=== PATIENT | female | born 1940 | race Caucasian/White ===

== ENCOUNTER 2021-07-23 13:07 | Observation (INO) ==
[2021-07-23 14:05] LABS: Basophils # (auto) 0.02 K/uL (0-0.2); Basophils % (auto) 0.3 %; Eosinophils # (auto) 0.04 K/uL (0-0.5); Eosinophils % (auto) 0.6 %; Hematocrit (blood only) 40.1 % (37-47); Hemoglobin 13.3 g/dL (12.0-16.0); Immature Granulocytes # (auto) 0.05 K/uL (0.00-0.02); Immature Granulocytes % (auto) 0.8 %; Lymphocytes # (auto) 0.87 K/uL (1.2-3.4); Lymphocytes % (auto) 13.1 %; Mean Corpuscular Hemoglobin 30.6 pg (25-34); Mean Corpuscular Hgb Conc 33.2 g/dL (32-36); Mean Corpuscular Volume 92.2 fL (80-100); Mean Platelet Volume 10.9 fL (7.4-10.4); Monocytes # (auto) 0.62 K/uL (0.11-0.59); Monocytes % (auto) 9.3 %; Neutrophils # (auto) 5.04 K/uL (1.4-6.5); Neutrophils % (auto) 75.9 %; Platelet Count 197 K/uL (130-400); RDW Coefficient of Variation 14.1 % (11.5-14.5); RDW Standard Deviation 48.5 fL (36.4-46.3); Red Blood Count 4.35 M/uL (4.2-5.4); White Blood Count 6.64 K/uL (4.8-10.8)
[2021-07-23 14:24] LABS: BUN Creatinine Ratio 25.9 (10-20); Calcium 9.1 mg/dl (8.5-10.1); Creatinine Clr Calc Pharmacy 41.6 ml/min; Est GFR (African American) 61.1 ml/min; Est GFR (Non-African American) 52.7 ml/min; Potassium 3.7 mmol/L (3.5-5.1)
--- NOTE | 2021-07-23 14:31 | XRay Report ---
XR chest 1V portable HISTORY: 81 years-old Female weakness acute weakness COMPARISON: Chest radiographs 09/22/2012 TECHNIQUE: Portable upright AP view the chest FINDINGS: There is a fractured 3.4 cm needle of the lateral aspect of the lower right upper arm. Degenerative c hanges of the shoulders and spine include severe left glenohumeral osteoarthritis. The heart is upper limits of normal in size. Calcified plaque the thoracic aorta. No pneumothorax, pl eural effusion, airspace consolidation or overt pulmonary edema. IMPRESSION: 1. No acute cardiopulmonary abnormality. 2. 3.4 cm fractured needle foreign body of the right upper arm. ACT 112: Negative or not required by law. The above report was generated using voice recognition software. It may contain grammatical, syntax o r spelling errors. Electronically signed by: Ariel Real M.D. 07/23/2021 2:30 PM
[2021-07-23 14:35] LABS: Albumin Globulin Ratio 0.9 (0.9-2); Bilirubin,Total 0.6 mg/dl (0.2-1); Globulin 3.4 gm/dl (2.5-4.0); Thyroid Stimulating Hormone 0.862 uIu/ml (0.300-4.500); Total Protein 6.4 gm/dl (6.4-8.2)
[2021-07-23 14:53] LABS: Appearance Urine Cloudy (Clear); Bacteria Urine Automated Negative (Negative); Bilirubin Urine Negative (Negative); Blood Urine Negative (Negative); Color Urine Dark Yellow; Epithelial Cell Urine Auto >30 /lpf (0-5); Glucose Urine UA Negative (Negative); Ketones Urine 1+ (Negative); Leukocyte Esterase Urine 1+ (Negative); Nitrite Urine Negative (Negative); Protein Urine Negative (Negative); Urobilinogen Urine Negative (Negative); pH Urine 5.5 (4.5-7.5)
[2021-07-23 15:41] LABS: Calcium Oxalate Crystals Urine Present (None Prsent); RBC Urine Automated 0-4 /hpf (0-4)
--- NOTE | 2021-07-23 16:19 | XRay Report ---
XR ankle LT min 3V routine CLINICAL HISTORY: non-traumatic pain COMPARISON: Left foot radiographs November 02, 2019. MRI of the left foot November 11, 2019. FINDINGS: Pes planus deformity is noted on lateral projection. This is unchanged since prior radiogr aphs. Lateral ankle soft tissue swelling is noted. There is no acute fracture within the left ankle. There is suspected osteopenia. IMPRESSION: 1. No acute fracture or dislocation within the left ankle. 2. Lateral ankle soft tissue swelling. 3. Pes planus deformity. ACT 112: Negative or not required by law. Electronically signed by: Dmitriy Bills M.D. 07/23/2021 4:17 PM
--- NOTE | 2021-07-23 16:20 | XRay Report ---
XR hip LT min 2V HISTORY: 81 years-old Female pain, no trauma acute left hip pain status post fall COMPARISON: KUB 09/27/2012 TECHNIQUE: 2 views of the left hip FINDINGS: Demineralized appearance of the bones. Mild to moderate left hip osteoarthritis. No acute fracture, d islocation or avascular necrosis. IMPRESSION: No acute fracture or dislocation. ACT 112: Negative or not required by law. The above report was generated using voice recognition software. It may contain grammatical, syntax o r spelling errors. Electronically signed by: Ariel Real M.D. 07/23/2021 4:19 PM
--- NOTE | 2021-07-23 16:20 | XRay Report ---
XR ankle RT min 3V routine CLINICAL HISTORY: non-traumatic pain COMPARISON: None FINDINGS: Alignment of the right ankle is anatomic. There is no acute fracture. Mild plantar calcane al spurring is noted. There is mild osteophytosis is present. There is probable osteopenia. IMPRESSION: No acute fracture or dislocation within the left ankle. ACT 112: Negative or not required by law. Electronically signed by: Dmitriy Bills M.D. 07/23/2021 4:18 PM
--- NOTE | 2021-07-23 17:30 | Emergency Department Note ---
Impression & Plan Generalized weakness, Bilateral edema of lower extremity, DVT (deep venous thrombosis) ED Provider Note INFORMANT: Patient ED PROVIDER(S): Abdulaziz Kumar MD CHIEF COMPLAINT: Weakness PLAN: Disposition: Admitted Condition: Good Outpatient prescription management: none Referral: None MEDICAL DECISION MAKING: Patient presented due to weakness. She also noted lower extremity edema. She was complaining of pain in the ankles as well. Chest x-ray was performed and was negative. Her x-rays of her left hip on the left as well as both ankles did not reveal acute pathology. Had unremarkable blood work. The patient's ECG did not reveal any acute findings. Ultrasound imaging was performed of the lower extremities and was positive for left sided. There was question about it to the artery aneurysm as well. Bowers's cyst noted. I discussed the case with the patient's daughter at her request. The daughter noted patient has had a significant decline recently. She has not been doing well and seems to be having issues with depression. I discussed admission to the hospital for further management and the patient and daughter were very much in agreement. Consultation was made with the [facility] service. Patient evaluated in the ER and admitted for further management. Triage Nursing notes reviewed and agree them. Vital Signs: reviewed and remarkable for no significant abnormalities Differential diagnosis: Infection, dehydration, metabolic abnormality, hypo/hyperglycemia, electrolyte disturbance, anemia, hypoxia, cardiac sources, intracerebral event, toxicologic, neurologic, DVT, infection, as well as other pathologies. Diagnostics interpreted by me: EC Lead ECG performed and revealed Normal sinus rhythym at 80 bpm, normal [place], QRS normal. No elevation or depression. No PACs or PVCs Cardiac Monitoring: Cardiac monitoring ordered by me: The patient was placed on continuous cardiac monitoring and observed. It revealed a normal sinus rhythm at 87 beats per minute without ectopy or evidence of dysrhythmia. Imaging studies: X-ray imaging of the hip, ankle left, ankle right and chest did not reveal any acute pathology. I refer you to the EMR for further details. Of note there was a fractured needle noted in the right arm on chest x-ray. There was no findings that correlated on physical examination. 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 HPI: The patient is a 81 year old female who presents to the Emergency Room with complaints of a fall. This started over the last week and is progressing. The patient also notes the following associated symptoms, bilateral lower extremity leg swelling and scattered bruising. Patient has some chronic pain in her right shoulder and arm that is been going on for many months and is scheduled to see orthopedics. She does not feel that she injured her arm in fall. She denies any significant injury from the fall. The patient has taken no medication for relieving factors. Current pain is rated as 4/10. Pt denies LOC, headache, fevers, chills, diaphoresis, visual changes, neck pain, chest pain, breathing difficulties, nausea, vomiting, abdominal pain, back pain, melena, hematochezia, urinary symptoms, numbness, lymphadenopathy, rash, or other complaints. ROS: See above HPI for pertinent positives & negatives. A total of 10 systems reviewed and were otherwise negative. PAST MEDICAL HISTORY:See Below , degenerative joint disease, osteoarthritis, hypertension 1+ PAST SURGICAL HISTORY:See Below, FAMILY HISTORY:Lives with daughter SOCIAL HISTORY:See Below, HOME MEDICATIONS:See Below ALLERGIES:See Below VITALS:See Below PHYSICAL EXAMINATION: GENERAL: Awake, alert, well-appearing, in no distress HENT: Normocephalic, atraumatic. Oropharynx unremarkable. EYES: Normal conjunctiva. Sclera non-icteric. NECK: Inspection normal. Non-tender. Supple. No nuchal rigidity. FROM. No masses. RESPIRATORY: Clear to auscultation. No wheezes. No rales. Normal respiratory effort. CARDIAC: Normal rate. Normal rhythm. No murmurs. No rubs. Extremities warm and well perfused. Pulses equal. No JVD. GI: Soft, non-distended. No tenderness to palpation. No rebound or guarding. No masses. RECTAL: Deferred. MUSCULOSKELETAL: Atraumatic. Chest examination reveals no tenderness. The back is symmetrical on inspection without obvious abnormality. There is no CVA tenderness to palpation. No joint edema. LOWER EXTREMITIES: Calves are equal size bilaterally and non-tender. 1+ edema. Scattered posterior bruises and ecchymotic. NEURO: Normal sensorium. No sensory or motor deficits noted. SKIN: No rash or jaundice noted. Abdulaziz Kumar MD Past Med/Surg History Medical History (Updated 07/23/21 @ 20:40 by Michael Montano MD) Arthritis Heart enlargement PT REPORTS FOUND HEART ENLARGEMENT AND LIVER ENLARGEMENT FOUND ON MRI IN 2012 WHEN HAD KIDNEY STONES ...TREATED AT [facility] FOR KIDNEY STONES History of anesthesia reaction "BRAIN FOG" AFTER SURGERIES - CAN'T REMEMBER WHAT DAY IT IS FOR AWHILE History of asthma History of falling HX MULTIPLE FALLS, NONE FOR OVER 1 YR History of kidney stones Hypertension Thumb problem Surgical History History of bilateral breast reduction surgery History of cataract surgery RT History of colonoscopy History of dental surgery History of surgery SKIN BOIL LANCED AND REMOVED History of surgery BONE TUMOR REMOVED - LEFT LEG TEENAGER History of surgery CYST ON BACK REMOVED Family History Other Cancer Family history of diabetes mellitus Heart disease Social History Smoking Status: Never smoker Hx Alcohol Use: Yes Hx Substance Use: No Preferred Language: Irish Communication Ability: Effective Callisthenics Instructor Required: No Beliefs That Will Affect Care: None marital status: Single Current Living Situation: Alone Current Living Situation Comment: DAUGHTER LIVES NEAR BY [facility] VISITS HOME HEALTH VISITS ON REQUEST current occupational status: retired Feels Safe at Home: Yes Assistive Devices: Walker and Wheelchair Allergies Allergies Allergy/AdvReac Type Severity Reaction Status Date / Time cefaclor AdvReac Mild NAUSEA Verified 04/09/21 08:54 Home Meds Home Medications Medication Instructions Recorded Confirmed amlodipine 10 mg tablet 10 mg PO HS 08/18/19 07/23/21 cholecalciferol (vitamin D3) 25 1,000 unit PO HS 08/18/19 07/23/21 mcg (1,000 unit) capsule (Vitamin D3) losartan 100 mg tablet 100 mg PO HS 08/18/19 07/23/21 vitamins A,C,U-orqa-fclsrr 7,160 1 tab PO HS 08/18/19 07/23/21 unit-113 mg-100 unit tablet (PreserVision AREDS) lidocaine 5 % topical ointment 1 applic TOPICAL UD PRN 07/23/21 07/23/21 Previous Rx's Medication Instructions Recorded Bedside Commode #1 ea 08/19/19 Lift Chair #1 ea 08/19/19 Shower Chair #1 ea 08/19/19 diclofenac sodium 1 % topical gel 4 g TOPICAL TID PRN #100 g 06/25/21 (Voltaren Arthritis Pain) apixaban 5 mg (74 tabs) tablets in See Rx Instructions .ROUTE 07/24/21 a dose pack .COMPLEX #74 ea Results & Data (ED) Vital Signs Vital Signs - 24 hr 07/23/21 18:42 07/23/21 19:00 07/23/21 19:30 Pulse Rate [Left] 87 Pulse Rate from SpO2 Sensor 83 74 71 Pulse Rhythm [Left] Regular Pulse Strength [Left] Normal Respiratory Rate 19 Respiratory Effort / Characteristics Non-Labored Respiratory Depth Normal Respiratory Pattern Regular Blood Pressure Blood Pressure [Left Arm] 141/89 H Blood Pressure Mean Blood Pressure Mean [Left Arm] 106 Blood Pressure Position [Left Arm] Sitting Pulse Oximetry 98 95 97 Oxygen Delivery Method Room Air 07/23/21 20:00 Pulse Rate [Left] Pulse Rate from SpO2 Sensor 69 Pulse Rhythm [Left] Pulse Strength [Left] Respiratory Rate Respiratory Effort / Characteristics Respiratory Depth Respiratory Pattern Blood Pressure 137/91 Blood Pressure [Left Arm] Blood Pressure Mean 106 Blood Pressure Mean [Left Arm] Blood Pressure Position [Left Arm] Pulse Oximetry 98 Oxygen Delivery Method Laboratory Data Result diagrams: 07/24/21 07:52 07/24/21 07:52 Lab Results 07/23/21 07/23/21 07/23/21 Range/Units 13:51 13:51 13:51 WBC 6.64 (4.8-10.8) K/uL RBC 4.35 (4.2-5.4) M/uL Hgb 13.3 (12.0-16.0) g/dL Hct 40.1 (37-47) % MCV 92.2 (80-100) fL MCH 30.6 (25-34) pg MCHC 33.2 (32-36) g/dL RDW Std Deviation 48.5 H (36.4-46.3) fL RDW Coeff of Adam 14.1 (11.5-14.5) % Plt Count 197 (130-400) K/uL MPV 10.9 H (7.4-10.4) fL Immature Gran % (Auto) 0.8 % Neut % (Auto) 75.9 % Lymph % (Auto) 13.1 % [place] % (Auto) 9.3 % Eos % (Auto) 0.6 % Baso % (Auto) 0.3 % Neut # (Auto) 5.04 (1.4-6.5) K/uL Lymph # (Auto) 0.87 L (1.2-3.4) K/uL [place] # (Auto) 0.62 H (0.11-0.59) K/uL Eos # (Auto) 0.04 (0-0.5) K/uL Baso # (Auto) 0.02 (0-0.2) K/uL Immature Gran # (Auto) 0.05 H (0.00-0.02) K/uL Sodium 142 (136-145) mmol/L Potassium 3.7 (3.5-5.1) mmol/L Chloride 111 H (98-107) mmol/L Carbon Dioxide 23 (21-32) mmol/L Anion Gap 8.0 (3-11) BUN 26 H (7-18) mg/dl Creatinine 0.99 (0.6-1.2) mg/dl Est Cr Clr Drug Dosing 41.6 ml/min Est GFR ( Amer) 61.1 ml/min Est GFR (Non-Af Amer) 52.7 ml/min BUN/Creatinine Ratio 25.9 H (10-20) Glucose 110 H (70-99) mg/dl Calcium 9.1 (8.5-10.1) mg/dl Total Bilirubin 0.6 (0.2-1) mg/dl AST 16 (15-37) U/L ALT 19 (12-78) U/L Alkaline Phosphatase 136 H (45-117) U/L Total Protein 6.4 (6.4-8.2) gm/dl Albumin 3.0 L (3.4-5.0) gm/dl Globulin 3.4 (2.5-4.0) gm/dl Albumin/Globulin Ratio 0.9 (0.9-2) TSH 0.862 (0.300-4.500) uIu/ml Urine Color Urine Appearance (Clear) Urine pH (4.5-7.5) Ur Specific [place] (1.000-1.030) Urine Protein (Negative) Urine Glucose (UA) (Negative) Urine Ketones (Negative) Urine Blood (Negative) Urine Nitrite (Negative) Urine Bilirubin (Negative) Urine Urobilinogen (Negative) Ur Leukocyte Esterase (Negative) Urine WBC (Auto) (0-5) /hpf Urine RBC (Auto) (0-4) /hpf U Hyaline Cast (Auto) (0-5) /lpf U Epithel Cells (Auto) (0-5) /lpf Urine Bacteria (Auto) (Negative) Urine Crystals (None Prsent) Calcium Oxalate Crystal (None Prsent) Lyme Disease IgG Ab Negative (Negative) Lyme Disease IgM Ab Negative (Negative) COVID-19 Eval Order SARS-CoV-2 (PCR) (Negative) 07/23/21 07/23/21 07/23/21 Range/Units 14:05 18:05 18:05 WBC (4.8-10.8) K/uL RBC (4.2-5.4) M/uL Hgb (12.0-16.0) g/dL Hct (37-47) % MCV (80-100) fL MCH (25-34) pg MCHC (32-36) g/dL RDW Std Deviation (36.4-46.3) fL RDW Coeff of [place] (11.5-14.5) % Plt Count (130-400) K/uL MPV (7.4-10.4) fL Immature Gran % (Auto) % Neut % (Auto) % Lymph % (Auto) % [place] % (Auto) % Eos % (Auto) % Baso % (Auto) % Neut # (Auto) (1.4-6.5) K/uL Lymph # (Auto) (1.2-3.4) K/uL [place] # (Auto) (0.11-0.59) K/uL Eos # (Auto) (0-0.5) K/uL Baso # (Auto) (0-0.2) K/uL Immature Gran # (Auto) (0.00-0.02) K/uL Sodium (136-145) mmol/L Potassium (3.5-5.1) mmol/L Chloride (98-107) mmol/L Carbon Dioxide (21-32) mmol/L Anion Gap (3-11) BUN (7-18) mg/dl Creatinine (0.6-1.2) mg/dl Est Cr Clr Drug Dosing ml/min Est GFR ( Amer) ml/min Est GFR (Non-Af Amer) ml/min BUN/Creatinine Ratio (10-20) Glucose (70-99) mg/dl Calcium (8.5-10.1) mg/dl Total Bilirubin (0.2-1) mg/dl AST (15-37) U/L ALT (12-78) U/L Alkaline Phosphatase (45-117) U/L Total Protein (6.4-8.2) gm/dl Albumin (3.4-5.0) gm/dl Globulin (2.5-4.0) gm/dl Albumin/Globulin Ratio (0.9-2) TSH (0.300-4.500) uIu/ml Urine Color Dark Yellow Urine Appearance Cloudy A (Clear) Urine pH 5.5 (4.5-7.5) Ur Specific [place] 1.020 (1.000-1.030) Urine Protein Negative (Negative) Urine Glucose (UA) Negative (Negative) Urine Ketones 1+ H (Negative) Urine Blood Negative (Negative) Urine Nitrite Negative (Negative) Urine Bilirubin Negative (Negative) Urine Urobilinogen Negative (Negative) Ur Leukocyte Esterase 1+ H (Negative) Urine WBC (Auto) 5-10 H (0-5) /hpf Urine RBC (Auto) 0-4 (0-4) /hpf U Hyaline Cast (Auto) 1-5 (0-5) /lpf U Epithel Cells (Auto) >30 H (0-5) /lpf Urine Bacteria (Auto) Negative (Negative) Urine Crystals Calcium Oxalate A (None Prsent) Calcium Oxalate Crystal Present A (None Prsent) Lyme Disease IgG Ab (Negative) Lyme Disease IgM Ab (Negative) COVID-19 Eval Order Covid19 at [facility] SARS-CoV-2 (PCR) NEGATIVE (Negative) Administered Medications Discontinued Medications Apixaban (Apixaban 5 Mg Tablet) 5 mg PO NOW STA Stop: 07/23/21 20:59 Last Admin: 07/23/21 22:10 Dose: 5 mg Documented by: [id number] Apixaban (Apixaban 5 Mg Tablet) 5 mg PO BID YAEL Stop: 08/23/21 08:59 Last Admin: 07/24/21 10:05 Dose: 5 mg Documented by: [id number] Ceftriaxone Sodium (Rocephin) 1,000 mg in 50 mls @ 100 mls/hr IV NOW STA Stop: 07/23/21 21:26 Last Infusion: 07/23/21 22:58 Dose: 0 mls/hr Documented by: [id number] Admin: 07/23/21 22:05 Dose: 100 mls/hr Documented by: [id number] Ceftriaxone Sodium 1,000 mg/ (Dextrose) 60 mls @ 100 mls/hr IV NOW STA; Protocol Stop: 07/24/21 12:17 Last Infusion: 07/24/21 13:36 Dose: 0 mls/hr Documented by: [id number] Admin: 07/24/21 12:40 Dose: 100 mls/hr Documented by: [id number] Ioversol (Optiray 320 125ml) 120 ml IV ONCE ONE Stop: 07/24/21 13:56 Last Admin: 07/24/21 13:56 Dose: 120 ml Documented by: [id number] Losartan Potassium (Losartan Potassium 50 Mg Tab) 100 mg PO HS YAEL Stop: 08/22/21 22:31 Last Admin: 07/23/21 23:24 Dose: 100 mg Documented by: [id number] Imaging Data Radiologist's Impression: Chest X-Ray 07/23/21 13:52 XR chest 1V portable HISTORY: 81 years-old Female weakness acute weakness COMPARISON: Chest radiographs 09/22/2012 TECHNIQUE: Portable upright AP view the chest FINDINGS: There is a fractured 3.4 cm needle of the lateral aspect of the lower right upper arm. Degenerative changes of the shoulders and spine include severe left glenohumeral osteoarthritis. The heart is upper limits of normal in size. Calcified plaque the thoracic aorta. No pneumothorax, pleural effusion, airspace consolidation or overt pulmonary edema. IMPRESSION: 1. No acute cardiopulmonary abnormality. 2. 3.4 cm fractured needle foreign body of the right upper arm. ACT 112: Negative or not required by law. The above report was generated using voice recognition software. It may contain grammatical, syntax or spelling errors. Electronically signed by: Ariel Real M.D. 07/23/2021 2:30 PM Venous Doppler Study 07/23/21 15:53 BILATERAL LOWER EXTREMITY VENOUS DOPPLER HISTORY: Acute pain and swelling of the bilateral lower legs eval for dvt COMPARISON STUDY: Doppler study 10/28/2019 FINDINGS: There is normal compressibility, flow, and augmentation within the right lower extremity deep venous structures. There is a 2.3 x 5.3 x 1.0 cm complex right-sided popliteal cyst. There is an additional multilocular cystic structure within the popliteal fossa with probable color flow. Hypoechoic 2.6 x 2.8 x 2.1 cm structure within the popliteal fossa without color flow is indeterminate. Nonocclusive thrombus involves one of the duplicated left peroneal veins. Complex left popliteal cyst measures 2.1 x 4.9 x 2.1 cm. 1.0 x 1.2 x 0.8 cm hypoechoic structure of the popliteal fossa. IMPRESSION: 1. Left lower extremity deep venous thrombus. 2. No right lower extremity deep venous thrombi. 3. Bilateral complex Bowers's cyst. 4. Indeterminate complex cystic structure of the right popliteal fossa measuring up to 2.8 cm with probable color flow. This could be correlated with a nonemergent CT to exclude a popliteal arterial aneurysm. ACT 112: Negative or not required by law. Electronically signed by: Ariel Real M.D. 07/23/2021 5:45 PM Ankle X-Ray 07/23/21 15:54 XR ankle LT min 3V routine CLINICAL HISTORY: non-traumatic pain COMPARISON: Left foot radiographs November 02, 2019. MRI of the left foot November 11, 2019. FINDINGS: Pes planus deformity is noted on lateral projection. This is unchanged since prior radiographs. Lateral ankle soft tissue swelling is noted. There is no acute fracture within the left ankle. There is suspected osteopenia. IMPRESSION: 1. No acute fracture or dislocation within the left ankle. 2. Lateral ankle soft tissue swelling. 3. Pes planus deformity. ACT 112: Negative or not required by law. Electronically signed by: Dmitriy Bills M.D. 07/23/2021 4:17 PM Ankle X-Ray 07/23/21 15:54 XR ankle RT min 3V routine CLINICAL HISTORY: non-traumatic pain COMPARISON: None FINDINGS: Alignment of the right ankle is anatomic. There is no acute fracture. Mild plantar calcaneal spurring is noted. There is mild osteophytosis is present. There is probable osteopenia. IMPRESSION: No acute fracture or dislocation within the left ankle. ACT 112: Negative or not required by law. Electronically signed by: Dmitriy Bills M.D. 07/23/2021 4:18 PM Hip X-Ray 07/23/21 15:54 XR hip LT min 2V HISTORY: 81 years-old Female pain, no trauma acute left hip pain status post fall COMPARISON: KUB 09/27/2012 TECHNIQUE: 2 views of the left hip FINDINGS: Demineralized appearance of the bones. Mild to moderate left hip osteoarthritis. No acute fracture, dislocation or avascular necrosis. IMPRESSION: No acute fracture or dislocation. ACT 112: Negative or not required by law. The above report was generated using voice recognition software. It may contain grammatical, syntax or spelling errors. Electronically signed by: Ariel Real M.D. 07/23/2021 4:19 PM Discharge Plan Visit Data Chief Complaint: Fall Stated Complaint: FELL, REFERRED BY DOCTOR, LEFT LEG PAIN ED Provider: Abdulaziz Kumar Discharge Problem: Generalized weakness, Bilateral edema of lower extremity, DVT (deep venous thrombosis) Patient Disposition: Admitted As Inpatient Discharge Instructions Interventions: ED Discharge Assessment Last Done: 07/23/21 22:00
--- NOTE | 2021-07-23 17:46 | Ultrasound Report ---
BILATERAL LOWER EXTREMITY VENOUS DOPPLER HISTORY: Acute pain and swelling of the bilateral lower legs eval for dvt COMPARISON STUDY: Doppler study 10/28/2019 FINDINGS: There is normal compressibility, flow, and augmentation within the right lower extremity de ep venous structures. There is a 2.3 x 5.3 x 1.0 cm complex right-sided popliteal cyst. There is an a dditional multilocular cystic structure within the popliteal fossa with probable color flow. Hypoecho ic 2.6 x 2.8 x 2.1 cm structure within the popliteal fossa without color flow is indeterminate. Nonocclusive thrombus involves one of the duplicated left peroneal veins. Complex left popliteal cyst measures 2.1 x 4.9 x 2.1 cm. 1.0 x 1.2 x 0.8 cm hypoechoic structure of the popliteal fossa. IMPRESSION: 1. Left lower extremity deep venous thrombus. 2. No right lower extremity deep venous thrombi. 3. Bilateral complex Bowers's cyst. 4. Indeterminate complex cystic structure of the right popliteal fossa measuring up to 2.8 cm with pr obable color flow. This could be correlated with a nonemergent CT to exclude a popliteal arterial ane urysm. ACT 112: Negative or not required by law. Electronically signed by: Ariel Real M.D. 07/23/2021 5:45 PM
[2021-07-23 19:05] LABS: Lyme Ab IgG w/WB Rflx Negative (Negative); Lyme Ab IgM w/WB Rflx Negative (Negative)
--- NOTE | 2021-07-23 19:14 | History & Physical Report ---
Date of Service July 23, 2021 Assessment & Plan (1) Fall: Plan: 81 y/o F w/ PMHx of arthritis, osteopenia, and falls who presents s/p mechanical fall at home today, most likely secondary to physical deconditioning. - PT/OT evals - consult business performance analyst for likely malnutrition - treat UTI - check tick borne studies - xr ankle neg for fx. not suspecting fx of other location given e.g. lack of hip pain. (2) DVT (deep venous thrombosis): Plan: - new, acute, unprovoked. no obvious risk factor. - the DVT is nonocclusive and is at one of the duplicated left peroneal veins. - treat w/ apixaban 5mg BID (avoid 1st of 10mg dose given age and weight) (3) Generalized weakness: Plan: - mostly muscle weakness, symmetric, all 4 extremities - lower suspicion for myopathy as her arthralgia are described as unrelated and she denies myalgia - lyme Ab neg. given slight elevation in alk phos (most likely from osteopenia / bone turnover), will check anaplasma and babesia smear. - lower suspicion for UTI as contributor, though w/ worsening of generalized wkness and ambulatory dysfunction in past 2 wks in context of some urinary symptoms, will consider treating - check b12, folate, CK (4) Bilateral edema of lower extremity: Plan: - chronic and bilateral. patient has had worse in past - Other than LE edema, no other clinical signs of hypervolemia - check echo in AM (5) UTI (urinary tract infection): Plan: - will treat w/ Rocephin 1g IV daily given the UA findings and urinary symptoms. Ceclor allergy mild and many years ago. Culture pending. Calcium oxalate crystals may be dietary related vs dehydration. BUN/Cr ratio 25.9 also supports dehydration. Encourage PO intake. Defer IV fluids at this time awaiting echo. (6) Popliteal cyst: Plan: Per venous duplex US: Indeterminate complex cystic structure of the right popliteal fossa measuring up to 2.8 cm with probable color flow. This could be correlated with a nonemergent CT to exclude a popliteal arterial aneurysm. - nonemergent indication, but consider inpatient vs outpatient CT imaging of R knee (7) Hypertension: Plan: - hold home amlodipine and losartan given current bp of 137/91 Plan: FEN/GI: regular diet. No IV fluids. ppx: apixaban 5 mg PO BID (therapeutic) code: full dispo: med/surg PT/OT evals History of Present Illness Chief Complaint: falls Primary Care Provider: NO PCP Gauri Grijalva is an 81 y/o female w/ PMHx of osteoarthritis, osteopenia and recurrent falls (multiple over the years, 3 times this year) who presents for mechanical fall and found to have bilat lower extremity edema and acute LLE DVT. Earlier today at home, she was moving from wheelchair to eleazar lift. She fell on her buttocks and lay there because she did not have the strength to get back up. Did not hit head. No LOC. Patient lives alone, daughter lives nearby and visits often. Patient attributes her falls to physical deconditioning; her last few falls were d/t her trying to do more activities than she is able. Severity of weakness unchanged during the day. Her arthritic pains vary by joint. Denies hypotensive symptoms, headaches, dizziness. She has some difficulty w/ balance, but no dizziness or room spinning. Describes her pains as arthralgia, not myalgia. Daughter's concern: acute worsening of patient's speed of walking and ability to pick things up in past 2 wks. Past 2 months has had urinary nocturia (5x at night). Some urinary incontinence and urgency, but no dysuria. No recent urinary infections. No hx cancers. Already has 1x/wk home PT and OT through visiting nurses. S/p Pfizer x2. ED course: Bilat ankle and hip xr w/o fracture/dislocation. cxr w/o acute findings. Allergies Allergy/AdvReac Type Severity Reaction Status Date / Time cefaclor AdvReac Mild NAUSEA Verified 04/09/21 08:54 Home Medications Medication Instructions Recorded Confirmed Type amlodipine 10 mg tablet 10 mg PO HS 08/18/19 07/23/21 History cholecalciferol (vitamin D3) 25 1,000 unit PO HS 08/18/19 07/23/21 History mcg (1,000 unit) capsule (Vitamin D3) losartan 100 mg tablet 100 mg PO HS 08/18/19 07/23/21 History meloxicam 15 mg tablet 15 mg PO HS 08/18/19 07/23/21 History vitamins A,C,M-cchn-inrnxb 7,160 1 tab PO HS 08/18/19 07/23/21 History unit-113 mg-100 unit tablet (PreserVision AREDS) Bedside Commode #1 ea 08/19/19 04/09/21 Rx Lift Chair #1 ea 08/19/19 04/09/21 Rx Shower Chair #1 ea 08/19/19 04/09/21 Rx diclofenac sodium 1 % topical gel 4 g TOPICAL TID PRN #100 g 06/25/21 07/23/21 Rx (Voltaren Arthritis Pain) lidocaine 5 % topical ointment 1 applic TOPICAL UD PRN 07/23/21 07/23/21 History Past Med/Surg History Medical History (Updated 07/23/21 @ 20:40 by Michael Montano MD) Arthritis Heart enlargement PT REPORTS FOUND HEART ENLARGEMENT AND LIVER ENLARGEMENT FOUND ON MRI IN 2011 WHEN HAD KIDNEY STONES ...TREATED AT [facility] FOR KIDNEY STONES History of anesthesia reaction "BRAIN FOG" AFTER SURGERIES - CAN'T REMEMBER WHAT DAY IT IS FOR AWHILE History of asthma History of falling HX MULTIPLE FALLS, NONE FOR OVER 1 YR History of kidney stones Hypertension Thumb problem Surgical History History of bilateral breast reduction surgery History of cataract surgery RT History of colonoscopy History of dental surgery History of surgery SKIN BOIL LANCED AND REMOVED History of surgery BONE TUMOR REMOVED - LEFT LEG TEENAGER History of surgery CYST ON BACK REMOVED Family History Other Cancer Family history of diabetes mellitus Heart disease Social History Smoking Status: Never smoker Hx Alcohol Use: Yes Hx Substance Use: No Preferred Language: Uzbek Communication Ability: Effective 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 Occasional chills x several months, mild. Eyes: Denies blurry vision, vision changes ENT: Denies sore throat, sinus pain Cardiovascular: Denies chest pain, palpitations Respiratory: Denies shortness of breath Gastrointestinal: Denies abdominal pain, nausea, vomiting, constipation, diarrhea Genitourinary: See HPI Musculoskeletal: See HPI Endocrine: Hair loss x 1 year Neurological: Denies regular headache, numbness, tingling, focal weakness Physical Exam Physical Exam: General: Grossly A&O. NAD. Cooperative. Conversational. No confusion. HEENT: Atraumatic, normocephalic. EOMI Pulm: CTAB. -wheezes, -rales, -rhonchi. No respiratory distress. Cardiac: RRR, -mrg. Radial pulses intact and symmetrical. 2-3+ ble, worse on left. Very slightly increased warmth at L [place]. Abdominal: Nontender, nondistended, soft. Neuro: Normal strength and sensation of extremities. Msk: No pain on palpation of knees/skins/calves Results & Data Results & Data ([facility]) Vital Signs (Past 12 Hours) Vital Signs vitals reviewed. BPs 140s systolic w/ peak of 166 systolic Temp Pulse Pulse Resp BP BP Pulse Ox 07/23/21 18:42 87 19 141/89 H 97 07/23/21 16:30 73 15 147/79 H 94 07/23/21 16:00 77 16 166/76 H 99 07/23/21 15:30 79 17 155/70 H 97 07/23/21 15:00 80 21 97 07/23/21 14:30 73 16 148/72 H 98 07/23/21 14:05 80 13 98 07/23/21 13:52 83 19 96 07/23/21 13:21 36.7 C 20 148/68 H 96 Laboratory Results cbc wnl. electrolytes wnl. Cr 0.99 (baseline 0.77 10/29/19). egfr 52.7. alk phos 1 36H. TSH 0.862. covid cloudy, 1+ ketones, 1+ leuks, 5-10 wbc. + calcium oxalate crystals. Lyme Ab neg. covid neg. ecg nsr 07/23/21 13:51 07/23/21 13:51 Cardiac Enzymes 07/23/21 Range/Units 13:51 AST 16 (15-37) U/L CBC 07/23/21 Range/Units 13:51 WBC 6.64 (4.8-10.8) K/uL RBC 4.35 (4.2-5.4) M/uL Hgb 13.3 (12.0-16.0) g/dL Hct 40.1 (37-47) % Plt Count 197 (130-400) K/uL Neut # (Auto) 5.04 (1.4-6.5) K/uL Lymph # (Auto) 0.87 L (1.2-3.4) K/uL [place] # (Auto) 0.62 H (0.11-0.59) K/uL Eos # (Auto) 0.04 (0-0.5) K/uL Baso # (Auto) 0.02 (0-0.2) K/uL Comprehensive Metabolic Panel 07/23/21 Range/Units 13:51 Sodium 142 (136-145) mmol/L Potassium 3.7 (3.5-5.1) mmol/L Chloride 111 H (98-107) mmol/L Carbon Dioxide 23 (21-32) mmol/L BUN 26 H (7-18) mg/dl Creatinine 0.99 (0.6-1.2) mg/dl Glucose 110 H (70-99) mg/dl Calcium 9.1 (8.5-10.1) mg/dl AST 16 (15-37) U/L ALT 19 (12-78) U/L Alkaline Phosphatase 136 H (45-117) U/L Total Protein 6.4 (6.4-8.2) gm/dl Albumin 3.0 L (3.4-5.0) gm/dl Intake and Output 07/23/21 07/23/21 07/23/21 06:59 14:59 22:59 Other: Weight 74.3 kg Weight Measurement Method Built in [facility] Patient Weight 07/24/21 06:59 Weight 74.3 kg Diagnostic Findings Chest X-Ray 07/23/21 13:52 XR chest 1V portable HISTORY: 81 years-old Female weakness acute weakness COMPARISON: Chest radiographs 09/22/2012 TECHNIQUE: Portable upright AP view the chest FINDINGS: There is a fractured 3.4 cm needle of the lateral aspect of the lower right upper arm. Degenerative changes of the shoulders and spine include severe left glenohumeral osteoarthritis. The heart is upper limits of normal in size. Calcified plaque the thoracic aorta. No pneumothorax, pleural effusion, airspace consolidation or overt pulmonary edema. IMPRESSION: 1. No acute cardiopulmonary abnormality. 2. 3.4 cm fractured needle foreign body of the right upper arm. ACT 112: Negative or not required by law. The above report was generated using voice recognition software. It may contain grammatical, syntax or spelling errors. Electronically signed by: Ariel Real M.D. 07/23/2021 2:30 PM Venous Doppler Study 07/23/21 15:53 BILATERAL LOWER EXTREMITY VENOUS DOPPLER HISTORY: Acute pain and swelling of the bilateral lower legs eval for dvt COMPARISON STUDY: Doppler study 10/28/2019 FINDINGS: There is normal compressibility, flow, and augmentation within the right lower extremity deep venous structures. There is a 2.3 x 5.3 x 1.0 cm complex right-sided popliteal cyst. There is an additional multilocular cystic structure within the popliteal fossa with probable color flow. Hypoechoic 2.6 x 2.8 x 2.1 cm structure within the popliteal fossa without color flow is indeterminate. Nonocclusive thrombus involves one of the duplicated left peroneal veins. Complex left popliteal cyst measures 2.1 x 4.9 x 2.1 cm. 1.0 x 1.2 x 0.8 cm hypoechoic structure of the popliteal fossa. IMPRESSION: 1. Left lower extremity deep venous thrombus. 2. No right lower extremity deep venous thrombi. 3. Bilateral complex Bowers's cyst. 4. Indeterminate complex cystic structure of the right popliteal fossa measuring up to 2.8 cm with probable color flow. This could be correlated with a nonemergent CT to exclude a popliteal arterial aneurysm. ACT 112: Negative or not required by law. Electronically signed by: Ariel Real M.D. 07/23/2021 5:45 PM Ankle X-Ray 07/23/21 15:54 XR ankle LT min 3V routine CLINICAL HISTORY: non-traumatic pain COMPARISON: Left foot radiographs November 02, 2019. MRI of the left foot November 11, 2019. FINDINGS: Pes planus deformity is noted on lateral projection. This is unchanged since prior radiographs. Lateral ankle soft tissue swelling is noted. There is no acute fracture within the left ankle. There is suspected osteopenia. IMPRESSION: 1. No acute fracture or dislocation within the left ankle. 2. Lateral ankle soft tissue swelling. 3. Pes planus deformity. ACT 112: Negative or not required by law. Electronically signed by: Dmitriy Bills M.D. 07/23/2021 4:17 PM Ankle X-Ray 07/23/21 15:54 XR ankle RT min 3V routine CLINICAL HISTORY: non-traumatic pain COMPARISON: None FINDINGS: Alignment of the right ankle is anatomic. There is no acute fracture. Mild plantar calcaneal spurring is noted. There is mild osteophytosis is present. There is probable osteopenia. IMPRESSION: No acute fracture or dislocation within the left ankle. ACT 112: Negative or not required by law. Electronically signed by: Dmitriy Bills M.D. 07/23/2021 4:18 PM Hip X-Ray 07/23/21 15:54 XR hip LT min 2V HISTORY: 81 years-old Female pain, no trauma acute left hip pain status post fall COMPARISON: KUB 09/27/2012 TECHNIQUE: 2 views of the left hip FINDINGS: Demineralized appearance of the bones. Mild to moderate left hip osteoarthritis. No acute fracture, dislocation or avascular necrosis. IMPRESSION: No acute fracture or dislocation. ACT 112: Negative or not required by law. The above report was generated using voice recognition software. It may contain grammatical, syntax or spelling errors. Electronically signed by: Ariel Real M.D. 07/23/2021 4:19 PM Code Status & VTE Plan Code Status full VTE Prophylaxis Plan VTE Prophylaxis will be ordered: Yes Supervising Physician Co-Signing Physician Notes Patient seen and examined, chart reviewed, case discussed with Dr. Montano and I agree with the assessment and plan as above except as otherwise noted above. 81yo with progressive weakness/deconditioning with recent urinary symptoms and UA +LE, and who is found to have a unprovoked DVT in the setting of increased stasis. General: A&Ox3. NAD. Cooperative. HEENT: Atraumatic, normocephalic. Visual acuity/hearing grossly intact. Pulm: CTAB A&P. -wheezes, -rales, -rhonchi. Symmetrical chest rise. No increase work of breathing. No respiratory distress. Cardiac: RRR, -mrg. Radial pulses intact and symmetrical. Abdominal: Nontender, nondistended, soft. BS present. Ext: Cap refill <2 sec. Warm, dry. Pitting edema bilaterally, L slightly greater than R. Ankle dosriflexion/plantarflexion 5/5 bilat, hip flexion 4-/5 bilat. Sensation to soft touch intact in hands and feet bilat, sensation to temperature intact in feet bilat. All labs and images reviewed Unproked DVT in setting of stasis, recent fall - Nonocclusive - DOAC tx x3mo with Apixaban. 5mg BID, deferred 10mg as nonocclusive and pt at risk of bleeding with older age and numerous falls - No signs of PE UTI - +urinary symptoms onset with pts weakness, UA + for LE. UC pending - Empiric rocephin Weakness, w/ chronic Deconditioning - PT/OT. Discussed w/ pt, higher bar for safety given DOAC tx and multiple recent falls. - Acute on chronic weakness 2/2 UTI R complex cystic structure of the right popliteal fossa measuring up to 2.8 cm with probable color flow. - Nonemergent CT w/ contrast followup for characterization - Opposite leg as DVT - Pt with known bowers cyst and knee injections at the area in the past Resident Activity Tracking Resident Involvement: Resident Care Provided Care Provided: Adult [facility]
[2021-07-23] MEDS ORDERED: cefTRIAXone SODIUM 1,000 MG/50 ML BAG IV STA (20:57)
[2021-07-23] MEDS ORDERED: APIXABAN 5 MG TABLET PO STA (20:58)
[2021-07-23] MEDS ORDERED: ONDANSETRON INJ 2 MG/ML 2 ML VIAL IV PRN (22:32)
[2021-07-23] MEDS ORDERED: POLYETHYLENE (MIRALAX) 17 GM PACK PO PRN (22:32)
[2021-07-23] MEDS ORDERED: ALUMINUM/MAGNESIUM SUSP 30 ML UDC PO PRN (22:32)
[2021-07-23] MEDS ORDERED: ACETAMINOPHEN 325 MG TAB PO PRN (22:32)
[2021-07-23] MEDS ORDERED: DICLOFENAC SOD 1% GEL 100 GM TUBE EXT PRN (22:32)
[2021-07-23] MEDS ORDERED: LOSARTAN POTASSIUM 50 MG TAB PO SCH (22:32)
--- NOTE | 2021-07-24 05:27 | Electrocardiogram Report ---
Test Reason : Blood Pressure : / mmHG Vent. Rate : 080 BPM Atrial Rate : 080 BPM P-R Int : 134 ms QRS Dur : 086 ms QT Int : 378 ms P-R-T Axes : 071 003 065 degrees QTc Int : 435 ms Normal sinus rhythm Normal ECG When compared with ECG of 22-SEP-2012 12:44, Premature ventricular complexes are no longer Present Nonspecific T wave abnormality, improved in Lateral leads Confirmed by Sanju Carson ([id number]) on 07/24/2021 5:26:48 AM Referred By: ED Confirmed By:Sanju Carson
[2021-07-24 08:13] LABS: Basophils # (auto) 0.01 K/uL (0-0.2); Basophils % (auto) 0.2 %; Eosinophils % (auto) 2.1 %; Hematocrit (blood only) 38.6 % (37-47); Hemoglobin 13.1 g/dL (12.0-16.0); Immature Granulocytes # (auto) 0.05 K/uL (0.00-0.02); Lymphocytes # (auto) 1.03 K/uL (1.2-3.4); Lymphocytes % (auto) 21.5 %; Mean Corpuscular Hemoglobin 31.1 pg (25-34); Mean Corpuscular Hgb Conc 33.9 g/dL (32-36); Mean Corpuscular Volume 91.7 fL (80-100); Mean Platelet Volume 10.7 fL (7.4-10.4); Monocytes # (auto) 0.48 K/uL (0.11-0.59); Neutrophils # (auto) 3.11 K/uL (1.4-6.5); Neutrophils % (auto) 65.2 %; Platelet Count 204 K/uL (130-400); RDW Coefficient of Variation 14.1 % (11.5-14.5); RDW Standard Deviation 47.5 fL (36.4-46.3); Red Blood Count 4.21 M/uL (4.2-5.4); White Blood Count 4.78 K/uL (4.8-10.8)
[2021-07-24 08:46] LABS: RBC Morphology Unremarkable
[2021-07-24] MEDS ORDERED: APIXABAN 5 MG TABLET PO SCH (09:00)
[2021-07-24 09:02] LABS: Albumin Globulin Ratio 0.8 (0.9-2); Albumin Level 2.7 gm/dl (3.4-5.0); Bilirubin,Total 0.4 mg/dl (0.2-1); Calcium 8.8 mg/dl (8.5-10.1); Creatinine Clr Calc Pharmacy 76.2 ml/min; Est GFR (African American) 101.1 ml/min; Est GFR (Non-African American) 87.3 ml/min; Globulin 3.3 gm/dl (2.5-4.0); Potassium 3.4 mmol/L (3.5-5.1)
[2021-07-24 09:18] LABS: Folate (Folic Acid) 9.7 ng/ml (>5.38)
[2021-07-24] MEDS ORDERED: cefTRIAXone SODIUM 1,000 MG in DEXTROSE 5% 50 ML IV STA (11:42)
--- NOTE | 2021-07-24 12:46 | Discharge Summary ---
Date of Service July 24, 2021 Admission HPI Per Admitting Provider Gauri Grijalva is an 81 y/o female w/ PMHx of osteoarthritis, osteopenia and recurrent falls (multiple over the years, 3 times this year) who presents for mechanical fall and found to have bilat lower extremity edema and acute LLE DVT. Earlier today at home, she was moving from wheelchair to eleazar lift. She fell on her buttocks and lay there because she did not have the strength to get back up. Did not hit head. No LOC. Patient lives alone, daughter lives nearby and visits often. Patient attributes her falls to physical deconditioning; her last few falls were d/t her trying to do more activities than she is able. Severity of weakness unchanged during the day. Her arthritic pains vary by joint. Denies hypotensive symptoms, headaches, dizziness. She has some difficulty w/ balance, but no dizziness or room spinning. Describes her pains as arthralgia, not myalgia. Daughter's concern: acute worsening of patient's speed of walking and ability to pick things up in past 2 wks. Past 2 months has had urinary nocturia (5x at night). Some urinary incontinence and urgency, but no dysuria. No recent urinary infections. No hx cancers. Already has 1x/wk home PT and OT through visiting nurses. S/p Pfizer x2. ED course: Bilat ankle and hip xr w/o fracture/dislocation. cxr w/o acute findings. Principal Diagnosis Falls at home Left leg DVT Discharge Exam Constitutional WD/WN, vitals as above Eyes EOM intact bilaterally; no conjunctival abnormality ENMT external ear and nose normal, oropharynx normal Neck trachea midline, no thyromegaly normal visual inspection Respiratory normal respiratory effort, lungs clear to auscultation no respiratory distress Cardiovascular RRR, no murmur, no edema Gastrointestinal (Abdomen) Inspection/Auscultation: abdomen normal to inspection; abdomen not distended Musculoskeletal no cyanosis or clubbing, extremities motor strength 5/5 Skin no rashes, warm and dry Neurologic moves all extremities and awake Psychiatric Orientation: alert, oriented to person and cooperative Discharge Data Allergies Allergy/AdvReac Type Severity Reaction Status Date / Time cefaclor AdvReac Mild NAUSEA Verified 04/09/21 08:54 Consultations 07/23/21 17:57 ED Decision to Admit Stat 07/23/21 18:02 ED Decision to Admit Stat Ordered Studies 07/23/21 15:53 US venous doppler LE BI Stat 07/24/21 11:04 CT angio LE RT w inc wo if don Routine Hospital Course (1) Fall: 81 y/o F w/ PMHx of arthritis, osteopenia, and falls who presents s/p mechanical fall at home today, most likely secondary to physical deconditioning. - PT/OT evals indicated she did well enough to return home with health services. Patient felt well enough that she also requested discharge home. (2) DVT (deep venous thrombosis): - new, acute, unprovoked. no obvious risk factor. - the DVT is nonocclusive and is at one of the duplicated left peroneal veins. - Discharged on apixaban with coupon given to patient for first month. There are no dose adjustments for VTE, so 10 mg PO BID x 1 week, then switch to 5 mg BID after that. (3) Generalized weakness: Mostly muscle weakness, symmetric, all 4 extremities. - low suspicion for myopathy as her arthralgia are described as unrelated and she denies myalgia - lyme Ab neg. Anaplasma and babesia smear both negative as well. - B12, folate, CK all normal (4) Bilateral edema of lower extremity: - chronic and bilateral. patient has had worse in past - Other than LE edema, no other clinical signs of hypervolemia - Echo pending, but low concern. O/p f/u with results. (5) UTI (urinary tract infection): - Treated w/ Rocephin 1g IV daily while in the hospital. (6) Popliteal cyst: Per venous duplex US: Indeterminate complex cystic structure of the right popliteal fossa measuring up to 2.8 cm with probable color flow. This could be correlated with a nonemergent CT to exclude a popliteal arterial aneurysm. - Non-emergent indication, but ordered while inpatient. No right popliteal artery aneurysm. Degenerative changes/ganglion cyst. No further follow-up needed. (7) Hypertension: Continue home meds. I certify that this patient is under my care and that I, or a physicians photography assistant working with me, had a face to-face encounter that meets the home health [id number] encounter requirements with this patient. The encounter with the patient was in whole, or in part, for the following medical condition, which is the primary reason for home health care (list medical condition): Poor mobility, Left leg DVT I certify that, based on my findings, the following services are medically necessary home health services: My clinical findings support the need for the above services because: OT Assess ADL Status and Restore Function w ADLs PT Gait and Balance Training, Strengthening and Safety Skilled Nsg Assessment Further, I certify that my clinical findings support that this patient is homebound (i.e. absences from home require considerable and taxing effort and are for medical reasons or roman catholic services or infrequently or of short duration when for other reasons) because: Supportive Aid - Walker Supportive Aid - Wheelchair Transportation Assistance/Unable to Leave Home Unassisted Certification for Home Health Services: Based on the above findings, I certify that this patient is confined to the home and needs intermittent retirement care, physical therapy and/or speech therapy or continues to need occupational therapy. The patient is under my care, and I have initiated the establishment of the plan of care. This patient will be followed by a physician who will periodically review the plan of care. Total Time Total Time Spent Total Time Spent (In Minutes): 35 Discharge Plan Discharge Items Patient Disposition: Home - Home Health Services Reason For Visit: FALL Discharge Diagnosis: Weakness, falls Activity: Resume your previous activity Non-emergency contact: Primary Care Provider Call non-emergency contact if: your symptoms worsen Follow-up/Referrals: Fausto Dahl MD [Primary Care Provider] - 07/30/21 10:30 am (APPT AT [facility] IN [place], [place] [facility]KKI ACOSTA ) Diet: Regular Addtl Attending Provider Instructions: Ms. Grijalva, Kadeem were admitted for a few falls at home. We had you work with PT and OT, and they feel that you are doing well enough to go home with continued health services. We did find a blood clot in your left leg, but it was fairly distal, and we don't think it was contributing significantly to your weakness. We are sending you out on a medication called Eliquis which is a blood thinner that will help dissolve the clot. Unfortunately, you cannot take your Mobic (meloxicam) while on the blood thinner as it can increase your chance of bleeding. We also saw a cyst in your right leg which we did a CT scan of. The results are pending, and we will have you see your PCP in a week to discuss results. You may need to follow up with a vascular surgeon for this at some point. Pending Studies at Discharge: Yes Studies:: CT scan of right knee cyst Stand-Alone Forms: [facility] Verified Identity Pass, Smoking Cessation Medications and DC Order Prescriptions: New apixaban 5 mg (74 tabs) tablets,dose pack See Rx Instructions .ROUTE .COMPLEX Qty: 74 RF: 0 Continued diclofenac sodium [Voltaren Arthritis Pain] 1 % gel 4 g topical TID PRN (Reason: arthritis pain) Qty: 100 RF: 3 (DME) Bedside Commode Misc See Rx Instructions .ROUTE .MEDSUPPLY Qty: 1 RF: 0 (DME) Lift Chair Misc See Rx Instructions .ROUTE .MEDSUPPLY Qty: 1 RF: 0 (DME) Shower Chair Misc See Rx Instructions .ROUTE .MEDSUPPLY Qty: 1 RF: 0 amlodipine 10 mg tablet 10 mg PO HS RF: 0 losartan 100 mg tablet 100 mg PO HS RF: 0 cholecalciferol (vitamin D3) [Vitamin D3] 1,000 unit Capsule 1,000 unit PO HS RF: 0 PreserVision AREDS [id number] Tablet 1 tab PO HS RF: 0 lidocaine 5 % ointment 1 applic topical UD PRN (Reason: Pain) RF: 0 Discontinued meloxicam 15 mg tablet 15 mg PO HS RF: 0 Discharge Orders: Discharge Order (Routine); Ordered 07/24/21 Ordered By: Hammad Kelley Admission Data Admit Date/Time: 07/23/21 20:47 Attending Provider: Hammad Kelley Admit Provider: Michael Montano Primary Care Provider: Fausto Dahl Other Providers: Hammad Kelley ; [place] Other Interventions: Discharge Summary Assessment (RN) Last Done: 07/24/21 14:13 Coding Level of Care Code 69720 OBS Care - Discharge Diagnoses Fall W19.XXXA DVT (deep venous thrombosis) I82.409 Generalized weakness R53.1 Bilateral edema of lower extremity R60.0 UTI (urinary tract infection) N39.0 Popliteal cyst M71.20 Hypertension I10
[2021-07-24] MEDS ORDERED: OPTIRAY 320 125ml IV ONE (13:55)
--- NOTE | 2021-07-24 15:09 | CT Scan Report ---
CT ANGIOGRAPHY OF THE RIGHT LOWER EXTREMITY CLINICAL HISTORY: Abnormal ultrasound. 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 TECHNIQUE: Arterial phase images of the right lower extremity were obtained to the level of the ankle following intravenous injection 120 cc Optiray 320 IV. Sagittal and coronal reconstructions were vie wed as well as maximal intensity projections on an independent 3-D workstation. Automated exposure co ntrol was utilized for the study. A dose lowering technique was utilized adhering to the principles of ALARA. COMPARISON STUDY: Bilateral lower extremity venous Doppler ultrasound July 23, 2021. FINDINGS: No acute fracture or suspicious lesion is identified within the right femur, tibia or fibul a. There is severe tricompartmental joint space narrowing of the right knee with osteophytosis. This represents severe osteoarthritis. A right popliteal cyst is noted. There is a more complex appearing 2.2 x 2.1 cm focus along the posterior aspect of the lateral femoral condyle. This is likely degenera tive. This likely communicates with a tubular multiloculated hypodense focus posterior to the distal lateral right femur. This corresponds to the finding on ultrasound of July 23, 2021. This measures near water attenuation. This may reflect a ganglion cyst. This does not contain contrast. There is n o popliteal artery aneurysm. There is mild atherosclerotic plaque within the right lower extremity. T he right common femoral and superficial femoral arteries are patent without stenosis. There is no layne nosis within the right popliteal artery. There are mild stenoses within the right peroneal and locker room clerk ior tibial arteries which are incompletely imaged on this exam. No severe stenosis is identified with in visualized portions of the right lower extremity. Please note that the foot was not imaged on this exam. IMPRESSION: 1. No right popliteal artery aneurysm. The cystic multiloculated focus posterior to the distal right femur on prior ultrasound is likely degenerative and may reflect a ganglion cyst. 2. Mild atherosclerotic plaque within the right lower extremity. No severe stenosis identified. Mild stenoses within the right posterior tibial and peroneal arteries. 3. Severe right knee osteoarthritis. Trace joint effusion and small popliteal cyst. ACT 112: Negative or not required by law. Electronically signed by: Dmitriy Bills M.D. 07/24/2021 3:07 PM
--- NOTE | 2021-07-24 15:28 | XCELERA ---
[id number]
[2021-07-24] MEDS ORDERED: cefTRIAXone SODIUM 1,000 MG in DEXTROSE 5% 50 ML IV SCH (18:00)
[2021-07-27 14:10] LABS: Babesia microti DNA Not Detected (Not Detected)
== END 2021-07-24 15:15 | disposition home health service (06) ==
LOC: ED 13:07 → 2N 13:07 → SUATTDRO 20:47 → 2N 22:00 → 3N 07-24 09:28

== ENCOUNTER 2022-02-16 14:28 | Observation (INO) ==
--- NOTE | 2022-02-16 14:35 | Emergency Department Note ---
Impression & Plan Brain TIA, Aphasia ED Provider Note NAME: HEATHER CASON AGE: 81 SEX: F : 1940 ARRIVES VIA: Ambulance INFORMANT: Patient, ED PROVIDER(S): Gonzalo Lafleur MD Chief Complaint: Difficulty with speaking HPI: Patient presents with above complaint which occurred around 07 27-11 for approximately greater than 2 hours where she was having difficulty finding her words as well as expressing them. The patient denies any headache chest pain shortness of breath nausea or vomiting. The patient states that she feels as though this is somewhat resolved. The patient has been more focused when speaking currently. The patient denies any diarrhea or infectious symptoms. The patient has any falls trauma headache or neck pain. The patient does have some generalized weakness and does live at home by herself but her daughter does check in on her frequently. 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 The patient also takes metoprolol but no other medications on a regular basis. Patient states that she currently uses a wheelchair to get about. Patient denies any other issues at this time. The patient thinks that maybe she had a similar episode back in 2001. No known history of seizure. ROS: See HPI for pertinent positives and negatives. A total of 10 systems were reviewed and otherwise negative. Past medical history: See below Surgical history: See below Social history: See below Physical Exam: GENERAL: NAD, wearing glasses, wearing a mask, non-toxic. EYE EXAM: Normal conjunctiva. PERRL, no anisocoria and EOM's grossly intact w/o pain. NECK: Supple, no nuchal rigidity, no adenopathy, non-tender. No signs of meningismus. LUNGS: Clear to auscultation. Normal chest wall mechanics. HEART: NSR, no MRG. ABDOMEN: Abdomen soft, non-tender, normo-active bowel sounds, no masses, no rebound or guarding. BACK: No CVA TTP. SKIN: No rashes and no bruising. UPPER EXTREMITIES: Upper extremities are grossly normal. LOWER EXTREMITIES: Grossly normal, no edema. NEURO EXAM: A&O x3, cranial nerves II-XII grossly intact, normal speech, moves all 4 extremities on command w/o issue but generalized weakness throughout. Differential diagnoses: Infection, dehydration, metabolic abnormality, hypo/hyperglycemia, electrolyte disturbance, anemia, hypoxia, cardiac sources, intracerebral event, toxicologic, neurologic, as well as other pathologies. Course: Patient was seen and evaluated the bedside. Full history physical exam was performed. EKG interpreted by me Normal sinus rhythm, rate of 67, normal intervals, normal axis, no ST changes or T WI. Imaging Studies: See Below Cardiac monitoring: An order was placed for continuous cardiac monitoring. The monitor shows a rate of 72 with sinus rhythm. MDM: Patient was seen due to concern for aphasia. Blood work is obtained along with CT head and CT angiography of the head and neck. Patient was noted a TNKase candidate as the patient is already on blood thinning medication and symptoms have resolved. Blood work shows a normal white count H&H and platelet count. The patient's kidney function was unremarkable. COVID- negative. CT head and CT angiography of head and neck are negative. Given the patient's TIA believe the patient would benefit from inpatient treatment observation MRI of the brain and neurology consultation. I did convey these recommendations as well as the findings to the patient patient's family and her bedside. They are in agreement with plan of care. I did speak w/ the on-call hospitalist and the patient was admitted by Dr. Sierra Past Med/Surg History Medical History Arthritis Heart enlargement PT REPORTS FOUND HEART ENLARGEMENT AND LIVER ENLARGEMENT FOUND ON MRI IN 2011 WHEN HAD KIDNEY STONES ...TREATED AT [facility] FOR KIDNEY STONES History of anesthesia reaction "BRAIN FOG" AFTER SURGERIES - CAN'T REMEMBER WHAT DAY IT IS FOR AWHILE History of asthma History of falling HX MULTIPLE FALLS, NONE FOR OVER 1 YR History of kidney stones Hypertension Thumb problem Surgical History History of bilateral breast reduction surgery History of cataract surgery RT History of colonoscopy History of dental surgery History of surgery SKIN BOIL LANCED AND REMOVED History of surgery BONE TUMOR REMOVED - LEFT LEG TEENAGER History of surgery CYST ON BACK REMOVED Family History Other Cancer Family history of diabetes mellitus Heart disease Social History Smoking Status: Never smoker Hx Alcohol Use: Yes Hx Substance Use: No Preferred Language: Sudanese Communication Ability: Effective 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 Beliefs That Will Affect Care: None marital status: Single Current Living Situation: Alone Current Living Situation Comment: DAUGHTER LIVES NEAR BY FREQUENT VISITS HOME HEALTH VISITS ON REQUEST current occupational status: retired Feels Safe at Home: Yes Assistive Devices: Walker and Wheelchair Allergies Allergies Allergy/AdvReac Type Severity Reaction Status Date / Time cefaclor AdvReac Mild NAUSEA Verified 02/16/22 15:42 Home Meds Home Medications Medication Instructions Recorded Confirmed vitamins A,C,G-mwfn-pbihyl 7,160 1 tab PO HS 08/18/19 02/16/22 unit-113 mg-100 unit tablet (PreserVision AREDS) apixaban 5 mg (74 tabs) tablets in 5 mg PO BID 02/16/22 02/16/22 a dose pack metoprolol tartrate 50 mg tablet 50 mg PO BID 02/16/22 02/16/22 Previous Rx's Medication Instructions Recorded Bedside Commode #1 ea 08/19/19 Lift Chair #1 ea 08/19/19 Shower Chair #1 ea 08/19/19 diclofenac sodium 1 % topical gel 4 g TOPICAL QID #300 g 08/13/21 (Voltaren Arthritis Pain) Hospital Bed Homecare #1 ea 11/20/21 Results & Data (ED) Vital Signs Vital Signs - 24 hr 02/16/22 14:43 02/16/22 14:44 02/16/22 14:51 Temperature 37.0 C Temperature Source Oral Pulse Rate 74 69 Pulse Rate from SpO2 Sensor Pulse Rhythm Regular Pulse Strength Normal Respiratory Rate 20 20 18 Respiratory Effort / Characteristics Non-Labored Non-Labored Respiratory Depth Normal Normal Blood Pressure 180/88 H Blood Pressure Mean 118 Blood Pressure Position Lying Pulse Oximetry 93 Oxygen Delivery Method Room Air Sepsis Recent Fever Within 48 Hours No Sepsis New/Unexplained Change in Mental Status No Sepsis Action Taken by Nursing No Action Required 02/16/22 15:00 02/16/22 15:10 02/16/22 15:20 Temperature Temperature Source Pulse Rate 66 59 L 59 L Pulse Rate from SpO2 Sensor Pulse Rhythm Pulse Strength Respiratory Rate 21 18 19 Respiratory Effort / Characteristics Respiratory Depth Blood Pressure Blood Pressure Mean Blood Pressure Position Pulse Oximetry Oxygen Delivery Method Sepsis Recent Fever Within 48 Hours Sepsis New/Unexplained Change in Mental Status Sepsis Action Taken by Nursing 02/16/22 15:30 02/16/22 15:40 02/16/22 15:50 Temperature Temperature Source Pulse Rate 58 L 66 64 Pulse Rate from SpO2 Sensor Pulse Rhythm Pulse Strength Respiratory Rate 21 22 17 Respiratory Effort / Characteristics Respiratory Depth Blood Pressure Blood Pressure Mean Blood Pressure Position Pulse Oximetry Oxygen Delivery Method Sepsis Recent Fever Within 48 Hours Sepsis New/Unexplained Change in Mental Status Sepsis Action Taken by Nursing 02/16/22 16:15 02/16/22 16:20 02/16/22 16:30 Temperature Temperature Source Pulse Rate 84 79 72 Pulse Rate from SpO2 Sensor 85 79 72 Pulse Rhythm Pulse Strength Respiratory Rate 24 18 19 Respiratory Effort / Characteristics Respiratory Depth Blood Pressure Blood Pressure Mean Blood Pressure Position Pulse Oximetry 96 96 96 Oxygen Delivery Method Sepsis Recent Fever Within 48 Hours Sepsis New/Unexplained Change in Mental Status Sepsis Action Taken by Nursing 02/16/22 16:40 02/16/22 16:50 02/16/22 17:00 Temperature Temperature Source Pulse Rate 74 74 73 Pulse Rate from SpO2 Sensor 75 75 74 Pulse Rhythm Pulse Strength Respiratory Rate 18 17 20 Respiratory Effort / Characteristics Respiratory Depth Blood Pressure Blood Pressure Mean Blood Pressure Position Pulse Oximetry 95 97 97 Oxygen Delivery Method Sepsis Recent Fever Within 48 Hours Sepsis New/Unexplained Change in Mental Status Sepsis Action Taken by Nursing 02/16/22 17:08 02/16/22 17:10 02/16/22 17:30 Temperature Temperature Source Pulse Rate 82 Pulse Rate from SpO2 Sensor Pulse Rhythm Pulse Strength Respiratory Rate 20 Respiratory Effort / Characteristics Respiratory Depth Blood Pressure 183/112 H 181/102 H Blood Pressure Mean 135 128 Blood Pressure Position Pulse Oximetry Oxygen Delivery Method Sepsis Recent Fever Within 48 Hours Sepsis New/Unexplained Change in Mental Status Sepsis Action Taken by Nursing 02/16/22 17:40 02/16/22 18:43 Temperature Temperature Source Pulse Rate 84 Pulse Rate from SpO2 Sensor Pulse Rhythm Pulse Strength Respiratory Rate 19 20 Respiratory Effort / Characteristics Non-Labored Respiratory Depth Normal Blood Pressure Blood Pressure Mean Blood Pressure Position Pulse Oximetry Oxygen Delivery Method Sepsis Recent Fever Within 48 Hours Sepsis New/Unexplained Change in Mental Status Sepsis Action Taken by Long Term Medications Current Medication List: was personally reviewed by me Laboratory Data Attestation: I reviewed the patient's lab results. Result diagrams: 02/16/22 14:47 02/16/22 14:47 Lab Results 02/16/22 02/16/22 02/16/22 Range/Units 14:47 14:47 14:47 WBC 7.17 (4.8-10.8) K/uL RBC 5.00 (4.2-5.4) M/uL Hgb 14.2 (12.0-16.0) g/dL Hct 44.1 (37-47) % MCV 88.2 (80-100) fL MCH 28.4 (25-34) pg MCHC 32.2 (32-36) g/dL RDW Std Deviation 55.4 H (36.4-46.3) fL RDW Coeff of Adam 17.0 H (11.5-14.5) % Plt Count 163 (130-400) K/uL MPV 11.7 H (7.4-10.4) fL Immature Gran % (Auto) 0.4 % Neut % (Auto) 67.8 % Lymph % (Auto) 19.9 % Blackford % (Auto) 10.3 % Eos % (Auto) 1.5 % Baso % (Auto) 0.1 % Neut # (Auto) 4.85 (1.4-6.5) K/uL Lymph # (Auto) 1.43 (1.2-3.4) K/uL Blackford # (Auto) 0.74 H (0.11-0.59) K/uL Eos # (Auto) 0.11 (0-0.5) K/uL Baso # (Auto) 0.01 (0-0.2) K/uL Immature Gran # (Auto) 0.03 H (0.00-0.02) K/uL PT 10.9 (9.0-12.0) Seconds INR 1.0 (0.9-1.1) APTT 26.4 (21.0-31.0) Seconds PTT Ratio 1.0 Sodium 141 (136-145) mmol/L Potassium 3.9 (3.5-5.1) mmol/L Chloride 109 H (98-107) mmol/L Carbon Dioxide 25 (21-32) mmol/L Anion Gap 7 (3-11) BUN 24 H (6-23) mg/dl Creatinine 1.15 (0.6-1.2) mg/dl Est Cr Clr Drug Dosing 36.8 ml/min Est GFR ( Amer) 51.0 ml/min Est GFR (Non-Af Amer) 44.0 ml/min BUN/Creatinine Ratio 20.9 H (10-20) Glucose 91 (70-99(Fasting)) mg/dl Calcium 9.0 (8.5-10.1) mg/dl Magnesium 1.9 (1.7-2.4) mg/dl Total Bilirubin 0.7 (0.2-1.0) mg/dl AST 14 (13-39) U/L ALT 12 (7-52) U/L Alkaline Phosphatase 79 (34-104) U/L Troponin I High Sens 10.3 (0-14) pg/ml Total Protein 6.1 (6.0-8.3) gm/dl Albumin 3.8 (3.4-5.0) gm/dl Globulin 2.3 L (2.5-4.0) gm/dl Albumin/Globulin Ratio 1.7 (0.9-2) SARS-CoV-2, RNA, NAAT (NEGATIVE) 02/16/22 Range/Units 16:32 WBC (4.8-10.8) K/uL RBC (4.2-5.4) M/uL Hgb (12.0-16.0) g/dL Hct (37-47) % MCV (80-100) fL MCH (25-34) pg MCHC (32-36) g/dL RDW Std Deviation (36.4-46.3) fL RDW Coeff of Adam (11.5-14.5) % Plt Count (130-400) K/uL MPV (7.4-10.4) fL Immature Gran % (Auto) % Neut % (Auto) % Lymph % (Auto) % Blackford % (Auto) % Eos % (Auto) % Baso % (Auto) % Neut # (Auto) (1.4-6.5) K/uL Lymph # (Auto) (1.2-3.4) K/uL Blackford # (Auto) (0.11-0.59) K/uL Eos # (Auto) (0-0.5) K/uL Baso # (Auto) (0-0.2) K/uL Immature Gran # (Auto) (0.00-0.02) K/uL PT (9.0-12.0) Seconds INR (0.9-1.1) APTT (21.0-31.0) Seconds PTT Ratio Sodium (136-145) mmol/L Potassium (3.5-5.1) mmol/L Chloride (98-107) mmol/L Carbon Dioxide (21-32) mmol/L Anion Gap (3-11) BUN (6-23) mg/dl Creatinine (0.6-1.2) mg/dl Est Cr Clr Drug Dosing ml/min Est GFR ( Amer) ml/min Est GFR (Non-Af Amer) ml/min BUN/Creatinine Ratio (10-20) Glucose (70-99(Fasting)) mg/dl Calcium (8.5-10.1) mg/dl Magnesium (1.7-2.4) mg/dl Total Bilirubin (0.2-1.0) mg/dl AST (13-39) U/L ALT (7-52) U/L Alkaline Phosphatase (34-104) U/L Troponin I High Sens (0-14) pg/ml Total Protein (6.0-8.3) gm/dl Albumin (3.4-5.0) gm/dl Globulin (2.5-4.0) gm/dl Albumin/Globulin Ratio (0.9-2) SARS-CoV-2, RNA, NAAT NEGATIVE (NEGATIVE) Administered Medications Discontinued Medications Ioversol (Optiray 320 125ml) 119 ml IV ONCE ONE Stop: 02/16/22 16:07 Last Admin: 02/16/22 16:09 Dose: 119 ml Documented by: [id number] Imaging Data Radiologist's Impression: Head CT 02/16/22 14:57 CT head/brain wo con CLINICAL HISTORY: Stroke Like Symptoms . Difficulty speech. Altered mental status and confusion COMPARISON STUDY: No previous studies for comparison. CT DOSE: TECHNIQUE: Standard CT of the Brain was performed without IV contrast. A dose lowering technique was utilized adhering to the principles of ALARA. FINDINGS: Extraaxial space: There is no evidence for subdural hematoma. There are no extra-axial fluid collections. Ventricles and cisterns: The ventricles are mildly dilated bilaterally. There is no evidence for midline shift or mass effect. Parenchyma: There is no subarachnoid or intraparenchymal hemorrhage. There is no evidence for an acute infarct or cerebral edema. There is mild cerebral cortical atrophy and decreased attenuation in the periventricular white matter representing remote small vessel disease. There are no gross mass lesions. Osseous structures: There is no evidence for an acute fracture. The visualized paranasal sinuses are clear. The mastoid air cells are clear bilaterally. Soft tissues: There is no evidence for focal soft tissue swelling. IMPRESSION: 1. No acute intracerebral pathology. 2. Mild cerebral cortical atrophy and remote small vessel disease. ACT 112: Negative or not required by law. Electronically signed by: Florencio Graves M.D. 02/16/2022 4:36 PM Head CTA 02/16/22 14:57 CT angio head w con CLINICAL HISTORY: Stroke Like Symptoms . Difficulty with speech. Altered mental status and confusion COMPARISON STUDY: Noncontrast CT from 02/16/2022 CT DOSE: 1276.63 mGy.cm TECHNIQUE: CT Angio of the brain was performed.followed by image post processing with coronal, and sagittal MIP reformats. Contrast Volume: Optiray 320, 119 ml FINDINGS: Vascular findings: There is normal enhancement within the internal carotid arteries bilaterally. There is normal enhancement noted within the anterior, middle and posterior cerebral arteries. Nonvascular findings: There is homogeneous attenuation of the brain parenchyma bilaterally. There is no evidence for an acute infarct or cerebral edema. IMPRESSION: Negative CT angiogram of the brain with contrast. ACT 112: Negative or not required by law. Electronically signed by: Florencio Graves M.D. 02/16/2022 4:50 PM Neck CTA 02/16/22 14:57 CT angio neck with con CLINICAL HISTORY: Stroke Like Symptoms . Difficulty speaking. Confusion and altered mental status. COMPARISON STUDY: No previous studies for comparison. CT DOSE: TECHNIQUE: CT Angio of the neck was performed.followed by image post processing with coronal, and sagittal MIP reformats.. Stenosis assessment by NASCET criteria. Contrast Volume: Optiray 320, 119 ml FINDINGS: Vascular findings: Right common carotid artery: Patent without significant stenosis. Right internal carotid artery: Patent without significant stenosis. Right vertebral artery: Patent without significant stenosis. There is a dominant right vertebral artery. Left common carotid artery: Patent without significant stenosis. Left internal carotid artery: Patent without significant stenosis. Left vertebral artery: Patent without significant stenosis. Nonvascular findings: The parotid and submandibular salivary glands appear normal. There is no enlarged cervical adenopathy noted. The airway appears patent. The thyroid gland appears within normal limits. The lung apices appear within normal limits. Impression: Essentially negative CT angiogram of the neck with contrast. ACT 112: Negative or not required by law. Electronically signed by: Florencio Graves M.D. 02/16/2022 4:53 PM Brain MRI 02/16/22 17:30 MR brain wo con CLINICAL HISTORY: Headache. Episode of aphasia.. COMPARISON STUDY: No previous studies for comparison. TECHNIQUE: Multiplanar multisequence images of the Brain were performed without IV contrast. FINDINGS: Extra-axial space: There is no evidence for a subdural hematoma, There are no extra-axial fluid collections. Ventricles and cisterns: The ventricles are mildly dilated bilaterally. There is no evidence for midline shift or mass effect. Parenchyma: There is no evidence for an acute hemorrhage or infarct. No acute diffusion abnormalities are noted on diffusion weighted imaging or ADC mapping. There is normal yap-white differentiation. There is mild cerebral cortical atrophy present. The sulci and gyri appear normal without effacement. The midline structures are unremarkable. The posterior fossa structures appear normal. There is no evidence for mass lesion. Osseous structures: The paranasal sinuses are well aerated. There is mild mucosal thickening of the ethmoid air cells. The mastoid air cells are well aerated. Soft tissues: No focal soft tissue abnormalities are identified. IMPRESSION: 1. No acute intracranial abnormalities. 2. Mild cerebral cortical atrophy. 3. Mild mucosal thickening of the ethmoid air cells on the left. ACT 112: Negative or not required by law. Electronically signed by: Florencio Graves M.D. 02/16/2022 7:48 PM Discharge Plan Visit Data Chief Complaint: TIA Symptoms Stated Complaint: aphasia ED Provider: Gonzalo Lafleur Discharge Problem: Brain TIA, Aphasia Patient Disposition: Admitted As Inpatient Forms Stand Alone Forms: [facility] Prescriptions Prescriptions: No Action diclofenac sodium [Voltaren Arthritis Pain] 1 % gel 4 g topical QID Qty: 300 RF: 3 (DME) Hospital Bed Homecare Misc See Rx Instructions .Route Qty: 1 RF: 0 (DME) Bedside Commode Misc See Rx Instructions .ROUTE .MEDSUPPLY Qty: 1 RF: 0 (DME) Lift Chair Misc See Rx Instructions .ROUTE .MEDSUPPLY Qty: 1 RF: 0 (DME) Shower Chair Misc See Rx Instructions .ROUTE .MEDSUPPLY Qty: 1 RF: 0 PreserVision AREDS 7,160-113-100 toad-bo-qquv Tablet 1 tab PO HS RF: 0 metoprolol tartrate 50 mg tablet 50 mg PO BID RF: 0 apixaban 5 mg (74 tabs) tablets,dose pack 5 mg PO BID RF: 0 Referrals Referrals: Fausto Dahl MD [Primary Care Provider] -
--- NOTE | 2022-02-16 15:15 | Electrocardiogram Report ---
Test Reason : Blood Pressure : / mmHG Vent. Rate : 067 BPM Atrial Rate : 067 BPM P-R Int : 156 ms QRS Dur : 088 ms QT Int : 414 ms P-R-T Axes : 052 009 043 degrees QTc Int : 437 ms Normal sinus rhythm with sinus arrhythmia Normal ECG When compared with ECG of 23-JUL-2021 13:58, No significant change was found Confirmed by Sanchez Jaime ([id number]) on 02/16/2022 3:15:43 PM Referred By: Confirmed By:Sanchez Jaime
[2022-02-16 15:27] LABS: Basophils # (auto) 0.01 K/uL (0-0.2); Basophils % (auto) 0.1 %; Eosinophils # (auto) 0.11 K/uL (0-0.5); Eosinophils % (auto) 1.5 %; Hematocrit (blood only) 44.1 % (37-47); Hemoglobin 14.2 g/dL (12.0-16.0); Immature Granulocytes # (auto) 0.03 K/uL (0.00-0.02); Immature Granulocytes % (auto) 0.4 %; Lymphocytes # (auto) 1.43 K/uL (1.2-3.4); Lymphocytes % (auto) 19.9 %; Mean Corpuscular Hemoglobin 28.4 pg (25-34); Mean Corpuscular Hgb Conc 32.2 g/dL (32-36); Mean Corpuscular Volume 88.2 fL (80-100); Mean Platelet Volume 11.7 fL (7.4-10.4); Monocytes # (auto) 0.74 K/uL (0.11-0.59); Monocytes % (auto) 10.3 %; Neutrophils # (auto) 4.85 K/uL (1.4-6.5); Neutrophils % (auto) 67.8 %; Platelet Count 163 K/uL (130-400); RDW Standard Deviation 55.4 fL (36.4-46.3); White Blood Count 7.17 K/uL (4.8-10.8)
[2022-02-16 15:44] LABS: Partial Thromboplastin Time 26.4 Seconds (21.0-31.0); Prothrombin Time 10.9 Seconds (9.0-12.0)
[2022-02-16 15:48] LABS: Albumin Globulin Ratio 1.7 (0.9-2); Albumin Level 3.8 gm/dl (3.4-5.0); BUN Creatinine Ratio 20.9 (10-20); Bilirubin,Total 0.7 mg/dl (0.2-1.0); Creatinine Clr Calc Pharmacy 36.8 ml/min; Globulin 2.3 gm/dl (2.5-4.0); Magnesium 1.9 mg/dl (1.7-2.4); Potassium 3.9 mmol/L (3.5-5.1); Total Protein 6.1 gm/dl (6.0-8.3)
[2022-02-16 15:51] LABS: Troponin I High Sensitivity 10.3 pg/ml (0-14)
[2022-02-16] MEDS ORDERED: OPTIRAY 320 125ml IV ONE (16:06)
--- NOTE | 2022-02-16 16:37 | CT Scan Report ---
CT head/brain wo con CLINICAL HISTORY: Stroke Like Symptoms . Difficulty speech. Altered mental status and confusion COMPARISON STUDY: No previous studies for comparison. CT DOSE: TECHNIQUE: Standard CT of the Brain was performed without IV contrast. A dose lowering technique was utilized adhering to the principles of ALARA. FINDINGS: Extraaxial space: There is no evidence for subdural hematoma. There are no extra-axial fluid collecti ons. Ventricles and cisterns: The ventricles are mildly dilated bilaterally. There is no evidence for midl ine shift or mass effect. Parenchyma: There is no subarachnoid or intraparenchymal hemorrhage. There is no evidence for an acut e infarct or cerebral edema. There is mild cerebral cortical atrophy and decreased attenuation in the periventricular white matter representing remote small vessel disease. There are no gross mass lesio ns. Osseous structures: There is no evidence for an acute fracture. The visualized paranasal sinuses are clear. The mastoid air cells are clear bilaterally. Soft tissues: There is no evidence for focal soft tissue swelling. IMPRESSION: 1. No acute intracerebral pathology. 2. Mild cerebral cortical atrophy and remote small vessel disease. ACT 112: Negative or not required by law. Electronically signed by: Florencio Graves M.D. 02/16/2022 4:36 PM
--- NOTE | 2022-02-16 16:52 | CT Scan Report ---
CT angio head w con CLINICAL HISTORY: Stroke Like Symptoms . Difficulty with speech. Altered mental status and confusion COMPARISON STUDY: Noncontrast CT from 02/16/2022 CT DOSE: 1276.63 mGy.cm TECHNIQUE: CT Angio of the brain was performed.followed by image post processing with coronal, and s agittal MIP reformats. Contrast Volume: Optiray 320, 119 ml FINDINGS: Vascular findings: There is normal enhancement within the internal carotid arteries bilaterally. The re is normal enhancement noted within the anterior, middle and posterior cerebral arteries. Nonvascular findings: There is homogeneous attenuation of the brain parenchyma bilaterally. There is no evidence for an acute infarct or cerebral edema. IMPRESSION: Negative CT angiogram of the brain with contrast. ACT 112: Negative or not required by law. Electronically signed by: Florencio Graves M.D. 02/16/2022 4:50 PM
--- NOTE | 2022-02-16 16:55 | CT Scan Report ---
CT angio neck with con CLINICAL HISTORY: Stroke Like Symptoms . Difficulty speaking. Confusion and altered mental status. COMPARISON STUDY: No previous studies for comparison. CT DOSE: TECHNIQUE: CT Angio of the neck was performed.followed by image post processing with coronal, and sa gittal MIP reformats.. Stenosis assessment by NASCET criteria. Contrast Volume: Optiray 320, 119 ml FINDINGS: Vascular findings: Right common carotid artery: Patent without significant stenosis. Right internal carotid artery: Patent without significant stenosis. Right vertebral artery: Patent without significant stenosis. There is a dominant right vertebral alla ry. Left common carotid artery: Patent without significant stenosis. Left internal carotid artery: Patent without significant stenosis. Left vertebral artery: Patent without significant stenosis. Nonvascular findings: The parotid and submandibular salivary glands appear normal. There is no enlarged cervical adenopathy noted. The airway appears patent. The thyroid gland appears within normal limits. The lung apices ap pear within normal limits. Impression: Essentially negative CT angiogram of the neck with contrast. ACT 112: Negative or not required by law. Electronically signed by: Florencio Graves M.D. 02/16/2022 4:53 PM
--- NOTE | 2022-02-16 18:05 | History & Physical Report ---
Date of Service February 16, 2022 Assessment & Plan (1) TIA (transient ischemic attack): Plan: Patient presents to the hospital on account of word finding difficulty. This completely resolved by the time she came to the emergency department. Patient already on Eliquis for DVT at home. CT angio head and neck and CT head were essentially within normal limits. Will obtain MRI brain Aspirin 81 mg daily Consult neurology (2) DVT (deep venous thrombosis): Plan: Remote history of DVT Patient on Eliquis at home, will continue (3) Generalized weakness: Plan: Patient said that she fell several months ago. Since then she has been having generalized weakness and has been working with physical therapy Continue physical therapy (4) Hypertension: Plan: We will maintain permissive hypertension Will not treat for blood pressures between 160-180 systolic (5) Osteoarthritis of knees, bilateral: Plan: Bilateral osteoarthritis of the knee Continue to work with physical therapy Plan: Continue hospitalization until investigations are completed Anticipated discharge soon if everything is okay Full code Eliquis for DVT History of Present Illness Chief Complaint: Word finding difficulty Primary Care Provider: Fausto Dahl MD This is an 81-year-old female with a history of hypertension, remote DVT on Eliquis who presents to the hospital today on account of word finding difficu lty. Most of the history was obtained from the patient, ED physician and also the daughter who was at the bedside. According to the daughter, around 10:30 AM today the patient's son spoke to her and she was okay however when she spoke to her mother around 12 noon, she noticed that she was having some word finding difficulties. She got consent and then brought her to the hospital. According to the patient, she has had a similar episode about 10 to 15 years ago. This resolved after a few seconds. Today in emergency department, by the time patient presented, all her symptoms had resolved, however when I saw her she said that she thinks she has a slight weakness in her left lower extremity and also her left upper extremity. Although she admits to having some gait issues for which she has been working with physical therapy. CT head and CT angio head and neck were essentially normal, patient will be admitted to the hospital for further investigation for the management. Allergies Allergy/AdvReac Type Severity Reaction Status Date / Time cefaclor AdvReac Mild NAUSEA Verified 02/16/22 15:42 Home Medications Medication Instructions Recorded Confirmed Type vitamins A,C,D-mrgh-amdfcd 7,160 1 tab PO HS 08/18/19 02/16/22 History unit-113 mg-100 unit tablet (PreserVision AREDS) Bedside Commode #1 ea 08/19/19 04/09/21 Rx Lift Chair #1 ea 08/19/19 04/09/21 Rx Shower Chair #1 ea 08/19/19 04/09/21 Rx diclofenac sodium 1 % topical gel 4 g TOPICAL QID #300 g 08/13/21 02/16/22 Rx (Voltaren Arthritis Pain) Hospital Bed Homecare #1 ea 11/20/21 11/20/21 Rx apixaban 5 mg (74 tabs) tablets in 5 mg PO BID 02/16/22 02/16/22 History a dose pack metoprolol tartrate 50 mg tablet 50 mg PO BID 02/16/22 02/16/22 History Past Med/Surg History Medical History Arthritis Heart enlargement PT REPORTS FOUND HEART ENLARGEMENT AND LIVER ENLARGEMENT FOUND ON MRI IN 2011 WHEN HAD KIDNEY STONES ...TREATED AT [facility] FOR KIDNEY STONES History of anesthesia reaction "BRAIN FOG" AFTER SURGERIES - CAN'T REMEMBER WHAT DAY IT IS FOR AWHILE History of asthma History of falling HX MULTIPLE FALLS, NONE FOR OVER 1 YR History of kidney stones Hypertension Thumb problem Surgical History History of bilateral breast reduction surgery History of cataract surgery RT History of colonoscopy History of dental surgery History of surgery SKIN BOIL LANCED AND REMOVED History of surgery BONE TUMOR REMOVED - LEFT LEG TEENAGER History of surgery CYST ON BACK REMOVED Family History Other Cancer Family history of diabetes mellitus Heart disease Social History Smoking Status: Never smoker Hx Alcohol Use: Yes Hx Substance Use: No Preferred Language: Bruneian Communication Ability: Effective 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 Physical Exam Physical Exam: The patient is awake, alert and oriented 3, well developed and well nourished, normocephalic and atraumatic, lying in bed and in no acute distress. HEENT--PERRL, EOMI, mucous membranes and oropharynx mildly dry Neck--supple. No JVD. No bruits. Thyroid normal, trachea midline, no adenopathy. Heart--normal S1 and S2. No murmurs, rubs or gallops. Lungs--clear bilaterally, no respiratory distress, no accessory muscle use. Abdomen--normal bowel sounds and soft. Mild epigastric and left sided abdominal pain Extremities--no cyanosis or clubbing. No edema. Dermatologic--normal skin turgor, normal color, no abnormal lymph nodes, no rash. Neurologic--cranial nerves II through XII grossly intact. Rheumatologic--normal range of motion. Psychiatric--normal affect. Results & Data Results & Data ([facility]) Vital Signs (Past 12 Hours) Vital Signs Temp Pulse Resp BP Pulse Ox 02/16/22 15:50 64 17 02/16/22 15:40 66 22 02/16/22 15:30 58 L 21 02/16/22 15:20 59 L 19 02/16/22 15:10 59 L 18 02/16/22 15:00 66 21 02/16/22 14:51 69 18 02/16/22 14:44 98.6 F 74 20 180/88 H 93 02/16/22 14:43 20 Code Status & VTE Plan VTE Prophylaxis Plan VTE Prophylaxis will be ordered: Yes PG Care Time/CCT Total # of Minutes Spent Total Time Spent with Patient: Total time spent is greater than 50% in coordination of care (as documented) at patient's floor/unit and/or counseling patient: Coding Level of Care Code 76808 Initial Inpt Care Lvl 3 Diagnoses TIA (transient ischemic attack) G45.9 DVT (deep venous thrombosis) I82.409 Generalized weakness R53.1 Hypertension I10 Osteoarthritis of knees, bilateral M17.0 Time Spent (min) 35
--- NOTE | 2022-02-16 19:50 | Magnetic Resonance Report ---
MR brain wo con CLINICAL HISTORY: Headache. Episode of aphasia.. COMPARISON STUDY: No previous studies for comparison. TECHNIQUE: Multiplanar multisequence images of the Brain were performed without IV contrast. FINDINGS: Extra-axial space: There is no evidence for a subdural hematoma, There are no extra-axial fluid yobani ections. Ventricles and cisterns: The ventricles are mildly dilated bilaterally. There is no evidence for mid line shift or mass effect. Parenchyma: There is no evidence for an acute hemorrhage or infarct. No acute diffusion abnormalities are noted on diffusion weighted imaging or ADC mapping. There is normal yap-white differentiation. There is mild cerebral cortical atrophy present. The sulci and gyri appear normal without effacement . The midline structures are unremarkable. The posterior fossa structures appear normal. There is no evidence for mass lesion. Osseous structures: The paranasal sinuses are well aerated. There is mild mucosal thickening of the e thmoid air cells. The mastoid air cells are well aerated. Soft tissues: No focal soft tissue abnormalities are identified. IMPRESSION: 1. No acute intracranial abnormalities. 2. Mild cerebral cortical atrophy. 3. Mild mucosal thickening of the ethmoid air cells on the left. ACT 112: Negative or not required by law. Electronically signed by: Florencio Graves M.D. 02/16/2022 7:48 PM
[2022-02-16] MEDS ORDERED: ONDANSETRON INJ 2 MG/ML 2 ML VIAL IV PRN (21:11)
[2022-02-16] MEDS ORDERED: ACETAMINOPHEN 325 MG TAB PO PRN (21:11)
[2022-02-16] MEDS: APIXABAN 5 MG TABLET PO SCH (21:48)
[2022-02-16] MEDS: CEROVITE ADV FORMULA TAB PO SCH (21:48)
[2022-02-16] MEDS: METOPROLOL TARTRATE 50 MG TAB PO SCH (21:48)
--- NOTE | 2022-02-17 08:22 | Neurology Consultation ---
Date of Consultation February 17, 2022 Assessment & Plan (1) TIA (transient ischemic attack): (2) Aphasia: (3) Hypertension: This patient suffered a 1 to 2 hour episode of expressive aphasia February 16 which has resolved. On examination, the patient has no focal neurologic findings or deficits, meningeal signs, or encephalopathy. CT scan of the head, CT angiography of the head and neck, and MRI of the brain are all unremarkable for acute problems. This is consistent with a TIA, likely involving small vessel disease. Patient is already on Eliquis for DVT. anticoagulants typically do not help reduce the risk of small vessel ischemic disease. The patient has a history of hypertension which was elevated on admission. Blood pressure today is 149/70. Recommendations: 1. Agree with 81 milligram aspirin tablet daily. 2. Continue with Eliquis for now 3. Increase activity as able. 4. control blood pressure as you are doing, aiming for a mean arterial pressure of 100. 5. check fasting lipid profile. 6. Check hemoglobin A1c. 7. awaiting echocardiogram. Overall, I spent a total of 60 minutes with this case including review of records, review of MRI and CT films, direct evaluation of the patient at bedside, and discussion of the case with the patient and RN at bedside, and Dr. Sierra, including differential diagnosis and treatment options. History of Present Illness Reason for Consultation: Patient is an 81-year-old, who I was asked to see the request of Dr. Sierra, for neurologic consultation regarding abnormal speech Requesting Physician: Dr. Sierra Attending Physician: Gama Sierra MD History of Present Illness This patient has a history of moderate tricuspid regurgitation ( more pronounced in August of 2021, compared to June 2021), hypertension, and left lower extremity DVT discovered in June of 2021. She has been on Eliquis since. Patient also right rotator and shoulder osteoarthritic issues resulting in some right proximal upper extremity weakness and. She has osteoarthritis of the knees, and has trouble walking, using a wheelchair or walker since the fall. Patient was in her usual state of health and woke up February 16 at 07:00 feeling well. Around 1115, she wondered if she had some trouble finding words and speaking was going about kitchen preparing lunch. Around noon, she noted that she could get words out that she wanted to say could not think of words to say. This was noted by her family was taken to the emergency. The speech problems lasted approximately an hour or so and by the time she got to the emergency it had essentially resolved. She arrived to the emergency room February 16 at 14:44, with a temperature of 37.0, pulse 74, respiratory rate 20, blood pressure 180/88, and O2 saturation 93 percent. Neurologic examination was nonfocal and her speech was normal. CBC and Chem profile were unremarkable. CT scan of the head showed some mild atrophy but no acute changes. CT angiography of the head and neck were unremarkable, with no vascular anomalies or stenoses. MRI of the brain showed mild generalized atrophy and some mild nonspecific old ischemia in the white matter but no acute changes or stroke. I reviewed these films. Patient has had normal sinus rhythm overnight and no cardiac dysrhythmia noted. This morning she is at baseline with no headaches, vision problems, new weakness or numbness, or speech problems. She could walk to the bathroom with a walker today. Allergies Allergy/AdvReac Type Severity Reaction Status Date / Time cefaclor AdvReac Mild NAUSEA Verified 02/16/22 15:42 Home Medications Medication Instructions Recorded Confirmed Type vitamins A,C,L-ijay-vvebbi 7,160 1 tab PO HS 08/18/19 02/16/22 History unit-113 mg-100 unit tablet (PreserVision AREDS) Bedside Commode #1 ea 08/19/19 04/09/21 Rx Lift Chair #1 ea 08/19/19 04/09/21 Rx Shower Chair #1 ea 08/19/19 04/09/21 Rx diclofenac sodium 1 % topical gel 4 g TOPICAL QID #300 g 08/13/21 02/16/22 Rx (Voltaren Arthritis Pain) Hospital Bed Homecare #1 ea 11/20/21 11/20/21 Rx apixaban 5 mg (74 tabs) tablets in 5 mg PO BID 02/16/22 02/16/22 History a dose pack metoprolol tartrate 50 mg tablet 50 mg PO BID 02/16/22 02/16/22 History Patient History Medical History Arthritis Heart enlargement PT REPORTS FOUND HEART ENLARGEMENT AND LIVER ENLARGEMENT FOUND ON MRI IN 2011 WHEN HAD KIDNEY STONES ...TREATED AT [facility] FOR KIDNEY STONES History of anesthesia reaction "BRAIN FOG" AFTER SURGERIES - CAN'T REMEMBER WHAT DAY IT IS FOR AWHILE History of asthma History of falling HX MULTIPLE FALLS, NONE FOR OVER 1 YR History of kidney stones Hypertension Thumb problem Surgical History History of bilateral breast reduction surgery History of cataract surgery RT History of colonoscopy History of dental surgery History of surgery SKIN BOIL LANCED AND REMOVED History of surgery BONE TUMOR REMOVED - LEFT LEG TEENAGER History of surgery CYST ON BACK REMOVED Family History Mother , age 80 of brain cancer (uncertain type) Brain cancer Father , age 51 of an [place] Myocardial infarction Other Cancer Family history of diabetes mellitus Heart disease Social History (Updated 02/17/22 @ 08:13 by Ej Fernandez MD) Smoking Status: Never smoker Second Hand Exposure: No; Hx Alcohol Use: No Hx Substance Use: No Preferred Language: Cymro Communication Ability: Effective 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 Beliefs That Will Affect Care: None marital status: Single Current Living Situation: Alone Current Living Situation Comment: DAUGHTER LIVES NEAR BY FREQUENT VISITS HOME HEALTH VISITS ON REQUEST current occupational status: retired 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 Feels Safe at Home: Yes Assistive Devices: Denture - Upper, Denture - Lower, Glasses, Walker and Wheelchair Review of Systems Constitutional: no fever, no fatigue and no weakness Eyes: no diplopia, no eye pain and no worsening vision Ear, Nose, Mouth, Throat: no ear pain, no tinnitus, no hearing loss, no dizziness, no snoring, no hoarseness and no dysphagia Respiratory: no cough and no dyspnea Cardiovascular: no chest pain, no palpitations and no lightheadedness Gastrointestinal: no abdominal pain, no nausea and no vomiting Genitourinary: no dysuria, no urinary frequency and no urinary incontinence Musculoskeletal: + joint pain; no back pain, no neck pain, no radicular pain and no myalgia Integumentary: no rash and no lesions Neurologic: + gait abnormality and + localized weakness; no generalized weakness, no tingling, no numbness, no tremor(s), no abnormal movements, no headache(s), no abnormal speech, no confusion and no memory loss Psychiatric: no depression, no irritability, no anxiety, no difficulty concentrating, no confusion and no hallucinations Endocrine: no fatigue and no flushing Hematologic / Lymphatic: no easy bleeding and no easy bruising Allergy / Immunological: no urticaria and no problem reported Exam (Neuro) Physical Exam: The patient is right-handed. The patient is awake, alert, and attentive. Speech is normal without any aphasia or dysarthria. The patient can name objects, repeat phrases, and has normal spontaneous speech. Mentation and thought processes are intact, with orientation to person, place and time, and normal fund of knowledge. Attention and concentration are normal. Mood and affect are normal and appropriate. General appearance and grooming are normal. Short and long-term memory are intact. Pupils are 3 mm bilaterally and reactive to light. Extraocular eye muscles are intact without nystagmus. Visual acuity and visual goff seem normal grossly to confrontation. There are no deficits to sensation in the face in all 3 distributions of the fifth cranial nerve bilaterally. Corneal reflexes are positive bilaterally. Facial strength and symmetry was normal bilaterally. Hearing seems normal bilaterally. Palate moves well without asymmetry. There is normal sternocleidomastoid and trapezius (shoulder shrug) strength bilaterally. Tongue is midline with good strength bilaterally. Neck has a full range of motion without discomfort. There are no cervical bruits bilaterally. There are no cranial or ocular bruits. Heart is without murmur. There is a regular rhythm and rate. Cervical, thoracic, and lumbar spine are nontender to palpation. Gait was not tested, but stance sitting in the chair was quite normal. With outstretched arms there is no drift. There are no resting, postural, or action tremors. There is no ataxia with finger to nose testing. There is good facility in the hands. No other abnormal involuntary movements are noted. Motor strength is 5/5 diffusely in the arms bilaterally including biceps, brachioradialis, wrist flexors and extensors, travel registered nurse nicu, and intrinsic hand muscles. The right deltoid and triceps was 4/5 ( giveaway weakness secondary to pain ) while the left was 5/5. Motor strength is 5/5 diffusely in the legs bilaterally including hip flexors, quadriceps, hamstrings, gastrocnemius, tibialis anterior, tibialis posterior, and Peroneii muscles. Toe extensors are normal and there is good bulk in the extensor digitorum brevis muscles bilaterally. The limbs have good tone without rigidity or spasticity. There is no atrophy noted in the muscles. Muscle bulk is normal, there is no tenderness to palpation, no myotonia to percussion, and no fasciculations seen. Sensory examination is intact to touch and pin throughout all 4 limbs diffusely. Reflexes are 1/4 in the biceps, triceps, brachioradialis, quadriceps, and Achilles tendons bilaterally. There is no clonus bilaterally. Toes are downgoing with plantar stimulation bilaterally. Peripheral pulses are present and of normal quality distally in all 4 limbs. There is no peripheral edema noted in the limbs. Results & Data ([facility]) Vital Signs (Past 12 Hours) Vital Signs Temp Pulse Pulse Resp BP BP BP 02/17/22 07:58 36.5 C 76 16 149/79 H 02/17/22 02:49 36.8 C 72 20 158/90 H 02/16/22 23:06 36.4 C L 72 18 184/88 H 02/16/22 21:17 36.8 C 84 18 179/117 H 02/16/22 20:40 02/16/22 20:30 171/122 H 02/16/22 20:27 74 14 185/116 H Pulse Ox 02/17/22 07:58 96 02/17/22 02:49 95 02/16/22 23:06 97 02/16/22 21:17 96 02/16/22 20:40 95 02/16/22 20:30 95 02/16/22 20:27 96 PG Care Time/CCT Total # of Minutes Spent Total Time Spent with Patient: Total time spent is greater than 50% in coordination of care (as documented) at patient's floor/unit and/or counseling patient: Coding Level of Care Code 38064 Initial Inpt Care Lvl 3 Diagnoses Aphasia R47.01 TIA (transient ischemic attack) G45.9 Hypertension I10
[2022-02-17] MEDS: METOPROLOL TARTRATE 50 MG TAB PO SCH ×2 (09:05→21:17)
[2022-02-17] MEDS: APIXABAN 5 MG TABLET PO SCH ×2 (09:05→21:17)
[2022-02-17] MEDS: ASPIRIN 81 MG ECTAB PO SCH (10:01)
--- NOTE | 2022-02-17 14:25 | Ultrasound Report ---
US ankle/brachial index ltd CLINICAL HISTORY: claudication COMPARISON STUDY: None. FINDINGS: The right ankle-brachial index measured with the dorsalis pedis artery was 1.1 and the post erior tibial artery was 1.5. The left ankle-brachial index measured with the dorsalis pedis artery wa s 1.1 and the posterior tibial arteries 1.4. IMPRESSION: Normal bilateral ankle brachial indices. However, these could be falsely elevated due to calcified vessels. ACT 112: Negative or not required by law. Electronically signed by: Gagan Rubio M.D. 02/17/2022 2:24 PM
--- NOTE | 2022-02-17 14:50 | Hospitalist Progress Note ---
Date of Service February 17, 2022 Assessment & Plan (1) TIA (transient ischemic attack): Plan: Patient presents to the hospital on account of word finding difficulty. This completely resolved by the time she came to the emergency department. Patient already on Eliquis for DVT at home. CT angio head and neck and CT head were essentially within normal limits. MRI brain also wnl Aspirin 81 mg daily Neurology appreciated (2) DVT (deep venous thrombosis): Plan: Remote history of DVT Patient on Eliquis at home, will continue (3) Generalized weakness: Plan: Patient said that she fell several months ago. Since then she has been having generalized weakness and has been working with physical therapy Continue physical therapy (4) Hypertension: Plan: We will maintain permissive hypertension Will not treat for blood pressures between 160-180 systolic (5) Osteoarthritis of knees, bilateral: Plan: Bilateral osteoarthritis of the knee Continue to work with physical therapy Plan: was going to discharge her today, but she complained of another round of word finding difficulty Hopefully d/c tomorrow Full code Eliquis for DVT Admission and Anticipated Discharge Date Admission Date: February 16, 2022 Subjective patient seen and examined, was going to discharge her today, but she complained of another round of word finding difficulty Review of Systems Review of Systems: All systems reviewed are negative, apart from the ones contained in the history. Physical Exam Physical Exam: The patient is awake, alert and oriented 3, well developed and well nourished, normocephalic and atraumatic, lying in bed and in no acute distress. HEENT--PERRL, EOMI, mucous membranes and oropharynx mildly dry Neck--supple. No JVD. No bruits. Thyroid normal, trachea midline, no adenopathy. Heart--normal S1 and S2. No murmurs, rubs or gallops. Lungs--clear bilaterally, no respiratory distress, no accessory muscle use. Abdomen--normal bowel sounds and soft. Mild epigastric and left sided abdominal pain Extremities--no cyanosis or clubbing. No edema. Dermatologic--normal skin turgor, normal color, no abnormal lymph nodes, no rash. Neurologic--cranial nerves II through XII grossly intact. Rheumatologic--normal range of motion. Psychiatric--normal affect. Results & Data Results & Data ([facility]) Vital Signs (Past 12 Hours) Vital Signs Temp Pulse Pulse Resp BP BP Pulse Ox 02/17/22 12:18 98.1 F 87 18 151/73 H 93 02/17/22 07:58 97.7 F 76 16 149/79 H 96 02/17/22 06:15 54 L 02/17/22 02:49 98.2 F 72 20 158/90 H 95 PG Care Time/CCT Total # of Minutes Spent Total Time Spent with Patient: Total time spent is greater than 50% in coordination of care (as documented) at patient's floor/unit and/or counseling patient: Coding Level of Care Code 54981 Subseq Hosp Care Lvl 2 Diagnoses TIA (transient ischemic attack) G45.9 DVT (deep venous thrombosis) I82.409 Generalized weakness R53.1 Hypertension I10 Osteoarthritis of knees, bilateral M17.0 Time Spent (min) 35
[2022-02-17] MEDS: CEROVITE ADV FORMULA TAB PO SCH (21:18)
[2022-02-18] MEDS: METOPROLOL TARTRATE 50 MG TAB PO SCH (09:03)
[2022-02-18] MEDS: ASPIRIN 81 MG ECTAB PO SCH (09:04)
[2022-02-18] MEDS: APIXABAN 5 MG TABLET PO SCH (09:04)
--- NOTE | 2022-02-18 09:04 | Neurology Progress Note ---
Date of Service February 18, 2022 Assessment & Plan (1) TIA (transient ischemic attack): (2) Aphasia: (3) Hypertension: Plan: This patient suffered a 1 to 2 hour episode of expressive aphasia February 16 which has resolved. On examination, the patient has no focal neurologic findings or deficits, meningeal signs, or encephalopathy. CT scan of the head, CT angiography of the head and neck, and MRI of the brain are all unremarkable for acute problems. Interestingly, the patient had a 1 or 2 minutes episode yesterday if not finding the right words. I wonder if the patient has fluctuations in blood pressure/ blood flow which give her very temporary problems with word-finding ( as opposed to true TIAs). The event February 16 is consistent with a TIA, likely involving small vessel disease, but her clinical symptoms may simply be related to vasospasm/hypertension. Patient is already on Eliquis for DVT. anticoagulants typically do not help reduce the risk of small vessel ischemic disease. The patient has a history of hypertension which was elevated on admission. Blood pressure today is 159/76 Recommendations: 1. Continue 81 milligram aspirin tablet daily. 2. Continue with Eliquis 3. Increase activity as able. 4. Control blood pressure as you are doing, aiming for a mean arterial pressure of 100. 5. Check fasting lipid profile. Given her age, she would not be a high dose statin candidate. 6. Check hemoglobin A1c. Overall, I spent a total of 35 minutes with this case including review of records, direct evaluation of the patient at bedside, and discussion of the case with the patient and RN at bedside, and Dr. Sierra, including differential diagnosis and treatment options. Admission and Anticipated Discharge Date Admission Date: February 16, 2022 Subjective patient has had a 1-2 minute "episode" of not being able to find the right words yesterday. She is doing fine this morning. She has had no other issues including, no pain, weakness, numbness, headache, or vision issues. Blood pressure is 159/76 and she is afebrile. Results & Data ([facility]) Vital Signs (Past 12 Hours) Vital Signs Temp Pulse Pulse Resp BP Pulse Ox 02/18/22 08:13 36.9 C 57 L 19 159/76 H 93 02/18/22 04:29 36.6 C 58 L 18 167/90 H 96 02/18/22 00:00 60 02/17/22 21:15 36.6 C 76 20 176/84 H 97 Exam (Neuro) Physical Exam: The patient is awake, alert, and attentive, with normal speech and communication. Mood is normal and affect is appropriate. The patient is fully oriented and has intact long and short term memory. Extraocular eye muscles are intact without nystagmus. Facial strength and symmetry is normal bilaterally. Tongue is midline with normal strength bilaterally. Gait is not tested but stance sitting up in bed is normal. Coordination of the arms is normal, without tremor or ataxia bilaterally. Motor strength is 5/5 in all major muscle groups of the arms and legs bilaterally, both proximally and distally. PG Care Time/CCT Total # of Minutes Spent Total Time Spent with Patient: Total time spent is greater than 50% in coordination of care (as documented) at patient's floor/unit and/or counseling patient: Coding Level of Care Code 77799 Subseq Hosp Care Lvl 3 Diagnoses TIA (transient ischemic attack) G45.9 Aphasia R47.01 Hypertension I10
--- NOTE | 2022-02-18 10:50 | Discharge Summary ---
Date of Service February 18, 2022 Admission HPI Per Admitting Provider This is an 81-year-old female with a history of hypertension, remote DVT on Eliquis who presents to the hospital today on account of word finding difficulty. Most of the history was obtained from the patient, ED physician and also the daughter who was at the bedside. According to the daughter, around 10:30 AM today the patient's son spoke to her and she was okay however when she spoke to her mother around 12 noon, she noticed that she was having some word finding difficulties. She got consent and then brought her to the hospital. According to the patient, she has had a similar episode about 10 to 15 years ago. This resolved after a few seconds. Today in emergency department, by the time patient presented, all her symptoms had resolved, however when I saw her she said that she thinks she has a slight weakness in her left lower extremity and also her left upper extremity. Although she admits to having some gait issues for which she has been working with physical therapy. CT head and CT angio head and neck were essentially normal, patient will be admitted to the hospital for further investigation for the management. Principal Diagnosis TIA Discharge Exam The patient is awake, alert and oriented 3, well developed and well nourished, normocephalic and atraumatic, lying in bed and in no acute distress. HEENT--PERRL, EOMI, mucous membranes and oropharynx mildly dry Neck--supple. No JVD. No bruits. Thyroid normal, trachea midline, no adenopathy. Heart--normal S1 and S2. No murmurs, rubs or gallops. Lungs--clear bilaterally, no respiratory distress, no accessory muscle use. Abdomen--normal bowel sounds and soft. Mild epigastric and left sided abdominal pain Extremities--no cyanosis or clubbing. No edema. Dermatologic--normal skin turgor, normal color, no abnormal lymph nodes, no rash. Neurologic--cranial nerves II through XII grossly intact. Rheumatologic--normal range of motion. Psychiatric--normal affect. Discharge Data Allergies Allergy/AdvReac Type Severity Reaction Status Date / Time cefaclor AdvReac Mild NAUSEA Verified 02/16/22 15:42 Consultations 02/16/22 17:20 ED Decision to Admit Stat 02/16/22 21:11 Consult Neurology Routine Ordered Studies 02/16/22 14:57 CT angio head w con Stat CT angio neck with con Stat CT head/brain wo con Stat 02/16/22 17:30 MR brain wo con Stat 02/17/22 14:00 US ankle/brachial index ltd Routine Hospital Course (1) TIA (transient ischemic attack): Patient presents to the hospital on account of word finding difficulty. This completely resolved by the time she came to the emergency department. Patient already on Eliquis for DVT at home. CT angio head and neck and CT head were essentially within normal limits. MRI brain also wnl Aspirin 81 mg daily Neurology appreciated (2) DVT (deep venous thrombosis): Remote history of DVT Patient on Eliquis at home, will continue (3) Generalized weakness: Patient said that she fell several months ago. Since then she has been having generalized weakness and has been working with physical therapy Continue physical therapy (4) Hypertension: We will maintain permissive hypertension Will not treat for blood pressures between 160-180 systolic (5) Osteoarthritis of knees, bilateral: Bilateral osteoarthritis of the knee Continue to work with physical therapy D/C home Full code Eliquis for DVT Total Time Total Time Spent Total Time Spent (In Minutes): 35 Discharge Plan Discharge Items Patient Disposition: Home - Self-Care Reason For Visit: TIA Discharge Diagnosis: TIA Activity: Resume your previous activity Non-emergency contact: Primary Care Provider Call non-emergency contact if: you have any medication questions Follow-up/Referrals: Fausto Dahl MD [Primary Care Provider] - Diet: Regular Addtl Attending Provider Instructions: please make appointment to see your regular PCP Pending Studies at Discharge: No Stand-Alone Forms: My [employer], Smoking Cessation Medications and DC Order Prescriptions: New aspirin 81 mg Tablet,Delayed Release (Dr/Ec) 81 mg PO QAM 30 Days Qty: 30 RF: 0 Continued diclofenac sodium [Voltaren Arthritis Pain] 1 % gel 4 g topical QID Qty: 300 RF: 3 (DME) Hospital Bed Homecare Misc See Rx Instructions .Route Qty: 1 RF: 0 (DME) Bedside Commode Misc See Rx Instructions .ROUTE .MEDSUPPLY Qty: 1 RF: 0 (DME) Lift Chair Misc See Rx Instructions .ROUTE .MEDSUPPLY Qty: 1 RF: 0 (DME) Shower Chair Misc See Rx Instructions .ROUTE .MEDSUPPLY Qty: 1 RF: 0 PreserVision AREDS [id number] Tablet 1 tab PO HS RF: 0 metoprolol tartrate 50 mg tablet 50 mg PO BID RF: 0 apixaban 5 mg (74 tabs) tablets,dose pack 5 mg PO BID RF: 0 Discharge Orders: Discharge Order (Routine); Ordered 02/18/22 Ordered By: Gama Sierra Admission Data Admit Date/Time: 02/16/22 17:30 Attending Provider: Gama Sierra Admit Provider: Gama Sierra Primary Care Provider: Fausto Dahl Other Providers: Gama Sierra ; Sebastian Mak Coding Level of Care Code D/C DAY MANAGEMENT >30 MINS Diagnoses TIA (transient ischemic attack) G45.9 DVT (deep venous thrombosis) I82.409 Generalized weakness R53.1 Hypertension I10 Osteoarthritis of knees, bilateral M17.0 Time Spent (min) 35
== END 2022-02-18 13:26 | disposition home or self-care (01) | DRG 69 ==
LOC: ED 14:28 → INTOOBSV 17:30 → 2S 17:30

== ENCOUNTER 2022-06-11 21:18 | Inpatient (IN) ==
[2022-06-11] MEDS ORDERED: ALBUT/IPRATROP 3MG/0.5MG NEB 3 ML VIAL NEB STA (22:14)
[2022-06-12] MEDS ORDERED: ALBUT/IPRATROP 3MG/0.5MG NEB 3 ML VIAL ONE (00:20)
[2022-06-12 00:39] LABS: Basophils # (auto) 0.03 K/uL (0-0.2); Basophils % (auto) 0.3 %; Eosinophils # (auto) 0.01 K/uL (0-0.50); Eosinophils % (auto) 0.1 %; Hematocrit (blood only) 43.4 % (34.1-44.9); Hemoglobin 13.7 g/dl (12.0-16.0); Immature Granulocytes # (auto) 0.19 K/uL (0.00-0.02); Immature Granulocytes % (auto) 1.9 %; Lymphocytes # (auto) 0.53 K/uL (1.2-3.4); Lymphocytes % (auto) 5.3 %; Mean Corpuscular Hemoglobin 30.2 pg (25.0-34.0); Mean Corpuscular Hgb Conc 31.6 g/dL (32.0-36.0); Mean Corpuscular Volume 95.8 fL (80.0-100.0); Mean Platelet Volume 12.3 fL (9.4-12.3); Monocytes # (auto) 1.08 K/uL (0.24-0.82); Monocytes % (auto) 10.8 %; Neutrophils # (auto) 8.19 K/uL (1.4-6.5); Neutrophils % (auto) 81.6 %; Nucleated RBC # (auto) 0.02 K/uL (0-0); Nucleated RBC % (auto) 0.2 %; Platelet Count 176 K/uL (130-400); RDW Coefficient of Variation 16.4 % (11.5-14.5); RDW Standard Deviation 56.1 fL (36.4-46.3); Red Blood Count 4.53 M/uL (3.93-5.22); White Blood Count 10.03 K/ul (4.8-10.8)
[2022-06-12 01:05] LABS: Appearance Urine Clear (Clear); Bacteria Urine Automated Negative (Negative); Blood Urine 2+ (Negative); Color Urine Dark Yellow; Epithelial Cell Urine Auto >30 /lpf (0-5); Glucose Urine UA Negative (Negative); Ketones Urine Negative (Negative); Leukocyte Esterase Urine Trace (Negative); Nitrite Urine Negative (Negative); Protein Urine 3+ (Negative); Urobilinogen Urine Negative (Negative); pH Urine 5.5 (4.5-7.5)
[2022-06-12 01:06] LABS: Troponin I High Sensitivity 29.9 pg/ml (0-14)
[2022-06-12 01:08] LABS: Albumin Globulin Ratio 2.1 (0.9-2); Albumin Level 3.9 gm/dl (3.4-5.0); BUN Creatinine Ratio 37.7 (10-20); Bilirubin,Total 1.2 mg/dl (0.2-1.0); Calcium 9.1 mg/dl (8.5-10.1); Creatinine Clr Calc Pharmacy 28.7 ml/min; Est GFR (African American) 40.6 ml/min; Globulin 1.9 gm/dl (2.5-4.0); Magnesium 2.5 mg/dl (1.7-2.4); Phosphorus 5.4 mg/dl (2.5-4.9); Total Protein 5.8 gm/dl (6.0-8.3)
[2022-06-12 01:10] LABS: Bilirubin Urine 1+ (Negative)
[2022-06-12 01:15] LABS: Cast Urine Automated >30 /lpf (0-5)
--- NOTE | 2022-06-12 01:15 | Emergency Department Note ---
Impression & Plan Atrial fibrillation with rapid ventricular response, Elevated troponin, Elevated brain natriuretic peptide (BNP) level, Acute renal insufficiency ED Provider Note NAME: HEATHER CASON AGE: 82 SEX: F ARRIVES VIA: Ambulance INFORMANT: Patient ED PROVIDER(S): Mak Cortez MD CHIEF COMPLAINT: SOB PLAN: Disposition: Admit MEDICAL DECISION MAKING: The patient is a pleasant 82-year-old woman with a past medical history of DVT on Eliquis, chronic lower extremity edema, deconditioning with generalized muscle weakness since recurrent falls in the fall 2020 presents to the emergency department accompanied by her daughter for evaluation of shortness of breath, decreased appetite and increasing weakness over the past week. She denies chest pain, cough, congestion, vomiting or diarrhea, symptoms. Patient reports she has physical therapy at her home and her physical therapist noted that her shortness of breath has been progressively worsening. On arrival patient is fatigued appearing but no acute distress, afebrile with stable vital signs. She has dry mucous membranes. Lungs with scant wheeze and diminished at the bases. She has 2+ bilateral lower extremity pitting edema with resolving ecchymosis of pretibial region. EKG demonstrates atrial fibrillation with RVR in the 120s, no overt ST elevation or depression, no recent EKGs that show A. fib. Chest x-ray demonstrates cardiomegaly with suspected opacities of right perihilar mid/upper lung goff per my preliminary review. WBC, H/H and platelets within normal limits. Chemistry without metabolic acidosis. Creatinine 1.3, increased from prior with BUN/creatinine> consistent with prerenal etiology. LFTs are newly elevated with total bili 1.2, AST 234. 415 and alk phos 163. Troponin 29.9, nonspecific. BNP 900 without prior values for comparison. Lipase within normal limits. UA with WBCs albeit with epithelial cells present. Limited bedside cardiac ultrasound was performed and demonstrates plethoric IVC with minimal/no respiratory variation. There is question of mild-moderately reduced EF though in the setting of A. fib with RVR. Limited views of gallbladder did not demonstrate cholelithiasis. Negative sonographic Mitchell sign. The patient's atrial fibrillation with RVR with findings consistent with hypervolemia and possible new CHF patient agrees with plan for admission for further evaluation and management. Lasix and IV Lopressor ordered. Case was discussed with Dr. Salvador, [facility] hospitalist, who will evaluate the patient for admission. For further characterization of symptoms and finding CT of the chest and CT of the abdomen pelvis were ordered and are pending. Triage Nursing notes reviewed and agree them. Prior medical records reviewed Vital Signs: reviewed and remarkable for tachycardia. Differential diagnosis: Reactive airway disease, pneumonia, pneumothorax, COPD, CHF, infections, cardiac ischemia, pulmonary embolism, musculoskeletal, gastrointestinal, as well as other pathologies. ER treatment provided: See below. Diagnostics interpreted by me: ECG: Atrial fibrillation, RVR, 123 bpm, no ectopy, LVH, TWA, no overt ST elevation or depression. Cardiac Monitoring: An order for continuous cardiac monitoring was placed and demonstrated Atrial fibrillation, RVR, 123 bpm, no ectopy. Laboratory studies: See below Imaging studies: See below Consultation(s): Case was discussed with Dr. Salvador, [facility] hospitalist, who will evaluate the patient for admission. HPI: The patient is a pleasant 82-year-old woman with a past medical history of DVT on Eliquis, chronic lower extremity edema, deconditioning with generalized muscle weakness since recurrent falls in the fall 2020 presents to the emergency department accompanied by her daughter for evaluation of shortness of breath, decreased appetite and increasing weakness over the past week. She denies chest pain, cough, congestion, vomiting or diarrhea, symptoms. Patient reports she has physical therapy at her home and her physical therapist noted that her shortness of breath has been progressively worsening. ROS: See above HPI for pertinent positives & negatives. A total of 10 systems reviewed and were otherwise negative. VITALS:See Below PHYSICAL EXAMINATION: GENERAL: Awake, alert, fatigued-appearing, in no distress HENT: Normocephalic, atraumatic. Oropharynx with dry mucous membranes and otherwise unremarkable. EYES: Normal conjunctiva. Sclera non-icteric. NECK: Supple. No nuchal rigidity. FROM. No JVD. RESPIRATORY: Lungs with scant wheeze and diminished at the bases. CARDIAC: Tachycardic rate, irregular rhythm. Extremities warm and well perfused. Pulses equal. ABDOMEN: Soft, non-distended. No tenderness to palpation. No rebound or guarding. No masses. RECTAL: Deferred. MUSCULOSKELETAL: Chest examination reveals no tenderness. The back is symmetrical on inspection without obvious abnormality. There is no CVA tenderness to palpation. No joint edema. LOWER EXTREMITIES: Calves are equal size bilaterally and non-tender. 2+ BLE edema. Resolving ecchymosis. NEURO: Normal sensorium. No sensory or motor deficits noted. SKIN: No rash or jaundice noted. ED COURSE: Critical Care: I have personally spent greater than 35 minutes of critical care time in the direct management of this patient. This includes bedside care, interpretation of diagnostic studies, and testing, discussion with consultants, patient, and family members, and other required patient management activities. This 35 minutes is in excess of all separately billable procedures. Mak Cortez MD Past Med/Surg History Medical History Arthritis Heart enlargement PT REPORTS FOUND HEART ENLARGEMENT AND LIVER ENLARGEMENT FOUND ON MRI IN 2011 WHEN HAD KIDNEY STONES ...TREATED AT [facility] FOR KIDNEY STONES History of anesthesia reaction "BRAIN FOG" AFTER SURGERIES - CAN'T REMEMBER WHAT DAY IT IS FOR AWHILE History of asthma History of falling HX MULTIPLE FALLS, NONE FOR OVER 1 YR History of kidney stones Hypertension Thumb problem Surgical History History of bilateral breast reduction surgery History of cataract surgery RT History of colonoscopy History of dental surgery History of surgery SKIN BOIL LANCED AND REMOVED History of surgery BONE TUMOR REMOVED - LEFT LEG TEENAGER History of surgery CYST ON BACK REMOVED Family History Mother , age 80 of brain cancer (uncertain type) Brain cancer Father , age 51 of an [place] Myocardial infarction Other Cancer Family history of diabetes mellitus Heart disease Social History Smoking Status: Never smoker Second Hand Exposure: No; Hx Alcohol Use: Yes Hx Substance Use: No Preferred Language: Nigerien Communication Ability: Effective Interpreter Deaf Required: No Beliefs That Will Affect Care: None marital status: Single Current Living Situation: Alone Current Living Situation Comment: DAUGHTER LIVES NEAR BY FREQUENT VISITS HOME HEALTH VISITS ON REQUEST current occupational status: retired 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 Feels Safe at Home: Yes Safety Concerns: Feels Safe At This Time Assistive Devices: Bedside Commode, Wheelchair and Other Assistive Devices Comment: shower chair Allergies Allergies Allergy/AdvReac Type Severity Reaction Status Date / Time cefaclor AdvReac Mild NAUSEA Verified 06/11/22 23:10 Home Meds Home Medications Medication Instructions Recorded Confirmed vitamins A,C,[id number] 2,148 1 tab PO HS 08/18/19 06/11/22 mcg-113 mg-45 mg-17.4 mg tablet (PreserVision AREDS) apixaban 5 mg (74 tabs) tablets in 5 mg PO BID 02/16/22 06/11/22 a dose pack metoprolol tartrate 50 mg tablet 50 mg PO BID 02/16/22 06/11/22 Previous Rx's Medication Instructions Recorded Bedside Commode #1 ea 08/19/19 Lift Chair #1 ea 08/19/19 Shower Chair #1 ea 08/19/19 diclofenac sodium 1 % topical gel 4 g topical QID #300 grams 08/13/21 (Voltaren Arthritis Pain) Hospital Bed Homecare #1 ea 11/20/21 Results & Data (ED) Vital Signs Vital Signs - 24 hr 06/11/22 21:24 06/11/22 21:24 06/11/22 21:24 Temperature 36.6 C Temperature Source Oral Pulse Rate 112 H Pulse Rate from SpO2 Sensor Respiratory Rate 18 Respiratory Effort / Characteristics Non-Labored Spontaneous Non-Labored Respiratory Depth Normal Normal Respiratory Pattern Regular Blood Pressure 134/96 Blood Pressure Mean 108 Pulse Oximetry 96 96 Oxygen Delivery Method Room Air Room Air Room Air Sepsis Recent Fever Within 48 Hours No Sepsis New/Unexplained Change in Mental Status No Sepsis Action Taken by Nursing No Action Required 06/11/22 21:33 06/11/22 21:40 06/11/22 21:50 Temperature Temperature Source Pulse Rate 111 H 108 H 118 H Pulse Rate from SpO2 Sensor 119 H 122 H 123 H Respiratory Rate 14 20 20 Respiratory Effort / Characteristics Respiratory Depth Respiratory Pattern Blood Pressure Blood Pressure Mean Pulse Oximetry 98 95 Oxygen Delivery Method Sepsis Recent Fever Within 48 Hours Sepsis New/Unexplained Change in Mental Status Sepsis Action Taken by Nursing 06/11/22 22:00 06/11/22 22:30 06/11/22 23:00 Temperature Temperature Source Pulse Rate 111 H 118 H 120 H Pulse Rate from SpO2 Sensor 104 H 113 H 117 H Respiratory Rate 23 23 16 Respiratory Effort / Characteristics Respiratory Depth Respiratory Pattern Blood Pressure 127/98 121/95 Blood Pressure Mean 107 103 Pulse Oximetry 95 98 96 Oxygen Delivery Method Sepsis Recent Fever Within 48 Hours Sepsis New/Unexplained Change in Mental Status Sepsis Action Taken by Nursing 06/11/22 23:30 06/12/22 00:00 06/12/22 00:30 Temperature Temperature Source Pulse Rate 108 H 121 H 114 H Pulse Rate from SpO2 Sensor 99 H Respiratory Rate 26 H 23 22 Respiratory Effort / Characteristics Respiratory Depth Respiratory Pattern Blood Pressure 140/96 Blood Pressure Mean 110 Pulse Oximetry 99 Oxygen Delivery Method Sepsis Recent Fever Within 48 Hours Sepsis New/Unexplained Change in Mental Status Sepsis Action Taken by Nursing 06/12/22 02:23 06/12/22 01:00 06/12/22 01:30 Temperature Temperature Source Pulse Rate 127 H 123 H 125 H Pulse Rate from SpO2 Sensor 127 H 123 H Respiratory Rate 21 19 Respiratory Effort / Characteristics Respiratory Depth Respiratory Pattern Blood Pressure 118/95 Blood Pressure Mean Pulse Oximetry 97 96 Oxygen Delivery Method Sepsis Recent Fever Within 48 Hours Sepsis New/Unexplained Change in Mental Status Sepsis Action Taken by Nursing 06/12/22 02:00 06/12/22 02:30 06/12/22 02:32 Temperature Temperature Source Pulse Rate 109 H 123 H 123 H Pulse Rate from SpO2 Sensor 109 H 113 H 111 H Respiratory Rate 22 27 H 44 H Respiratory Effort / Characteristics Respiratory Depth Respiratory Pattern Blood Pressure 118/95 138/104 H Blood Pressure Mean 102 115 Pulse Oximetry 96 96 98 Oxygen Delivery Method Sepsis Recent Fever Within 48 Hours Sepsis New/Unexplained Change in Mental Status Sepsis Action Taken by Nursing 06/12/22 02:53 06/12/22 02:53 06/12/22 02:54 Temperature Temperature Source Pulse Rate 117 H 119 H Pulse Rate from SpO2 Sensor 115 H 111 H Respiratory Rate 20 24 Respiratory Effort / Characteristics Respiratory Depth Respiratory Pattern Blood Pressure 126/109 H Blood Pressure Mean 115 114 Pulse Oximetry 99 94 Oxygen Delivery Method Sepsis Recent Fever Within 48 Hours Sepsis New/Unexplained Change in Mental Status Sepsis Action Taken by Nursing 06/12/22 03:00 06/12/22 03:30 06/12/22 03:31 Temperature Temperature Source Pulse Rate 122 H 110 H 114 H Pulse Rate from SpO2 Sensor 111 H 100 H 112 H Respiratory Rate 22 16 14 Respiratory Effort / Characteristics Respiratory Depth Respiratory Pattern Blood Pressure 129/103 H 128/92 Blood Pressure Mean 111 104 Pulse Oximetry 99 96 92 Oxygen Delivery Method Sepsis Recent Fever Within 48 Hours Sepsis New/Unexplained Change in Mental Status Sepsis Action Taken by Nursing 06/12/22 04:00 06/12/22 04:30 06/12/22 05:01 Temperature Temperature Source Pulse Rate 123 H 124 H 124 H Pulse Rate from SpO2 Sensor 88 Respiratory Rate 26 H 18 18 Respiratory Effort / Characteristics Respiratory Depth Respiratory Pattern Blood Pressure 133/97 132/96 129/97 Blood Pressure Mean 109 108 107 Pulse Oximetry 98 Oxygen Delivery Method Sepsis Recent Fever Within 48 Hours Sepsis New/Unexplained Change in Mental Status Sepsis Action Taken by Nursing Laboratory Data Attestation: I reviewed the patient's lab results. Result diagrams: 06/12/22 00:28 06/12/22 00:27 Lab Results 06/11/22 06/12/22 06/12/22 Range/Units 22:45 00:27 00:27 WBC (4.8-10.8) K/ul RBC (3.93-5.22) M/uL Hgb (12.0-16.0) g/dl Hct (34.1-44.9) % MCV (80.0-100.0) fL MCH (25.0-34.0) pg MCHC (32.0-36.0) g/dL RDW Std Deviation (36.4-46.3) fL RDW Coeff of Adam (11.5-14.5) % Plt Count (130-400) K/uL MPV (9.4-12.3) fL Immature Gran % (Auto) % Neut % (Auto) % Lymph % (Auto) % [place] % (Auto) % Eos % (Auto) % Baso % (Auto) % Neut # (Auto) (1.4-6.5) K/uL Lymph # (Auto) (1.2-3.4) K/uL [place] # (Auto) (0.24-0.82) K/uL Eos # (Auto) (0-0.50) K/uL Baso # (Auto) (0-0.2) K/uL Immature Gran # (Auto) (0.00-0.02) K/uL Absolute Nucleated RBC (0-0) K/uL Nucleated RBC % (auto) % Sodium 136 (136-145) mmol/L Potassium 5.0 (3.5-5.1) mmol/L Chloride 105 (98-107) mmol/L Carbon Dioxide 20 L (21-32) mmol/L Anion Gap 11 (3-11) BUN 52 H (6-23) mg/dl Creatinine 1.38 H (0.6-1.2) mg/dl Est Cr Clr Drug Dosing 28.7 ml/min Est GFR ( Amer) 40.6 ml/min Est GFR (Non-Af Amer) 35.0 ml/min BUN/Creatinine Ratio 37.7 H (10-20) Glucose 101 H (70-99(Fasting)) mg/dl Calcium 9.1 (8.5-10.1) mg/dl Phosphorus 5.4 H (2.5-4.9) mg/dl Magnesium 2.5 H (1.7-2.4) mg/dl Total Bilirubin 1.2 H (0.2-1.0) mg/dl Direct Bilirubin (0-0.2) mg/dl AST 234 H (13-39) U/L ALT 415 H (7-52) U/L Alkaline Phosphatase 163 H (34-104) U/L Troponin I High Sens 29.9 H D (0-14) pg/ml B-Natriuretic Peptide 943 H (0-100) pg/ml Total Protein 5.8 L (6.0-8.3) gm/dl Albumin 3.9 (3.4-5.0) gm/dl Globulin 1.9 L (2.5-4.0) gm/dl Albumin/Globulin Ratio 2.1 H (0.9-2) Lipase 41 (11-82) U/L Urine Color Urine Appearance (Clear) Urine pH (4.5-7.5) Ur Specific [place] (1.000-1.030) Urine Protein (Negative) Urine Glucose (UA) (Negative) Urine Ketones (Negative) Urine Blood (Negative) Urine Nitrite (Negative) Urine Bilirubin (Negative) Urine Urobilinogen (Negative) Ur Leukocyte Esterase (Negative) Urine WBC (Auto) (0-5) /hpf Urine RBC (Auto) (0-4) /hpf U Hyaline Cast (Auto) (0-5) /lpf U Epithel Cells (Auto) (0-5) /lpf Urine Bacteria (Auto) (Negative) Ur Renal Epithelial Cell Calcium Oxalate Crystal (None Prsent) SARS-CoV-2, RNA, NAAT NEGATIVE (NEGATIVE) 06/12/22 06/12/2222 Range/Units 00:28 00:51 02:22 WBC 10.03 (4.8-10.8) K/ul RBC 4.53 (3.93-5.22) M/uL Hgb 13.7 (12.0-16.0) g/dl Hct 43.4 (34.1-44.9) % MCV 95.8 (80.0-100.0) fL MCH 30.2 (25.0-34.0) pg MCHC 31.6 L (32.0-36.0) g/dL RDW Std Deviation 56.1 H (36.4-46.3) fL RDW Coeff of Adam 16.4 H (11.5-14.5) % Plt Count 176 (130-400) K/uL MPV 12.3 (9.4-12.3) fL Immature Gran % (Auto) 1.9 % Neut % (Auto) 81.6 % Lymph % (Auto) 5.3 % [place] % (Auto) 10.8 % Eos % (Auto) 0.1 % Baso % (Auto) 0.3 % Neut # (Auto) 8.19 H (1.4-6.5) K/uL Lymph # (Auto) 0.53 L (1.2-3.4) K/uL [place] # (Auto) 1.08 H (0.24-0.82) K/uL Eos # (Auto) 0.01 (0-0.50) K/uL Baso # (Auto) 0.03 (0-0.2) K/uL Immature Gran # (Auto) 0.19 H (0.00-0.02) K/uL Absolute Nucleated RBC 0.02 H (0-0) K/uL Nucleated RBC % (auto) 0.2 % Sodium (136-145) mmol/L Potassium (3.5-5.1) mmol/L Chloride (98-107) mmol/L Carbon Dioxide (21-32) mmol/L Anion Gap (3-11) BUN (6-23) mg/dl Creatinine (0.6-1.2) mg/dl Est Cr Clr Drug Dosing ml/min Est GFR ( Amer) ml/min Est GFR (Non-Af Amer) ml/min BUN/Creatinine Ratio (10-20) Glucose (70-99(Fasting)) mg/dl Calcium (8.5-10.1) mg/dl Phosphorus (2.5-4.9) mg/dl Magnesium (1.7-2.4) mg/dl Total Bilirubin (0.2-1.0) mg/dl Direct Bilirubin 0.4 H (0-0.2) mg/dl AST (13-39) U/L ALT (7-52) U/L Alkaline Phosphatase (34-104) U/L Troponin I High Sens (0-14) pg/ml B-Natriuretic Peptide (0-100) pg/ml Total Protein (6.0-8.3) gm/dl Albumin (3.4-5.0) gm/dl Globulin (2.5-4.0) gm/dl Albumin/Globulin Ratio (0.9-2) Lipase (11-82) U/L Urine Color Dark Yellow Urine Appearance Clear (Clear) Urine pH 5.5 (4.5-7.5) Ur Specific [place] 1.020 (1.000-1.030) Urine Protein 3+ H (Negative) Urine Glucose (UA) Negative (Negative) Urine Ketones Negative (Negative) Urine Blood 2+ H (Negative) Urine Nitrite Negative (Negative) Urine Bilirubin 1+ H (Negative) Urine Urobilinogen Negative (Negative) Ur Leukocyte Esterase Trace H (Negative) Urine WBC (Auto) 10-30 H (0-5) /hpf Urine RBC (Auto) 10-30 H (0-4) /hpf U Hyaline Cast (Auto) >30 H (0-5) /lpf U Epithel Cells (Auto) >30 H (0-5) /lpf Urine Bacteria (Auto) Negative (Negative) Ur Renal Epithelial Cell Not Reportable Calcium Oxalate Crystal Present A (None Prsent) SARS-CoV-2, RNA, NAAT (NEGATIVE) Administered Medications Discontinued Medications Albuterol (Albut/Ipratrop 3mg/0.5mg Neb 3 Ml Vial) 3 ml NEB NOW STA; Protocol Stop: 06/11/22 22:15 Last Admin: 06/12/22 00:28 Dose: 3 ml Documented By: BS Albuterol (Albut/Ipratrop 3mg/0.5mg Neb 3 Ml Vial) Confirm Administered Dose 3 ml .ROUTE .STK-MED ONE Stop: 06/12/22 00:21 Last Admin: 06/12/22 00:43 Dose: Not Given Documented By: DOMINIQUE Furosemide (Furosemide Inj 20 Mg/2 Ml Vial) 20 mg IV NOW STA Stop: 06/12/22 02:01 Last Admin: 06/12/22 02:23 Dose: 20 mg Documented By: DOMINIQUE Furosemide (Furosemide 40 Mg/4 Ml Vial) 40 mg IV ONE ONE Stop: 06/12/22 08:47 Last Admin: 06/12/22 09:59 Dose: 40 mg Documented By: SERG Metoprolol Tartrate (Metoprolol Tartrate 1 Mg/Ml Vial) 2.5 mg IV NOW STA Stop: 06/12/22 02:01 Last Admin: 06/12/22 02:23 Dose: 2.5 mg Documented By: BS Metoprolol Tartrate (Metoprolol Tartrate 50 Mg Tab) 50 mg PO NOW STA Stop: 06/12/22 06:01 Last Admin: 06/12/22 06:22 Dose: 50 mg Documented By: DOMINIQUE Imaging Data Radiologist's Impression: Chest X-Ray 06/11/22 22:14 XR chest 1V portable CLINICAL HISTORY: Atypical chest pain. COMPARISON STUDY: Chest radiograph July 23, 2021. FINDINGS: There is no pneumothorax. Small right pleural effusion is noted. Linear right midlung opacity represents atelectasis. There is no evidence for pulmonary edema. Cardiomegaly is noted. Degenerative changes of both shoulders are incidentally noted. Old right third rib fracture is incidentally noted. IMPRESSION: 1. Cardiomegaly. No evidence for pulmonary edema. 2. Small right pleural effusion. ACT 112: Negative or not required by law. Electronically signed by: Dmitriy Bills M.D. 06/12/2022 10:17 AM Abdomen/Pelvis CT 06/12/22 01:[address] WITHOUT CONTRAST CT DOSE: 960.47 mGy.cm HISTORY: Acutely elevated LFTs transaminitis TECHNIQUE: Multiaxial CT images of the abdomen and pelvis were performed without contrast. A dose lowering technique was utilized adhering to the principles of ALARA. COMPARISON STUDY: Chest CT of same day FINDINGS: Cardiomegaly with coronary artery calcifications. Small right pleural effusion with mild right basilar atelectasis. No pneumatosis or pneumoperitoneum. Study is degraded by respiratory motion artifact. The unenhanced spleen is unremarkable. The visualized adrenal glands are within normal limits. The study is degraded by respiratory motion artifact. Mild pancreatic atrophy. Distended gallbladder with wall thickening and pe richolecystic fluid. Slightly hyperdense material within the gallbladder lumen. Small volume of abdominal pelvic ascites, centered within the right abdomen. 4 mm nonobstructing calculus of the inferior pole left kidney. Calculi of the right kidney measure up to 1.2 cm. No definite ureteral calculi or hydronephrosis. Partial distention of the urinary bladder with wall thickening. Unremarkable uterus. Atherosclerosis of the aorta without aneurysm. No lymphadenopathy identified. Mild wall thickening of the proximal duodenum with duodenal diverticulum. Colonic diverticulosis. Noninflamed appendix. Mild generalized body wall edema. Degenerative changes of the spine, pelvis and hips. IMPRESSION: 1. Distended gallbladder with wall thickening and pericholecystic fluid suspicious for acute cholecystitis. Mildly increased attenuation of the contents within the gallbladder lumen may represent sludge versus cholelithiasis. 2. Mild wall thickening of the duodenum is likely reactive . No bowel obstruction. 3. Small volume of abdominopelvic ascites. 4. Small right pleural effusion. 5. Nonobstructing bilateral renal calculi. 6. Colonic diverticulosis. ACT 112: Negative or not required by law. The above report was generated using voice recognition software. It may contain grammatical, syntax or spelling errors. Electronically signed by: Ariel Real M.D. 06/12/2022 9:[address] 06/12/22 01:56 CT OF THE CHEST WITHOUT IV CONTRAST CLINICAL HISTORY: Shortness of breath. Tachycardia. COMPARISON STUDY: Chest radiograph June 11, 2022. TECHNIQUE: Axial images of the chest were obtained without IV contrast. Images were reviewed in the axial, sagittal, and coronal planes. IV contrast was not administered for this examination. Automated exposure control was utilized for the study. A dose lowering technique was utilized adhering to the principles of ALARA. FINDINGS: No enlarged axillary, mediastinal or hilar lymph nodes are noted. Severe degenerative changes of both glenohumeral joints are noted. There is a left glenohumeral joint effusion likely due to osteoarthritis. Cardiomegaly is noted. There is no pericardial effusion. A small right pleural effusion is noted. There is no pneumothorax. No consolidation is identified to suggest pneumonia. Opacity along the minor fissure likely reflects atelectasis. Central airways are patent. No acute fracture within the visualized bony thorax. The abdomen and pelvis CT will be reported separately. IMPRESSION: 1. Cardiomegaly. Small right pleural effusion. 2. No consolidation to suggest pneumonia. 3. No CT evidence for pulmonary edema. ACT 112: Negative or not required by law. Electronically signed by: Dmitriy Bills M.D. 06/12/2022 7:44 AM Discharge Plan Visit Data Chief Complaint: Shortness of Breath/Dyspnea ED Provider: Mak Coretz Discharge Problem: Atrial fibrillation with rapid ventricular response, Elevated troponin, Elevated brain natriuretic peptide (BNP) level, Acute renal insufficiency Discharge Instructions Interventions: ED Discharge Assessment Last Done: 06/12/22 08:50
[2022-06-12 01:17] LABS: Calcium Oxalate Crystals Urine Present (None Prsent)
[2022-06-12] MEDS ORDERED: METOPROLOL TARTRATE 1 MG/ML VIAL IV STA (02:00)
[2022-06-12] MEDS ORDERED: FUROSEMIDE INJ 20 MG/2 ML VIAL IV STA (02:00)
--- NOTE | 2022-06-12 05:47 | History & Physical Report ---
Date of Service June 12, 2022 Assessment & Plan (1) Atrial fibrillation with rapid ventricular response: Plan: Gauri Grijalva is an 82yo F w/ PMH of DVT, TIA, HTN, B/L LE edema, chronic deconditioning with weakness and falls who presented due to SOB, weakness. Afib w/ RVR - Anticoagulated on Eliquis 5mg PO BID -- unclear whether this is due to DVT or afib but [facility] chart does list h/o afib - Had mild trop elevation to 29.9 -- likely demand ischemia - No EKG findings c/w ischemia - Lopressor 2.5mg IV x1 in ED - Will give Lopressor 50mg PO now -- continue on home 50mg BID - Lopressor 5mg IV prn for elevated HR - Trend troponin - Admit to telemetry New-onset HF - BNP elevated to over 900 - Chest imaging with pulmonary vascular congestion - Given Lasix 20mg IV x1 in ED -- aditional 40mg IV x1 on admission - Continue Lasix 40mg IV daily - ECHO ordered -- last in August with normal systolic function/EF - Monitor I&O's Elevated LFTs/prominent gallbladder - Labs with new LFT elevations, CT with mildly prominent gallbladder - Both likely due to fluid overload, back-pressure - Can consider RUQ US to further evaluate gallbladder - Trend LFTs as fluid overload continues to be managed YONI - Possibly could be from cardiorenal syndrome with elevated BUN/Cr ratio supporting prerenal azotemia - As above, continue to manage HF/fluid overload - Monitor creatinine - Avoid nephrotoxins Weakness/deconditioning - Consult PT/OT for home needs DVT ppx: anticoagulated on Eliquis Diet: HH, low sodium Dispo: Telemetry CODE STATUS: Full (2) Elevated troponin: (3) Elevated brain natriuretic peptide (BNP) level: (4) Acute renal insufficiency: (5) Hypertension: (6) Generalized weakness: History of Present Illness Primary Care Provider: Fausto Dahl MD Gauri Grijalva is an 82yo F w/ PMH of DVT, TIA, HTN, B/L LE edema, chronic deconditioning with weakness and falls who presented due to SOB. She states symptoms have been going on for about a week. Has had associated decreased appetite and increased weakness. She has not had any other symptoms including f/c, n/v, abd pain, CP, palp, dysuria, diarrhea, cough, congestion, ALMAGUER, dizziness, confusion, numbness, tingling, vision changes. In ED had EKG showing afib w/ RVR at rate of 123 -- no notable ST elevations. CXR with enlarged cardiac silhouette and some right perihilar opacities. CT A/P with trace fluid around the liver and mildly prominent gallbladder. CT chest with cardiomegaly & small right-sided pleural effusion. Lab work with normal white count, normal Hgb, normal Plt count. BUN 52 and Cr 1.38 (baseline is normal Cr). Phos 5.4, Mag 2.5. Elevated LFTs w/ T. bili 1.2, AST 234, ALT 415, alk phos 163. Mildly elevated trop of 29.9. BNP of 943. Received duonebs x1, La six 20mg IV x1, MTP tartrate 2.5mg IV x1. Allergies Allergy/AdvReac Type Severity Reaction Status Date / Time cefaclor AdvReac Mild NAUSEA Verified 06/11/22 23:10 Home Medications Medication Instructions Recorded Confirmed Type vitamins A,C,Y-flts-xkiblx 2,148 1 tab PO HS 08/18/19 06/11/22 History mcg-113 mg-45 mg-17.4 mg tablet (PreserVision AREDS) Bedside Commode #1 ea 08/19/19 04/09/21 Rx Lift Chair #1 ea 08/19/19 04/09/21 Rx Shower Chair #1 ea 08/19/19 04/09/21 Rx diclofenac sodium 1 % topical gel 4 g topical QID #300 grams 08/13/21 06/11/22 Rx (Voltaren Arthritis Pain) Hospital Bed Homecare #1 ea 11/20/21 11/20/21 Rx apixaban 5 mg (74 tabs) tablets in 5 mg PO BID 02/16/22 06/11/22 History a dose pack metoprolol tartrate 50 mg tablet 50 mg PO BID 02/16/22 06/11/22 History Past Med/Surg History Medical History Arthritis Heart enlargement PT REPORTS FOUND HEART ENLARGEMENT AND LIVER ENLARGEMENT FOUND ON MRI IN 2011 WHEN HAD KIDNEY STONES ...TREATED AT [facility] FOR KIDNEY STONES History of anesthesia reaction "BRAIN FOG" AFTER SURGERIES - CAN'T REMEMBER WHAT DAY IT IS FOR AWHILE History of asthma History of falling HX MULTIPLE FALLS, NONE FOR OVER 1 YR History of kidney stones Hypertension Thumb problem Surgical History History of bilateral breast reduction surgery History of cataract surgery RT History of colonoscopy History of dental surgery History of surgery SKIN BOIL LANCED AND REMOVED History of surgery BONE TUMOR REMOVED - LEFT LEG TEENAGER History of surgery CYST ON BACK REMOVED Family History Mother , age 80 of brain cancer (uncertain type) Brain cancer Father , age 51 of an CO Myocardial infarction Other Cancer Family history of diabetes mellitus Heart disease Social History Smoking Status: Never smoker Second Hand Exposure: No; Hx Alcohol Use: Yes Hx Substance Use: No Preferred Language: Kazakh Communication Ability: Effective Canvas Baster Jumpbasting Required: No Beliefs That Will Affect Care: None marital status: Single Current Living Situation: Alone Current Living Situation Comment: DAUGHTER LIVES NEAR BY FREQUENT VISITS HOME HEALTH VISITS ON REQUEST current occupational status: retired 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 NAD. HEENT: PERRL, EOMI. Moist mucous membranes. NECK: No JVD. No lymphadenopathy. CHEST/LUNGS: CTAB A/P. No crackles, wheezes, rales, ronchi. HEART: Irregularly irregular. No m/g/r. No carotid bruits. ABDOMEN: NT/ND, soft. BS+ x4 EXTREMITIES: 2+ pitting edema b/l. SKIN: Warm and dry. No rashes or lesions. PSYCHIATRIC: Euthymic affect, no SI, no pressured speech, no hallucinations NEUROLOGIC: Marked weakness of b/l LE. CNII-XII intact. Results & Data Results & Data ([facility]) Vital Signs (Past 12 Hours) Vital Signs Temp Pulse Resp BP Pulse Ox O2 Del Method 06/12/22 03:00 122 H 22 129/103 H 99 06/12/22 02:54 119 H 24 126/109 H 94 06/12/22 02:53 117 H 20 99 06/12/22 02:32 123 H 44 H 138/104 H 98 06/12/22 02:30 123 H 27 H 96 06/12/22 02:00 109 H 22 118/95 96 06/12/22 01:30 125 H 19 96 06/12/22 01:00 123 H 21 97 06/12/22 02:23 127 H 118/95 06/12/22 00:30 114 H 22 06/12/22 00:00 121 H 23 06/11/22 23:30 108 H 26 H 140/96 99 06/11/22 23:00 120 H 16 121/95 96 06/11/22 22:30 118 H 23 127/98 98 06/11/22 22:00 111 H 23 95 06/11/22 21:50 118 H 20 95 06/11/22 21:40 108 H 20 98 06/11/22 21:33 111 H 14 06/11/22 21:24 96 Room Air 06/11/22 21:24 36.6 C 112 H 18 134/96 96 Room Air 06/11/22 21:24 Room Air Supervising Physician Co-Signing Physician Notes Attending addendum: I have physically seen this patient, have supervised the medical residents activities, and agree with the H&P unless as otherwise noted. Assessment and Plan: Atrial fibrillation with RVR/new onset CHF The patient will be admitted to telemetry for serial cardiac enzymes, serial EKG's, cardiac rhythm monitoring and a 2-D echocardiogram with Dopplers. Continue Eliquis 5 mg p.o. twice daily Improved rate control with Lopressor 2.5 mg IV x1 in the ED, but will increase to 5 mg IV every 4 hours heart rate greater than 110 Give metoprolol tartrate 50 mg p.o. now then resume home 50 mg p.o. twice daily at 9 AM Give total of Lasix 60 mg IV in ED this evening, and then 40 mg IV every morning Consult cardiology Elevated LFTs/prominent gallbladder- Likely secondary to hepatic congestion Will consider ultrasound right upper quadrant/HIDA scan for further assessment Follow serial LFTs Remaining orders and notations as noted Resident Activity Tracking Resident Involvement: Resident Care Provided Care Provided: [facility] Medicine
[2022-06-12] MEDS ORDERED: METOPROLOL TARTRATE 1 MG/ML VIAL IV PRN (05:54)
[2022-06-12] MEDS ORDERED: METOPROLOL TARTRATE 50 MG TAB PO STA (06:00)
--- NOTE | 2022-06-12 07:46 | CT Scan Report ---
CT OF THE CHEST WITHOUT IV CONTRAST CLINICAL HISTORY: Shortness of breath. Tachycardia. COMPARISON STUDY: Chest radiograph June 11, 2022. TECHNIQUE: Axial images of the chest were obtained without IV contrast. Images were reviewed in the axial, sagittal, and coronal planes. IV contrast was not administered for this examination. Automat ed exposure control was utilized for the study. A dose lowering technique was utilized adhering to t he principles of ALARA. FINDINGS: No enlarged axillary, mediastinal or hilar lymph nodes are noted. Severe degenerative modi ges of both glenohumeral joints are noted. There is a left glenohumeral joint effusion likely due to osteoarthritis. Cardiomegaly is noted. There is no pericardial effusion. A small right pleural effusi on is noted. There is no pneumothorax. No consolidation is identified to suggest pneumonia. Opacity a long the minor fissure likely reflects atelectasis. Central airways are patent. No acute fracture wit hin the visualized bony thorax. The abdomen and pelvis CT will be reported separately. IMPRESSION: 1. Cardiomegaly. Small right pleural effusion. 2. No consolidation to suggest pneumonia. 3. No CT evidence for pulmonary edema. ACT 112: Negative or not required by law. Electronically signed by: Dmitriy Bills M.D. 06/12/2022 7:44 AM
[2022-06-12] MEDS ORDERED: ACETAMINOPHEN 325 MG TAB PO PRN (08:46)
[2022-06-12] MEDS ORDERED: FUROSEMIDE 40 MG/4 ML VIAL IV ONE (08:46)
[2022-06-12] MEDS ORDERED: ONDANSETRON INJ 2 MG/ML 2 ML VIAL IV PRN (08:46)
--- NOTE | 2022-06-12 09:40 | CT Scan Report ---
ABDOMEN AND PELVIS CT WITHOUT CONTRAST CT DOSE: 960.47 mGy.cm HISTORY: Acutely elevated LFTs transaminitis TECHNIQUE: Multiaxial CT images of the abdomen and pelvis were performed without contrast. A dose lo wering technique was utilized adhering to the principles of ALARA. COMPARISON STUDY: Chest CT of same day FINDINGS: Cardiomegaly with coronary artery calcifications. Small right pleural effusion with mild ri ght basilar atelectasis. No pneumatosis or pneumoperitoneum. Study is degraded by respiratory motion artifact. The unenhanced spleen is unremarkable. The visualized adrenal glands are within normal limits. The st udy is degraded by respiratory motion artifact. Mild pancreatic atrophy. Distended gallbladder with w all thickening and pericholecystic fluid. Slightly hyperdense material within the gallbladder lumen. Small volume of abdominal pelvic ascites, centered within the right abdomen. 4 mm nonobstructing calculus of the inferior pole left kidney. Calculi of the right kidney measure up to 1.2 cm. No definite ureteral calculi or hydronephrosis. Partial distention of the urinary bladder with wall thickening. Unremarkable uterus. Atherosclerosis of the aorta without aneurysm. No lymphad enopathy identified. Mild wall thickening of the proximal duodenum with duodenal diverticulum. Colonic diverticulosis. Non inflamed appendix. Mild generalized body wall edema. Degenerative changes of the spine, pelvis and hi ps. IMPRESSION: 1. Distended gallbladder with wall thickening and pericholecystic fluid suspicious for acute cholecys titis. Mildly increased attenuation of the contents within the gallbladder lumen may represent sludge versus cholelithiasis. 2. Mild wall thickening of the duodenum is likely reactive . No bowel obstruction. 3. Small volume of abdominopelvic ascites. 4. Small right pleural effusion. 5. Nonobstructing bilateral renal calculi. 6. Colonic diverticulosis. ACT 112: Negative or not required by law. The above report was generated using voice recognition software. It may contain grammatical, syntax o r spelling errors. Electronically signed by: Ariel Real M.D. 06/12/2022 9:38 AM
--- NOTE | 2022-06-12 09:45 | XCELERA ---
[id number]
--- NOTE | 2022-06-12 10:19 | XRay Report ---
XR chest 1V portable CLINICAL HISTORY: Atypical chest pain. COMPARISON STUDY: Chest radiograph July 23, 2021. FINDINGS: There is no pneumothorax. Small right pleural effusion is noted. Linear right midlung opaci ty represents atelectasis. There is no evidence for pulmonary edema. Cardiomegaly is noted. Degenerat anjali changes of both shoulders are incidentally noted. Old right third rib fracture is incidentally no jensen. IMPRESSION: 1. Cardiomegaly. No evidence for pulmonary edema. 2. Small right pleural effusion. ACT 112: Negative or not required by law. Electronically signed by: Dmitriy Bills M.D. 06/12/2022 10:17 AM
--- NOTE | 2022-06-12 10:34 | Hospitalist Progress Note ---
Date of Service June 12, 2022 Assessment & Plan Admission and Anticipated Discharge Date Admission Date: June 12, 2022 Results & Data Results & Data ([facility]) Vital Signs (Past 12 Hours) Vital Signs Pulse Pulse Resp BP BP Pulse Ox Pulse Ox 06/12/22 10:00 102 H 21 140/90 98 06/12/22 09:00 114 H 21 95 06/12/22 09:00 95 06/12/22 08:00 102 H 24 131/95 99 06/12/22 06:00 127 H 21 144/103 H 97 06/12/22 05:58 118 H 19 06/12/22 06:22 118 H 20 97 06/12/22 05:01 124 H 18 129/97 06/12/22 04:30 124 H 18 132/96 06/12/22 04:00 123 H 26 H 133/97 98 06/12/22 03:31 114 H 14 128/92 92 06/12/22 03:30 110 H 16 96 06/12/22 03:00 122 H 22 129/103 H 99 06/12/22 02:54 119 H 24 126/109 H 94 06/12/22 02:53 117 H 20 99 06/12/22 02:32 123 H 44 H 138/104 H 98 06/12/22 02:30 123 H 27 H 96 06/12/22 02:00 109 H 22 118/95 96 06/12/22 01:30 125 H 19 96 06/12/22 01:00 123 H 21 97 06/12/22 02:23 127 H 118/95 06/12/22 00:30 114 H 22 06/12/22 00:00 121 H 23 06/11/22 23:30 108 H 26 H 140/96 99 06/11/22 23:00 120 H 16 121/95 96 O2 Del Method O2 Del Method 06/12/22 10:00 Room Air 06/12/22 09:00 Room Air 06/12/22 09:00 Room Air 06/12/22 08:00 Room Air 06/12/22 06:00 06/12/22 05:58 06/12/22 06:22 Room Air 06/12/22 05:01 06/12/22 04:30 06/12/22 04:00 06/12/22 03:31 06/12/22 03:30 06/12/22 03:00 06/12/22 02:54 06/12/22 02:53 06/12/22 02:32 06/12/22 02:30 06/12/22 02:00 06/12/22 01:30 06/12/22 01:00 06/12/22 02:23 06/12/22 00:30 06/12/22 00:00 06/11/22 23:30 06/11/22 23:00 PG Care Time/CCT Total # of Minutes Spent Total Time Spent with Patient: Total time spent is greater than 50% in coordination of care (as documented) at patient's floor/unit and/or counseling patient: Coding Level of Care Code None
--- NOTE | 2022-06-12 19:14 | Communication Note ---
Date of Service: June 12, 2022 Patient admitted after midnight; this will serve as bridge note. 82 yo F Hx TIA, HTN, DVT presented with SOB and weakness and was found to have AFib with RVR, new systolic HF, and transaminitis. On exam patient is well developed, well nourished, in no acute distress. Heart irregularly irregular without murmurs, and with 1+ bilateral LE pitting edema. Lungs CTA bilaterally. Abdomen soft nontender nondistended. Patient is alert and oriented without focal neuro deficits. Plan: AFib RVR: Continue metoprolol tartrate 50mg BID with Lopressor 5mg IV q4h as needed for HR over 110 bpm. HFrEF: Echo with EF 25-30%, rather reduced from last Echo in 2020. Cardiology consulted and cardiac rehab referral placed. Lasix 40mg IV daily with monitoring of BMP. Hold NAHID until repeat BMP in AM. Transaminitis: Admission labs show AST 234, ALT 415, TBili 1.2, Alk Phos 163. CTAP shows gallbladder wall thickening and pericholecystic fluid suggestive of acute cholecystitis. Gen. Surgery consulted and Unasyn started. Could also be an element of congestive hepatopathy given acute CHF. Lasix as above. YONI: Creatinine 1.38; suspect cardiorenal syndrome. Daily BMP. Lasix as above.
[2022-06-12] MEDS: MULTIVITAMIN TAB PO SCH (20:31)
[2022-06-12] MEDS: APIXABAN 5 MG TABLET PO SCH (20:31)
[2022-06-12] MEDS: METOPROLOL TARTRATE 50 MG TAB PO SCH (20:31)
--- NOTE | 2022-06-12 21:28 | Electrocardiogram Report ---
Test Reason : Blood Pressure : / mmHG Vent. Rate : 123 BPM Atrial Rate : 129 BPM P-R Int : 000 ms QRS Dur : 084 ms QT Int : 328 ms P-R-T Axes : 000 003 198 degrees QTc Int : 469 ms Atrial fibrillation with rapid ventricular response Minimal voltage criteria for LVH, may be normal variant T wave abnormality, consider lateral ischemia Abnormal ECG When compared with ECG of 16-FEB-2022 14:56, Atrial fibrillation has replaced Sinus rhythm Vent. rate has increased BY 56 BPM Nonspecific T wave abnormality now evident in Inferior leads T wave inversion now evident in Lateral leads Confirmed by Sanju Carson ([id number]) on 06/12/2022 9:27:57 PM Referred By: REFERRED SELF Confirmed By:Sanju Carson
[2022-06-12] MEDS: AMPICILLIN/SULBACTAM SOD 3,000 MG in 0.9 % SODIUM CHLORIDE 100 ML IV SCH (21:54)
--- NOTE | 2022-06-12 21:58 | Surgery Consultation ---
Date of Consultation June 12, 2022 Assessment & Plan (1) Acute cholecystitis due to biliary calculus: pt is a 82 year-old female who was admitted to hospital for 1 week history weakness, CT scan finding- possible acute cholecystitis, IMP: acute cholecystitis? Plan, I recommend to do U/S study gallbladder and HIDA scan for further diagnosis, iv antibiotic, repeat labs in morning, will F/U, pt agrees with the plan, I answered all questions, History of Present Illness Reason for Consultation: acute cholecystitis Requesting Physician: Ami Gray DO Attending Physician: Ami Gray DO History of Present Illness History of Present Illness Primary Care Provider: Fausto Dahl MD CC: jose francisco Grijalva is an 82yo F w/ PMH of DVT, TIA, HTN, B/L LE edema, chronic deconditioning with weakness and falls who presented due to SOB. She states symptoms have been going on for about a week. Has had associated decreased appetite and increased weakness. She has not had any other symptoms including f/c, n/v, abd pain, CP, palp, dysuria, diarrhea, cough, congestion, ALMAGUER, dizziness, confusion, numbness, tingling, vision changes. In ED had EKG showing afib w/ RVR at rate of 123 -- no notable ST elevations. CXR with enlarged cardiac silhouette and some right perihilar opacities. CT A/P with trace fluid around the liver and mildly prominent gallbladder. CT chest with cardiomegaly & small right-sided pleural effusion. Lab work with normal white count, normal Hgb, normal Plt count. BUN 52 and Cr 1.38 (baseline is normal Cr). Phos 5.4, Mag 2.5. Elevated LFTs w/ T. bili 1.2, AST 234, ALT 415, alk phos 163. Mildly elevated trop of 29.9. BNP of 943. Received duonebs x1, Lasix 20mg IV x1, MTP tartrate 2.5mg IV x1. I ( Zara Cope MD ) got a call for consult acute cholecystitis, I reviewed pt's H/P, labs, CT scan with pt, pt denies abdominal pain, Allergies Allergy/AdvReac Type Severity Reaction Status Date / Time cefaclor AdvReac Mild NAUSEA Verified 06/11/22 23:10 Home Medications Medication Instructions Recorded Confirmed Type vitamins A,C,Y-shih-mjrlge 2,148 1 tab PO HS 08/18/19 2 History mcg-113 mg-45 mg-17.4 mg tablet (PreserVision AREDS) Bedside Commode #1 ea 08/19/19 04/09/21 Rx Lift Chair #1 ea 08/19/19 04/09/21 Rx Shower Chair #1 ea 08/19/19 04/09/21 Rx diclofenac sodium 1 % topical gel 4 g topical QID #300 grams 08/13/21 06/11/22 Rx (Voltaren Arthritis Pain) Hospital Bed Homecare #1 ea 11/20/21 11/20/21 Rx apixaban 5 mg (74 tabs) tablets in 5 mg PO BID 02/16/2206/11 History a dose pack metoprolol tartrate 50 mg tablet 50 mg PO BIDB 02/16/22 2 History Past Med/Surg History Medical History Arthritis Heart enlargement PT REPORTS FOUND HEART ENLARGEMENT AND LIVER ENLARGEMENT FOUND ON MRI IN 2011 WHEN HAD KIDNEY STONES ...TREATED AT [facility] FOR KIDNEY STONESHistory of anesthesia reaction "BRAIN FOG" AFTER SURGERIES - CAN'T REMEMBER WHAT DAY IT IS FOR AWHILEHistory of asthma History of falling HX MULTIPLE FALLS, NONE FOR OVER 1 YRHistory of kidney stones Hypertension Thumb problem Surgical History History of bilateral breast reduction surgery History of cataract surgery RTHistory of colonoscopy History of dental surgery History of surgery SKIN BOIL LANCED AND REMOVEDHistory of surgery BONE TUMOR REMOVED - LEFT LEG TEENAGERHistory of surgery CYST ON BACK REMOVED Family History Mother , age 80 of brain cancer (uncertain type) Brain cancerFather , age 51 of an [place] Myocardial infarctionOther Cancer Family history of diabetes mellitus Heart disease Social History Smoking Status: Never smoker Second Hand Exposure: No; Hx Alcohol Use: No Hx Substance Use: No Preferred Language: Tuvaluan Communication Ability: Effective Government Clerk Required: No Beliefs That Will Affect Care: None marital status: Single Current Living Situation: Alone Current Living Situation Comment: DAUGHTER LIVES NEAR BY FREQUENT VISITS HOME HEALTH VISITS ON REQUEST current occupational status: retired 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 Feels Safe at Home: Yes Assistive Devices: Wheelchair Review of Systems Review of Systems: per HPI Allergies Allergy/AdvReac Type Severity Reaction Status Date / Time cefaclor AdvReac Mild NAUSEA Verified 06/11/22 23:10 Home Medications Medication Instructions Recorded Confirmed Type vitamins A,C,X-dzzb-guqvup 2,148 1 tab PO HS 08/18/19 06/11/22 History mcg-113 mg-45 mg-17.4 mg tablet (PreserVision AREDS) Bedside Commode #1 ea 08/19/19 04/09/21 Rx Lift Chair #1 ea 08/19/19 04/09/21 Rx Shower Chair #1 ea 08/19/19 04/09/21 Rx diclofenac sodium 1 % topical gel 4 g topical QID #300 grams 08/13/21 06/11/22 Rx (Voltaren Arthritis Pain) Hospital Bed Homecare #1 ea 11/20/21 11/20/21 Rx apixaban 5 mg (74 tabs) tablets in 5 mg PO BID 02/16/22 06/11/22 History a dose pack metoprolol tartrate 50 mg tablet 50 mg PO BID 02/16/22 06/11/22 History Patient History Medical History Arthritis Heart enlargement PT REPORTS FOUND HEART ENLARGEMENT AND LIVER ENLARGEMENT FOUND ON MRI IN 2011 WHEN HAD KIDNEY STONES ...TREATED AT [facility] FOR KIDNEY STONES History of anesthesia reaction "BRAIN FOG" AFTER SURGERIES - CAN'T REMEMBER WHAT DAY IT IS FOR AWHILE History of asthma History of falling HX MULTIPLE FALLS, NONE FOR OVER 1 YR History of kidney stones Hypertension Thumb problem Surgical History History of bilateral breast reduction surgery History of cataract surgery RT History of colonoscopy History of dental surgery History of surgery SKIN BOIL LANCED AND REMOVED History of surgery BONE TUMOR REMOVED - LEFT LEG TEENAGER History of surgery CYST ON BACK REMOVED Family History Mother , age 80 of brain cancer (uncertain type) Brain cancer Father , age 51 of an [place] Myocardial infarction Other Cancer Family history of diabetes mellitus Heart disease Social History Smoking Status: Never smoker Second Hand Exposure: No; Hx Alcohol Use: Yes Hx Substance Use: No Preferred Language: Tuvaluan Communication Ability: Effective Government Clerk Required: No Beliefs That Will Affect Care: None marital status: Single Current Living Situation: Alone Current Living Situation Comment: DAUGHTER LIVES NEAR BY FREQUENT VISITS HOME HEALTH VISITS ON REQUEST current occupational status: retired 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 Feels Safe at Home: Yes Safety Concerns: Feels Safe At This Time Assistive Devices: Bedside Commode, Wheelchair and Other Assistive Devices Comment: shower chair Physical Exam Constitutional: WD/WN, vitals as above no distress Eyes: PERRL, conjunctivae normal, anicteric sclerae Neck: trachea midline, no thyromegaly Respiratory: normal respiratory effort, lungs clear to auscultation Cardiovascular: A-fib Gastrointestinal (Abdomen): soft, NT, Nd, BS + Neurologic: patellar DTR's 2+ bilat, sensation intact Psychiatric: A+Ox3, euthymic affect Results & Data ([facility]) Vital Signs (Past 12 Hours) Vital Signs Temp Pulse Pulse Resp BP BP Pulse Ox 06/12/22 19:37 112 H 130/83 06/12/22 18:00 06/12/22 19:07 36.5 C 111 H 18 130/83 96 06/12/22 17:50 36.4 C L 117 H 20 126/94 99 06/12/22 17:23 106 H 18 128/106 H 99 06/12/22 14:00 116 H 20 137/108 H 06/12/22 10:00 102 H 21 140/90 98 O2 Del Method 06/12/22 19:37 06/12/22 18:00 Room Air 06/12/22 19:07 06/12/22 17:50 Room Air 06/12/22 17:23 Room Air 06/12/22 14:00 06/12/22 10:00 Room Air Laboratory Results Abnormal lab results 06/12/22 06/12/22 06/12/22 Range/Units 00:27 00:27 00:28 MCHC 31.6 L (32.0-36.0) g/dL RDW Std Deviation 56.1 H (36.4-46.3) fL RDW Coeff of Adam 16.4 H (11.5-14.5) % Neut # (Auto) 8.19 H (1.4-6.5) K/uL Lymph # (Auto) 0.53 L (1.2-3.4) K/uL Jerome # (Auto) 1.08 H (0.24-0.82) K/uL Immature Gran # (Auto) 0.19 H (0.00-0.02) K/uL Absolute Nucleated RBC 0.02 H (0-0) K/uL Carbon Dioxide 20 L (21-32) mmol/L BUN 52 H (6-23) mg/dl Creatinine 1.38 H (0.6-1.2) mg/dl BUN/Creatinine Ratio 37.7 H (10-20) Glucose 101 H (70-99(Fasting)) mg/dl Phosphorus 5.4 H (2.5-4.9) mg/dl Magnesium 2.5 H (1.7-2.4) mg/dl Total Bilirubin 1.2 H (0.2-1.0) mg/dl Direct Bilirubin (0-0.2) mg/dl AST 234 H (13-39) U/L ALT 415 H (7-52) U/L Alkaline Phosphatase 163 H (34-104) U/L Troponin I High Sens 29.9 H D (0-14) pg/ml B-Natriuretic Peptide 943 H (0-100) pg/ml Total Protein 5.8 L (6.0-8.3) gm/dl Globulin 1.9 L (2.5-4.0) gm/dl Albumin/Globulin Ratio 2.1 H (0.9-2) Urine Protein (Negative) Urine Blood (Negative) Urine Bilirubin (Negative) Ur Leukocyte Esterase (Negative) Urine WBC (Auto) (0-5) /hpf Urine RBC (Auto) (0-4) /hpf U Hyaline Cast (Auto) (0-5) /lpf U Epithel Cells (Auto) (0-5) /lpf Calcium Oxalate Crystal (None Prsent) 06/12/22 06/12/2206/12/22 Range/Units 00:51 02:22 09:55 MCHC (32.0-36.0) g/dL RDW Std Deviation (36.4-46.3) fL RDW Coeff of Adam (11.5-14.5) % Neut # (Auto) (1.4-6.5) K/uL Lymph # (Auto) (1.2-3.4) K/uL Jerome # (Auto) (0.24-0.82) K/uL Immature Gran # (Auto) (0.00-0.02) K/uL Absolute Nucleated RBC (0-0) K/uL Carbon Dioxide (21-32) mmol/L BUN (6-23) mg/dl Creatinine (0.6-1.2) mg/dl BUN/Creatinine Ratio (10-20) Glucose (70-99(Fasting)) mg/dl Phosphorus (2.5-4.9) mg/dl Magnesium (1.7-2.4) mg/dl Total Bilirubin (0.2-1.0) mg/dl Direct Bilirubin 0.4 H (0-0.2) mg/dl AST (13-39) U/L ALT (7-52) U/L Alkaline Phosphatase (34-104) U/L Troponin I High Sens 28.3 H (0-14) pg/ml B-Natriuretic Peptide (0-100) pg/ml Total Protein (6.0-8.3) gm/dl Globulin (2.5-4.0) gm/dl Albumin/Globulin Ratio (0.9-2) Urine Protein 3+ H (Negative) Urine Blood 2+ H (Negative) Urine Bilirubin 1+ H (Negative) Ur Leukocyte Esterase Trace H (Negative) Urine WBC (Auto) 10-30 H (0-5) /hpf Urine RBC (Auto) 10-30 H (0-4) /hpf U Hyaline Cast (Auto) >30 H (0-5) /lpf U Epithel Cells (Auto) >30 H (0-5) /lpf Calcium Oxalate Crystal Present A (None Prsent) 06/12/22 06/12/22 Range/Units 14:37 20:24 MCHC (32.0-36.0) g/dL RDW Std Deviation (36.4-46.3) fL RDW Coeff of Adam (11.5-14.5) % Neut # (Auto) (1.4-6.5) K/uL Lymph # (Auto) (1.2-3.4) K/uL Jerome # (Auto) (0.24-0.82) K/uL Immature Gran # (Auto) (0.00-0.02) K/uL Absolute Nucleated RBC (0-0) K/uL Carbon Dioxide (21-32) mmol/L BUN (6-23) mg/dl Creatinine (0.6-1.2) mg/dl BUN/Creatinine Ratio (10-20) Glucose (70-99(Fasting)) mg/dl Phosphorus (2.5-4.9) mg/dl Magnesium (1.7-2.4) mg/dl Total Bilirubin (0.2-1.0) mg/dl Direct Bilirubin (0-0.2) mg/dl AST (13-39) U/L ALT (7-52) U/L Alkaline Phosphatase (34-104) U/L Troponin I High Sens 26.9 H 28.0 H (0-14) pg/ml B-Natriuretic Peptide (0-100) pg/ml Total Protein (6.0-8.3) gm/dl Globulin (2.5-4.0) gm/dl Albumin/Globulin Ratio (0.9-2) Urine Protein (Negative) Urine Blood (Negative) Urine Bilirubin (Negative) Ur Leukocyte Esterase (Negative) Urine WBC (Auto) (0-5) /hpf Urine RBC (Auto) (0-4) /hpf U Hyaline Cast (Auto) (0-5) /lpf U Epithel Cells (Auto) (0-5) /lpf Calcium Oxalate Crystal (None Prsent) Diagnostic Findings ABDOMEN AND PELVIS CT WITHOUT CONTRAST CT DOSE: 960.47 mGy.cm HISTORY: Acutely elevated LFTs transaminitis TECHNIQUE: Multiaxial CT images of the abdomen and pelvis were performed without contrast. A dose lowering technique was utilized adhering to the principles of ALARA. COMPARISON STUDY: Chest CT of same day FINDINGS: Cardiomegaly with coronary artery calcifications. Small right pleural effusion with mild right basilar atelectasis. No pneumatosis or pneu moperitoneum. Study is degraded by respiratory motion artifact. The unenhanced spleen is unremarkable. The visualized adrenal glands are within normal limits. The study is degraded by respiratory motion artifact. Mild pancreatic atrophy. Distended gallbladder with wall thickening and pericholecystic fluid. Slightly hyperdense material within the gallbladder lumen. Small volume of abdominal pelvic ascites, centered within the right abdomen. 4 mm nonobstructing calculus of the inferior pole left kidney. Calculi of the right kidney measure up to 1.2 cm. No definite ureteral calculi or hydroneph rosis. Partial distention of the urinary bladder with wall thickening. Unremarkable uterus. Atherosclerosis of the aorta without aneurysm. No lymphadenopathy identified. Mild wall thickening of the proximal duodenum with duodenal diverticulum. Colonic diverticulosis. Noninflamed appendix. Mild generalized body wall edema. Degenerative changes of the spine, pelvis and hips. IMPRESSION: 1. Distended gallbladder with wall thickening and pericholecystic fluid suspicious for acute cholecystitis. Mildly increased attenuation of the contents within the gallbladder lumen may represent sludge versus cholelithiasis. 2. Mild wall thickening of the duodenum is likely reactive . No bowel obstruction. 3. Small volume of abdominopelvic ascites. 4. Small right pleural effusion. 5. Nonobstructing bilateral renal calculi. 6. Colonic diverticulosis. ACT 112: Negative or not required by law.
[2022-06-13 02:20] LABS: Basophils # (auto) 0.02 K/uL (0-0.2); Basophils % (auto) 0.2 %; Eosinophils # (auto) 0.02 K/uL (0-0.50); Eosinophils % (auto) 0.2 %; Hematocrit (blood only) 43.7 % (34.1-44.9); Immature Granulocytes # (auto) 0.25 K/uL (0.00-0.02); Immature Granulocytes % (auto) 2.7 %; Lymphocytes # (auto) 0.54 K/uL (1.2-3.4); Lymphocytes % (auto) 5.8 %; Mean Corpuscular Hemoglobin 30.6 pg (25.0-34.0); Mean Corpuscular Volume 95.6 fL (80.0-100.0); Monocytes % (auto) 8.6 %; Neutrophils # (auto) 7.65 K/uL (1.4-6.5); Neutrophils % (auto) 82.5 %; Nucleated RBC # (auto) 0.03 K/uL (0-0); Nucleated RBC % (auto) 0.3 %; Platelet Count 172 K/uL (130-400); RDW Coefficient of Variation 16.5 % (11.5-14.5); RDW Standard Deviation 56.1 fL (36.4-46.3); Red Blood Count 4.57 M/uL (3.93-5.22); White Blood Count 9.28 K/ul (4.8-10.8)
[2022-06-13 02:36] LABS: INR 1.6 (0.9-1.1); Prothrombin Time 16.3 Seconds (9.0-12.0)
[2022-06-13 02:55] LABS: Est GFR (African American) 27.9 ml/min; Est GFR (Non-African American) 24.1 ml/min
[2022-06-13 03:36] LABS: Troponin I High Sensitivity 29.1 pg/ml (0-14)
[2022-06-13 04:02] LABS: Albumin Level 3.6 gm/dl (3.4-5.0); Bilirubin,Total 1.6 mg/dl (0.2-1.0); Globulin 1.8 gm/dl (2.5-4.0); Total Protein 5.4 gm/dl (6.0-8.3)
--- NOTE | 2022-06-13 04:08 | Billing Data ---
Date of Service June 13, 2022 Coding Level of Care Code 91635 Initial Inpt Care Lvl 3
--- NOTE | 2022-06-13 06:56 | Hospitalist Progress Note ---
Date of Service June 13, 2022 Assessment & Plan (1) Atrial fibrillation with rapid ventricular response: Plan: Gauri Grijalva is an 82yo F w/ PMH of DVT, TIA, HTN, B/L LE edema, chronic deconditioning with weakness and falls who presented due to SOB, weakness and was noted on admission testing to have new-onset HFrEF and AFib with RVR. Afib w/ RVR: - Anticoagulated on Eliquis 5mg PO BID for AFib noted previously as well as DVT. - No EKG findings consistent with ischemia. - Continue metoprolol tartrate 50mg TID. - Lopressor 5mg IV prn for elevated HR. - Cardiology consulted. (2) Acute systolic (congestive) heart failure: Plan: - BNP elevated to over 900. - Chest imaging with pulmonary vascular congestion. - Echo ordered; reveals EF 25-30%; compared to August 2021 Echo with normal systolic function/EF - Will hold diuresis this evening, with plan to resume based in I&Os. - Cardiology consulted as above. - Monitor I&O's. (3) Cholecystitis: Plan: - Labs with new LFT elevations, CT with mildly prominent gallbladder. - Initially thought to be due to fluid overload, back-pressure. However, levels did not improve with diuresis. - CTAP revealed findings suggesting acute cholecystitis. - Zosyn started. - General Surgery consulted; will follow up outpatient if GI workup reveals gallstones. - GI consulted; patient had EUS/ERCP this afternoon. - Daily CMP. (4) Acute renal insufficiency: Plan: - Possibly could be from cardiorenal syndrome with elevated BUN/Cr ratio supporting prerenal azotemia. - As above, continue to manage HF/fluid overload. - Monitor creatinine. - Avoid nephrotoxins. (5) Generalized weakness: Plan: - Consult PT/OT for home needs. (6) Cold feet: Plan: - Noted on exam today. - Pulses normal. SWAPNA normal. Plan DVT ppx: Eliquis Diet: heart healthy, low sodium Dispo: Telemetry CODE STATUS: Full Admission and Anticipated Discharge Date Admission Date: June 12, 2022 Subjective No events overnight. Today patient reports that her breathing is back to normal. She denies abdominal pain, nausea, vomiting. Review of Systems Constitutional: no fever and no chills Respiratory: no cough and no dyspnea Cardiovascular: no chest pain and no palpitations Gastrointestinal: no abdominal pain, no nausea and no vomiting Physical Exam Constitutional: WD/WN, vitals as above Respiratory: normal respiratory effort, lungs clear to auscultation Cardiovascular: Rate/Rhythm: + irregularly irregular; not tachycardic Heart Sounds: no murmur Extremities: no edema Gastrointestinal (Abdomen): normal bowel sounds, soft, nontender, no hepatosplenomegaly Skin: no rashes, warm and dry cold feet bilaterally with dusky-purple plantar aspect of each toe and bottom of bilateral feet Psychiatric: A+Ox3, euthymic affect Results & Data Results & Data ([facility]) Vital Signs (Past 12 Hours) Vital Signs Temp Pulse Pulse Resp BP BP Pulse Ox 06/13/22 03:09 36.6 C 102 H 18 108/76 94 06/12/22 19:55 06/12/22 23:12 104 H 06/12/22 22:40 36.6 C 109 H 18 111/81 95 06/12/22 19:37 112 H 130/83 06/12/22 19:07 36.5 C 111 H 18 130/83 96 O2 Del Method 06/13/22 03:09 Room Air 06/12/22 19:55 Room Air 06/12/22 23:12 06/12/22 22:40 Room Air 06/12/22 19:37 06/12/22 19:07 PG Care Time/CCT Total # of Minutes Spent Total Time Spent with Patient: Total time spent is greater than 50% in coordination of care (as documented) at patient's floor/unit and/or counseling patient: Coding Level of Care Code 13854 Subseq Hosp Care Lvl 3 Diagnoses Atrial fibrillation with rapid ventricular response I48.91 Acute systolic (congestive) heart failure I50.21 Cholecystitis K81.9 Acute renal insufficiency N28.9 Generalized weakness R53.1 Cold feet R20.9
[2022-06-13] MEDS ORDERED: SODIUM CHLORIDE 0.9% 1000ML 500 ML IV ONE (07:30)
[2022-06-13] MEDS ORDERED: PIPERACILLIN/TAZOBACTAM 4.5 GM in DEXTROSE 5% 100 ML IV SCH (07:45)
[2022-06-13] MEDS ORDERED: PIPERACILLIN/TAZOBACTAM 4.5 GM in DEXTROSE 5% 100 ML IV ONE (07:45)
[2022-06-13] MEDS: AMPICILLIN/SULBACTAM SOD 3,000 MG in 0.9 % SODIUM CHLORIDE 100 ML IV SCH (07:56)
[2022-06-13] MEDS: APIXABAN 5 MG TABLET PO SCH ×2 (08:53→21:11)
[2022-06-13] MEDS: METOPROLOL TARTRATE 50 MG TAB PO SCH ×3 (08:53→21:11)
[2022-06-13] MEDS ORDERED: FUROSEMIDE 40 MG/4 ML VIAL IV SCH (09:00)
--- NOTE | 2022-06-13 10:23 | Ultrasound Report ---
ABDOMINAL ULTRASOUND COMPLETE HISTORY: Abnormal gallbladder on CT. care to kidneys (acute kidney injury), and GB. COMPARISON: Abdomen and pelvis CT 06/12/2022. FINDINGS: Pancreas: The pancreatic tail is obscured by overlying bowel gas. The remaining portions of the pancr eas are within normal limits. Liver: Unremarkable. Gallbladder: The gallbladder wall is thickened up to 3.4 mm. No gallstones identified. There is a neg ative sonographic Mitchell sign. Trace pericholecystic fluid CBD: 5 mm. Kidneys: Bilateral nephrolithiasis again noted. No hydronephrosis. Spleen: Normal in size. Aorta: Visualized abdominal aorta is normal in caliber. IVC: Patent. Miscellaneous: Small right pleural effusion. IMPRESSION: 1. Gallbladder wall thickening with trace pericholecystic fluid. However, there are no stones and the re is a negative sonographic Mitchell sign. This is nonspecific and could be due to the patient's diffu se edematous state. An acute cholecystitis is also considered in the differential diagnosis. 2. Small right pleural effusion. 3. Normal caliber common bile duct. 4. Bilateral nephrolithiasis. No hydronephrosis ACT 112: Negative or not required by law. Electronically signed by: Gagan Rubio M.D. 06/13/2022 10:22 AM
--- NOTE | 2022-06-13 11:38 | Gastrointestinal Consultation ---
Date of Consultation June 13, 2022 Assessment & Plan (1) Elevated LFTs: 82 year old female with history of DVT, TIA, HTN admitted w/ AFIB and RVR, GI asked to evaluate for elevated LFTs, imaging w/ GB sludge and prominent gallbladder DDX discussed, recommend EGD/EUS +/- ERCP. Given use of AC (eliquis) this AM will discuss timing with attending. Thank you for allowing us to participate in the care of this patient. Please call with any acute changes, questions or concerns. Please see addendum below with additional recommendation from my supervising physician. Supervising Physician Co-Signing Physician Notes I performed a history and physical examination of the patient today, including specifically on physical exam - soft abdomen. I have discussed the patient's management with the advanced practitioner. Please refer to the nurse practitioner's note for the documented findings and plan of care. EUS/ERCP today Patient was explained in detail regarding risks, benefits, limitations and alternatives of the above endoscopic procedure. Risks of intravenous sedation used for procedure were also explained. Risks include, but not limited to perforation, bleeding, infection, respiratory distress, cardiac arrest and fabby th. Patient is also aware about the possibility of missed lesion. Patient's questions were answered. The patient verbalized understanding the information and agreed to undergo the procedure. History of Present Illness Reason for Consultation: elevated LFTs Requesting Physician: Isaac Attending Physician: Ami Gray, DO History of Present Illness 82 year old female with history of DVT, TIA, HTN, chronic deconditioning with weakness and falls admitted with SOB - GI asked to evaluate for abnormal imaging and elevated LFTs. Pt was seen and evaluated, chart reviewed. Notes that she has had vague, intermittent abd pain. This is followed by nausea, chills and dizziness. No black or bloody stools. She was admitted with afib, RVR without ST elevation. Troponin was elevated as well. TB 1.6 AST 272 ALT 561 ALKP 201 ABD US 2021: Gallbladder wall thickening with trace pericholecystic fluid. However, there are no stones and there is a negative sonographic Mitchell sign. This is nonspecific and could be due to the patient's diffuse edematous state. An acute cholecystitis is also considered in the differential diagnosis. Small right pleural effusion. Normal caliber common bile duct. Bilateral nephrolithiasis. No hydronephrosis CTAP 2021: Distended gallbladder with wall thickening and pericholecystic fluid suspicious for acute cholecystitis. Mildly increased attenuation of the contents within the gallbladder lumen may represent sludge versus cholelithiasis. Mild wall thickening of the duodenum is likely reactive . No bowel obstruction. Small volume of abdominopelvic ascites. Small right pleural effusion.Nonobstructing bilateral renal calculi. Colonic diverticulosis. Allergies Allergy/AdvReac Type Severity Reaction Status Date / Time cefaclor AdvReac Mild NAUSEA Verified 06/11/22 23:10 Home Medications Medication Instructions Recorded Confirmed Type vitamins A,C,P-ugyz-dzunxo 2,148 1 tab PO HS 08/18/19 06/11/22 History mcg-113 mg-45 mg-17.4 mg tablet (PreserVision AREDS) Bedside Commode #1 ea 08/19/19 04/09/21 Rx Lift Chair #1 ea 08/19/19 04/09/21 Rx Shower Chair #1 ea 08/19/19 04/09/21 Rx diclofenac sodium 1 % topical gel 4 g topical QID #300 grams 08/13/21 06/11/22 Rx (Voltaren Arthritis Pain) Hospital Bed Homecare #1 ea 11/20/21 11/20/21 Rx apixaban 5 mg (74 tabs) tablets in 5 mg PO BID 02/16/22 06/11/22 History a dose pack metoprolol tartrate 50 mg tablet 50 mg PO BID 02/16/22 06/11/22 History Patient History Medical History Arthritis Heart enlargement PT REPORTS FOUND HEART ENLARGEMENT AND LIVER ENLARGEMENT FOUND ON MRI IN 2011 WHEN HAD KIDNEY STONES ...TREATED AT [facility] FOR KIDNEY STONES History of anesthesia reaction "BRAIN FOG" AFTER SURGERIES - CAN'T REMEMBER WHAT DAY IT IS FOR AWHILE History of asthma History of falling HX MULTIPLE FALLS, NONE FOR OVER 1 YR History of kidney stones Hypertension Thumb problem Surgical History History of bilateral breast reduction surgery History of cataract surgery RT History of colonoscopy History of dental surgery History of surgery SKIN BOIL LANCED AND REMOVED History of surgery BONE TUMOR REMOVED - LEFT LEG TEENAGER History of surgery CYST ON BACK REMOVED Family History Mother , age 80 of brain cancer (uncertain type) Brain cancer Father , age 51 of an PR Myocardial infarction Other Cancer Family history of diabetes mellitus Heart disease Social History Smoking Status: Never smoker Second Hand Exposure: No; Hx Alcohol Use: Yes Hx Substance Use: No Preferred Language: Northern Irish Communication Ability: Effective Monogram Machine Operator Required: No Beliefs That Will Affect Care: None marital status: Single Current Living Situation: Alone Current Living Situation Comment: DAUGHTER LIVES NEAR BY FREQUENT VISITS HOME HEALTH VISITS ON REQUEST current occupational status: retired 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 Feels Safe at Home: Yes Safety Concerns: Feels Safe At This Time Assistive Devices: Bedside Commode, Wheelchair and Other Assistive Devices Comment: shower chair Review of Systems Review of Systems: All systems reviewed & are unremarkable except as noted in HPI & below Physical Exam Constitutional: WD/WN, vitals as above Respiratory: normal respiratory effort; no respiratory distress Cardiovascular: Rate/Rhythm: regular rate Gastrointestinal (Abdomen): Inspection/Auscultation: abdomen normal to inspection and normal bowel sounds; abdomen not distended Skin: no rashes, warm and dry Results & Data ([facility]) Vital Signs (Past 12 Hours) Vital Signs Temp Pulse Resp BP BP Pulse Ox O2 Del Method 06/13/22 07:10 36.5 C 96 H 18 111/86 96 Room Air 06/13/22 03:09 36.6 C 102 H 18 108/76 94 Room Air Laboratory Results 06/13/22 06/13/22 06/13/22 Range/Units 09:10 02:01 02:01 WBC (4.8-10.8) K/ul RBC (3.93-5.22) M/uL Hgb (12.0-16.0) g/dl Hct (34.1-44.9) % MCV (80.0-100.0) fL MCH (25.0-34.0) pg MCHC (32.0-36.0) g/dL RDW Std Deviation (36.4-46.3) fL RDW Coeff of Adam (11.5-14.5) % Plt Count (130-400) K/uL MPV (9.4-12.3) fL Immature Gran % (Auto) % Neut % (Auto) % Lymph % (Auto) % Brooks % (Auto) % Eos % (Auto) % Baso % (Auto) % Neut # (Auto) (1.4-6.5) K/uL Lymph # (Auto) (1.2-3.4) K/uL Brooks # (Auto) (0.24-0.82) K/uL Eos # (Auto) (0-0.50) K/uL Baso # (Auto) (0-0.2) K/uL Immature Gran # (Auto) (0.00-0.02) K/uL Absolute Nucleated RBC (0-0) K/uL Nucleated RBC % (auto) % PT 16.3 H (9.0-12.0) Seconds INR 1.6 H (0.9-1.1) Sodium 134 L (136-145) mmol/L Potassium 5.0 (3.5-5.1) mmol/L Chloride 103 (98-107) mmol/L Carbon Dioxide 18 L (21-32) mmol/L Anion Gap 13 H (3-11) BUN 64 H (6-23) mg/dl Creatinine 1.88 H D (0.6-1.2) mg/dl Est Cr Clr Drug Dosing 21.0 ml/min Est GFR ( Amer) 27.9 ml/min Est GFR (Non-Af Amer) 24.1 ml/min BUN/Creatinine Ratio 34.0 H (10-20) Glucose 89 (70-99(Fasting)) mg/dl Calcium 9.0 (8.5-10.1) mg/dl Total Bilirubin 1.6 H (0.2-1.0) mg/dl AST 272 H (13-39) U/L ALT 561 H (7-52) U/L Alkaline Phosphatase 201 H (34-104) U/L Troponin I High Sens 25.0 H 29.1 H (0-14) pg/ml Total Protein 5.4 L (6.0-8.3) gm/dl Albumin 3.6 (3.4-5.0) gm/dl Globulin 1.8 L (2.5-4.0) gm/dl Albumin/Globulin Ratio 2.0 (0.9-2) 09/06/13/22 06/12/22 Range/Units 02:01 02:01 20:24 WBC 9.28 (4.8-10.8) K/ul RBC 4.57 (3.93-5.22) M/uL Hgb 14.0 (12.0-16.0) g/dl Hct 43.7 (34.1-44.9) % MCV 95.6 (80.0-100.0) fL MCH 30.6 (25.0-34.0) pg MCHC 32.0 (32.0-36.0) g/dL RDW Std Deviation 56.1 H (36.4-46.3) fL RDW Coeff of Adam 16.5 H (11.5-14.5) % Plt Count 172 (130-400) K/uL MPV 13.0 H (9.4-12.3) fL Immature Gran % (Auto) 2.7 % Neut % (Auto) 82.5 % Lymph % (Auto) 5.8 % Brooks % (Auto) 8.6 % Eos % (Auto) 0.2 % Baso % (Auto) 0.2 % Neut # (Auto) 7.65 H (1.4-6.5) K/uL Lymph # (Auto) 0.54 L (1.2-3.4) K/uL Brooks # (Auto) 0.80 (0.24-0.82) K/uL Eos # (Auto) 0.02 (0-0.50) K/uL Baso # (Auto) 0.02 (0-0.2) K/uL Immature Gran # (Auto) 0.25 H (0.00-0.02) K/uL Absolute Nucleated RBC 0.03 H (0-0) K/uL Nucleated RBC % (auto) 0.3 % PT (9.0-12.0) Seconds INR (0.9-1.1) Sodium (136-145) mmol/L Potassium (3.5-5.1) mmol/L Chloride (98-107) mmol/L Carbon Dioxide (21-32) mmol/L Anion Gap (3-11) BUN (6-23) mg/dl Creatinine (0.6-1.2) mg/dl Est Cr Clr Drug Dosing ml/min Est GFR ( Amer) ml/min Est GFR (Non-Af Amer) ml/min BUN/Creatinine Ratio (10-20) Glucose (70-99(Fasting)) mg/dl Calcium (8.5-10.1) mg/dl Total Bilirubin (0.2-1.0) mg/dl AST (13-39) U/L ALT (7-52) U/L Alkaline Phosphatase (34-104) U/L Troponin I High Sens Cancelled 28.0 H (0-14) pg/ml Total Protein (6.0-8.3) gm/dl Albumin (3.4-5.0) gm/dl Globulin (2.5-4.0) gm/dl Albumin/Globulin Ratio (0.9-2) 06/12/22 Range/Units 14:37 WBC (4.8-10.8) K/ul RBC (3.93-5.22) M/uL Hgb (12.0-16.0) g/dl Hct (34.1-44.9) % MCV (80.0-100.0) fL MCH (25.0-34.0) pg MCHC (32.0-36.0) g/dL RDW Std Deviation (36.4-46.3) fL RDW Coeff of Adam (11.5-14.5) % Plt Count (130-400) K/uL MPV (9.4-12.3) fL Immature Gran % (Auto) % Neut % (Auto) % Lymph % (Auto) % Brooks % (Auto) % Eos % (Auto) % Baso % (Auto) % Neut # (Auto) (1.4-6.5) K/uL Lymph # (Auto) (1.2-3.4) K/uL Brooks # (Auto) (0.24-0.82) K/uL Eos # (Auto) (0-0.50) K/uL Baso # (Auto) (0-0.2) K/uL Immature Gran # (Auto) (0.00-0.02) K/uL Absolute Nucleated RBC (0-0) K/uL Nucleated RBC % (auto) % PT (9.0-12.0) Seconds INR (0.9-1.1) Sodium (136-145) mmol/L Potassium (3.5-5.1) mmol/L Chloride (98-107) mmol/L Carbon Dioxide (21-32) mmol/L Anion Gap (3-11) BUN (6-23) mg/dl Creatinine (0.6-1.2) mg/dl Est Cr Clr Drug Dosing ml/min Est GFR ( Amer) ml/min Est GFR (Non-Af Amer) ml/min BUN/Creatinine Ratio (10-20) Glucose (70-99(Fasting)) mg/dl Calcium (8.5-10.1) mg/dl Total Bilirubin (0.2-1.0) mg/dl AST (13-39) U/L ALT (7-52) U/L Alkaline Phosphatase (34-104) U/L Troponin I High Sens 26.9 H (0-14) pg/ml Total Protein (6.0-8.3) gm/dl Albumin (3.4-5.0) gm/dl Globulin (2.5-4.0) gm/dl Albumin/Globulin Ratio (0.9-2)
--- NOTE | 2022-06-13 13:31 | Surgery Progress Note ---
Date of Service June 13, 2022 Assessment & Plan (1) Elevated LFTs: Plan 82 year-old female who presented to emergency department for shortness of breath. CT scan showed distended gallbladder with wall thickening and pericholecystic fluid and she had elevated LFTS. An ultrasound was obtained this morning which showed no gallstones, negative murphys sign and mild pericholecystic fluid and wall thickening. This could be secondary to her fluid overload/CHF however t. bili and lfts increased today. No leukocytosis and no abdominal pain today. Plan: Discussed with patient that we need to obtain GI consult to further evaluate increased bilirubin and lfts. Pending on GI's recommendations and further evaluation, she may or may not require cholecystectomy. Given her CHF with reduced EF on her recent ECHO at 25-30% compared to 50-55% in 2020, would recommend outpatient follow-up to discuss cholecystectomy if GI work-up proves choledocholithiasis. Continue NPO for now until GI consulted Continue current medical management Dr. Lewis covering this weekend. Dr. Cope has seen and examined pt, agrees with above. Admission and Anticipated Discharge Date Admission Date: June 12, 2022 Subjective having no abdominal pain this morning no n,v would like something to eat Physical Exam Constitutional: WD/WN, vitals as above no acute distress and not ill appearing Neck: normal visual inspection and trachea midline Gastrointestinal (Abdomen): Inspection/Auscultation: abdomen normal to inspection; abdomen not distended Percussion/Palpation: abdomen soft; abdomen nontender, no guarding and abdomen not rigid Skin: no rashes, warm and dry Psychiatric: A+Ox3, euthymic affect Results & Data ([facility]) Vital Signs (Past 12 Hours) Vital Signs Temp Pulse Resp BP BP Pulse Ox O2 Del Method 06/13/22 12:44 36.6 C 117 H 18 114/84 96 Room Air 06/13/22 07:10 36.5 C 96 H 18 111/86 96 Room Air 06/13/22 03:09 36.6 C 102 H 18 108/76 94 Room Air Laboratory Results 06/13/22 06/13/22 06/13/22 Range/Units 12:34 09:10 02:01 WBC (4.8-10.8) K/ul RBC (3.93-5.22) M/uL Hgb (12.0-16.0) g/dl Hct (34.1-44.9) % MCV (80.0-100.0) fL MCH (25.0-34.0) pg MCHC (32.0-36.0) g/dL RDW Std Deviation (36.4-46.3) fL RDW Coeff of Adam (11.5-14.5) % Plt Count (130-400) K/uL MPV (9.4-12.3) fL Immature Gran % (Auto) % Neut % (Auto) % Lymph % (Auto) % Meeker % (Auto) % Eos % (Auto) % Baso % (Auto) % Neut # (Auto) (1.4-6.5) K/uL Lymph # (Auto) (1.2-3.4) K/uL Meeker # (Auto) (0.24-0.82) K/uL Eos # (Auto) (0-0.50) K/uL Baso # (Auto) (0-0.2) K/uL Immature Gran # (Auto) (0.00-0.02) K/uL Absolute Nucleated RBC (0-0) K/uL Nucleated RBC % (auto) % PT (9.0-12.0) Seconds INR (0.9-1.1) Sodium 134 L (136-145) mmol/L Potassium 5.0 (3.5-5.1) mmol/L Chloride 103 (98-107) mmol/L Carbon Dioxide 18 L (21-32) mmol/L Anion Gap 13 H (3-11) BUN 64 H (6-23) mg/dl Creatinine 1.88 H D (0.6-1.2) mg/dl Est Cr Clr Drug Dosing 21.0 ml/min Est GFR ( Amer) 27.9 ml/min Est GFR (Non-Af Amer) 24.1 ml/min BUN/Creatinine Ratio 34.0 H (10-20) Glucose 89 (70-99(Fasting)) mg/dl POC Glucose 81 (70-99) mg/dl Calcium 9.0 (8.5-10.1) mg/dl Total Bilirubin 1.6 H (0.2-1.0) mg/dl AST 272 H (13-39) U/L ALT 561 H (7-52) U/L Alkaline Phosphatase 201 H (34-104) U/L Troponin I High Sens 25.0 H 29.1 H (0-14) pg/ml Total Protein 5.4 L (6.0-8.3) gm/dl Albumin 3.6 (3.4-5.0) gm/dl Globulin 1.8 L (2.5-4.0) gm/dl Albumin/Globulin Ratio 2.0 (0.9-2) 06/13/22 06/13/22 06/13/22 Range/Units 02:01 02:01 02:01 WBC 9.28 (4.8-10.8) K/ul RBC 4.57 (3.93-5.22) M/uL Hgb 14.0 (12.0-16.0) g/dl Hct 43.7 (34.1-44.9) % MCV 95.6 (80.0-100.0) fL MCH 30.6 (25.0-34.0) pg MCHC 32.0 (32.0-36.0) g/dL RDW Std Deviation 56.1 H (36.4-46.3) fL RDW Coeff of Adam 16.5 H (11.5-14.5) % Plt Count 172 (130-400) K/uL MPV 13.0 H (9.4-12.3) fL Immature Gran % (Auto) 2.7 % Neut % (Auto) 82.5 % Lymph % (Auto) 5.8 % Meeker % (Auto) 8.6 % Eos % (Auto) 0.2 % Baso % (Auto) 0.2 % Neut # (Auto) 7.65 H (1.4-6.5) K/uL Lymph # (Auto) 0.54 L (1.2-3.4) K/uL Meeker # (Auto) 0.80 (0.24-0.82) K/uL Eos # (Auto) 0.02 (0-0.50) K/uL Baso # (Auto) 0.02 (0-0.2) K/uL Immature Gran # (Auto) 0.25 H (0.00-0.02) K/uL Absolute Nucleated RBC 0.03 H (0-0) K/uL Nucleated RBC % (auto) 0.3 % PT 16.3 H (9.0-12.0) Seconds INR 1.6 H (0.9-1.1) Sodium (136-145) mmol/L Potassium (3.5-5.1) mmol/L Chloride (98-107) mmol/L Carbon Dioxide (21-32) mmol/L Anion Gap (3-11) BUN (6-23) mg/dl Creatinine (0.6-1.2) mg/dl Est Cr Clr Drug Dosing ml/min Est GFR ( Amer) ml/min Est GFR (Non-Af Amer) ml/min BUN/Creatinine Ratio (10-20) Glucose (70-99(Fasting)) mg/dl POC Glucose (70-99) mg/dl Calcium (8.5-10.1) mg/dl Total Bilirubin (0.2-1.0) mg/dl AST (13-39) U/L ALT (7-52) U/L Alkaline Phosphatase (34-104) U/L Troponin I High Sens Cancelled (0-14) pg/ml Total Protein (6.0-8.3) gm/dl Albumin (3.4-5.0) gm/dl Globulin (2.5-4.0) gm/dl Albumin/Globulin Ratio (0.9-2) 06/12/22 06/12/22 Range/Units 20:24 14:37 WBC (4.8-10.8) K/ul RBC (3.93-5.22) M/uL Hgb (12.0-16.0) g/dl Hct (34.1-44.9) % MCV (80.0-100.0) fL MCH (25.0-34.0) pg MCHC (32.0-36.0) g/dL RDW Std Deviation (36.4-46.3) fL RDW Coeff of Adam (11.5-14.5) % Plt Count (130-400) K/uL MPV (9.4-12.3) fL Immature Gran % (Auto) % Neut % (Auto) % Lymph % (Auto) % Meeker % (Auto) % Eos % (Auto) % Baso % (Auto) % Neut # (Auto) (1.4-6.5) K/uL Lymph # (Auto) (1.2-3.4) K/uL Meeker # (Auto) (0.24-0.82) K/uL Eos # (Auto) (0-0.50) K/uL Baso # (Auto) (0-0.2) K/uL Immature Gran # (Auto) (0.00-0.02) K/uL Absolute Nucleated RBC (0-0) K/uL Nucleated RBC % (auto) % PT (9.0-12.0) Seconds INR (0.9-1.1) Sodium (136-145) mmol/L Potassium (3.5-5.1) mmol/L Chloride (98-107) mmol/L Carbon Dioxide (21-32) mmol/L Anion Gap (3-11) BUN (6-23) mg/dl Creatinine (0.6-1.2) mg/dl Est Cr Clr Drug Dosing ml/min Est GFR ( Amer) ml/min Est GFR (Non-Af Amer) ml/min BUN/Creatinine Ratio (10-20) Glucose (70-99(Fasting)) mg/dl POC Glucose (70-99) mg/dl Calcium (8.5-10.1) mg/dl Total Bilirubin (0.2-1.0) mg/dl AST (13-39) U/L ALT (7-52) U/L Alkaline Phosphatase (34-104) U/L Troponin I High Sens 28.0 H 26.9 H (0-14) pg/ml Total Protein (6.0-8.3) gm/dl Albumin (3.4-5.0) gm/dl Globulin (2.5-4.0) gm/dl Albumin/Globulin Ratio (0.9-2) Diagnostic Findings ABDOMINAL ULTRASOUND COMPLETE HISTORY: Abnormal gallbladder on CT. care to kidneys (acute kidney injury), and GB. COMPARISON: Abdomen and pelvis CT 06/12/2022. FINDINGS: Pancreas: The pancreatic tail is obscured by overlying bowel gas. The remaining portions of the pancreas are within normal limits. Liver: Unremarkable. Gallbladder: The gallbladder wall is thickened up to 3.4 mm. No gallstones identified. There is a negative sonographic Mitchell sign. Trace pericholecystic fluid CBD: 5 mm. Kidneys: Bilateral nephrolithiasis again noted. No hydronephrosis. Spleen: Normal in size. Aorta: Visualized abdominal aorta is normal in caliber. IVC: Patent. Miscellaneous: Small right pleural effusion. IMPRESSION: 1. Gallbladder wall thickening with trace pericholecystic fluid. However, there are no stones and there is a negative sonographic Mitchell sign. This is nonspecific and could be due to the patient's diffuse edematous state. An acute cholecystitis is also considered in the differential diagnosis. 2. Small right pleural effusion. 3. Normal caliber common bile duct. 4. Bilateral nephrolithiasis. No hydronephrosis ABDOMEN AND PELVIS CT WITHOUT CONTRAST CT DOSE: 960.47 mGy.cm HISTORY: Acutely elevated LFTs transaminitis TECHNIQUE: Multiaxial CT images of the abdomen and pelvis were performed without contrast. A dose lowering technique was utilized adhering to the principles of ALARA. COMPARISON STUDY: Chest CT of same day FINDINGS: Cardiomegaly with coronary artery calcifications. Small right pleural effusion with mild right basilar atelectasis. No pneumatosis or pneumoperitoneum. Study is degraded by respiratory motion artifact. The unenhanced spleen is unremarkable. The visualized adrenal glands are within normal limits. The study is degraded by respiratory motion artifact. Mild pancreatic atrophy. Distended gallbladder with wall thickening and pericholecystic fluid. Slightly hyperdense material within the gallbladder lumen. Small volume of abdominal pelvic ascites, centered within the right abdomen. 4 mm nonobstructing calculus of the inferior pole left kidney. Calculi of the right kidney measure up to 1.2 cm. No definite ureteral calculi or hydronephrosis. Partial distention of the urinary bladder with wall thickening. Unremarkable uterus. Atherosclerosis of the aorta without aneurysm. No lymphadenopathy identified. Mild wall thickening of the proximal duodenum with duodenal diverticulum. Colonic diverticulosis. Noninflamed appendix. Mild generalized body wall edema. Degenerative changes of the spine, pelvis and hips. IMPRESSION: 1. Distended gallbladder with wall thickening and pericholecystic fluid suspic ious for acute cholecystitis. Mildly increased attenuation of the contents within the gallbladder lumen may represent sludge versus cholelithiasis. 2. Mild wall thickening of the duodenum is likely reactive . No bowel obstruction. 3. Small volume of abdominopelvic ascites. 4. Small right pleural effusion. 5. Nonobstructing bilateral renal calculi. 6. Colonic diverticulosis.
--- NOTE | 2022-06-13 13:39 | Anesthesiology Consultation ---
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 History Surgery Operation Date: 06/13/22 10:00 Proposed Procedures p Endoscopic Ultrasonography Upper - Nkechi Wilkes MD s Endoscopic Retrograde Cholangiopancreatogram - Nkechi Wilkes MD Height/Weight Height: 5 ft 3 in Weight: 71 kg Allergies Allergy/AdvReac Type Severity Reaction Status Date / Time cefaclor AdvReac Mild NAUSEA Verified 06/11/22 23:10 Medications Home Medications Medication Instructions Recorded Confirmed Last Taken vitamins A,C,M-lxls-ajcgtl 2,148 1 tab PO HS 08/18/19 06/11/22 02/15/22 mcg-113 mg-45 mg-17.4 mg tablet (PreserVision AREDS) Bedside Commode #1 ea 08/19/19 04/09/21 03/05/21 Lift Chair #1 ea 08/19/19 04/09/21 03/05/21 Shower Chair #1 ea 08/19/19 04/09/21 03/05/21 diclofenac sodium 1 % topical gel 4 g topical QID #300 grams 08/13/21 06/11/22 Unknown (Voltaren Arthritis Pain) Hospital Bed Homecare #1 ea 11/20/21 11/20/21 Unknown apixaban 5 mg (74 tabs) tablets in 5 mg PO BID 02/16/22 06/11/22 02/16/22 a dose pack metoprolol tartrate 50 mg tablet 50 mg PO BID 02/16/22 06/11/22 02/16/22 Active Medications Generic Name Dose Route Start Last Admin Trade Name Freq PRN Reason Stop Dose Admin Apixaban 5 mg 06/12/22 21:00 06/13/22 08:53 Apixaban 5 Mg Tablet PO 07/12/22 20:59 5 mg BID YAEL Administration Metoprolol Tartrate 5 mg 06/12/22 05:54 06/12/22 19:37 Metoprolol Tartrate 1 Mg/Ml Vial IV 07/12/22 07:59 5 mg Q4 PRN Administration Tachycardia Multivitamins 1 tab 06/12/22 21:00 06/12/22 20:31 Multivitamin Tab PO 07/12/22 20:59 1 tab HS YAEL Administration Ondansetron HCl 4 mg 06/12/22 08:46 06/12/22 22:39 Ondansetron Inj 2 Mg/Ml 2 Ml Vial IV 07/12/22 08:45 4 mg Q6H PRN Administration Nausea Past Medical History Medical History Arthritis Heart enlargement PT REPORTS FOUND HEART ENLARGEMENT AND LIVER ENLARGEMENT FOUND ON MRI IN 2011 WHEN HAD KIDNEY STONES ...TREATED AT [facility] FOR KIDNEY STONES History of anesthesia reaction "BRAIN FOG" AFTER SURGERIES - CAN'T REMEMBER WHAT DAY IT IS FOR AWHILE History of asthma History of falling HX MULTIPLE FALLS, NONE FOR OVER 1 YR History of kidney stones Hypertension Thumb problem Past Family History Family History Mother , age 80 of brain cancer (uncertain type) Brain cancer Father , age 51 of an [place] Myocardial infarction Other Cancer Family history of diabetes mellitus Heart disease Past Surgical History Surgical History History of bilateral breast reduction surgery History of cataract surgery RT History of colonoscopy History of dental surgery History of surgery SKIN BOIL LANCED AND REMOVED History of surgery BONE TUMOR REMOVED - LEFT LEG TEENAGER History of surgery CYST ON BACK REMOVED Social History Smoking Status: Never smoker Hx Alcohol Use: Yes alcohol intake frequency: holidays/special occasions only Hx Substance Use: No substance use type: does not use Physical Exam Vital Signs Last Vital Signs Temp 97.9 F 06/13/22 12:44 Pulse 117 H 06/13/22 12:44 Resp 18 06/13/22 12:44 BP 114/84 06/13/22 12:44 Pulse Ox 96 06/13/22 12:44 O2 Del Method 06/13/22 12:44 Testing Laboratory Results 06/13/22 02:01 06/13/22 02:01 PT 16.3 Seconds (9.0-12.0) H 06/13/22 02:01 INR 1.6 (0.9-1.1) H 06/13/22 02:01 Urine Color Dark Yellow 06/12/22 00:51 Urine Appearance Clear (Clear) 06/12/22 00:51 Urine pH 5.5 (4.5-7.5) 06/12/22 00:51 Ur Specific Anderson 1.020 (1.000-1.030) 06/12/22 00:51 Urine Protein 3+ (Negative) H 06/12/22 00:51 Urine Glucose (UA) Negative (Negative) 06/12/22 00:51 Urine Ketones Negative (Negative) 06/12/22 00:51 Urine Nitrite Negative (Negative) 06/12/22 00:51 Ur Leukocyte Esterase Trace (Negative) H 06/12/22 00:51 Urine WBC (Auto) 10-30 /hpf (0-5) H 06/12/22 00:51 Urine RBC (Auto) 10-30 /hpf (0-4) H 06/12/22 00:51 U Hyaline Cast (Auto) >30 /lpf (0-5) H 06/12/22 00:51 U Epithel Cells (Auto) >30 /lpf (0-5) H 06/12/22 00:51 Urine Bacteria (Auto) Negative (Negative) 06/12/22 00:51 06/12/22 00:51 Urine Culture - Final Urine,Clean Catch More than three types of organisms present, all high counts mixed probable skin joan - No further identifications or sensitivities to follow. 06/13/22 12:34 POC Glucose 81 Electrocardiogram Date: 06/13/22 Poor data quality, interpretation may be adversely affected Atrial fibrillation with rapid ventricular response, rate 105 bpm Nonspecific T wave abnormality Abnormal ECG When compared with ECG of 11-JUN-2022 21:24, No significant change was found Chest X-Ray Date: 06/11/22 IMPRESSION: 1. Cardiomegaly. No evidence for pulmonary edema. 2. Small right pleural effusion. Echocardiogram Date: 06/12/22 Normal LV size with severely reduced systolic function. EF 25-30%. Global hypokinesis. Mild concentric LVH. Mildly dilated RV with moderately reduced systolic function. Severe biatrial dilation Severe MR/TR Top normal estimated RVSP. Estimated RVSP 36 mmHg Atrial fibrillation with RVR Technically difficult study, enhanced with IV Definity Compared to prior study on 09/06/2021, biventricular systolic function has declined
[2022-06-13] MEDS: PIPERACILLIN/TAZOBACTAM 3.375 GM in DEXTROSE 5% 100 ML IV SCH ×2 (14:02→21:15)
--- NOTE | 2022-06-13 14:07 | Cardiology Consultation ---
Date of Consultation June 13, 2022 Assessment & Plan (1) Atrial fibrillation with rapid ventricular response: -she was diagnosed with paroxysmal atrial fibrillation in August 2021 -would increase metoprolol tartrate to 50 mg t.i.d.. -consider intravenous followed by oral digoxin if necessary. -continue Eliquis (started for unprovoked DVT June 2021). (2) Acute on chronic systolic (congestive) heart failure: -she responded well to one IV dose of Lasix in the emergency room. -suspect this is related to her atrial fibrillation and a rapid ventricular response. 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 -unremarkable high sensitivity troponin despite rapid atrial fibrillation in face of LVH. -change metoprolol tartrate to metoprolol succinate at time of discharge. -consider ACEI/ARB if renal function improves. (4) Mitral regurgitation: History of Present Illness Attending Physician: Ami Gray, History of Present Illness Mrs. Grijalva is an 82-year-old female admitted yesterday hypervolemia and atrial fibrillation with a rapid ventricular response. This consultation was ordered to assist in her cardiac management. The patient was in her usual state of health until approximately 1 week prior to presentation. She began to note exertional dyspnea and weakness. She also noted that her appetite was poor. She presented to the emergency room for further evaluation and was found to be in atrial fibrillation with a rapid ventricular response. Her chest x-ray suggested pulmonary edema and her BNP was elevated. She was given intravenous Lasix and hospitalization was recommended. The patient was diagnosed with paroxysmal atrial fibrillation in August 2021 at the time of and echocardiogram. Fortunately, she was already on Eliquis for an unprovoked left lower extremity DVT which occurred in June 2021. She did have a CT scan of the abdomen performed during this hospitalization which noted a distended gallbladder, possibly acute. Her liver transaminases were significantly elevated. Currently, patient is resting comfortably in bed without complaints. Past medical and surgical history 1. Hypertension 2. Paroxysmal atrial fibrillation-August 2021 3. Moderate mitral regurgitation 4. Moderate tricuspid regurgitation 5. TIA-January 2022 6. Nephrolithiasis 7. Ambulatory dysfunction 8. Deconditioning 9. DJD 10. Chronic lower extremity edema 11. Breast reduction surgery 12. Bilateral intra-ocular lens implants 13. 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 Review of systems A 10 point review systems was undertaken and negative except for that described above. 6. Allergies Allergy/AdvReac Type Severity Reaction Status Date / Time cefaclor AdvReac Mild NAUSEA Verified 06/11/22 23:10 Home Medications Medication Instructions Recorded Confirmed Type vitamins A,C,S-zhfk-mugiin 2,148 1 tab PO HS 08/18/19 06/11/22 History mcg-113 mg-45 mg-17.4 mg tablet (PreserVision AREDS) Bedside Commode #1 ea 08/19/19 04/09/21 Rx Lift Chair #1 ea 08/19/19 04/09/21 Rx Shower Chair #1 ea 08/19/19 04/09/21 Rx diclofenac sodium 1 % topical gel 4 g topical QID #300 grams 08/13/21 06/11/22 Rx (Voltaren Arthritis Pain) Hospital Bed Homecare #1 ea 11/20/21 11/20/21 Rx apixaban 5 mg (74 tabs) tablets in 5 mg PO BID 02/16/22 06/11/22 History a dose pack metoprolol tartrate 50 mg tablet 50 mg PO BID 02/16/22 06/11/22 History Patient History Medical History Arthritis Heart enlargement PT REPORTS FOUND HEART ENLARGEMENT AND LIVER ENLARGEMENT FOUND ON MRI IN 2011 WHEN HAD KIDNEY STONES ...TREATED AT [facility] FOR KIDNEY STONES History of anesthesia reaction "BRAIN FOG" AFTER SURGERIES - CAN'T REMEMBER WHAT DAY IT IS FOR AWHILE History of asthma History of falling HX MULTIPLE FALLS, NONE FOR OVER 1 YR History of kidney stones Hypertension Thumb problem Surgical History History of bilateral breast reduction surgery History of cataract surgery RT History of colonoscopy History of dental surgery History of surgery SKIN BOIL LANCED AND REMOVED History of surgery BONE TUMOR REMOVED - LEFT LEG TEENAGER History of surgery CYST ON BACK REMOVED Family History Mother , age 80 of brain cancer (uncertain type) Brain cancer Father , age 51 of an [place] Myocardial infarction Other Cancer Family history of diabetes mellitus Heart disease Social History Smoking Status: Never smoker Second Hand Exposure: No; Hx Alcohol Use: Yes Hx Substance Use: No Preferred Language: Swedish Communication Ability: Effective 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 HEENT exam is negative. Neck is supple with full carotid u pstrokes. No carotid bruits. Jugular is pressure is flat at 90. There is no thyromegaly. Cardiovascular exam reveals an irregular rhythm with distant heart sounds. No obvious murmurs. Lungs are clear without rales, rhonchi or wheezes. Abdomen is soft without bruits. Extremities reveal intact radial artery pulses bilaterally. Trace pretibial edema is noted. Results & Data ([facility]) Vital Signs (Past 12 Hours) Vital Signs Temp Pulse Resp BP BP Pulse Ox O2 Del Method 06/13/22 12:44 36.6 C 117 H 18 114/84 96 Room Air 06/13/22 07:10 36.5 C 96 H 18 111/86 96 Room Air 06/13/22 03:09 36.6 C 102 H 18 108/76 94 Room Air Laboratory Results CBC notes hemoglobin 14.0, hematocrit 43.7, white count 9.3, platelet count [id number]. Electrolytes note a sodium of 134, potassium 5.0, chloride 103, bicarb 18, BUN 64, creatinine 1.88, and glucose of 89. AST is elevated 272 with an ALT of 561. High sensitivity troponin on presentation was 29.9 with follow-up values of 20.3, 26.9, 20.0, and 29.1. BNP was 943 with a proBNP of 2313. Diagnostic Findings Initial EKG notes atrial fibrillation with a rapid ventricular response and lateral T-wave abnormality. Follow-up tracing notes atrial fibrillation with a ventricular response of 105. There is nonspecific T-wave abnormality. Echocardiogram notes moderate to severe left ventricular dysfunction with ejection fraction of 25-30%. There is global hypokinesis along with mild LVH. There was severe mitral and tricuspid regurgitation. Chest x-ray notes cardiomegaly and interstitial pulmonary edema. PG Care Time/CCT Total # of Minutes Spent Total Time Spent with Patient: Total time spent is greater than 50% in coordination of care (as documented) at patient's floor/unit and/or counseling patient: Coding Level of Care Code 28564 Initial Inpt Care Lvl 3 Diagnoses Atrial fibrillation with rapid ventricular response I48.91 Acute on chronic systolic (congestive) heart failure I50.23 Cardiomyopathy I42.9 Mitral regurgitation I34.0
--- NOTE | 2022-06-13 14:12 | Ultrasound Report ---
US ankle/brachial index ltd CLINICAL HISTORY: cold discolored feet, bilateral COMPARISON STUDY: Bilateral lower extremity ankle to brachial indices February 17, 2022. CTA of the right lower extremity July 24, 2021. TECHNIQUE: Bilateral ankle to brachial indices were obtained. FINDINGS: The right ankle to brachial index measured 1.15 when using the dorsalis pedis and 0.42 when using posterior tibial artery. The left ankle-brachial index measured 1.04 when using the dorsalis p av. The left posterior tibial artery was noncompressible. The ankle-brachial indices are technicall y normal; however, waveforms are dampened. Therefore, the ABIs could be falsely elevated. IMPRESSION: Normal bilateral ankle to brachial indices. However, these could be falsely elevated due to calcified vessels given dampened waveforms. ACT 112: Negative or not required by law. Electronically signed by: Dmitriy Bills M.D. 06/13/2022 2:11 PM
--- NOTE | 2022-06-13 15:50 | Electrocardiogram Report ---
Test Reason : Blood Pressure : / mmHG Vent. Rate : 105 BPM Atrial Rate : 107 BPM P-R Int : 000 ms QRS Dur : 088 ms QT Int : 354 ms P-R-T Axes : 000 017 134 degrees QTc Int : 467 ms Poor data quality, interpretation may be adversely affected Atrial fibrillation with rapid ventricular response Nonspecific T wave abnormality Abnormal ECG When compared with ECG of 11-JUN-2022 21:24, No significant change was found Confirmed by Sanchez Jaime ([id number]) on 06/13/2022 3:50:27 PM Referred By: REFERRED SELF Confirmed By:Sanchez Jaime
[2022-06-13] MEDS ORDERED: ONDANSETRON INJ 2 MG/ML 2 ML VIAL IV PRN (16:39)
[2022-06-13] MEDS ORDERED: fentaNYL citrate 100 MCG/2 ML VIAL IV PRN (16:39)
[2022-06-13] MEDS ORDERED: PHENYLEPHRINE 100MCG/ML 5ML SYR IV PRN (16:39)
[2022-06-13] MEDS ORDERED: LABETALOL HCL IV 5 MG/ML 20ML IV PRN (16:39)
[2022-06-13] MEDS ORDERED: ATROPINE SULFATE 0.1 MG/ML 10ML SYR IV PRN (16:39)
[2022-06-13] MEDS ORDERED: ePHEDrine sulfate 50 MG/ML AMP IV PRN (16:39)
[2022-06-13] MEDS ORDERED: PROPOFOL IV EMULSION 10 MG/ML 20 ML VIAL IV ONE (17:36)
[2022-06-13] MEDS ORDERED: LIDOCAINE 2% MPF LOCAL 5 ML VIAL INFIL ONE (17:36)
[2022-06-13] MEDS ORDERED: KETAMINE 50 MG/5 ML SYRINGE ONE (17:36)
--- NOTE | 2022-06-13 18:05 | Operative Report ---
Post Operative Report Pre & Post Diagnosis Operation Date: 06/13/22 10:00 Pre-Op Diagnosis: abnormal LFTs Post-Op Diagnosis: abnormal LFTs I identified the patient and participated in the time-out.: Yes Procedure Operation Date: 06/13/22 10:00 Actual Procedures p Endoscopic Ultrasonography Upper(Not Applicable) - Nkechi Wilkes MD Surgeon Nkechi Wilkes MD Air Pumper None Estimated Blood Loss 0 Findings See Below (No choledocholithiasis seen and CBD is normal size. ) Specimens None Description of Procedure EUS I attest to the content of the Intraoperative Record and any orders documented therein. Any exceptions are noted below.
--- NOTE | 2022-06-13 18:11 | GI REPORT ---
Patient Name: Gauri Grijalva Procedure Date: 06/13/2022 5:39 PM Date of : 1940 Admit Type: Inpatient Age: 82 Gender: Female Attending MD: Nkechi Wilkes MD Procedure: Upper GI endoscopy Providers: Nkechi Wilkes MD Referring MD: Ami Gray Do Indications: Abdominal pain Medicines: Propofol per Anesthesia Complications: No immediate complications. Estimated Blood Loss: Estimated blood loss: none. Procedure: Pre-Anesthesia Assessment: - Prior to the procedure, a History and Physical was performed, and patient medications, allergies and sensitivities were reviewed. The patient's tolerance of previous anesthesia was reviewed. - The risks and benefits of the procedure and the sedation options and risks were discussed with the patient. All questions were answered and informed consent was obtained. - Patient identification and proposed procedure were verified prior to the procedure by the physician and the nurse. The procedure was verified in the procedure room. - Pre-procedure physical examination revealed no contraindications to sedation. After obtaining informed consent, the endoscope was passed under direct vision. Throughout the procedure, the patient's blood pressure, pulse, and oxygen saturations were monitored continuously. The Endoscope was introduced through the mouth, and advanced to the second part of duodenum. The upper GI endoscopy was accomplished without difficulty. The patient tolerated the procedure well. Findings: The examined esophagus was normal. A small hiatal hernia was present. The entire examined stomach was normal. Moderate inflammation characterized by erythema and shallow ulcerations was found in the duodenal bulb. Impression: - Normal esophagus. - Small hiatal hernia. - Normal stomach. - Duodenitis. - No specimens collected. Recommendation: - Perform an upper endoscopic ultrasound (UEUS) today. Nkechi Wilkes MD 06/13/2022 6:10:18 PM This report has been signed electronically. Note Initiated On: 06/13/2022 5:39 PM Number of Addenda: 0 I attest to the content of the Intraoperative Record and orders documented therein, exceptions below {[id number]}
--- NOTE | 2022-06-13 18:12 | GI REPORT ---
Patient Name: Gauri Grijalva Procedure Date: 06/13/2022 5:40 PM Date of : 1940 Admit Type: Inpatient Age: 82 Gender: Female Attending MD: Nkechi Wilkes MD Procedure: Upper EUS Providers: Nkechi Wileks MD Referring MD: Ami Gray Do Indications: Elevated liver enzymes, Suspected choledocholithiasis Medicines: Propofol per Anesthesia Complications: No immediate complications. Estimated Blood Loss: Estimated blood loss: none. Procedure: Pre-Anesthesia Assessment: - Prior to the procedure, a History and Physical was performed, and patient medications, allergies and sensitivities were reviewed. The patient's tolerance of previous anesthesia was reviewed. - The risks and benefits of the procedure and the sedation options and risks were discussed with the patient. All questions were answered and informed consent was obtained. - Patient identification and proposed procedure were verified prior to the procedure by the physician and the nurse. The procedure was verified in the procedure room. - Pre-procedure physical examination revealed no contraindications to sedation. After obtaining informed consent, the endoscope was passed under direct vision. Throughout the procedure, the patient's blood pressure, pulse, and oxygen saturations were monitored continuously. The Endosonoscope was introduced through the mouth, and advanced to the second part of duodenum. The upper EUS was accomplished without difficulty. The patient tolerated the procedure well. Findings: ENDOSONOGRAPHIC FINDING: : There was no sign of significant endosonographic abnormality in the ampulla. No masses were identified. There was no sign of significant endosonographic abnormality in the common bile duct. The maximum diameter of the duct was 6 mm. No stones and no biliary sludge were identified. Moderate hyperechoic material consistent with sludge was visualized endosonographically in the gallbladder. There is evidence of acute cholecystitis. There was no sign of significant endosonographic abnormality in the visualized portion of the liver. Homogeneous parenchyma was identified. Impression: - There was no sign of significant pathology in the ampulla. - There was no sign of significant pathology in the common bile duct. No stones. - Hyperechoic material consistent with sludge was visualized endosonographically in the gallbladder. There is evidence of acute cholecystitis. - There was no evidence of significant pathology in the visualized portion of the liver. Recommendation: - Return patient to hospital ruff for ongoing care. - Follow up with General surgery for cholecystectomy. Nkechi Wilkes MD 06/13/2022 6:12:34 PM This report has been signed electronically. Note Initiated On: 06/13/2022 5:40 PM Number of Addenda: 0 I attest to the content of the Intraoperative Record and orders documented therein, exceptions below {[id number]}
--- NOTE | 2022-06-13 18:14 | Gastroenterology Progress Note ---
Date of Service June 13, 2022 Assessment & Plan Admission and Anticipated Discharge Date Admission Date: June 12, 2022 Subjective EUS showed normal size CBD with no stones or sludge. Her abnormal LFTs could be related to the ongoing acute cholecystitis or perhaps passed a stone already. Recommend: General Surgery team can proceed with cholecystectomy. Monitor LFTs. Recall GI if needed. Results & Data ([facility]) Vital Signs (Past 12 Hours) Vital Signs Temp Pulse Resp BP Pulse Ox O2 Del Method 06/13/22 15:44 36.2 C L 112 H 18 128/93 97 06/13/22 12:44 36.6 C 117 H 18 114/84 96 Room Air 06/13/22 07:10 36.5 C 96 H 18 111/86 96 Room Air
--- NOTE | 2022-06-13 18:44 | Anesthesiology Progress Note ---
Date of Service June 13, 2022 Anesthesia Post Procedure Vital Signs Vital Signs: Temp Pulse Pulse Resp BP BP BP 06/13/22 18:35 102 H 22 139/99 06/13/22 18:25 106 H 20 123/92 06/13/22 18:19 36.1 C L 99 H 24 145/100 H 06/13/22 15:44 36.2 C L 112 H 18 128/93 06/13/22 12:44 36.6 C 117 H 18 114/84 06/13/22 07:10 36.5 C 96 H 18 111/86 06/13/22 03:09 36.6 C 102 H 18 108/76 06/12/22 19:55 06/12/22 23:12 104 H 06/12/22 22:40 36.6 C 109 H 18 111/81 06/12/22 19:37 112 H 130/83 06/12/22 19:07 36.5 C 111 H 18 130/83 Pulse Ox O2 Del Method O2 Flow Rate 06/13/22 18:35 97 Room Air 06/13/22 18:25 99 Oxymask 5 06/13/22 18:19 94 Oxymask 5 06/13/22 15:44 97 06/13/22 12:44 96 Room Air 06/13/22 07:10 96 Room Air 06/13/22 03:09 94 Room Air 06/12/22 19:55 Room Air 06/12/22 23:12 06/12/22 22:40 95 Room Air 06/12/22 19:37 06/12/22 19:07 96 Transfer of Care Handoff Completed per policy Notes Mental Status: alert / awake / arousable Patient Amnestic to Procedure: Yes Nausea / Vomiting: adequately controlled Pain: adequately controlled Airway Patency, RR, SpO2: stable & adequate BP & HR: stable & adequate Hydration State: stable & adequate Anesthetic Complications: no major complications apparent and Pt Satisfied with anesthetic care Notes: The patient is awake and comfortable. Her vital signs are stable at her baseline.
[2022-06-13] MEDS: MULTIVITAMIN TAB PO SCH (21:11)
--- NOTE | 2022-06-14 05:08 | Surgery Progress Note ---
Date of Service June 14, 2022 Assessment & Plan (1) Cholecystitis: Plan: Patient underwent endoscopic ultrasound on 06/13/2022. The esophagus was noted to be normal and a small hiatal hernia was present. The common bile duct was noted to be normal with no stones or sludge. There is concern for ongoing acute cholecystitis causing the elevation of patient's LFTs. As the patient is not having any abdominal pain at the present time she wishes to defer cholecystectomy at this time and consider this as an outpatient. This may be reasonable given that the patient has a reduced ejection fraction of 25 to 30% on her recent echocardiogram compared to 50 to 55% in 2020. LFTs this morning are pending. Continue antibiotics in the form of Zosyn while inpatient Will discuss with Dr. Lewis diet advancement. If patient wishes to pursue cholecystectomy this can be discussed with Dr. Cope as an outpatient. The patient is also currently taking Eliquis which will need to be coordinated with any surgical plans. Admission and Anticipated Discharge Date Admission Date: June 12, 2022 Supervising Physician Co-Signing Physician Notes We will start oral intake and if patient tolerates diet and has no abdominal discomfort can be discharged and follow-up with Dr. Cope in his office to plan for elective cholecystectomy Subjective Patient notes that since her endoscopies yesterday she is feeling well. She currently denies any abdominal pain. She denies any nausea or vomiting. Physical Exam Gastrointestinal (Abdomen): Abdomen is soft, nonrigid, and nondistended. There is no pain with palpation in the right upper quadrant. Results & Data ([facility]) Vital Signs (Past 12 Hours) Vital Signs Temp Pulse Pulse Resp BP Pulse Ox O2 Del Method 06/14/22 02:44 36.6 C 95 H 16 111/74 96 Room Air 06/13/22 22:09 108 H 06/13/22 22:47 36.6 C 94 H 18 107/74 96 06/13/22 19:00 36.6 C 94 H 18 141/97 H 97 Room Air 06/13/22 18:45 36.3 C L 100 H 20 128/90 97 Room Air 06/13/22 18:35 102 H 22 139/99 97 Room Air 06/13/22 18:25 106 H 20 123/92 99 Oxymask 06/13/22 18:19 36.1 C L 99 H 24 145/100 H 94 Oxymask O2 Flow Rate 06/14/22 02:44 06/13/22 22:09 06/13/22 22:47 06/13/22 19:00 06/13/22 18:45 06/13/22 18:35 06/13/22 18:25 5 06/13/22 18:19 5 PG Care Time/CCT Total # of Minutes Spent Total Time Spent with Patient: Total time spent is greater than 50% in coordination of care (as documented) at patient's floor/unit and/or counseling patient: Coding Level of Care Code 64080 Subseq Hosp Care Lvl 1 Diagnoses Cholecystitis K81.9
[2022-06-14] MEDS: PIPERACILLIN/TAZOBACTAM 3.375 GM in DEXTROSE 5% 100 ML IV SCH ×3 (06:20→21:00)
--- NOTE | 2022-06-14 07:27 | Hospitalist Progress Note ---
Date of Service June 14, 2022 Assessment & Plan (1) Atrial fibrillation with rapid ventricular response: Plan: Gauri Grijalva is an 82yo F w/ PMH of DVT, TIA, HTN, B/L LE edema, chronic deconditioning with weakness and falls who presented due to SOB, weakness and was noted on admission testing to have new-onset HFrEF and AFib with RVR. Afib w/ RVR: - Anticoagulated on Eliquis 5mg PO BID for AFib noted previously as well as DVT. - No EKG findings consistent with ischemia. - Continue metoprolol tartrate 50mg TID; rate controlled at this time. - Lopressor 5mg IV prn for elevated HR. - Cardiology consulted. (2) Acute systolic (congestive) heart failure: Plan: - BNP elevated to over 900. - Chest imaging with pulmonary vascular congestion. - Echo ordered; reveals EF 25-30%; compared to August 2021 Echo with normal systolic function/EF - Continue to hold diuresis given YONI and stable lung exam. - Cardiology consulted as above. - Monitor I&O's. (3) Cholecystitis: Plan: - Labs with new LFT elevations, CT with mildly prominent gallbladder. - Initially thought to be due to fluid overload, back-pressure. However, levels did not improve with diuresis. - CTAP revealed findings suggesting acute cholecystitis. - Zosyn started, to transition to Augmentin on discharge. - General Surgery consulted; will follow up outpatient. - GI consulted; patient had EUS/ERCP this afternoon; no stones. - Daily CMP. (4) Acute renal insufficiency: Plan: - Elevated BUN/Cr ratio supporting prerenal azotemia. - As above, continue to manage HF/fluid overload. - Monitor creatinine daily. - Avoid nephrotoxins. (5) Generalized weakness: Plan: - Consult PT/OT for home needs. (6) Cold feet: Plan: - Noted on exam today. - Pulses normal. SWAPNA normal. Plan DVT ppx: Eliquis Diet: heart healthy, low sodium Dispo: Telemetry CODE STATUS: Full Admission and Anticipated Discharge Date Admission Date: June 12, 2022 Subjective No acute events overnight. Reports that breathing is better today, and denies abdominal pain. Review of Systems Constitutional: no fever and no chills Respiratory: no cough and no dyspnea Cardiovascular: no chest pain and no palpitations Gastrointestinal: no abdominal pain, no nausea and no vomiting Physical Exam Constitutional: WD/WN, vitals as above Respiratory: normal respiratory effort, lungs clear to auscultation Cardiovascular: Rate/Rhythm: + irregularly irregular; not tachycardic Heart Sounds: no murmur Extremities: no edema Gastrointestinal (Abdomen): normal bowel sounds, soft, nontender, no hepatosplenomegaly Skin: no rashes, warm and dry Psychiatric: A+Ox3, euthymic affect Results & Data Results & Data ([facility]) Vital Signs (Past 12 Hours) Vital Signs Temp Pulse Pulse Resp BP Pulse Ox O2 Del Method 06/14/22 02:44 36.6 C 95 H 16 111/74 96 Room Air 06/13/22 22:09 108 H 06/13/22 22:47 36.6 C 94 H 18 107/74 96 PG Care Time/CCT Total # of Minutes Spent Total Time Spent with Patient: Total time spent is greater than 50% in coordination of care (as documented) at patient's floor/unit and/or counseling patient: Coding Level of Care Code 93302 Subseq Hosp Care Lvl 3 Diagnoses Atrial fibrillation with rapid ventricular response I48.91 Acute systolic (congestive) heart failure I50.21 Cholecystitis K81.9 Acute renal insufficiency N28.9 Generalized weakness R53.1 Cold feet R20.9
[2022-06-14 08:11] LABS: Basophils # (auto) 0.02 K/uL (0-0.2); Basophils % (auto) 0.2 %; Eosinophils # (auto) 0.03 K/uL (0-0.50); Eosinophils % (auto) 0.3 %; Hematocrit (blood only) 45.2 % (34.1-44.9); Hemoglobin 14.5 g/dl (12.0-16.0); Immature Granulocytes # (auto) 0.16 K/uL (0.00-0.02); Immature Granulocytes % (auto) 1.7 %; Lymphocytes % (auto) 6.3 %; Mean Corpuscular Hemoglobin 30.3 pg (25.0-34.0); Mean Corpuscular Hgb Conc 32.1 g/dL (32.0-36.0); Mean Corpuscular Volume 94.6 fL (80.0-100.0); Monocytes # (auto) 0.94 K/uL (0.24-0.82); Monocytes % (auto) 9.9 %; Neutrophils % (auto) 81.6 %; Nucleated RBC # (auto) 0.02 K/uL (0-0); Nucleated RBC % (auto) 0.2 %; Platelet Count 163 K/uL (130-400); RDW Coefficient of Variation 16.6 % (11.5-14.5); RDW Standard Deviation 54.9 fL (36.4-46.3); Red Blood Count 4.78 M/uL (3.93-5.22); White Blood Count 9.45 K/ul (4.8-10.8)
[2022-06-14 08:19] LABS: INR 1.5 (0.9-1.1)
[2022-06-14] MEDS: APIXABAN 5 MG TABLET PO SCH ×2 (08:20→20:32)
[2022-06-14] MEDS: METOPROLOL TARTRATE 50 MG TAB PO SCH ×3 (08:20→20:35)
[2022-06-14] MEDS: POLYETHYLENE (MIRALAX) 17 GM PACK PO SCH (08:20)
[2022-06-14 08:37] LABS: Albumin Globulin Ratio 1.8 (0.9-2); Albumin Level 3.3 gm/dl (3.4-5.0); BUN Creatinine Ratio 43.1 (10-20); Bilirubin,Total 0.9 mg/dl (0.2-1.0); Calcium 8.3 mg/dl (8.5-10.1); Creatinine Clr Calc Pharmacy 23.7 ml/min; Est GFR (African American) 32.2 ml/min; Est GFR (Non-African American) 27.8 ml/min; Globulin 1.8 gm/dl (2.5-4.0); Potassium 4.1 mmol/L (3.5-5.1); Total Protein 5.1 gm/dl (6.0-8.3)
--- NOTE | 2022-06-14 13:58 | Electrocardiogram Report ---
Test Reason : Blood Pressure : / mmHG Vent. Rate : 102 BPM Atrial Rate : 288 BPM P-R Int : 000 ms QRS Dur : 094 ms QT Int : 350 ms P-R-T Axes : 000 -01 133 degrees QTc Int : 456 ms Atrial fibrillation with rapid ventricular response with premature ventricular or aberrantly conducte d complexes Nonspecific T wave abnormality Abnormal ECG When compared with ECG of 13-JUN-2022 05:09, No significant change was found Confirmed by Sanchez Jaime ([id number]) on 06/14/2022 1:57:50 PM Referred By: REFERRED SELF Confirmed By:Sanchez Jaime
[2022-06-14] MEDS: MULTIVITAMIN TAB PO SCH (20:33)
[2022-06-15 06:19] LABS: Basophils # (auto) 0.03 K/uL (0-0.2); Basophils % (auto) 0.3 %; Eosinophils # (auto) 0.02 K/uL (0-0.50); Eosinophils % (auto) 0.2 %; Hematocrit (blood only) 44.3 % (34.1-44.9); Hemoglobin 14.7 g/dl (12.0-16.0); Immature Granulocytes % (auto) 1.9 %; Lymphocytes # (auto) 0.79 K/uL (1.2-3.4); Lymphocytes % (auto) 7.3 %; Mean Corpuscular Hgb Conc 33.2 g/dL (32.0-36.0); Mean Corpuscular Volume 93.5 fL (80.0-100.0); Mean Platelet Volume 12.3 fL (9.4-12.3); Monocytes # (auto) 0.94 K/uL (0.24-0.82); Monocytes % (auto) 8.7 %; Neutrophils # (auto) 8.78 K/uL (1.4-6.5); Neutrophils % (auto) 81.6 %; Nucleated RBC # (auto) 0.03 K/uL (0-0); Nucleated RBC % (auto) 0.3 %; Platelet Count 187 K/uL (130-400); RDW Coefficient of Variation 16.6 % (11.5-14.5); RDW Standard Deviation 55.2 fL (36.4-46.3); Red Blood Count 4.74 M/uL (3.93-5.22); White Blood Count 10.76 K/ul (4.8-10.8)
[2022-06-15] MEDS: PIPERACILLIN/TAZOBACTAM 3.375 GM in DEXTROSE 5% 100 ML IV SCH (06:21)
[2022-06-15 06:28] LABS: INR 1.4 (0.9-1.1); Prothrombin Time 14.9 Seconds (9.0-12.0)
[2022-06-15 06:54] LABS: Albumin Globulin Ratio 1.7 (0.9-2); Albumin Level 3.3 gm/dl (3.4-5.0); BUN Creatinine Ratio 47.4 (10-20); Calcium 8.3 mg/dl (8.5-10.1); Creatinine Clr Calc Pharmacy 23.2 ml/min; Est GFR (African American) 31.3 ml/min; Globulin 1.9 gm/dl (2.5-4.0); Potassium 4.4 mmol/L (3.5-5.1); Total Protein 5.2 gm/dl (6.0-8.3)
--- NOTE | 2022-06-15 08:14 | Surgery Progress Note ---
Date of Service June 15, 2022 Assessment & Plan Admission and Anticipated Discharge Date Admission Date: June 12, 2022 Subjective Patient was removed in an isolation room this morning room 458 is presently being evaluated for possibility of COVID exposure Results & Data ([facility]) Vital Signs (Past 12 Hours) Vital Signs Temp Pulse Pulse Pulse Resp BP Pulse Ox 06/15/22 03:09 36.7 C 106 H 16 99/69 L 96 06/14/22 22:15 98 H 06/14/22 22:57 36.8 C 111 H 18 99/83 L 92 06/14/22 20:33 108 H 111/75 O2 Del Method 06/15/22 03:09 Room Air 06/14/22 22:15 06/14/22 22:57 Room Air 06/14/22 20:33 PG Care Time/CCT Total # of Minutes Spent Total Time Spent with Patient: Total time spent is greater than 50% in coordination of care (as documented) at patient's floor/unit and/or counseling patient: Coding Level of Care Code None
[2022-06-15] MEDS: APIXABAN 5 MG TABLET PO SCH (08:31)
[2022-06-15] MEDS: POLYETHYLENE (MIRALAX) 17 GM PACK PO SCH (08:31)
[2022-06-15] MEDS: METOPROLOL TARTRATE 50 MG TAB PO SCH ×2 (08:31→13:29)
--- NOTE | 2022-06-15 08:47 | Discharge Summary ---
Discharge Summary Date of Service June 15, 2022 Admission HPI Per Admitting Provider Gauri Grijalva is an 82yo F w/ PMH of DVT, TIA, HTN, B/L LE edema, chronic deconditioning with weakness and falls who presented due to SOB. She states symptoms have been going on for about a week. Has had associated decreased appetite and increased weakness. She has not had any other symptoms including f/c, n/v, abd pain, CP, palp, dysuria, diarrhea, cough, congestion, ALMAGUER, dizziness, confusion, numbness, tingling, vision changes. In ED had EKG showing afib w/ RVR at rate of 123 -- no notable ST elevations. CXR with enlarged cardiac silhouette and some right perihilar opacities. CT A/P with trace fluid around the liver and mildly prominent gallbladder. CT chest with cardiomegaly & small right-sided pleural effusion. Lab work with normal white count, normal Hgb, normal Plt count. BUN 52 and Cr 1.38 (baseline is normal Cr). Phos 5.4, Mag 2.5. Elevated LFTs w/ T. bili 1.2, AST 234, ALT 415, alk phos 163. Mildly elevated trop of 29.9. BNP of 943. Received duonebs x1, Lasix 20mg IV x1, MTP tartrate 2.5mg IV x1. Admission Exam Per Admitting Provider GENERAL: A&Ox3. NAD. HEENT: PERRL, EOMI. Moist mucous membranes. NECK: No JVD. No lymphadenopathy. CHEST/LUNGS: CTAB A/P. No crackles, wheezes, rales, ronchi. HEART: Irregularly irregular. No m/g/r. No carotid bruits. ABDOMEN: NT/ND, soft. BS+ x4 EXTREMITIES: 2+ pitting edema b/l. SKIN: Warm and dry. No rashes or lesions. PSYCHIATRIC: Euthymic affect, no SI, no pressured speech, no hallucinations NEUROLOGIC: Marked weakness of b/l LE. CNII-XII intact. Principal Dx & Hospital Course #1 = Principal Diagnosis (1) Atrial fibrillation with rapid ventricular response: Gauri Grijalva is an 82yo F w/ PMH of DVT, TIA, HTN, B/L LE edema, chronic deconditioning with weakness and falls who presented due to SOB, weakness and was noted on admission testing to have new-onset HFrEF and AFib with RVR. Afib w/ RVR: - Anticoagulated on Eliquis 5mg PO BID for AFib as well as DVT. - No EKG findings consistent with ischemia. - Continue metoprolol tartrate 50mg TID; rate controlled at this time. - Cardiology consulted; can consider addition of digoxin if patient is not rate controlled with metoprolol tartrate. Will have outpatient Cardiology follow up with Dr. Jaime. (2) Acute systolic (congestive) heart failure: - BNP elevated to over 900. - Chest imaging with pulmonary vascular congestion. - Echo ordered; reveals EF 25-30%; compared to August 2021 Echo with normal systolic function/EF. - Received Lasix IV x1 this admission; has been euvolemic since that time. Diuretics not sent on discharge as would be concerned about creating hypovolemia in now euvolemic patient on low salt diet. - Cardiology consulted as above. - Given instructions on discharge for low salt diet. Patient has a lot of insight into change required to maintain cardiac health. Daughter also made aware of necessary dietary modifications. (3) Cholecystitis: - Admission labs with new LFT elevations, CT with mildly prominent gallbladder. - Initially thought to be due to fluid overload, back-pressure. However, levels did not improve with diuresis. - CTAP revealed findings suggesting acute cholecystitis. - Zosyn started, transitioned to Augmentin on discharge for another 10 days of treatment. - GI consulted; patient had EUS/ERCP 06/14; no stones visualized. - General Surgery consulted; will follow up outpatient as patient is without abdominal pain. Patient advised to call PCP if any worsening abdominal pain or nausea as source control with cholecystectomy may be ultimately required. - CMP outpatient to monitor LFTs. (4) Acute renal insufficiency: - Elevated BUN/Cr ratio supporting prerenal azotemia. - Given gentle fluids with mild improvement, question if we are finding patient's new baseline kidney function. - Patient to have renal function checked tomorrow with office follow up Thursday. (5) Generalized weakness: - Patient to have home PT/OT for care needs. - Patient generally uses wheelchair to get around her home, with periods of standing and small walks. (6) Cold feet: - Noted on exam this admission. - Pulses normal. SWAPNA normal. Plan Dispo: Home with home health services. Patient adamant about going home today as she feels back to baseline in all regards. She was given return precautions, and will have labwork tomorrow with office review on Thursday. Patient requested new PCP information, specifically, an attending physician. Information given for Dr. Basil Craig. Appointment scheduled for Thursday at 11AM. Discharge Exam Constitutional WD/WN, vitals as above Respiratory normal respiratory effort, lungs clear to auscultation Cardiovascular Rate/Rhythm: + irregularly irregular; not tachycardic Heart Sounds: no murmur Extremities: no edema Gastrointestinal (Abdomen) normal bowel sounds, soft, nontender, no hepatosplenomegaly Skin bilateral feet cool to the touch, normal DP and PT pulses, normal sensation Psychiatric A+Ox3, euthymic affect Updated Medication List Medication Instructions Recorded Confirmed Type vitamins A,C,O-gyic-rbcwli 2,148 1 tab PO HS 08/18/19 06/11/22 History mcg-113 mg-45 mg-17.4 mg tablet (PreserVision AREDS) Bedside Commode #1 ea 08/19/19 04/09/21 Rx Lift Chair #1 ea 08/19/19 04/09/21 Rx Shower Chair #1 ea 08/19/19 04/09/21 Rx diclofenac sodium 1 % topical gel 4 g topical QID #300 grams 08/13/21 06/11/22 Rx (Voltaren Arthritis Pain) Hospital Bed Homecare #1 ea 11/20/21 11/20/21 Rx apixaban 5 mg (74 tabs) tablets in 5 mg PO BID 02/16/22 06/11/22 History a dose pack amoxicillin 875 mg-potassium 1 tab PO BIDM 10 days #20 tabs 06/15/22 Rx clavulanate 125 mg tablet metoprolol tartrate 50 mg tablet 50 mg PO TID 30 days #90 tabs 06/15/22 Rx Hospital Stay Data Consultations 06/12/22 02:03 ED Decision to Admit Stat 06/12/22 19:00 Consult Cardiology Routine 06/12/22 19:07 Consult Cardiac Rehabilitation Routine 06/12/22 19:13 Consult General Surgery Routine 06/13/22 10:46 Consult Gastroenterology Routine Procedures Performed Operation Date: 06/13/22 10:00 Actual Procedures p Endoscopic Ultrasonography Upper(Not Applicable) - Nkechi Wilkes MD Diagnostic Imagining Performed 06/12/22 01:56 CT abd pelvis wo con Urgent CT chest diagnostic wo con Urgent 06/13/22 07:27 US abdomen complete Routine 06/13/22 10:39 US ankle brachial index [US ankle/brachial index ltd] Routine 06/13/22 15:52 US upper EUS PACS images Routine Discharge Instructions Given to Patient (Per Discharging Provider) You were admitted to the hospital for weakness and trouble breathing. When you came to the hospital you were found to have atrial fibrillation with a fast heart rate. You are also noted to have fluid on your lungs on your chest x-ray. We evaluated your heart with an echocardiogram which showed that you had a decrease in your heart function. For this reason you were given water pills to help you pee the fluid off, and your metoprolol medicine was adjusted to keep your heart rate under control. On discharge, you will increase your metoprolol from twice daily to 3 times daily. Please see the medication list on this discharge paperwork for most up-to-date medications. This medicine was sent to the [facility]. Please see the information below about congestive heart failure and how to decrease salt in your diet to keep your heart healthy. You will have follow-up in the near future with Dr. Jiame's office with cardiology. If you do not hear from the cardiology office tomorrow or Thursday, please call [phone] for an appointment for follow-up of new heart failure and A. fib. When you were admitted you were also found to have elevated liver function tests. You had a CAT scan of your belly which showed that you had inflammation and likely infection of your gallbladder. You were evaluated by the senior electrical design engineer and the surgeons who thought that you could be managed conservatively with antibiotics and have follow-up outside of the hospital. You have follow-up with the GI office on July 04 at 10 AM. Their office is located at [address] [place] [address] 2. You should have follow-up with Dr. Cope with general surgery as well. You should get a call tomorrow with an appointment time. If you do not, you should call [phone] for an appointment. While you are in the hospital you were given antibiotics through the IV, which were switched to Augmentin by mouth on discharge. This antibiotic is taken once every 12 hours with food and water. Please take this antibiotic until there is no more antibiotic left, even if your belly is feeling great. Lastly, you were noted on lab work to have a small kidney injury, likely due to the infection and the A. fib. At this time, while your kidneys are improving, they are not quite back to normal. It is important that you have lab work tomorrow to evaluate your kidney and liver function. An order has been placed for you to have at a [facility] lab of your convenience. If you want to have the lab work done at the hospital, you can come anytime from 8am-7pm and ask the supervisor front staff to have your lab work done. Dr. Craig will go over this lab work with you. You requested recommendations to have a new primary care provider that was not a resident. You are set up with an appointment with Dr. Craig over on [address] on Thursday at 10:[address] Jadon Douglas will go over your hospitalization and do fill out paperwork to establish care in his office moving forward. If you have any concerns with regard to your breathing, chest pain, worsening abdominal pain, please come back to the hospital for evaluation. Total Time Total Time Spent Total Time Spent (In Minutes): 45 Coding Level of Care Code D/C DAY MANAGEMENT >30 MINS Diagnoses Atrial fibrillation with rapid ventricular response I48.91 Acute systolic (congestive) heart failure I50.21 Cholecystitis K81.9 Acute renal insufficiency N28.9 Generalized weakness R53.1 Cold feet R20.9
[2022-06-15] MEDS ORDERED: AMOXICILLIN/CLAVULANATE 500 MG TAB PO SCH (17:00)
== END 2022-06-15 16:36 | disposition home health service (06) | DRG 308 ==
LOC: ED 21:18 → SUATTDRO 06-12 05:53 → EDINP 06-12 05:53 → 4W 06-12 08:50

== ENCOUNTER 2022-06-18 17:12 | Inpatient (IN) ==
--- NOTE | 2022-06-18 17:23 | ED Triage Note ---
Date of Service June 18, 2022 History of Present Illness This patient was briefly evaluated while in triage. An abbreviated physical exam was performed. This patient is a 82-year-old Female with past medical history of recent admission, diagnosed with cholecystitis, history of CHF, atrial fibrillation, who was referred to the ED by Dr. Jaime due to ongoing symptoms of not feeling well, not eating or drinking much. Ongoing edema. Was transferred to oral antibiotics outpatient. Physical Exam CONSTITUTIONAL: tired appearing, mildly ill appearing CARDIAC: regular rate normal rhythm PULMONARY: lungs clear ABDOMEN: no focal tenderness Initial orders for labs and / or imaging were placed and patient was placed in the waiting area until a bed is available. Please see further documentation for the full ED course. MDM / Impression Impression Impression: Atrial fibrillation with RVR, Cholecystitis, Abdominal pain
--- NOTE | 2022-06-18 17:34 | XRay Report ---
XR chest 1V portable HISTORY: Generalized weakness COMPARISON: Chest 06/11/2022. FINDINGS: There are low lung volumes. The patient's chin partially obscures the lung apices. No defin ite pneumothorax. The heart remains enlarged. There is a tortuous thoracic aorta. Small right pleural effusions persist. There are bibasilar linear densities. There is mild central pulmonary vascular co ngestion without overt edema. No new focal lung consolidations. Scoliosis of the thoracolumbar spine. Advanced degenerative changes within the shoulders. IMPRESSION: 1. Mild cardiomegaly with mild central pulmonary vascular congestion without overt edema. 2. Small right pleural effusions. 3. Bibasilar linear densities favor subsegmental atelectasis given the low lung volumes. ACT 112: Negative or not required by law. Electronically signed by: Gagan Rubio M.D. 06/18/2022 5:33 PM
[2022-06-18 18:39] LABS: Alanine Aminotransferase 239 U/L (7-52); Albumin Globulin Ratio 1.6 (0.9-2); Albumin Level 3.7 gm/dl (3.4-5.0); Alkaline Phosphatase 173 U/L (34-104); Anion Gap 11 (3-11); Aspartate Aminotransferase 41 U/L (13-39); BUN Creatinine Ratio 51.4 (10-20); Blood Urea Nitrogen 75 mg/dl (6-23); Carbon Dioxide 19 mmol/L (21-32); Chloride 106 mmol/L (98-107); Est GFR (African American) 37.9 ml/min; Est GFR (Non-African American) 32.7 ml/min; Globulin 2.3 gm/dl (2.5-4.0); Glucose 130 mg/dl (70-99(Fasting)); Lipase 75 U/L (11-82); Potassium 3.9 mmol/L (3.5-5.1); Sodium 136 mmol/L (136-145)
[2022-06-18 18:45] LABS: Troponin I High Sensitivity 31.1 pg/ml (0-14)
[2022-06-18 19:14] LABS: Basophils # (auto) 0.03 K/uL (0-0.2); Basophils % (auto) 0.3 %; Eosinophils # (auto) 0.09 K/uL (0-0.50); Eosinophils % (auto) 0.8 %; Hematocrit (blood only) 45.3 % (34.1-44.9); Hemoglobin 14.7 g/dl (12.0-16.0); Immature Granulocytes # (auto) 0.22 K/uL (0.00-0.02); Immature Granulocytes % (auto) 2.1 %; Lymphocytes # (auto) 0.55 K/uL (1.2-3.4); Lymphocytes % (auto) 5.1 %; Mean Corpuscular Hemoglobin 30.6 pg (25.0-34.0); Mean Corpuscular Hgb Conc 32.5 g/dL (32.0-36.0); Mean Corpuscular Volume 94.4 fL (80.0-100.0); Monocytes # (auto) 0.85 K/uL (0.24-0.82); Neutrophils # (auto) 8.95 K/uL (1.4-6.5); Neutrophils % (auto) 83.7 %; Nucleated RBC # (auto) 0.03 K/uL (0-0); Nucleated RBC % (auto) 0.3 %; Platelet Count 229 K/uL (130-400); RDW Coefficient of Variation 16.6 % (11.5-14.5); RDW Standard Deviation 56.7 fL (36.4-46.3); White Blood Count 10.69 K/ul (4.8-10.8)
--- NOTE | 2022-06-18 19:54 | Emergency Department Note ---
Impression & Plan Atrial fibrillation with RVR, Cholecystitis, Abdominal pain ED Provider Note NAME: HEATHER CASON AGE: 82 SEX: F : 1940 ARRIVES VIA: Walk-In INFORMANT: Patient ED PROVIDER(S): Villa Sahni DO CHIEF COMPLAINT: abdominal pain and weakness HPI: Patient is an 81-year-old female who presents the ER for weakness. She notes she saw her battery stacker today and she is been having increased swelling of her legs and feels very weak tired and rundown. She has not been getting around recently.She has been having trouble eating as she is seen by general [facility] earlier this month during admission for concerns for her gallbladder. They elected to this as an outpatient. Notes her pain is about a 6 out of 10. Denies any dysuria urgency or frequency. No other exacerbating or remitting factors. She has been taking her blood thinner. ROS: See above HPI for pertinent positives & negatives. A total of 10 systems reviewed and were otherwise negative. PAST MEDICAL HISTORY:See Below PAST SURGICAL HISTORY:See Below FAMILY HISTORY:See Below SOCIAL HISTORY:See Below HOME MEDICATIONS:See Below ALLERGIES:See Below VITALS:See Below PHYSICAL EXAMINATION: GENERAL: Sitting up in bed, alert, well appearing, well nourished, no distress, non-toxic EYE EXAM: normal conjunctiva. OROPHARYNX: no exudate, no erythema, lips, buccal mucosa, and tongue normal and mucous membranes are moist NECK: supple, no nuchal rigidity, no adenopathy, non-tender LUNGS: Clear to auscultation. Normal chest wall mechanics HEART: no murmurs, S1 normal and S2 normal ABDOMEN: abdomen soft, non-tender, normo-active bowel sounds, no masses, no rebound or guarding. UPPER EXTREMITIES: upper extremities are grossly normal. LOWER EXTREMITIES: No pitting edema. NEURO EXAM: Normal sensorium, cranial nerves II-XII grossly intact, normal speech, no gross weakness of arms, no gross weakness of legs. MEDICAL DECISION MAKING: Patient is an 82-year-old female who presents ER for the above-stated complaint. IV was established blood was obtained. Labs show CO2 of 19 and creatinine 1.4. Mild transaminitis which is actually improving with an ALT of 239. Troponin was elevated 28. Alk phos mildly elevated. Bili was normal. Lipase was normal. COVID was negative. CT abdomen pelvis showed cholecystitis. Discussed with general surgery and Samantha who evaluated the patient. Discussed with hospitalist Montserrat Barba who admitted the patient. She was given a dose of Zosyn. She was updated bedside. IV Lopressor and heart rate trended down from the 120s to 90s following minutes with the Sotero fib RVR. She was also given IV fluids. Triage Nursing notes reviewed. Limited review of prior medical records performed Vital Signs: reviewed and remarkable for tachy Differential diagnosis: Differential diagnoses includes but is not limited to gastritis, peptic ulcer disease, GERD, gallbladder disease, pancreatitis, small bowel obstruction, acute coronary syndrome, pericarditis, ischemic bowel, irritable bowel disease, irritable bowel syndrome, appendicitis, diverticulitis, malignancy, hernia, u rinary tract infection, torsion, /ectopic (if female), perforation, trauma, infectious. ER treatment provided: See below Diagnostics interpreted by me: ECG: VR rate of 110 Left axis No PVCs QTC 462 Poor baseline Cardiac Monitoring: An order was placed for continuous cardiac monitoring. The monitor shows a rate of 122 with Afib rhythm. Laboratory studies: As stated above and show below. Imaging studies: CT abdomen pelvis showed cholecystitis Consultation(s): As described above Procedures: none Critical Care: I have personally spent 31 minutes of critical care time in the direct management of this patient. This includes bedside care, interpretation of diagnostic studies, and testing, discussion with consultants, patient, and family members, and other required patient management activities. This 31 minutes is in excess of all separately billable procedures. Past Med/Surg History Medical History Arthritis Heart enlargement PT REPORTS FOUND HEART ENLARGEMENT AND LIVER ENLARGEMENT FOUND ON MRI IN 2011 WHEN HAD KIDNEY STONES ...TREATED AT [facility] FOR KIDNEY STONES History of anesthesia reaction "BRAIN FOG" AFTER SURGERIES - CAN'T REMEMBER WHAT DAY IT IS FOR AWHILE History of asthma History of falling HX MULTIPLE FALLS, NONE FOR OVER 1 YR History of kidney stones Hypertension Thumb problem Surgical History H/O removal of neck cyst History of bilateral breast reduction surgery History of cataract surgery RT History of colonoscopy History of dental surgery History of surgery SKIN BOIL LANCED AND REMOVED History of surgery BONE TUMOR REMOVED - LEFT LEG TEENAGER History of surgery CYST ON BACK REMOVED Family History Mother , age 80 of brain cancer (uncertain type) Brain cancer Father , age 51 of an [place] Myocardial infarction Other Cancer Family history of diabetes mellitus Heart disease Social History Smoking Status: Never smoker Second Hand Exposure: No; Hx Alcohol Use: Yes Alcohol Intake Frequency: Monthly or Less Hx Substance Use: No Preferred Language: Grenadian Communication Ability: Effective Visual Impairment: Limited Hearing Ability: Normal 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 Beliefs That Will Affect Care: None marital status: Single Current Living Situation: Alone Current Living Situation Comment: DAUGHTER LIVES NEAR BY FREQUENT VISITS HOME HEALTH VISITS ON REQUEST current occupational status: retired 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 Feels Safe at Home: Yes Safety Concerns: Feels Safe At This Time Assistive Devices: Cane and Wheelchair Allergies Allergies Allergy/AdvReac Type Severity Reaction Status Date / Time cefaclor AdvReac Mild NAUSEA Verified 06/18/22 15:55 Home Meds Home Medications Medication Instructions Recorded Confirmed vitamins A,C,G-wave-rrjndh 2,148 1 tab PO HS 08/18/19 06/18/22 mcg-113 mg-45 mg-17.4 mg tablet (PreserVision AREDS) apixaban 5 mg (74 tabs) tablets in 5 mg PO BID 02/16/22 06/18/22 a dose pack Previous Rx's Medication Instructions Recorded Bedside Commode #1 ea 08/19/19 Lift Chair #1 ea 08/19/19 Shower Chair #1 ea 08/19/19 diclofenac sodium 1 % topical gel 4 g topical QID #300 grams 08/13/21 (Voltaren Arthritis Pain) Hospital Bed Homecare #1 ea 11/20/21 amoxicillin 875 mg-potassium 1 tab PO BIDM 10 days #20 tabs 06/15/22 clavulanate 125 mg tablet metoprolol tartrate 50 mg tablet 50 mg PO TID 30 days #90 tabs 06/15/22 comp.stocking,thigh,long,large #2 ea 06/17/22 Results & Data (ED) Vital Signs Vital Signs - 24 hr 06/18/22 17:13 06/18/22 19:46 06/18/22 19:51 Temperature 36.8 C Temperature Source Temporal Artery Scan Pulse Rate 63 Pulse Rate [Apical] 118 H Respiratory Rate 18 18 Blood Pressure 114/87 Blood Pressure [Right Arm] 111/93 Blood Pressure Mean 96 Blood Pressure Mean [Right Arm] 99 Pulse Oximetry 98 97 96 Oxygen Delivery Method Room Air Room Air Room Air Sepsis Recent Fever Within 48 Hours No Sepsis New/Unexplained Change in Mental Status No Sepsis Action Taken by Nursing No Action Required 06/18/22 20:24 06/18/22 19:54 Temperature Temperature Source Pulse Rate 116 H Pulse Rate [Apical] Respiratory Rate Blood Pressure 111/93 Blood Pressure [Right Arm] Blood Pressure Mean Blood Pressure Mean [Right Arm] Pulse Oximetry 99 Oxygen Delivery Method Room Air Sepsis Recent Fever Within 48 Hours Sepsis New/Unexplained Change in Mental Status Sepsis Action Taken by Nursing Laboratory Data Result diagrams: 06/18/22 17:56 06/18/22 17:56 Lab Results 06/18/22 06/18/22 06/18/22 Range/Units 17:56 17:56 20:00 WBC 10.69 (4.8-10.8) K/ul RBC 4.80 (3.93-5.22) M/uL Hgb 14.7 (12.0-16.0) g/dl Hct 45.3 H (34.1-44.9) % MCV 94.4 (80.0-100.0) fL MCH 30.6 (25.0-34.0) pg MCHC 32.5 (32.0-36.0) g/dL RDW Std Deviation 56.7 H (36.4-46.3) fL RDW Coeff of Adam 16.6 H (11.5-14.5) % Plt Count 229 (130-400) K/uL MPV 12.0 (9.4-12.3) fL Immature Gran % (Auto) 2.1 % Neut % (Auto) 83.7 % Lymph % (Auto) 5.1 % [place] % (Auto) 8.0 % Eos % (Auto) 0.8 % Baso % (Auto) 0.3 % Neut # (Auto) 8.95 H (1.4-6.5) K/uL Lymph # (Auto) 0.55 L (1.2-3.4) K/uL [place] # (Auto) 0.85 H (0.24-0.82) K/uL Eos # (Auto) 0.09 (0-0.50) K/uL Baso # (Auto) 0.03 (0-0.2) K/uL Immature Gran # (Auto) 0.22 H (0.00-0.02) K/uL Absolute Nucleated RBC 0.03 H (0-0) K/uL Nucleated RBC % (auto) 0.3 % Sodium 136 (136-145) mmol/L Potassium 3.9 (3.5-5.1) mmol/L Chloride 106 (98-107) mmol/L Carbon Dioxide 19 L (21-32) mmol/L Anion Gap 11 (3-11) BUN 75 H (6-23) mg/dl Creatinine 1.46 H (0.6-1.2) mg/dl Est Cr Clr Drug Dosing Not Reportable Est GFR ( Amer) 37.9 ml/min Est GFR (Non-Af Amer) 32.7 ml/min BUN/Creatinine Ratio 51.4 H (10-20) Glucose 130 H (70-99(Fasting)) mg/dl Calcium 9.0 (8.5-10.1) mg/dl Total Bilirubin 1.0 (0.2-1.0) mg/dl AST 41 H (13-39) U/L ALT 239 H (7-52) U/L Alkaline Phosphatase 173 H (34-104) U/L Troponin I High Sens 31.1 H (0-14) pg/ml Total Protein 6.0 (6.0-8.3) gm/dl Albumin 3.7 (3.4-5.0) gm/dl Globulin 2.3 L (2.5-4.0) gm/dl Albumin/Globulin Ratio 1.6 (0.9-2) Lipase 75 (11-82) U/L SARS-CoV-2, RNA, NAAT NEGATIVE (NEGATIVE) Administered Medications Discontinued Medications Furosemide (Furosemide Inj 20 Mg/2 Ml Vial) 20 mg IV NOW STA Stop: 06/18/22 23:04 Last Admin: 06/18/22 23:36 Dose: 20 mg Documented By: KAYLEE Piperacillin Sod/Tazobactam Sod (Zosyn) 4.5 gm in 120 mls @ 240 mls/hr IV NOW ONE Stop: 06/18/22 21:59 Last Admin: 06/18/22 23:10 Dose: 240 mls/hr Documented By: LAP Metoprolol Tartrate (Metoprolol Tartrate 1 Mg/Ml Vial) 5 mg IV NOW STA Stop: 06/18/22 19:57 Last Admin: 06/18/22 20:24 Dose: 5 mg Documented By: QGV Metoprolol Tartrate (Metoprolol Tartrate 1 Mg/Ml Vial) 5 mg IV NOW STA Stop: 06/18/22 23:04 Last Admin: 06/18/22 23:35 Dose: 5 mg Documented By: LAP Imaging Data Radiologist's Impression: Chest X-Ray 06/18/22 17:16 XR chest 1V portable HISTORY: Generalized weakness COMPARISON: Chest 06/11/2022. FINDINGS: There are low lung volumes. The patient's chin partially obscures the lung apices. No definite pneumothorax. The heart remains enlarged. There is a tortuous thoracic aorta. Small right pleural effusions persist. There are bibasilar linear densities. There is mild central pulmonary vascular congestion without overt edema. No new focal lung consolidations. Scoliosis of the thoracolumbar spine. Advanced degenerative changes within the shoulders. IMPRESSION: 1. Mild cardiomegaly with mild central pulmonary vascular congestion without overt edema. 2. Small right pleural effusions. 3. Bibasilar linear densities favor subsegmental atelectasis given the low lung volumes. ACT 112: Negative or not required by law. Electronically signed by: Gagan Rubio M.D. 06/18/2022 5:33 PM Abdomen/Pelvis CT 06/18/22 19:54 CT abd pelvis wo con CLINICAL HISTORY: diffuse abd pain TECHNIQUE: Helical axial images of the abdomen and pelvis were obtained and displayed. Automated dose lowering techniques and/or adjustment according to patient size were utilized for this exam. This exam was performed without intravenous contrast. CT DOSE: 358.82 mGy.cm COMPARISON: Comparison is made to CT abdomen pelvis 06/12/2022 FINDINGS: Lower chest: Cardiomegaly is seen. There is a right pleural effusion. Liver: Unremarkable. No focal lesions are seen. Gallbladder and biliary tree: Gallbladder wall thickening and pericholecystic edema is seen compatible with acute cholecystitis. No intra- or extrahepatic biliary ductal dilation. Pancreas: Unremarkable, no focal lesions. Spleen: Unremarkable. Adrenals: Unremarkable. Kidneys and ureters: Nonobstructive nephrolithiasis is seen. Bladder: Limited evaluation due to underdistention. Reproductive organs: Unremarkable. Bowel: Diverticulosis is seen without evidence of diverticulitis. The appendix is normal in diameter. There is mild periappendiceal stranding which is likely due to general mesenteric stranding. Lymph nodes Retroperitoneal: Unremarkable. Pelvic: Unremarkable. Mesenteric: Unremarkable. Peritoneum: Diffuse stranding is seen most prominently in the right upper quadrant. Small free fluid is seen most prominently in the pelvis. Vessels: Atherosclerotic calcifications are seen. Abdominal wall: Mild body wall edema is seen. Bones: Degenerative changes in the visualized spine. IMPRESSION: 1. Findings are compatible with acute cholecystitis. There is retroperitoneal stranding. 2. Cardiomegaly and right pleural effusion, similar in appearance to prior exam. 3. Cholelithiasis without cholecystitis. 4. Additional findings as above. ACT 112: Negative or not required by law. Electronically signed by: Mannie Navarro M.D. 06/18/2022 8:42 PM Discharge Plan Visit Data Chief Complaint: Weakness Stated Complaint: GALL BLADDER ISSUE, DR REF, ARRHYTHMIA ED Provider: Villa Sahni Discharge Problem: Atrial fibrillation with RVR, Cholecystitis, Abdominal pain Patient Disposition: Admitted As Inpatient Discharge Instructions Interventions: ED Discharge Assessment Last Done: 06/18/22 22:57
[2022-06-18] MEDS ORDERED: METOPROLOL TARTRATE 1 MG/ML VIAL IV STA ×2 (19:56→23:03)
--- NOTE | 2022-06-18 20:38 | History & Physical Report ---
Date of Service June 18, 2022 Assessment & Plan (1) Afib: Plan: This is an 82-year-old female with a history of atrial fibrillation, HFrEF (06/12: LVEF 25-30% with severe MR/TR), mitral regurgitation, cholecystitis, TIA, hypertension, prior DVT who presented to [facility] for weakness, found to be in atrial fibrillation with RVR and ongoing findings consistent with cholecystitis. Atrial Fibrillation with RVR - On admission, found to be in AFib with RVR with rates primarily between 110- 120; BP, SpO2 otherwise OK - At home -- controlled with metoprolol tartrate 50mg t.i.d. - TTE 06/12: Normal LV size with severely reduced systolic function. EF 25-30%. Global hypokinesis. Mild LVH. Mildly dilated RV with moderately reduced systolic function. Severe biatrial dilation. Severe MR and TR. RVSP 36 mHg - Rate control: Attempt Lopressor 5mg, consider another dose PRN --> May require digitizing if she continues to be difficult to control - AC: Continue Eliquis 5mg b.i.d. - Cardiology previously consulted during last admission (06/13) - can consider initiation of digoxin if not responding to rate control (would need to be renally dosed) --> Will reconsult while here for preprocedural clearance (2) Cholecystitis: Plan: Cholecystitis - CT-A/P on admission revealing consistent findings consistent with cholecystitis - US RUQ obtained in ED: [Pending] - LFTs obtained during admission: compared to 06/16, mild improvement on admission (AST 41 from 65, ALT 239 from 351), though ALP increased to 173 --> Primarily suspect secondary to acute cholecystitis --> GI consulted during last admission, EGD performed: Normal, no evidence of stones - Start Zosyn (patient was on Augmentin as outpatient) - Pain: Surprisingly minimal at this point. Dilaudid 0.25mg IV q4h PRN - General surgery consulted - Cardiology consulted for preoperative evaluation - Hold Eliquis in anticipation of surgical intervention - Full liquid diet now, NPO at midnight (3) Acute on chronic systolic (congestive) heart failure: Plan: HFrEF - Symptomatically reporting increased VELA and lower extremity edema over past several days - TTE 06/12: Normal LV size with severely reduced systolic function. EF 25-30%. Global hypokinesis. Mild LVH. Mildly dilated RV with moderately reduced systolic function. Severe biatrial dilation. Severe MR and TR. RVSP 36 mHg - On admission: Reporting VELA, worsening peripheral edema -- +findings of hype rvolemic on exam, thankfully not symptomatic at rest - Lasix: 20mg IV x 1 now, consider additional doses as tolerated/needed based on return kidney fxn - Continue home metoprolol 50mg t.i.d. - Daily weights, monitor I&O, low salt/HH diet, leg stockings - Patient may benefit from further discussions of SGLT2, ARNI once renal issues become more clear (4) Acute renal insufficiency: Plan: YONI - On admission, found to have BUN 75/Cr 1.46 -- mildly increased from discharge on 06/16; prior to this, Cr appears to be around 0.6-1.0 - Last admission, YONI thought to be secondary to prerenal origin; unclear whether still resolving or her current function is a new baseline given progressing HFrEF - Primarily suspect secondary to HFrEF right now, as she appears volume overloaded on exam --> Will give Lasix 20mg IV x 1 now, repeat as needed - Avoid renotoxic medications - Monitor BMP (5) DVT (deep venous thrombosis): Plan: History of DVT - Hold Eliquis (6) Transaminitis: Plan: Transaminitis -- resolving - LFTs demonstrating mixed pattern of transaminitis with ALT>>AST and elevated ALP that have improved since previous admission - EUS performed 06/13 during last admission showed normal CBD without stones or sludge - Await RUQ - Suspect improving elevations in AST/ALT are secondary to either acute cholecystitis +/- passed stone ; lipase is normal - Trend while here (7) Weakness: Plan: Weakness - Multifactorial: AFib, HFrEF, acute cholecystitis, etc.. - PT, OT -- does report 1 fall at home recently - Monitor labs, fluid status, continue ABX Plan Code: FULL PPX: Hold Eliquis for now in event of surgical intervention Diet: NPO at midnight Dispo: MS/T History of Present Illness Primary Care Provider: Fausto Dahl MD This is an 82-year-old female with a history of atrial fibrillation, HFrEF, mitral regurgitation, cholecystitis, TIA, hypertension, prior DVT who presented to [facility] for several complaints. 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 Patient says over the last several days, she has been progressively more weak. She says she has had increasing dyspnea on exertion as well as swelling in her legs. She endorses some chills. Denies any fevers. She does say that she gets mild feelings of dyspepsia with eating, but no true abdominal pain. She denies any nausea or vomiting. No change in the bowel movements. She does endorse one fall at home, thankfully she did not hurt her self. She did not hit her head or lose consciousness. Of note, she was recently hospitalized at [facility] for a week of exertional dyspnea and weakness, subsequently found to be in atrial fibrillation with RVR. Unfortunately, she demonstrated progressively reduced ejection fraction alongside moderately dysfunctional RV, and severe MR/TR. Her symptoms improved with IV Lasix and metoprolol. Medications reviewed and include Eliquis 5 mg twice daily, metoprolol tartrate 50 mg 3 times daily. She denies any use of alcohol or tobacco products Last TTE: "06/12/2022: Normal LV size with severely reduced systolic function. EF 25-30%. Global hypokinesis. Mild LVH. Mildly dilated RV with moderately reduced systolic function. Severe biatrial dilation. Severe MR and TR. RVSP 36 mHg. Atrial fibrillation with RVR throughout study." In the ED, patient was found to be borderline tachycardic with a rate of 92. Blood pressure normal. Weight 68 kg (from 71.2 kg on 06/15). Labs demonstrate relative neutrophilia, lymphopenia, monocytosis. Chemistries revealing of BUN 75/creatinine 1.46 (improved since 06/16 at 1.71, though baseline prior was 0.6 - 1.0), AST 41, ALT 239, ALP 173, high-sensitivity troponin 31.1. Lipase 75. CT of the abdomen and pelvis revealing findings consistent with acute cholecystitis, cardiomegaly with right pleural effusion, cholelithiasis with cholecystitis. Chest x-ray demonstrated mild cardiomegaly with pulmonary vascular congestion, small right pleural effusion. Esterase slowly trended upwards into the 110s, she was given 5 mg of Lopressor stat. US-RUQ pending. Allergies Allergy/AdvReac Type Severity Reaction Status Date / Time cefaclor AdvReac Mild NAUSEA Verified 06/18/22 15:55 Home Medications Medication Instructions Recorded Confirmed Type vitamins A,C,N-vlxs-qcxtky 2,148 1 tab PO HS 08/18/19 06/18/22 History mcg-113 mg-45 mg-17.4 mg tablet (PreserVision AREDS) Bedside Commode #1 ea 08/19/19 06/17/22 Rx Lift Chair #1 ea 08/19/19 06/17/22 Rx Shower Chair #1 ea 08/19/19 06/17/22 Rx diclofenac sodium 1 % topical gel 4 g topical QID #300 grams 08/13/21 06/17/22 Rx (Voltaren Arthritis Pain) Hospital Bed Homecare #1 ea 11/20/21 06/17/22 Rx apixaban 5 mg (74 tabs) tablets in 5 mg PO BID 02/16/22 06/18/22 History a dose pack amoxicillin 875 mg-potassium 1 tab PO BIDM 10 days #20 tabs 06/15/22 06/18/22 Rx clavulanate 125 mg tablet metoprolol tartrate 50 mg tablet 50 mg PO TID 30 days #90 tabs 06/15/22 06/18/22 Rx comp.stocking,thigh,long,large #2 ea 06/17/22 06/17/22 Rx Past Med/Surg History Medical History Arthritis Heart enlargement PT REPORTS FOUND HEART ENLARGEMENT AND LIVER ENLARGEMENT FOUND ON MRI IN 2011 WHEN HAD KIDNEY STONES ...TREATED AT [facility] FOR KIDNEY STONES History of anesthesia reaction "BRAIN FOG" AFTER SURGERIES - CAN'T REMEMBER WHAT DAY IT IS FOR AWHILE History of asthma History of falling HX MULTIPLE FALLS, NONE FOR OVER 1 YR History of kidney stones Hypertension Thumb problem Surgical History H/O removal of neck cyst History of bilateral breast reduction surgery History of cataract surgery RT History of colonoscopy History of dental surgery History of surgery SKIN BOIL LANCED AND REMOVED History of surgery BONE TUMOR REMOVED - LEFT LEG TEENAGER History of surgery CYST ON BACK REMOVED Family History Mother , age 80 of brain cancer (uncertain type) Brain cancer Father , age 51 of an [place] Myocardial infarction Other Cancer Family history of diabetes mellitus Heart disease Social History Smoking Status: Never smoker Second Hand Exposure: No; Hx Alcohol Use: Yes Alcohol Intake Frequency: Monthly or Less Hx Substance Use: No Preferred Language: Malian Communication Ability: Effective Visual Impairment: Limited Hearing Ability: Normal 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 Non-toxic. HEENT: NCAT. - Eyes - Sclera are white, anicteric, and without injection. - Mouth - MMM - Neck - supple, no appreciable JVD Cardiac: Tachycardic with irregular rhythm; S1 and S2 present with no murmurs, rubs, or gallops. Pulmonary: Good respiratory effort with symmetric expansion of the chest. No use of accessory muscles. Lungs were clear to auscultation bilaterally with no crackles or wheezes. Abdominal: Normoactive bowel sounds. Abdomen was soft, nondistended, and non- tender to palpation. Mildly positive Mitchell's sign. Extremities: Upper and lower extremities are warm and well perfused. 3+ peripheral edema in the lower extremities bilaterally Psych: Well-developed, well-nourished, appropriately dressed for occasion. Behavior is cooperative and appropriate. Affect is WNL. Insight is appropriate. Results & Data Results & Data ([facility]) Vital Signs (Past 12 Hours) Vital Signs Temp Pulse Pulse Resp BP BP Pulse Ox 06/18/22 19:54 99 06/18/22 20:24 116 H 111/93 06/18/22 19:51 118 H 18 111/93 96 06/18/22 19:46 97 06/18/22 17:13 36.8 C 63 18 114/87 98 O2 Del Method 06/18/22 19:54 Room Air 06/18/22 20:24 06/18/22 19:51 Room Air 06/18/22 19:46 Room Air 06/18/22 17:13 Room Air Supervising Physician Co-Signing Physician Notes Patient seen and examined, chart reviewed, case discussed with Dr. Barrera and I agree with the assessment and plan as documented above Resident Activity Tracking Resident Involvement: Resident Care Provided Care Provided: Adult Hospital Medicine
--- NOTE | 2022-06-18 20:44 | CT Scan Report ---
CT abd pelvis wo con CLINICAL HISTORY: diffuse abd pain TECHNIQUE: Helical axial images of the abdomen and pelvis were obtained and displayed. Automated dose lowering techniques and/or adjustment according to patient size were utilized for this exam. This e xam was performed without intravenous contrast. CT DOSE: 358.82 mGy.cm COMPARISON: Comparison is made to CT abdomen pelvis 06/12/2022 FINDINGS: Lower chest: Cardiomegaly is seen. There is a right pleural effusion. Liver: Unremarkable. No focal lesions are seen. Gallbladder and biliary tree: Gallbladder wall thickening and pericholecystic edema is seen compatibl e with acute cholecystitis. No intra- or extrahepatic biliary ductal dilation. Pancreas: Unremarkable, no focal lesions. Spleen: Unremarkable. Adrenals: Unremarkable. Kidneys and ureters: Nonobstructive nephrolithiasis is seen. Bladder: Limited evaluation due to underdistention. Reproductive organs: Unremarkable. Bowel: Diverticulosis is seen without evidence of diverticulitis. The appendix is normal in diameter. There is mild periappendiceal stranding which is likely due to general mesenteric stranding. Lymph nodes Retroperitoneal: Unremarkable. Pelvic: Unremarkable. Mesenteric: Unremarkable. Peritoneum: Diffuse stranding is seen most prominently in the right upper quadrant. Small free fluid is seen most prominently in the pelvis. Vessels: Atherosclerotic calcifications are seen. Abdominal wall: Mild body wall edema is seen. Bones: Degenerative changes in the visualized spine. IMPRESSION: 1. Findings are compatible with acute cholecystitis. There is retroperitoneal stranding. 2. Cardiomegaly and right pleural effusion, similar in appearance to prior exam. 3. Cholelithiasis without cholecystitis. 4. Additional findings as above. ACT 112: Negative or not required by law. Electronically signed by: Mannie Navarro M.D. 06/18/2022 8:42 PM
[2022-06-18] MEDS ORDERED: PIPERACILLIN/TAZOBACTAM 4.5 GM/120 ML BAG IV ONE (21:30)
--- NOTE | 2022-06-18 22:23 | Surgery Consultation ---
Date of Consultation June 18, 2022 Assessment & Plan (1) Transaminitis: The patient is being admitted on the hospitalist service. The patient has numerous medical issues that need to be optimized before any surgical intervention can be considered. These include congestive heart failure along with rapid atrial fibrillation. Concerning the possibility of cholecystitis and her transaminitis we recommend proceeding as follows: At the present time the patient does not have any clinical evidence of acute cholecystitis In light of the patient's available imaging we would recommend performing a HIDA scan to help further delineate if cholecystitis is present Recommend antibiotics. The medical services indicated that they will be using Zosyn Recommend utilizing intravenous fluids, however cautiously due to the patient's known congestive heart failure I feel be okay for patient have clear liquids. Would make her n.p.o. after midnight in the event that any procedure intervention is required tomorrow Hold patient's Eliquis. It would be ideal to hold this for several days prior to entertaining any surgical intervention Recommend obtaining a cardiology consultation to ensure patient is optimized from a cardiac standpoint and there are no contraindications to proceeding with surgery if this is felt to be indicated Recommend following serial labs Additional recommendations be forthcoming based on pending labs/studies/and patient's clinical course as it unfolds The above plan was discussed with the primary service History of Present Illness Reason for Consultation: Concern for acute cholecystitis History of Present Illness This is an 82-year-old female who is known to the surgical service. The patient was recently mated to [facility] on 06/12/2022 through 06/15/2022. During this admission patient was found to have atrial fibrillation with rapid ventricular response along with new onset congestive heart failure. She was seen by cardiology. She was noted to have an elevated troponin that was felt to be due to demand ischemia. She was anticoagulated with Eliquis. She did have an echocardiogram that showed a 30% ejection fraction with severe mitral regurgitation and global hypokinesis. It is noteworthy to mention that the patient was noted to be in rapid atrial fibrillation during this echocardiogram. Patient did have a echocardiogram in August 2021 where her ejection fraction was noted to be 55% and only had moderate mitral regurgitation. During this admission she was noted to have elevated LFTs. She had a CT scan of her abdomen that showed gallbladder wall thickening with some pericholecystic fluid and gallbladder sludge. This was followed up with a gallbladder ultrasound that showed some thickening of the gallbladder wall and only trace pericholecystic fluid. No Isabella lithiasis was noted. Patient was seen by gastroenterology and an EGD was performed that was noted to be essentially normal except for small hiatal hernia. An endoscopic ultrasound was also performed that showed no evidence of choledocholithiasis but there was concern that maybe patient had passed a gallstone. Gastroenterology felt it may be prudent to proceed with cholecystectomy. She was seen by [facility] general surgery. As the patient was relatively pain-free from an abdominal standpoint and due to her new onset congestive heart failure and decreased ejection fraction it was felt that the patient would best be served by discharge home with plans to follow-up as an outpatient. The patient was seen in the outpatient clinic today by cardiology where patient was again noted to be in rapid atrial fibrillation which prompted them sending her to the emergency department. I asked the patient how she had been doing at home and she said that she has been felt very weak and tired. She specifically denies any fevers, shakes, or chills. She denies any abdominal pain. She denies any nausea or vomiting. Patient says that she has been eating small amounts both liquids and solids and this did not exacerbate any element of abdominal pain. She does report some worsening lower extremity edema. She does note that because of her atrial fibrillation she does take Eliquis and she did take her dose earlier today. Today in the emergency department the patient did have labs and imaging which independent reviewed. CBC revealed white blood cell count, hemoglobin, and platelet count were normal. Her hematocrit was slightly low at 45.3. Chemistry profile showed sodium and potassium were normal. BUN was noted to be elevated at 75 with a creatinine 1.4. This level of creatinine was actually improved from what was noted during her previous admission. LFTs were performed today where her AST was 41, ALT 239, alkaline phosphatase 173, and total bilirubin is 1.0. All of these levels were improved from what was noted during her previous admission. Her lipase during this visit to the emergency department is normal. She had a COVID test that was negative. Patient did have a gallbladder ultrasound. I did review this with the performing technologist and she notes that the gallbladder wall at maximal thickness was only 0.4 cm. No gallstones were noted. Patient was noted to only have trace pericholecystic fluid and a Mitchell sign under ultrasound was noted to be negative. CT scan of the abdomen and pelvis was performed. The interpreting radiologist did note there were findings concerning for acute cholecystitis with retroperitoneal stranding, however he also noted that there was no gallstones noted and only questionable cholecystitis. EKG was performed that showed patient was in atrial fibrillation with a heart rate in the 110s to 1 teens. At the time of my interview the patient was pain-free and she was in no distress. Allergies Allergy/AdvReac Type Severity Reaction Status Date / Time cefaclor AdvReac Mild NAUSEA Verified 06/18/22 15:55 Home Medications Medication Instructions Recorded Confirmed Type vitamins A,C,X-lsko-rxujfy 2,148 1 tab PO HS 08/18/19 06/18/22 History mcg-113 mg-45 mg-17.4 mg tablet (PreserVision AREDS) Bedside Commode #1 ea 08/19/19 06/17/22 Rx Lift Chair #1 ea 08/19/19 06/17/22 Rx Shower Chair #1 ea 08/19/19 06/17/22 Rx diclofenac sodium 1 % topical gel 4 g topical QID #300 grams 08/13/21 06/17/22 Rx (Voltaren Arthritis Pain) Hospital Bed Homecare #1 ea 11/20/21 06/17/22 Rx apixaban 5 mg (74 tabs) tablets in 5 mg PO BID 02/16/22 06/18/22 History a dose pack amoxicillin 875 mg-potassium 1 tab PO BIDM 10 days #20 tabs 06/15/22 06/18/22 Rx clavulanate 125 mg tablet metoprolol tartrate 50 mg tablet 50 mg PO TID 30 days #90 tabs 06/15/22 06/18/22 Rx comp.stocking,thigh,long,large #2 ea 06/17/22 06/17/22 Rx Patient History Medical History Arthritis Heart enlargement PT REPORTS FOUND HEART ENLARGEMENT AND LIVER ENLARGEMENT FOUND ON MRI IN 2011 WHEN HAD KIDNEY STONES ...TREATED AT [facility] FOR KIDNEY STONES History of anesthesia reaction "BRAIN FOG" AFTER SURGERIES - CAN'T REMEMBER WHAT DAY IT IS FOR AWHILE History of asthma History of falling HX MULTIPLE FALLS, NONE FOR OVER 1 YR History of kidney stones Hypertension Thumb problem Surgical History H/O removal of neck cyst History of bilateral breast reduction surgery History of cataract surgery RT History of colonoscopy History of dental surgery History of surgery SKIN BOIL LANCED AND REMOVED History of surgery BONE TUMOR REMOVED - LEFT LEG TEENAGER History of surgery CYST ON BACK REMOVED Family History Mother , age 80 of brain cancer (uncertain type) Brain cancer Father , age 51 of an AR Myocardial infarction Other Cancer Family history of diabetes mellitus Heart disease Social History Smoking Status: Never smoker Second Hand Exposure: No; Hx Alcohol Use: Yes Alcohol Intake Frequency: Monthly or Less Hx Substance Use: No Preferred Language: Romansh Communication Ability: Effective Visual Impairment: Limited Hearing Ability: Normal 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 Beliefs That Will Affect Care: None marital status: Single Current Living Situation: Alone Current Living Situation Comment: DAUGHTER LIVES NEAR BY FREQUENT VISITS HOME HEALTH VISITS ON REQUEST current occupational status: retired 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 Feels Safe at Home: Yes Assistive Devices: Bedside Commode, Wheelchair and Other Review of Systems Constitutional: + fatigue and + weakness; no fever and no chills Eyes: + corrective lenses Ear, Nose, Mouth, Throat: no ear pain Respiratory: no cough and no dyspnea Cardiovascular: no chest pain Gastrointestinal: no abdominal pain, no nausea and no vomiting Genitourinary: no dysuria Musculoskeletal: no back pain Integumentary: no rash Neurologic: no localized weakness Physical Exam Constitutional: WD/WN, vitals as above Eyes: + anicteric sclerae ENMT: Ears: no hearing impairment and no external ear abnormality Sublingual jaundice is absent Neck: trachea midline Respiratory: normal respiratory effort; no respiratory distress and no labored breathing Cardiovascular: Rate/Rhythm: + irregularly irregular Gastrointestinal (Abdomen): Patient's abdomen is soft, nondistended, nonrigid, nontender to palpation. There is no rebound tenderness or guarding. Mitchell sign is noted to be negative. Musculoskeletal: No calf tenderness. Patient's feet are cool. Pedal pulses are nonpalpable. Patient had 3-4+ lower extremity edema noted bilaterally. Skin: no rashes Neurologic: moves all extremities Psychiatric: A+Ox3, euthymic affect Results & Data ([facility]) Vital Signs (Past 12 Hours) Vital Signs Temp Pulse Pulse Resp BP BP Pulse Ox 06/18/22 22:08 115 H 18 116/85 100 06/18/22 19:54 99 06/18/22 20:24 116 H 111/93 06/18/22 19:51 118 H 18 111/93 96 06/18/22 19:46 97 06/18/22 17:13 36.8 C 63 18 114/87 98 O2 Del Method 06/18/22 22:08 Room Air 06/18/22 19:54 Room Air 06/18/22 20:24 06/18/22 19:51 Room Air 06/18/22 19:46 Room Air 06/18/22 17:13 Room Air PG Care Time/CCT Total # of Minutes Spent Total Time Spent with Patient: Total time spent is greater than 50% in coordination of care (as documented) at patient's floor/unit and/or counseling patient: Coding Level of Care Code 92668 Inpt Consult Level 5 Diagnoses Transaminitis R74.01
[2022-06-18] MEDS ORDERED: FUROSEMIDE INJ 20 MG/2 ML VIAL IV STA (23:03)
[2022-06-19 02:34] LABS: Appearance Urine Clear (Clear); Bacteria Urine Automated Negative (Negative); Bilirubin Urine Negative (Negative); Blood Urine 1+ (Negative); Color Urine Yellow; Epithelial Cell Urine Auto >30 /lpf (0-5); Glucose Urine UA Negative (Negative); Ketones Urine Negative (Negative); Leukocyte Esterase Urine Negative (Negative); Nitrite Urine Negative (Negative); Protein Urine 1+ (Negative); Specific Gravity Urine 1.014 (1.000-1.030); Urobilinogen Urine Negative (Negative)
[2022-06-19] MEDS: PIPERACILLIN/TAZOBACTAM 3.375 GM in DEXTROSE 5% 100 ML IV SCH ×2 (05:17→12:29)
--- NOTE | 2022-06-19 06:32 | Billing Data ---
Date of Service June 18, 2022 Coding Level of Care Code 00013 Initial Inpt Care Lvl 3
--- NOTE | 2022-06-19 07:25 | Ultrasound Report ---
ABDOMINAL ULTRASOUND, RIGHT UPPER QUADRANT HISTORY: Epigastric abdominal pain.. COMPARISON: Abdomen and pelvis CT 06/18/2022. FINDINGS: Pancreas: The pancreatic tail is obscured by overlying bowel gas. The remaining portions of the pancr eas are within normal limits. Liver: No hepatic masses. Trace perihepatic fluid. Subtle nodular contour to the liver consistent wit h cirrhosis. Gallbladder: Mildly distended. Thickened/edematous wall measuring up to 4 mm. No gallstones. Negative sonographic Mitchell sign. Small amount of pericholecystic fluid. CBD: 6 mm. Right kidney: There is a 1 cm lower pole stone. No hydronephrosis. Miscellaneous: Small right pleural effusion. IMPRESSION: 1. Thickened/edematous gallbladder wall. However, no gallstones and a negative sonographic Micthell sig n. Therefore, this is likely related to the chronic liver disease/edematous state. Acute cholecystiti s is considered less likely but not entirely excluded. 2. Cirrhotic liver. 3. Small right pleural effusion. 4. Right-sided nephrolithiasis. No hydronephrosis. ACT 112: Negative or not required by law. Electronically signed by: Gagan Rubio M.D. 06/19/2022 7:24 AM
[2022-06-19] MEDS: METOPROLOL TARTRATE 50 MG TAB PO SCH ×4 (08:01→19:56)
--- NOTE | 2022-06-19 08:55 | Electrocardiogram Report ---
Test Reason : Blood Pressure : / mmHG Vent. Rate : 110 BPM Atrial Rate : 107 BPM P-R Int : 000 ms QRS Dur : 088 ms QT Int : 342 ms P-R-T Axes : 000 -04 215 degrees QTc Int : 462 ms Poor data quality, interpretation may be adversely affected Atrial fibrillation with rapid ventricular response Left ventricular hypertrophy with repolarization abnormality Abnormal ECG When compared with ECG of 14-JUN-2022 06:18, No significant change Confirmed by Juan C Gomez ([id number]) on 06/19/2022 8:54:55 AM Referred By: Sanchez Jaime Confirmed By:Juan C Gomez
[2022-06-19 09:10] LABS: Basophils # (auto) 0.01 K/uL (0-0.2); Basophils % (auto) 0.1 %; Eosinophils # (auto) 0.11 K/uL (0-0.50); Eosinophils % (auto) 1.2 %; Hemoglobin 14.2 g/dl (12.0-16.0); Immature Granulocytes # (auto) 0.13 K/uL (0.00-0.02); Immature Granulocytes % (auto) 1.5 %; Lymphocytes # (auto) 0.78 K/uL (1.2-3.4); Lymphocytes % (auto) 8.8 %; Mean Corpuscular Hemoglobin 30.9 pg (25.0-34.0); Mean Corpuscular Volume 93.5 fL (80.0-100.0); Mean Platelet Volume 11.8 fL (9.4-12.3); Monocytes # (auto) 0.82 K/uL (0.24-0.82); Monocytes % (auto) 9.3 %; Neutrophils % (auto) 79.1 %; Platelet Count 190 K/uL (130-400); RDW Coefficient of Variation 16.6 % (11.5-14.5); RDW Standard Deviation 56.3 fL (36.4-46.3); White Blood Count 8.85 K/ul (4.8-10.8)
[2022-06-19] MEDS ORDERED: SODIUM CHLORIDE 0.9% IV SCH (09:30)
[2022-06-19] MEDS ORDERED: SINCALIDE IV SCH (09:30)
[2022-06-19 09:31] LABS: Albumin Globulin Ratio 1.7 (0.9-2); Albumin Level 3.3 gm/dl (3.4-5.0); BUN Creatinine Ratio 56.2 (10-20); Bilirubin,Total 1.1 mg/dl (0.2-1.0); C Reactive Protein 1.05 mg/dl (0-0.5); Calcium 8.6 mg/dl (8.5-10.1); Creatinine Clr Calc Pharmacy 30.8 ml/min; Est GFR (African American) 43.6 ml/min; Est GFR (Non-African American) 37.6 ml/min; Globulin 1.9 gm/dl (2.5-4.0); Potassium 3.5 mmol/L (3.5-5.1); Total Protein 5.2 gm/dl (6.0-8.3)
--- NOTE | 2022-06-19 11:52 | Nuclear Medicine Report ---
NM hepatobiliary EF CLINICAL HISTORY: Abnormal CT. Evaluate for cholecystitis. COMPARISON STUDY: CT of the abdomen and pelvis and right upper quadrant ultrasound June 18 2. TECHNIQUE: 5.5 mCi of technetium 99m Choletec was injected IV at 9:15 AM on June 19, 2022. Follo wing injection, imaging of the abdomen was carried out for 60 minutes. At this time, 1.46 mcg of sinc alide was injected IV as per protocol to estimate a gallbladder ejection fraction. Imaging was john d out for an additional 45 minutes. FINDINGS: Hepatic uptake of radiotracer is prompt and homogeneous. Activity is identified within the gallbladder and common bile duct at 10 minutes. Small bowel activity is noted at 20 minutes. Gallblad odalis ejection fraction was normal at 86%. Normal is greater than 30-35%. IMPRESSION: 1. Normal hepatobiliary scan. No evidence for acute or chronic cholecystitis. 2. Normal gallbladder ejection fraction of 86%. ACT 112: Negative or not required by law. Electronically signed by: Dmitriy Bills M.D. 06/19/2022 11:51 AM
--- NOTE | 2022-06-19 12:15 | Surgery Progress Note ---
Date of Service June 19, 2022 Assessment & Plan (1) Transaminitis: Plan: 82-year-old female admitted with A. fib with RVR. She has an extensive cardiac history and depressed ejection fraction on echocardiogram. Her HIDA scan today reveals no evidence of acute cholecystitis and a normal ejection fraction, therefore no evidence of biliary dyskinesia or chronic cholecystitis. She denies any replication of symptoms during the exam. No indication for cholecystectomy Surgery will sign off, call with questions or concerns (2) Atrial fibrillation with RVR: Admission and Anticipated Discharge Date Admission Date: June 18, 2022 Subjective 82-year-old female with multiple medical problems admitted with A. fib with RVR, surgery consulted for concern for cholecystitis. She was recently admitted and a CT scan revealed a distended and somewhat edematous gallbladder. There were no stones and continued work-up revealed no evidence of choledocholithiasis or cholelithiasis. Her LFTs have been downtrending since then. She was seen in cardiology and was noted to be in RVR and was referred to the emergency department. Again she had abdominal imaging that showed edematous gallbladder that was not nearly as distended as previously, and no stones. She currently has no pain and is hungry. She denies any postprandial abdominal pain. Physical Exam Constitutional: WD/WN, vitals as above Gastrointestinal (Abdomen): normal bowel sounds, soft, nontender, no hepatosplenomegaly Results & Data ([facility]) Vital Signs (Past 12 Hours) Vital Signs Temp Pulse Pulse Resp BP BP Pulse Ox 06/19/22 11:42 36.4 C L 93 H 18 148/86 H 97 06/19/22 06:18 101 H 06/19/22 08:00 36.4 C L 109 H 18 139/79 94 06/19/22 07:51 06/19/22 04:16 36.0 C L 89 18 119/88 90 O2 Del Method 06/19/22 11:42 Room Air 06/19/22 06:18 06/19/22 08:00 Room Air 06/19/22 07:51 Room Air 06/19/22 04:16 Room Air Laboratory Results Laboratory Results - last 24 hr 06/18/22 06/18/22 06/18/22 17:56 17:56 20:00 WBC 10.69 RBC 4.80 Hgb 14.7 Hct 45.3 H MCV 94.4 MCH 30.6 MCHC 32.5 RDW Std Deviation 56.7 H RDW Coeff of Adam 16.6 H Plt Count 229 MPV 12.0 Immature Gran % (Auto) 2.1 Neut % (Auto) 83.7 Lymph % (Auto) 5.1 Mccone % (Auto) 8.0 Eos % (Auto) 0.8 Baso % (Auto) 0.3 Neut # (Auto) 8.95 H Lymph # (Auto) 0.55 L Mccone # (Auto) 0.85 H Eos # (Auto) 0.09 Baso # (Auto) 0.03 Immature Gran # (Auto) 0.22 H Absolute Nucleated RBC 0.03 H Nucleated RBC % (auto) 0.3 Sodium 136 Potassium 3.9 Chloride 106 Carbon Dioxide 19 L Anion Gap 11 BUN 75 H Creatinine 1.46 H Est Cr Clr Drug Dosing Not Reportable Est GFR ( Amer) 37.9 Est GFR (Non-Af Amer) 32.7 BUN/Creatinine Ratio 51.4 H Glucose 130 H Calcium 9.0 Total Bilirubin 1.0 AST 41 H ALT 239 H Alkaline Phosphatase 173 H Troponin I High Sens 31.1 H C-Reactive Protein Total Protein 6.0 Albumin 3.7 Globulin 2.3 L Albumin/Globulin Ratio 1.6 Lipase 75 Urine Color Urine Appearance Urine pH Ur Specific Henderson Urine Protein Urine Glucose (UA) Urine Ketones Urine Blood Urine Nitrite Urine Bilirubin Urine Urobilinogen Ur Leukocyte Esterase Urine WBC (Auto) Urine RBC (Auto) U Hyaline Cast (Auto) U Epithel Cells (Auto) Urine Bacteria (Auto) SARS-CoV-2, RNA, NAAT NEGATIVE 06/18/22 06/19/22 06/19/22 21:59 02:10 08:26 WBC 8.85 RBC 4.60 Hgb 14.2 Hct 43.0 MCV 93.5 MCH 30.9 MCHC 33.0 RDW Std Deviation 56.3 H RDW Coeff of Adam 16.6 H Plt Count 190 MPV 11.8 Immature Gran % (Auto) 1.5 Neut % (Auto) 79.1 Lymph % (Auto) 8.8 Mccone % (Auto) 9.3 Eos % (Auto) 1.2 Baso % (Auto) 0.1 Neut # (Auto) 7.00 H Lymph # (Auto) 0.78 L Mccone # (Auto) 0.82 Eos # (Auto) 0.11 Baso # (Auto) 0.01 Immature Gran # (Auto) 0.13 H Absolute Nucleated RBC Nucleated RBC % (auto) Sodium Potassium Chloride Carbon Dioxide Anion Gap BUN Creatinine Est Cr Clr Drug Dosing Est GFR ( Amer) Est GFR (Non-Af Amer) BUN/Creatinine Ratio Glucose Calcium Total Bilirubin AST ALT Alkaline Phosphatase Troponin I High Sens 28.1 H C-Reactive Protein Total Protein Albumin Globulin Albumin/Globulin Ratio Lipase Urine Color Yellow Urine Appearance Clear Urine pH 5.0 Ur Specific Henderson 1.014 Urine Protein 1+ H Urine Glucose (UA) Negative Urine Ketones Negative Urine Blood 1+ H Urine Nitrite Negative Urine Bilirubin Negative Urine Urobilinogen Negative Ur Leukocyte Esterase Negative Urine WBC (Auto) 1-5 Urine RBC (Auto) 5-10 H U Hyaline Cast (Auto) 1-5 U Epithel Cells (Auto) >30 H Urine Bacteria (Auto) Negative SARS-CoV-2, RNA, NAAT 06/19/22 08:26 WBC RBC Hgb Hct MCV MCH MCHC RDW Std Deviation RDW Coeff of Adam Plt Count MPV Immature Gran % (Auto) Neut % (Auto) Lymph % (Auto) Mccone % (Auto) Eos % (Auto) Baso % (Auto) Neut # (Auto) Lymph # (Auto) Mccone # (Auto) Eos # (Auto) Baso # (Auto) Immature Gran # (Auto) Absolute Nucleated RBC Nucleated RBC % (auto) Sodium 139 Potassium 3.5 Chloride 106 Carbon Dioxide 20 L Anion Gap 13 H BUN 73 H Creatinine 1.30 H Est Cr Clr Drug Dosing 30.8 Est GFR ( Amer) 43.6 Est GFR (Non-Af Amer) 37.6 BUN/Creatinine Ratio 56.2 H Glucose 109 H Calcium 8.6 Total Bilirubin 1.1 H AST 34 ALT 194 H Alkaline Phosphatase 151 H Troponin I High Sens C-Reactive Protein 1.05 H Total Protein 5.2 L Albumin 3.3 L Globulin 1.9 L Albumin/Globulin Ratio 1.7 Lipase Urine Color Urine Appearance Urine pH Ur Specific Henderson Urine Protein Urine Glucose (UA) Urine Ketones Urine Blood Urine Nitrite Urine Bilirubin Urine Urobilinogen Ur Leukocyte Esterase Urine WBC (Auto) Urine RBC (Auto) U Hyaline Cast (Auto) U Epithel Cells (Auto) Urine Bacteria (Auto) SARS-CoV-2, RNA, NAAT Diagnostic Findings [place] [phone] Nuclear Medicine Report Patient:HEATHER CASON Admit Date:06/18/22 MR#:[id number] Address1:[address] Acct ID:[id number] Address2: Date:1940 [facility] Zip:[place] [address] Age:82 Location: Sex:F Room/Bed:[facility] Att Phy:Ela Nuñez MD Diagnosis:WEAKNESS Elaine Phy:Fausto Dahl MD Service Date:06/19/22 Fam Phy: Interpreting Phy:Dmitriy Bills MDAdmit Phy:Villa Barrera MD Ordering Phy:Roosevelt Singh PA-C cc: ~ NM hepatobiliary EF CLINICAL HISTORY: Abnormal CT. Evaluate for cholecystitis. COMPARISON STUDY: CT of the abdomen and pelvis and right upper quadrant ultrasound June 18, 2022. TECHNIQUE: 5.5 mCi of technetium 99m Choletec was injected IV at 9:15 AM on June 19, 2022. Following injection, imaging of the abdomen was carried out for 60 minutes. At this time, 1.46 mcg of sincalide was injected IV as per protocol to estimate a gallbladder ejection fraction. Imaging was carried out for an additional 45 minutes. FINDINGS: Hepatic uptake of radiotracer is prompt and homogeneous. Activity is identified within the gallbladder and common bile duct at 10 minutes. Small bowel activity is noted at 20 minutes. Gallbladder ejection fraction was normal at 86%. Normal is greater than 30-35%. IMPRESSION: 1. Normal hepatobiliary scan. No evidence for acute or chronic cholecystitis. 2. Normal gallbladder ejection fraction of 86% PG Care Time/CCT Total # of Minutes Spent Total Time Spent with Patient: Total time spent is greater than 50% in coordination of care (as documented) at patient's floor/unit and/or counseling patient: Coding Level of Care Code 88608 Inpt Consult Level 2 Diagnoses Transaminitis R74.01 Atrial fibrillation with RVR I48.91
--- NOTE | 2022-06-19 12:33 | Cardiology Consultation ---
Date of Consultation June 19, 2022 Assessment & Plan (1) Atrial fibrillation with RVR: (2) Acute HFrEF (heart failure with reduced ejection fraction): (3) Transaminitis: (4) Bilateral edema of lower extremity: (5) Cardiomyopathy: Plan 82-year-old woman with severe valvular heart disease (MR/TR), reduced systolic function (EF 25 to 30%), and permanent atrial fibrillation who is now readmitted with persistent ventricular rate elevation and symptoms of volume overload/conge stive heart failure. She also had a transaminitis and there was some concern for cholecystitis, however she has no abdominal pain or tenderness and her HIDA scan is negative, most likely she has some degree of hepatic congestion from heart failure. She is clearly hypervolemic currently, would recommend further diuresis, if she did in fact respond to furosemide 20 mg IV could administer this dose twice daily (weight loss suggests response but input/output was incomplete). If she does not promptly diurese, would increase furosemide to 40 mg IV twice daily. Her ventricular response to atrial fibrillation remains suboptimally controlled, rather than additional medication (such as digoxin which can cause GI symptoms and is therefore less desirable in the current context) would first increase her metoprolol to 50 mg 4 times daily. This could be simplified to 100 mg twice daily upon discharge if effective. BP currently mildly hypertensive, if her blood pressure runs low would reconsider digoxin (amiodarone less desirable given her transaminitis). Her Eliquis could be restarted since she is no longer being considered for cholecystectomy. She is followed by Dr. Jaime, he will be rounding on her tomorrow and can offer perspective on longer range management (regarding her valvular disease, etc.). History of Present Illness Reason for Consultation: A. fib with RVR/preoperative clearance Requesting Physician: Ela Nuñez MD Attending Physician: Ela Nuñez MD History of Present Illness 82-year-old woman with history of permanent atrial fibrillation (api xaban/metoprolol), nonischemic cardiomyopathy (EF 25 to 30%), severe mitral and tricuspid regurgitation, heart failure with reduced ejection fraction, and other medical problems who was recently readmitted with evidence of congestive heart failure as well as abdominal pain/possible cholecystitis. She was hospitalized until 06/15/2022 with new onset atrial fibrillation with rapid ventricular response and acute heart failure with reduced ejection fraction as well as possible acalculous cholecystitis. She had been home for 3 days but at the time of her follow-up cardiology office visit yesterday she was noted to have dry heaves/cold sweats/chills after eating with some abdominal pain as well as dyspnea on minimal exertion and worsening leg edema and subjective tachypalpitations. Thus, she was readmitted for further evaluation and treatment. She received IV metoprolol and furosemide, however her ventricular rate remains elevated (110 bpm range) and she is still edematous. She sleeps in an inclined position but slept well and noted no PND. She denies chest pain at any time. She denies any dyspnea at rest and has not been ambulating since admission yesterday. She just had a HIDA scan which showed normal gallbladder ejection fraction of 86%. Based on this as well as benign examination, at this point there is no plan for cholecystectomy. At the time of my evaluation she had no abdominal pain and was comfortable at rest. Allergies Allergy/AdvReac Type Severity Reaction Status Date / Time cefaclor AdvReac Mild NAUSEA Verified 06/18/22 15:55 Home Medications Medication Instructions Recorded Confirmed Type vitamins A,C,Y-eezu-tarqes 2,148 1 tab PO HS 08/18/19 06/18/22 History mcg-113 mg-45 mg-17.4 mg tablet (PreserVision AREDS) Bedside Commode #1 ea 08/19/19 06/17/22 Rx Lift Chair #1 ea 08/19/19 06/17/22 Rx Shower Chair #1 ea 08/19/19 06/17/22 Rx diclofenac sodium 1 % topical gel 4 g topical QID #300 grams 08/13/21 06/17/22 Rx (Voltaren Arthritis Pain) Hospital Bed Homecare #1 ea 11/20/21 06/17/22 Rx apixaban 5 mg (74 tabs) tablets in 5 mg PO BID 02/16/22 06/18/22 History a dose pack amoxicillin 875 mg-potassium 1 tab PO BIDM 10 days #20 tabs 06/15/22 06/18/22 Rx clavulanate 125 mg tablet metoprolol tartrate 50 mg tablet 50 mg PO TID 30 days #90 tabs 06/15/22 06/18/22 Rx comp.stocking,thigh,long,large #2 ea 06/17/22 06/17/22 Rx Patient History Medical History (Updated 06/19/22 @ 12:44 by Juan C Gomez MD) Aphasia (01/2022) Arthritis Brain TIA (01/2022) Closed fracture of right distal radius (2019) Closed fracture of right proximal humerus (2019) Distal radius fracture, right (2019) DVT (deep venous thrombosis) (06/2021) Fall (2020) History of anesthesia reaction "BRAIN FOG" AFTER SURGERIES - CAN'T REMEMBER WHAT DAY IT IS FOR AWHILE History of asthma History of falling HX MULTIPLE FALLS, NONE FOR OVER 1 YR History of kidney stones Popliteal cyst Thumb problem Surgical History H/O removal of neck cyst History of bilateral breast reduction surgery History of cataract surgery RT History of colonoscopy History of dental surgery History of surgery SKIN BOIL LANCED AND REMOVED History of surgery BONE TUMOR REMOVED - LEFT LEG TEENAGER History of surgery CYST ON BACK REMOVED Family History Mother , age 80 of brain cancer (uncertain type) Brain cancer Father , age 51 of an [place] Myocardial infarction Other Cancer Family history of diabetes mellitus Heart disease Social History Smoking Status: Never smoker Second Hand Exposure: No; Hx Alcohol Use: Yes Alcohol Intake Frequency: Monthly or Less Hx Substance Use: No Preferred Language: Cymraes Communication Ability: Effective Visual Impairment: Limited Hearing Ability: Normal Division 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 BP 148/86 mmHg. Pulse 106 bpm and irregular. Weight down 5 pounds since yesterday (? accuracy) Skin: Ecchymoses left greater than right upper extremity, no generalized lesions. Small eschars either side of her left foot, no open lesions. HEENT: unremarkable. Neck: Jugular venous pulse three quarters the way to the angle of the jaw at 90 degrees, no obvious carotid bruits. Lungs: Few basilar crackles on the right, generally clear. No accessory muscle use. Cardiac: Irregular/mildly tachycardic rhythm, normal S1 and S2 with intact aortic closure sound, 4/6 holosystolic murmur left sternal border/apex/axilla, no diastolic murmur. Abdomen: Soft and nontender. Negative Mitchell sign. Extremities: 2+ pitting pretibial edema, brisk radial dorsalis pedis pulses, mild rubor with capillary refill 2 to 3 seconds lower extremities. Neurologic: normal affect and conversation, nonfocal. Results & Data ([facility]) Laboratory Results WBC 8.85, normal hemoglobin and platelet count. Normal electrolytes, BUN 73 with creatinine 1.3 (75 and 1.46 yesterday). AST 34 (down from 41), ALT 10/05/1993 (down from 239). C-reactive protein 1.05. Albumin 3.3. hs-Troponin was 31.1 and 28.1. Diagnostic Findings As noted, HIDA scan was negative. ECG on admission showed atrial fibrillation with ventricular rate of 110 bpm, LVH with repolarization abnormality, compared with 06/14/2022 study no significant change. Chest x-ray on admission showed mild cardiomegaly with mild central pulmonary vascular congestion without overt edema, small right pleural effusion, atelectasis. Echocardiogram in 06/12/2022 showed EF 25 to 30% with global hypokinesis, severe biatrial dilation with severe MR/TR and mild pulmonary hypertension. Technically difficult study. Compared with August 2021 study, biventricular systolic function has declined. PG Care Time/CCT Total # of Minutes Spent Total Time Spent with Patient: Total time spent is greater than 50% in coordination of care (as documented) at patient's floor/unit and/or counseling patient: Coding Level of Care Code 60375 Inpt Consult Level 4 Diagnoses Atrial fibrillation with RVR I48.91 Acute HFrEF (heart failure with reduced ejection fraction) I50.21 Transaminitis R74.01 Bilateral edema of lower extremity R60.0 Cardiomyopathy I42.9
--- NOTE | 2022-06-19 13:39 | Hospitalist Progress Note ---
Date of Service June 19, 2022 Assessment & Plan (1) Afib: Plan: This is an 82-year-old female with a history of atrial fibrillation, HFrEF (06/12: LVEF 25-30% with severe MR/TR), mitral regurgitation, cholecystitis, TIA, hypertension, prior DVT who presented to [facility] for weakness, found to be in atrial fibrillation with RVR and ongoing findings concerning for cholecystitis. Acute on chronic exacerbation of HFrEF - Symptomatically reporting increased VELA and lower extremity edema over past several days - TTE 06/12: Normal LV size with severely reduced systolic function. EF 25-30%. Global hypokinesis. Mild LVH. Mildly dilated RV with moderately reduced systolic function. Severe biatrial dilation. Severe MR and TR. RVSP 36 mHg - Patient hypervolemic on exam. - Given 20mg IV Lasix on admission with good relief. - Will continue 20mg IV Lasix BID, metoprolol 50mg QID as above - Daily weights, monitor I&O, low salt/HH diet, leg stockings Atrial Fibrillation with RVR - On admission, found to be in AFib with RVR with rates primarily between 110- 120, vitals otherewise stable. - Started on Metoprolol 50mg TID at last discharge. - TTE 06/12: Normal LV size with severely reduced systolic function. EF 25-30%. Global hypokinesis. Mild LVH. Severe biatrial dilation. Severe MR and TR. RVSP 36 mHg - Given 5mg Lopressor on admission. - Cardiology consulted: - Given high rates, can increase 50mg TID to QID, if poor rate control can consider digoxin. - Can restart Eliquis given surgery sign off. - If good response from diuresis, cont. Lasix 20mg IV BID - Cont. telemetry monitoring. Elevated LFT - LFTs elevated on admission however lower than previous admission. Improving - CT-A/P - concern of cholecystitis - US RUQ w/ thickened/edematous gallbladder w/o gallstones, likely secondary to chronic liver disease;evidence of cirrhosis. - HIDA scan w/o evidence of cholecystitis, normal EF. - General surgery consulted: No indication for cholecystectomy at this time. - LFT elevation likely from hepatic congestion from fluid overload. - d/c Abx - Full liquid diet now. Advance as tolerated. YONI - On admission, found to have BUN 75/Cr 1.46 -- mildly increased from discharge on 06/16; prior to this, Cr appears to be around 0.6-1.0 - Last admission, YONI thought to be secondary to prerenal origin; unclear w hether still resolving or her current function is a new baseline given progressing HFrEF - Plan to treat volume overload as above, Lasix 20mg IV BID. - Avoid renotoxic medications - Monitor BMP History of DVT - Restarted Eliquis. Weakness - Multifactorial: AFib, HFrEF, etc.. - PT, OT -- does report 1 fall at home recently - Monitor labs, fluid status, continue ABX Code: Full code. PPX: Restarted Eliquis. Diet: Clear liquids, advance as tolerated. Dispo: Med/surg tele. (2) Acute on chronic systolic (congestive) heart failure: (3) Acute renal insufficiency: (4) DVT (deep venous thrombosis): (5) Transaminitis: (6) Weakness: Admission and Anticipated Discharge Date Admission Date: June 18, 2022 Supervising Physician Co-Signing Physician Notes Resident Physician Supervision Note: I independently interviewed and examined the patient and verified the mahoney history and physical, reviewed labs and image studies and agree with resident findings and care plan. Subjective Patient seen at the bedside today. Patient states she does not have any chest pain, abdominal pain, changes in BM, dysuria. She says she has some shortness of breath above baseline that's been going on since before she was admitted. She also endorses swelling at the lower extremities to the knees. Review of Systems Review of Systems: as per HPI Physical Exam Constitutional: WD/WN, vitals as above Cardiovascular: Rate/Rhythm: + irregularly irregular Heart Sounds: normal S1 and normal S2 Extremities: + edema (2+ pitting edema) Gastrointestinal (Abdomen): normal bowel sounds, soft, nontender, no hepatosplenomegaly Psychiatric: A+Ox3, euthymic affect Results & Data Results & Data ([facility]) Vital Signs (Past 12 Hours) Vital Signs Temp Pulse Pulse Resp BP BP Pulse Ox 06/19/22 11:42 36.4 C L 93 H 18 148/86 H 97 06/19/22 06:18 101 H 06/19/22 08:00 36.4 C L 109 H 18 139/79 94 06/19/22 07:51 06/19/22 04:16 36.0 C L 89 18 119/88 90 O2 Del Method 06/19/22 11:42 Room Air 06/19/22 06:18 06/19/22 08:00 Room Air 06/19/22 07:51 Room Air 06/19/22 04:16 Room Air Resident Activity Tracking Resident Involvement: Resident Care Provided Care Provided: Adult Hospital Medicine
--- NOTE | 2022-06-19 15:24 | Medical Student Progress Note ---
Date of Service June 19, 2022 Assessment & Plan (1) Acute on chronic systolic (congestive) heart failure: Imer Astorga is an 82yo female with past medical hx of atrial fibrillation, HFrEF (06/12: LVEF 25-30% with severe MR/TR), cholecystitis, TIA, hypertension, prior DVT (on Eliquis) who presented to ED for generalized weakness, and increased foot/ankle swelling found to be in atrial fibrillation with RVR and ongoing laboratory findings concerning for cholecystitis. (1) Afib Pt has permenant atrial fibrillation with persistent ventricular rate elevation. Rate control has been suboptimal - cardiology consult suggested increasing metroprolol to 50mg 4x daily with the option of 100mg bid upon discharge. If this causes issues with hypotension, can reduce dose and reconsider digoxin. (2) Cholecystitis Transaminitis caused concern for acute cholecystitis. CT-A/P revealed findings consistent with cholecystitis, prompted surgical consult and RUQ-US. Pt was made NPO after midnight and Eliquis held in prep for potential surgery. RUQ-US today was reassuring and suggested no need for surgical intervention at this time. Appropriate to resume low Na diet and restart Eliquis. (3) Acute on chronic HFrEF (25-30% on 06/12) Progressive VELA and peripheral edema suggest hypervolemic state. -IV Lasix 20mg bid -low Na/HH diet -Daily weights, monitor I&O (4) YONI On admission, found to have BUN 75/Cr 1.46 (mildly increased from discharge on 06/16). Previously, YONI thought to be secondary to prerenal origin; unclear whether still resolving or her current function is a new baseline given progressing HFrEF. Current suspicion is YONI secondary to HFrEF, given apparent volume overload on exam. - Plan for IV Lasix 20mg bid and monitor for improvement. If she does not diu rese promperly, cardiology suggests increasing to 40mg bid. - Avoid renotoxic medications - Monitor BMP (5) Hx of DVT Cont. Eliquis (6) Transaminitis Appears to be resolving. Suspect the liver insult is a result chronic cardiac pathology. Continue to trend LFTs and monitor for clinical improvement. (7) Weakness Likely multifactorial etiology. Suspect clinical improvement once better control of Afib and volume status is achieved. Admission and Anticipated Discharge Date Admission Date: June 18, 2022 Corina Astorga is an 82yo female with past medical hx of atrial fibrillation, HFrEF (06/12: LVEF 25-30% with severe MR/TR), cholecystitis, TIA, hypertension, prior DVT (on Eliquis) who presented to ED for generalized weakness, and increased foot/ankle swelling found to be in atrial fibrillation with RVR and ongoing laboratory findings concerning for cholecystitis. Pt reports generalized feelings of illness, SOB at rest worsened with exertion, increasing lower extremity swelling, and increasing lower extremity weakness. She endorses some chills. Denies fevers. Previous CMP revealed transaminitis. Pt relates having mild dyspepsia with eating, but denies abdominal pain. She denies n/v. No change in the bowel movements. In ED, pt was mildly tachycardic (92) with BP wnl. Labs demonstrated relative neutrophilia, lymphopenia, monocytosis. Chemistries revealing of BUN 75/creatinine 1.46 (improved since 06/16 at 1.71, though baseline prior was 0.6 - 1.0), AST 41, ALT 239, ALP 173, high-sensitivity troponin 31.1. Lipase 75. CT of the abdomen and pelvis revealing findings consistent with acute cholecystitis, cardiomegaly with right pleural effusion, cholelithiasis with cholecystitis. Chest x-ray demonstrated mild cardiomegaly with pulmonary vascular congestion, small right pleural effusion. HR slowly trended upwards into the 110s, she was given 5 mg of Lopressor stat. US-RUQ pending. Review of Systems Review of Systems: All systems reviewed & are unremarkable except as noted in Subjective Physical Exam Constitutional: comfortable Respiratory: normal respiratory effort, lungs clear to auscultation Cardiovascular: Rate/Rhythm: regular rhythm and + tachycardic Heart Sounds: normal S1 and normal S2 Vessels: + JVD Extremities: + edema Gastrointestinal (Abdomen): normal bowel sounds, soft, nontender, no hepatosplenomegaly Skin: no rashes, warm and dry Psychiatric: A+Ox3, euthymic affect Results & Data ([facility]) Vital Signs (Past 12 Hours) Vital Signs Temp Pulse Pulse Resp BP BP Pulse Ox 06/19/22 13:42 109 H 111/77 06/19/22 11:42 36.4 C L 93 H 18 148/86 H 97 06/19/22 06:18 101 H 06/19/22 08:00 36.4 C L 109 H 18 139/79 94 06/19/22 07:51 06/19/22 04:16 36.0 C L 89 18 119/88 90 O2 Del Method 06/19/22 13:42 06/19/22 11:42 Room Air 06/19/22 06:18 06/19/22 08:00 Room Air 06/19/22 07:51 Room Air 06/19/22 04:16 Room Air
[2022-06-19] MEDS: FUROSEMIDE INJ 20 MG/2 ML VIAL IV SCH (17:16)
[2022-06-19] MEDS: CEROVITE ADV FORMULA TAB PO SCH (19:56)
[2022-06-19] MEDS: APIXABAN 5 MG TABLET PO SCH (19:57)
[2022-06-19] MEDS ORDERED: ONDANSETRON 4 MG OD TAB PO STA (21:05)
[2022-06-19] MEDS ORDERED: MELATONIN 3 MG TAB PO STA (22:11)
[2022-06-20] MEDS ORDERED: NURSING DECISION MEDICATION ONE (03:12)
[2022-06-20] MEDS ORDERED: COUGH DROP (SUGAR FREE) LOZ 24 LOZ/1 BOX BUCCAL STA (03:12)
[2022-06-20 05:57] LABS: Basophils # (auto) 0.03 K/uL (0-0.2); Basophils % (auto) 0.3 %; Eosinophils # (auto) 0.08 K/uL (0-0.50); Eosinophils % (auto) 0.9 %; Hematocrit (blood only) 45.8 % (34.1-44.9); Immature Granulocytes # (auto) 0.18 K/uL (0.00-0.02); Immature Granulocytes % (auto) 1.9 %; Lymphocytes # (auto) 0.77 K/uL (1.2-3.4); Lymphocytes % (auto) 8.2 %; Mean Corpuscular Hemoglobin 31.1 pg (25.0-34.0); Mean Corpuscular Hgb Conc 32.8 g/dL (32.0-36.0); Mean Corpuscular Volume 94.8 fL (80.0-100.0); Mean Platelet Volume 11.7 fL (9.4-12.3); Monocytes # (auto) 0.74 K/uL (0.24-0.82); Monocytes % (auto) 7.9 %; Neutrophils # (auto) 7.55 K/uL (1.4-6.5); Neutrophils % (auto) 80.8 %; Nucleated RBC # (auto) 0.02 K/uL (0-0); Nucleated RBC % (auto) 0.2 %; Platelet Count 210 K/uL (130-400); RDW Coefficient of Variation 16.4 % (11.5-14.5); RDW Standard Deviation 56.7 fL (36.4-46.3); Red Blood Count 4.83 M/uL (3.93-5.22); White Blood Count 9.35 K/ul (4.8-10.8)
[2022-06-20] MEDS: FUROSEMIDE INJ 20 MG/2 ML VIAL IV SCH ×2 (05:57→16:41)
[2022-06-20 06:45] LABS: Albumin Globulin Ratio 1.7 (0.9-2); Albumin Level 3.3 gm/dl (3.4-5.0); BUN Creatinine Ratio 46.4 (10-20); Bilirubin,Total 1.1 mg/dl (0.2-1.0); Calcium 8.7 mg/dl (8.5-10.1); Creatinine Clr Calc Pharmacy 23.4 ml/min; Est GFR (Non-African American) 27.6 ml/min; Globulin 1.9 gm/dl (2.5-4.0); Total Protein 5.2 gm/dl (6.0-8.3)
[2022-06-20] MEDS: APIXABAN 5 MG TABLET PO SCH ×2 (08:31→19:54)
[2022-06-20] MEDS: METOPROLOL TARTRATE 50 MG TAB PO SCH ×4 (08:32→19:52)
--- NOTE | 2022-06-20 08:47 | Medical Student Progress Note ---
Date of Service June 20, 2022 Assessment & Plan (1) Acute on chronic systolic (congestive) heart failure: Plan: FEN/GI: low Na/HH diet Code: Full DVT: Eliquis Dispo: MS/telemetry Plan Gauri is an 82yo female with past medical hx of atrial fibrillation, HFrEF (06/12: LVEF 25-30% with severe MR/TR), cholecystitis, TIA, hypertension, prior DVT (on Eliquis) who presented to ED for generalized weakness, and increased foot/ankle swelling found to be in atrial fibrillation with RVR and ongoing laboratory findings concerning for cholecystitis. (1) Afib Pt has permenant atrial fibrillation with persistent ventricular rate elevation. Ventricular rate control has somewhat improved but still elevated - will follow cardiology rec and add IV digoxin at this point. -add IV digoxin, will transition to oral once controlled -continue metoprolol 50mg 4x daily -monitor for hypotension, may have to switch metoprolol to bid if pressures go low (2) Acute on chronic HFrEF (25-30% on 06/12) Progressive VELA and peripheral edema suggest hypervolemic state. She is down 2.8kg since admission. Unable to accurately track urine output thus far. -Continue IV Lasix 20mg bid until clinically euvolemic and and BUN/Cr wnl -low Na/HH diet -Daily weights, monitor I&O (3) YONI On admission, found to have BUN 75/Cr 1.46 (mildly increased from discharge on 06/16). Previously, YONI thought to be secondary to prerenal origin; unclear whether still resolving or her current function is a new baseline given progressing HFrEF. Current suspicion is YONI secondary to HFrEF, given apparent volume overload on exam. - Plan for IV Lasix 20mg bid and monitor for improvement. - Avoid renotoxic medications - Monitor BMP (4) Hx of DVT Cont. Eliquis (5) Transaminitis Appears to be resolving. Suspect the liver insult is a result chronic cardiac pathology. Continue to trend LFTs and monitor for clinical improvement. (6) Weakness Likely multifactorial etiology. Suspect clinical improvement once better control of Afib and volume status is achieved. Admission and Anticipated Discharge Date Admission Date: June 18, 2022 Subjective Patient seen at the bedside today. She reports a rough night of very little sleep due to several episodes of "feeling like passing out" while sitting upright in bed. She describes the episode beginning with sensation of nausea, followed by hot flashes and becoming diaphoretic which brought on a "weird" feeling in her head. Pt denies any emesis, but believes she may have had one or two bouts of incontinence overnight. This morning she is feeling much better. Pt states her SOB has improved some and her feet are looking closer to normal than before. She denies any fever/chills/belly pain/chest pain. Review of Systems Review of Systems: All systems reviewed & are unremarkable except as noted in Subjective Physical Exam Constitutional: comfortable Respiratory: normal respiratory effort, lungs clear to auscultation Cardiovascular: Rate/Rhythm: + tachycardic and + irregularly irregular Heart Sounds: normal S1 and normal S2 Vessels: + JVD Extremities: + edema Gastrointestinal (Abdomen): normal bowel sounds, soft, nontender, no hepatosplenomegaly Skin: no rashes, warm and dry Psychiatric: A+Ox3, euthymic affect Results & Data ([facility]) Vital Signs (Past 12 Hours) Vital Signs Temp Pulse Pulse Resp BP BP Pulse Ox 06/20/22 07:48 36.5 C 100 H 16 130/83 97 06/20/22 04:00 36.1 C L 95 H 18 108/78 95 06/20/22 01:10 06/20/22 01:06 100 H 06/19/22 21:42 35.6 C L 86 20 116/89 97 O2 Del Method O2 Flow Rate 06/20/22 07:48 Room Air 06/20/22 04:00 Room Air 06/20/22 01:10 Nasal Cannula 1 06/20/22 01:06 06/19/22 21:42 Room Air
--- NOTE | 2022-06-20 13:24 | Cardiology Progress Note ---
Date of Service June 20, 2022 Assessment & Plan (1) Atrial fibrillation with RVR: Plan: -ventricular response improved, but still elevated. -would add intravenous followed by oral digoxin. -continue metoprolol tartrate and Eliquis. (2) Acute HFrEF (heart failure with reduced ejection fraction): Plan: -improving with intravenous furosemide. -would continue intravenous diuretics until BUN and creatinine increase. (3) Cardiomyopathy: Plan: -suspect this is tachycardic induced. -which change metoprolol tartrate to metoprolol succinate at time of discharge. Admission and Anticipated Discharge Date Admission Date: June 18, 2022 Subjective The patient is resting comfortably in bed without complaints of chest pain or dyspnea. Her lower extremity edema is improving. Physical Exam Physical Exam: In general it is a well-developed well-nourished white female in no acute distress. HEENT exam is negative. Neck is supple with full carotid upstrokes. There are no carotid bruits. Jugular is pressure is flat at 90. There is no thyromegaly. Cardiovascular exam reveals irregular irregular rhythm with distant heart sounds. No obvious murmurs. No S3. Lungs are clear without rales, rhonchi, or wheezes. Abdomen is obese without bruits. Extremities note 1 to 2+ pitting edema distal to the knees. Trace thigh edema. Results & Data ([facility]) Vital Signs (Past 12 Hours) Vital Signs Temp Pulse Pulse Resp BP BP Pulse Ox 06/20/22 11:12 36.3 C L 63 16 115/82 94 06/20/22 10:38 100 H 06/20/22 09:30 06/20/22 07:48 36.5 C 100 H 16 130/83 97 06/20/22 04:00 36.1 C L 95 H 18 108/78 95 O2 Del Method 06/20/22 11:12 Room Air 06/20/22 10:38 06/20/22 09:30 Room Air 06/20/22 07:48 Room Air 06/20/22 04:00 Room Air Diagnostic Findings monitoring coordinator notes atrial fibrillation with a ventricular response of approximately 100 beats per minute. PG Care Time/CCT Total # of Minutes Spent Total Time Spent with Patient: Total time spent is greater than 50% in coordination of care (as documented) at patient's floor/unit and/or counseling patient: Coding Level of Care Code 54585 Subseq Hosp Care Lvl 3 Diagnoses Atrial fibrillation with RVR I48.91 Acute HFrEF (heart failure with reduced ejection fraction) I50.21 Cardiomyopathy I42.9
--- NOTE | 2022-06-20 13:26 | Hospitalist Progress Note ---
Date of Service June 20, 2022 Assessment & Plan (1) Afib: Plan: This is an 82-year-old female with a history of atrial fibrillation, HFrEF (06/12: LVEF 25-30% with severe MR/TR), mitral regurgitation, cholecystitis, TIA, hypertension, prior DVT who presented to [facility] for weakness, found to be in atrial fibrillation with RVR and ongoing findings concerning for cholecystitis. Acute on chronic exacerbation of HFrEF - Symptomatically reporting increased VELA and lower extremity edema over past several days - TTE 06/12: Normal LV size with severely reduced systolic function. EF 25-30%. Global hypokinesis. Mild LVH. Mildly dilated RV with moderately reduced systolic function. Severe biatrial dilation. Severe MR and TR. RVSP 36 mHg - Patient hypervolemic on exam. - Given 20mg IV Lasix on admission with good relief. - 5lb weight loss since admission - Will continue 20mg IV Lasix BID, metoprolol 50mg QID. - Daily weights, monitor I&O, low salt/HH diet, leg stockings Atrial Fibrillation with RVR - On admission, found to be in AFib with RVR with rates primarily between 110- 120, vitals otherewise stable. - Started on Metoprolol 50mg TID at last discharge. - TTE 06/12: Normal LV size with severely reduced systolic function. EF 25-30%. Global hypokinesis. Mild LVH. Severe biatrial dilation. Severe MR and TR. RVSP 36 mHg - Given 5mg Lopressor on admission. - Cardiology consulted: - Persistent tachycardia despite increase on Metoprolol 50mg to QID. - Would recommend starting on IV digoxin then transition to oral. - Can restart Eliquis given surgery sign off. - If good response from diuresis, cont. Lasix 20mg IV BID - Started on Digoxin IV 0.125mg then another 0.125mg 6 hours later for starting load. - After discussing with pharmacy will transition to oral 0.125mg QOD given kidney function. - Cont. telemetry monitoring. Elevated LFT - LFTs elevated on admission however lower than previous admission. Improving - CT-A/P - concern of cholecystitis - US RUQ w/ thickened/edematous gallbladder w/o gallstones, likely secondary to chronic liver disease;evidence of cirrhosis. - HIDA scan w/o evidence of cholecystitis, normal EF. - General surgery consulted: No indication for cholecystectomy at this time. - LFT elevation likely from hepatic congestion from fluid overload. - d/c Abx - Advance diet as tolerated. YONI - On admission, found to have BUN 75/Cr 1.46 -- mildly increased from discharge on 06/16; prior to this, Cr appears to be around 0.6-1.0 - Last admission, YONI thought to be secondary to prerenal origin; unclear whether still resolving or her current function is a new baseline given progressing HFrEF - Plan to treat volume overload as above, Lasix 20mg IV BID. - If creat continue to climb will can hold Lasix. - Avoid renotoxic medications - Monitor BMP History of DVT - Restarted Eliquis. Weakness - Multifactorial: AFib, HFrEF, etc.. - PT, OT -- does report 1 fall at home recently - Monitor labs, fluid status, continue ABX Code: Full code. PPX: Restarted Eliquis. Diet: Advance as tolerated. Dispo: Med/surg tele. (2) Acute on chronic systolic (congestive) heart failure: (3) Acute renal insufficiency: (4) Transaminitis: (5) Weakness: Admission and Anticipated Discharge Date Admission Date: June 18, 2022 Supervising Physician Co-Signing Physician Notes Resident Physician Supervision Note: I independently interviewed and examined the patient and verified the mahoney history and physical, reviewed labs and image studies and agree with resident findings and care plan. Subjective Patient seen at the bedside this morning saying she had a rough night. She did not get much sleep and says mentally she was all over the place last night and had a nurse come and calm her down and sit with her. Patient says her feet are starting to look human again in that the swelling has come down from when she arrived. She denies any fevers, chills, shortness of breath, chest pain, palpitations. Review of Systems Review of Systems: as per HPI Physical Exam Constitutional: WD/WN, vitals as above Cardiovascular: Rate/Rhythm: + irregularly irregular Heart Sounds: normal S1 and normal S2 Extremities: + edema (2+ pitting edema) Gastrointestinal (Abdomen): normal bowel sounds, soft, nontender, no hepatosplenomegaly Psychiatric: A+Ox3, euthymic affect Results & Data Results & Data ([facility]) Vital Signs (Past 12 Hours) Vital Signs Temp Pulse Pulse Resp BP BP Pulse Ox 06/20/22 11:12 36.3 C L 63 16 115/82 94 06/20/22 10:38 100 H 06/20/22 09:30 06/20/22 07:48 36.5 C 100 H 16 130/83 97 06/20/22 04:00 36.1 C L 95 H 18 108/78 95 O2 Del Method 06/20/22 11:12 Room Air 06/20/22 10:38 06/20/22 09:30 Room Air 06/20/22 07:48 Room Air 06/20/22 04:00 Room Air Resident Activity Tracking Resident Involvement: Resident Care Provided Care Provided: Adult Hospital Medicine
[2022-06-20] MEDS ORDERED: DIGOXIN 125 MCG in SYRINGE 9.5 ML IV ONE ×2 (18:00→23:30)
[2022-06-20] MEDS ORDERED: ONDANSETRON INJ 2 MG/ML 2 ML VIAL IV PRN (19:43)
[2022-06-20] MEDS: CEROVITE ADV FORMULA TAB PO SCH (19:53)
[2022-06-21] MEDS: FUROSEMIDE INJ 20 MG/2 ML VIAL IV SCH (05:54)
[2022-06-21 06:23] LABS: Basophils # (auto) 0.04 K/uL (0-0.2); Basophils % (auto) 0.4 %; Eosinophils # (auto) 0.08 K/uL (0-0.50); Eosinophils % (auto) 0.8 %; Hematocrit (blood only) 45.7 % (34.1-44.9); Immature Granulocytes % (auto) 1.9 %; Lymphocytes # (auto) 0.88 K/uL (1.2-3.4); Lymphocytes % (auto) 8.5 %; Mean Corpuscular Hemoglobin 30.5 pg (25.0-34.0); Mean Corpuscular Hgb Conc 32.8 g/dL (32.0-36.0); Mean Corpuscular Volume 93.1 fL (80.0-100.0); Mean Platelet Volume 11.4 fL (9.4-12.3); Monocytes # (auto) 0.81 K/uL (0.24-0.82); Monocytes % (auto) 7.8 %; Neutrophils # (auto) 8.35 K/uL (1.4-6.5); Neutrophils % (auto) 80.6 %; Platelet Count 203 K/uL (130-400); RDW Coefficient of Variation 15.9 % (11.5-14.5); Red Blood Count 4.91 M/uL (3.93-5.22); White Blood Count 10.36 K/ul (4.8-10.8)
[2022-06-21 07:24] LABS: BUN Creatinine Ratio 44.5 (10-20); Calcium 8.5 mg/dl (8.5-10.1); Creatinine Clr Calc Pharmacy 21.4 ml/min; Est GFR (Non-African American) 25.1 ml/min; Potassium 3.7 mmol/L (3.5-5.1)
[2022-06-21] MEDS: APIXABAN 5 MG TABLET PO SCH ×2 (08:57→19:48)
[2022-06-21] MEDS: METOPROLOL TARTRATE 50 MG TAB PO SCH ×4 (08:58→19:48)
--- NOTE | 2022-06-21 10:36 | Hospitalist Progress Note ---
Date of Service June 21, 2022 Assessment & Plan (1) Afib: Plan: 82 yo female with PMHx afib on eliquis, HFrEF (06/12: LVEF 25-30% with severe MR/TR), mitral regurgitation, cholecystitis, TIA, hypertension, prior DVT who presented to [facility] for weakness, found to be in afib RVR and ongoing findings concerning for cholecystitis. Acute on chronic exacerbation of HFrEF - Symptomatically reporting increased VELA and lower extremity edema over past several days - TTE 06/12: Normal LV size with severely reduced systolic function. EF 25-30%. Global hypokinesis. Mild LVH. Mildly dilated RV with moderately reduced systolic function. Severe biatrial dilation. Severe MR and TR. RVSP 36 mHg - Initially hypervolemic on exam. Given 20mg IV Lasix on admission with good relief. - Was continued on 20mg IV Lasix BID, dose given in am. Hold for now, Cr increasing. - ~5lb weight loss since admission, near dry weight - cont. metoprolol tartrate 50mg QID. - Daily weights, monitor IOs, low salt/HH diet, compression stockings - consider palliative for goals of care considering cardiac prognosis. YONI - On admission, found to have BUN 75/Cr 1.46 -- mildly increased from discharge on 06/16; prior to this, Cr appears to be around 0.6-1.0 - Last admission, YONI thought to be secondary to prerenal origin; unclear whether still resolving or her current function is a new baseline given progres sing HFrEF - Initially treated volume overload with Lasix 20mg IV BID. Hold lasix as above. - Avoid nephrotoxic medications - Monitor BMP Atrial Fibrillation with RVR - On admission, found to be in AFib with RVR with rates primarily between 110- 120, vitals otherwise stable. - Started on Metoprolol 50mg TID at last discharge. - TTE 06/12: Normal LV size with severely reduced systolic function. EF 25-30%. Global hypokinesis. Mild LVH. Severe biatrial dilation. Severe MR and TR. RVSP 36 mHg - Given 5mg Lopressor on admission. - Per cardio - Persistent tachycardia despite increase on Metoprolol 50mg to QID. Recommended starting on IV digoxin then transition to oral. (06/20) Started on Digoxin IV 0.125mg then another 0.125mg 6 hours later for starting load. Transitioned to oral 0.125mg QOD given kidney function. - cont. Eliquis Elevated LFT - CT-A/P - concern of cholecystitis - US RUQ w/ thickened/edematous gallbladder w/o gallstones, likely secondary to chronic liver disease; evidence of cirrhosis. - HIDA scan w/o evidence of cholecystitis, normal EF. - General surgery consulted: No indication for cholecystectomy at this time. - LFT elevation likely from hepatic congestion from fluid overload. - d/c'd abx, diet advanced History of DVT - Cont. Eliquis. Weakness - Multifactorial: AFib, HFrEF, etc. - PT/OT: does report 1 fall at home recently - Monitor labs, fluid status, continue abx Code: Full code DVT ppx: Eliquis Diet: HH, low Na Dispo: med tele (2) Acute on chronic systolic (congestive) heart failure: (3) Acute renal insufficiency: (4) Transaminitis: (5) Weakness: Admission and Anticipated Discharge Date Admission Date: June 18, 2022 Supervising Physician Co-Signing Physician Notes Resident Physician Supervision Note: I independently interviewed and examined the patient and verified the mahoney history and physical, reviewed labs and image studies and agree with resident findings and care plan. Subjective Patient seen at bedside this morning. Feel better than prior. Slept well. No difficulty breathing. Leg edema improved. Denies fevers, chills, shortness of breath, chest pain, palpitations, abd pain. Review of Systems Review of Systems: All systems reviewed & are unremarkable except as noted in HPI & below Physical Exam Physical Exam: Constitutional: in no acute distress, pleasant. AOx3. Vitals as above. HEENT: Moist mucous membranes. Neck: Trachea midline. Lungs: Clear to auscultation bilaterally with good effort. No wheezing/rales/rhonchi. Cardiac: Regular rate. Irregular rhythm.No murmurs.2+ bilateral LE pitting edema. No JVD. Abdomen: +BS. Soft, nontender, and nondistended.No guarding or rebound tenderness. No hepatosplenomegaly. Skin: No rashes, warm, dry. Results & Data Results & Data ([facility]) Vital Signs (Past 12 Hours) Vital Signs Temp Pulse Pulse Resp BP BP Pulse Ox 06/21/22 07:31 89 06/21/22 07:27 36.2 C L 77 20 155/98 H 97 06/21/22 02:52 36.5 C 76 18 133/88 94 06/21/22 00:30 97 H 06/20/22 23:38 36.5 C 85 18 107/78 94 O2 Del Method 06/21/22 07:31 06/21/22 07:27 Room Air 06/21/22 02:52 Room Air 06/21/22 00:30 06/20/22 23:38 Room Air Laboratory Results 06/21/22 06/21/22 Range/Units 06:00 06:00 WBC 10.36 (4.8-10.8) K/ul RBC 4.91 (3.93-5.22) M/uL Hgb 15.0 (12.0-16.0) g/dl Hct 45.7 H (34.1-44.9) % MCV 93.1 (80.0-100.0) fL MCH 30.5 (25.0-34.0) pg MCHC 32.8 (32.0-36.0) g/dL RDW Std Deviation 54.0 H (36.4-46.3) fL RDW Coeff of Adam 15.9 H (11.5-14.5) % Plt Count 203 (130-400) K/uL MPV 11.4 (9.4-12.3) fL Immature Gran % (Auto) 1.9 % Neut % (Auto) 80.6 % Lymph % (Auto) 8.5 % [place] % (Auto) 7.8 % Eos % (Auto) 0.8 % Baso % (Auto) 0.4 % Neut # (Auto) 8.35 H (1.4-6.5) K/uL Lymph # (Auto) 0.88 L (1.2-3.4) K/uL [place] # (Auto) 0.81 (0.24-0.82) K/uL Eos # (Auto) 0.08 (0-0.50) K/uL Baso # (Auto) 0.04 (0-0.2) K/uL Immature Gran # (Auto) 0.20 H (0.00-0.02) K/uL Sodium 137 (136-145) mmol/L Potassium 3.7 (3.5-5.1) mmol/L Chloride 106 (98-107) mmol/L Carbon Dioxide 19 L (21-32) mmol/L Anion Gap 12 H (3-11) BUN 81 H (6-23) mg/dl Creatinine 1.82 H (0.6-1.2) mg/dl Est Cr Clr Drug Dosing 21.4 ml/min Est GFR ( Amer) 29.0 ml/min Est GFR (Non-Af Amer) 25.1 ml/min BUN/Creatinine Ratio 44.5 H (10-20) Glucose 95 (70-99(Fasting)) mg/dl Calcium 8.5 (8.5-10.1) mg/dl Resident Activity Tracking Resident Involvement: Resident Care Provided Care Provided: Adult Hospital Medicine
[2022-06-21] MEDS: CEROVITE ADV FORMULA TAB PO SCH (19:47)
--- NOTE | 2022-06-22 06:58 | Hospitalist Progress Note ---
Date of Service June 22, 2022 Assessment & Plan (1) Afib: Plan: 82 yo female with PMHx afib on eliquis, HFrEF (06/12: LVEF 25-30% with severe MR/TR), mitral regurgitation, cholecystitis, TIA, hypertension, prior DVT who presented to [facility] for weakness, found to be in afib RVR and ongoing findings concerning for cholecystitis. Acute on chronic exacerbation of HFrEF - Symptomatically reporting increased VELA and lower extremity edema over past several days - TTE 06/12: Normal LV size with severely reduced systolic function. EF 25-30%. Global hypokinesis. Mild LVH. Mildly dilated RV with moderately reduced systolic function. Severe biatrial dilation. Severe MR and TR. RVSP 36 mHg - Initially hypervolemic on exam. Given 20mg IV Lasix on admission with good relief. - Was continued on 20mg IV Lasix BID. Due to increasing Cr, afternoon dose lasix was held (06/21). Cr improved, will cont. with IV lasix 20mg daily. ~5lb weight loss since admission, near dry weight - Leg edema mildly worse today despite improved Cr, will await cardio recs regarding uptitrating lasix back to 20mgs. - cont. metoprolol tartrate 50mg QID. - Daily weights, monitor IOs, low salt/HH diet, compression stockings - consider palliative for goals of care considering cardiac prognosis. YONI, improving - On admission, found to have BUN 75/Cr 1.46 -- mildly increased from discharge on 06/16; prior to this, Cr appears to be around 0.6-1.0 - Last admission, YONI thought to be secondary to prerenal origin; unclear whether still resolving or her current function is a new baseline given progressing HFrEF - Initially treated volume overload with Lasix 20mg IV BID. Cont. lasix as above. - Avoid nephrotoxic medications - Monitor BMP Atrial Fibrillation with RVR - On admission, found to be in AFib with RVR with rates primarily between 110- 120, vitals otherwise stable. - Started on Metoprolol 50mg TID at last discharge. - TTE 06/12: Normal LV size with severely reduced systolic function. EF 25-30%. Global hypokinesis. Mild LVH. Severe biatrial dilation. Severe MR and TR. RVSP 36 mHg - Given 5mg Lopressor on admission. - Per cardio - Persistent tachycardia despite increase on Metoprolol 50mg to QID. Recommended starting on IV digoxin then transition to oral. (06/20) Started on Digoxin IV 0.125mg then another 0.125mg 6 hours later for starting load. Transitioned to oral 0.125mg QOD given kidney function. - cont. Eliquis Elevated LFT - CT-A/P - concern of cholecystitis - US RUQ w/ thickened/edematous gallbladder w/o gallstones, likely secondary to chronic liver disease; evidence of cirrhosis. - HIDA scan w/o evidence of cholecystitis, normal EF. - General surgery consulted: No indication for cholecystectomy at this time. - LFT elevation likely from hepatic congestion from fluid overload. - d/c'd abx, diet advanced History of DVT - Cont. Eliquis. Weakness - Multifactorial: AFib, HFrEF, etc. - PT/OT: does report 1 fall at home recently - Monitor labs, fluid status Code: Full code DVT ppx: Eliquis Diet: HH, low Na Dispo: med tele (2) Acute on chronic systolic (congestive) heart failure: (3) Acute renal insufficiency: (4) Transaminitis: (5) Weakness: Admission and Anticipated Discharge Date Admission Date: June 18, 2022 Supervising Physician Co-Signing Physician Notes Resident Physician Supervision Note: I independently interviewed and examined the patient and verified the mahoney history and physical, reviewed labs and image studies and agree with resident findings and care plan. Subjective Patient seen at bedside this morning. Feel better than prior. Smiling this morning. Slept well. No difficulty breathing. Drinking ~2L oral fluids daily. Denies fevers, chills, shortness of breath, chest pain, palpitations, abd pain. Review of Systems Review of Systems: All systems reviewed & are unremarkable except as noted in HPI & below Physical Exam Physical Exam: Constitutional: in no acute distress, pleasant. AOx3. Vitals as above. HEENT: Moist mucous membranes. Neck: Trachea midline. Lungs: Clear to auscultation bilaterally with good effort. No wheezing/rales/rhonchi. Cardiac: Regular rate. Irregular rhythm.No murmurs.2+ bilateral LE pitting edema. No JVD. Abdomen: +BS. Soft, nontender, and nondistended.No guarding or rebound tenderness. No hepatosplenomegaly. Skin: No rashes, warm, dry. Results & Data Results & Data ([facility]) Vital Signs (Past 12 Hours) Vital Signs Temp Pulse Pulse Resp BP BP Pulse Ox 06/22/22 03:00 35.9 C L 87 20 115/86 97 06/21/22 22:29 36.6 C 77 20 126/80 96 06/21/22 22:15 82 06/21/22 19:28 36.3 C L 75 20 113/63 96 O2 Del Method 06/22/22 03:00 Room Air 06/21/22 22:29 Room Air 06/21/22 22:15 06/21/22 19:28 Room Air Laboratory Results 06/22/22 Range/Units 06:25 Sodium 138 (136-145) mmol/L Potassium 3.7 (3.5-5.1) mmol/L Chloride 108 H (98-107) mmol/L Carbon Dioxide 23 (21-32) mmol/L Anion Gap 7 (3-11) BUN 73 H (6-23) mg/dl Creatinine 1.54 H (0.6-1.2) mg/dl Est Cr Clr Drug Dosing 25.7 ml/min Est GFR ( Amer) 35.5 ml/min Est GFR (Non-Af Amer) 30.7 ml/min BUN/Creatinine Ratio 47.4 H (10-20) Glucose 102 H (70-99(Fasting)) mg/dl Calcium 8.5 (8.5-10.1) mg/dl Total Bilirubin 0.8 (0.2-1.0) mg/dl AST 34 (13-39) U/L ALT 146 H (7-52) U/L Alkaline Phosphatase 160 H (34-104) U/L Total Protein 5.2 L (6.0-8.3) gm/dl Albumin 3.2 L (3.4-5.0) gm/dl Globulin 2.0 L (2.5-4.0) gm/dl Albumin/Globulin Ratio 1.6 (0.9-2) Resident Activity Tracking Resident Involvement: Resident Care Provided Care Provided: Adult [place] [facility]
[2022-06-22 07:29] LABS: Albumin Level 3.2 gm/dl (3.4-5.0); Bilirubin,Total 0.8 mg/dl (0.2-1.0); Calcium 8.5 mg/dl (8.5-10.1); Potassium 3.7 mmol/L (3.5-5.1)
[2022-06-22 07:35] LABS: Albumin Globulin Ratio 1.6 (0.9-2); BUN Creatinine Ratio 47.4 (10-20); Creatinine Clr Calc Pharmacy 25.7 ml/min; Est GFR (African American) 35.5 ml/min; Est GFR (Non-African American) 30.7 ml/min; Total Protein 5.2 gm/dl (6.0-8.3)
[2022-06-22] MEDS: METOPROLOL TARTRATE 50 MG TAB PO SCH ×4 (09:11→21:33)
[2022-06-22] MEDS: APIXABAN 5 MG TABLET PO SCH ×2 (09:11→21:33)
[2022-06-22] MEDS: FUROSEMIDE INJ 20 MG/2 ML VIAL IV SCH (14:24)
[2022-06-22] MEDS: DIGOXIN 0.125 MG TAB PO SCH (16:23)
[2022-06-22] MEDS: DICLOFENAC SOD 1% GEL 100 GM TUBE EXT PRN ×2 (17:14→21:34)
[2022-06-22] MEDS: CEROVITE ADV FORMULA TAB PO SCH (21:33)
[2022-06-23 06:37] LABS: Albumin Globulin Ratio 1.5 (0.9-2); Bilirubin,Total 0.8 mg/dl (0.2-1.0); Calcium 8.3 mg/dl (8.5-10.1); Creatinine Clr Calc Pharmacy 31.5 ml/min; Est GFR (African American) 45.7 ml/min; Est GFR (Non-African American) 39.5 ml/min; Potassium 3.6 mmol/L (3.5-5.1)
--- NOTE | 2022-06-23 07:34 | Hospitalist Progress Note ---
Date of Service June 23, 2022 Assessment & Plan (1) Acute on chronic systolic (congestive) heart failure: (2) Acute renal insufficiency: (3) Transaminitis: (4) Weakness: Admission and Anticipated Discharge Date Admission Date: June 18, 2022 Supervising Physician Co-Signing Physician Notes I personally examined the patient and verified all mahoney points of history and exam, discussed case, and agree with decision making with Dr Fernando Feeling pretty good overall. Wonders about going home and doing outpatient therapy or home therapy instead of going to a facility. After we discussed what going home would entail, including having her daughter be her safety net, she notes that her daughter would much prefer her going to a facility to do formal therapy, and that she would prefer that route. Vitals noted, in general she is awake and alert pleasant no distress. HEENT normocephalic atraumatic mucous membranes moist. Breathing unlabored no accessory muscle use good effort. Skin shows no rashes no pallor or icterus. Neuro without focal deficits. She does have a very slow somewhat off balance gait, but is able to transfer from bed to chair without any assistance from me. A. fib RVR/acute HFrEFnow stable, stable for discharge, but weak and would benefit from rehab. Stable for SNF once bed is available. Otherwise as above Subjective Patient asleep upon arrival. She denies any acute events overnight. She has no complaints as of this morning. Review of Systems Review of Systems: All systems reviewed & are unremarkable except as noted in HPI & below Physical Exam Physical Exam: General: Well-appearing, alert, interactive, and in no acute distress. HEENT: Normocephalic, atraumatic. EOM intact. Good conjugate gaze. Nares patent. Moist mucosal membranes. Neck: Supple. No lymphadenopathy. Normal ROM. CV: Regular rate and rhythm. Normal S1 and S2. No murmurs gallops or rubs. Respiratory: Normal respiratory effort. Lungs clear to auscultation bilaterally. No crackles, rhonchi, or wheezes. Abdomen: Soft, nondistended abdomen. No bruits heard on auscultation. No tenderness to deep palpation. Extremities: Capillary refill <2 sec. 2+ dp equal bilaterally. Pitting bilat eral 1+ pedal edema to the knees. Neuro: Alert and oriented x3. Skin: Clean, dry, and intact. No rashes, bruises, or erythema. Results & Data Results & Data ([facility]) Vital Signs (Past 12 Hours) Vital Signs Temp Pulse Pulse Resp BP Pulse Ox O2 Del Method 06/23/22 07:20 82 06/22/22 20:35 83 06/22/22 22:41 36.7 C 91 H 18 127/80 97 Room Air 06/22/22 19:35 36.4 C L 60 19 127/81 93 Room Air Resident Activity Tracking Resident Involvement: Resident Care Provided Care Provided: Adult Hospital Medicine
[2022-06-23] MEDS: DICLOFENAC SOD 1% GEL 100 GM TUBE EXT PRN ×2 (08:56→08:59)
[2022-06-23] MEDS: FUROSEMIDE INJ 20 MG/2 ML VIAL IV SCH (08:56)
[2022-06-23] MEDS: APIXABAN 5 MG TABLET PO SCH ×2 (08:56→21:22)
[2022-06-23] MEDS: METOPROLOL TARTRATE 100 MG TAB PO SCH ×2 (08:56→21:22)
--- NOTE | 2022-06-23 18:53 | Billing Data ---
Date of Service June 23, 2022 Coding Level of Care Code 27311 Subseq Hosp Care Lvl 3
[2022-06-23] MEDS: CEROVITE ADV FORMULA TAB PO SCH (21:23)
[2022-06-24] MEDS ORDERED: MAGNESIUM SULFATE / D5W 1 GM/100 ML BAG IV ONE (01:05)
[2022-06-24] MEDS ORDERED: POTASSIUM CHLORIDE CRTAB 20 MEQ TABCR PO STA (01:05)
--- NOTE | 2022-06-24 07:23 | Hospitalist Progress Note ---
Date of Service June 24, 2022 Assessment & Plan (1) Afib: Plan: 82 yo female with PMHx afib on Eliquis, HFrEF (06/12: LVEF 25-30% with severe MR/TR), mitral regurgitation, cholecystitis, TIA, hypertension, prior DVT who presented to [facility] for weakness, found to be in A. fib with RVR and ongoing findings concerning for cholecystitis. Acute on chronic exacerbation of HFrEF - Symptomatically reporting increased VELA and lower extremity edema over past several days - TTE 06/12: Normal LV size with severely reduced systolic function. EF 25-30%. Global hypokinesis. Mild LVH. Mildly dilated RV with moderately reduced systolic function. Severe biatrial dilation. Severe MR and TR. RVSP 36 mHg - Initially hypervolemic on exam. Given 20mg IV Lasix on admission with good relief. - Was continued on 20mg IV Lasix BID. Due to increasing Cr, afternoon dose Lasix was held (06/21). Cr improved, will cont. with IV Lasix 20mg daily. * Metoprolol succinate 150 mg daily. May titrate further if pulse, BP not adequately controlled * Daily weights, monitor I&Os, low salt/HH diet, compression stockings * Consider palliative for goals of care considering cardiac prognosis * Awaiting [facility] approval for placement. Placement improved will likely be transported Thursday. YONI (improving) - On admission, found to have BUN 75/Cr 1.46 -- mildly increased from discharge on 06/16; prior to this, Cr appears to be around 0.6-1.0 - Last admission, YONI thought to be secondary to prerenal origin; unclear whether still resolving or her current function is a new baseline given progressing HFrEF -Volume overload initially treated with Lasix 20mg IV BID. * IV Lasix 20 mg daily * Daily BMP Atrial Fibrillation with RVR - On admission, found to be in AFib with RVR with rates primarily between 110- 120, vitals otherwise stable. - Started on Metoprolol 50mg TID at last discharge. - TTE 06/12: Normal LV size with severely reduced systolic function. EF 25-30%. Global hypokinesis. Mild LVH. Severe biatrial dilation. Severe MR and TR. RVSP 36 mmHg - 5mg Lopressor on admission. - Per cardio - Persistent tachycardia despite increase on Metoprolol 50mg to QI D. Recommended starting on IV digoxin then transition to oral. (06/20) Started on Digoxin IV 0.125mg then another 0.125mg 6 hours later for starting load. Transitioned to oral 0.125mg QOD given kidney function. * Metoprolol daily as above * Digoxin 0.125 mg p.o. every 48 hours * Continue home Eliquis 5 mg p.o. twice daily Elevated LFT - CT-A/P - concern of cholecystitis - US RUQ w/ thickened/edematous gallbladder w/o gallstones, likely secondary to chronic liver disease; evidence of cirrhosis. - HIDA scan w/o evidence of cholecystitis, normal EF. - General surgery consulted: No indication for cholecystectomy at this time. - LFT elevation likely from hepatic congestion from fluid overload. - d/c'd abx, diet advanced History of DVT - Cont. Eliquis. Weakness - Multifactorial: AFib, HFrEF, etc. - PT/OT: does report 1 fall at home recently - Monitor labs, fluid status Code: Full code DVT ppx: Eliquis Diet: HH, low Na Dispo: [facility] (2) Acute on chronic systolic (congestive) heart failure: (3) Acute renal insufficiency: (4) Transaminitis: (5) Weakness: Admission and Anticipated Discharge Date Admission Date: June 18, 2022 Supervising Physician Co-Signing Physician Notes I personally examined the patient and verified all mahoney points of history and exam, discussed case, and agree with decision making with Dr Fernando No new complaints. Reportedly set for [facility] tomorrow. Vitals noted, in general she is awake and alert pleasant no distress. HEENT normocephalic atraumatic mucous membranes moist. Breathing unlabored no accessory muscle use good effort. Skin shows no rashes no pallor or icterus. Neuro without focal deficits. A. fib RVR/acute HFrEFnow stable, awaiting SNFanticipate tomorrow. Otherwise as above Subjective No acute events overnight. Patient awake and alert in bed this morning upon arrival. She has a new blister on her right foot this morning that is moderately tender. She also reports mild tenderness to palpation at the shins. Otherwise, she denies shortness of breath, headache, or fatigue. She has been able to reposition herself to the edge of the bed under her own power. She does require some assistance transferring from the bed to the chair. Review of Systems Review of Systems: All systems reviewed & are unremarkable except as noted in HPI & below Physical Exam Physical Exam: General: Well-appearing, alert, interactive, and in no acute distress. HEENT: Normocephalic, atraumatic. EOM intact. Good conjugate gaze. Nares patent. Moist mucosal membranes. Neck: Supple. No lymphadenopathy. Normal ROM. CV: Regular rate and rhythm. Normal S1 and S2. No murmurs gallops or rubs. Respiratory: Normal respiratory effort. Mild bibasilar crackles R >L. No rhonchi, or wheezes. Abdomen: Soft, nondistended abdomen. No bruits heard on auscultation. No tenderness to deep palpation. Extremities: Capillary refill <2 sec. 2+ dp equal bilaterally. Pitting bilateral 1+ pedal edema to the knees. Neuro: Alert and oriented x3. Skin: Clean, dry, and intact. No rashes, bruises, or erythema. Results & Data Results & Data ([facility]) Vital Signs (Past 12 Hours) Vital Signs Temp Pulse Pulse Resp BP Pulse Ox O2 Del Method 06/24/22 04:09 35.6 C L 79 18 116/83 92 Room Air 06/24/22 00:10 63 06/23/22 23:17 36.3 C L 62 20 120/84 95 Room Air 06/23/22 21:00 81 18 141/65 H 96 Room Air Resident Activity Tracking Resident Involvement: Resident Care Provided Care Provided: Adult Hospital Medicine
[2022-06-24] MEDS: APIXABAN 5 MG TABLET PO SCH ×2 (07:39→20:08)
[2022-06-24] MEDS: FUROSEMIDE INJ 20 MG/2 ML VIAL IV SCH (07:39)
[2022-06-24 08:58] LABS: Albumin Globulin Ratio 1.3 (0.9-2); BUN Creatinine Ratio 43.4 (10-20); Bilirubin,Total 0.9 mg/dl (0.2-1.0); Calcium 8.4 mg/dl (8.5-10.1); Creatinine Clr Calc Pharmacy 37.3 ml/min; Est GFR (African American) 55.8 ml/min; Est GFR (Non-African American) 48.2 ml/min; Globulin 2.3 gm/dl (2.5-4.0); Potassium 4.6 mmol/L (3.5-5.1); Total Protein 5.3 gm/dl (6.0-8.3)
[2022-06-24] MEDS: METOPROLOL SUCC 50MG EXT REL TAB PO SCH (11:04)
[2022-06-24] MEDS: DIGOXIN 0.125 MG TAB PO SCH (15:32)
--- NOTE | 2022-06-24 17:43 | Billing Data ---
Date of Service June 24, 2022 Coding Level of Care Code 72428 Subseq Hosp Care Lvl 2
[2022-06-24] MEDS: CEROVITE ADV FORMULA TAB PO SCH (20:08)
[2022-06-24] MEDS: DICLOFENAC SOD 1% GEL 100 GM TUBE EXT PRN (20:08)
[2022-06-25] MEDS: APIXABAN 5 MG TABLET PO SCH (07:23)
[2022-06-25] MEDS: FUROSEMIDE INJ 20 MG/2 ML VIAL IV SCH (07:23)
[2022-06-25] MEDS: METOPROLOL SUCC 50MG EXT REL TAB PO SCH (07:23)
--- NOTE | 2022-06-25 17:56 | Discharge Summary ---
Date of Service June 25, 2022 Admission HPI Per Admitting Provider This is an 82-year-old female with a history of atrial fibrillation, HFrEF, mitral regurgitation, cholecystitis, TIA, hypertension, prior DVT who presented to [facility] for several complaints. Today she presented to her [facility] and reported generalized feelings of illness, shortness of breath at rest worsened with exertion, and increasing lower extremity weakness. Patient says over the last several days, she has been progressively more weak. She says she has had increasing dyspnea on exertion as well as swelling in her legs. She endorses some chills. Denies any fevers. She does say that she gets mild feelings of dyspepsia with eating, but no true abdominal pain. She denies any nausea or vomiting. No change in the bowel movements. She does endorse one fall at home, thankfully she did not hurt her self. She did not hit her head or lose consciousness. Of note, she was recently hospitalized at [facility] for a week of exertional dyspnea and weakness, subsequently found to be in atrial fibrillation with RVR. Unfortunately, she demonstrated progressively reduced ejection fraction alongside moderately dysfunctional RV, and severe MR/TR. Her symptoms improved with IV Lasix and metoprolol. Medications reviewed and include Eliquis 5 mg twice daily, metoprolol tartrate 50 mg 3 times daily. She denies any use of alcohol or tobacco products Last TTE: "06/12/2022: Normal LV size with severely reduced systolic function. EF 25-30%. Global hypokinesis. Mild LVH. Mildly dilated RV with moderately reduced systolic function. Severe biatrial dilation. Severe MR and TR. RVSP 36 mHg. Atrial fibrillation with RVR throughout study." In the ED, patient was found to be borderline tachycardic with a rate of 92. Blood pressure normal. Weight 68 kg (from 71.2 kg on 06/15). Labs demonstrate relative neutrophilia, lymphopenia, monocytosis. Chemistries revealing of BUN 75/creatinine 1.46 (improved since 06/16 at 1.71, though baseline prior was 0.6 - 1.0), AST 41, ALT 239, ALP 173, high-sensitivity troponin 31.1. Lipase 75. CT of the abdomen and pelvis revealing findings consistent with acute cholecystitis, cardiomegaly with right pleural effusion, cholelithiasis with cholecystitis. Chest x-ray demonstrated mild cardiomegaly with pulmonary vascular congestion, small right pleural effusion. Esterase slowly trended upwards into the 110s, she was given 5 mg of Lopressor stat. US-RUQ pending. Principal Diagnosis afib, rvr, acute hfref Discharge Data Allergies Allergy/AdvReac Type Severity Reaction Status Date / Time cefaclor AdvReac Mild NAUSEA Verified 06/18/22 15:55 Consultations 06/18/22 19:54 ED Decision to Admit Stat 06/18/22 21:34 Consult General Surgery Stat 06/18/22 21:50 Consult General Surgery Routine 06/18/22 21:51 Consult Cardiology Routine Ordered Studies 06/18/22 19:52 US gallbladder Urgent 06/18/22 19:54 CT abd pelvis wo con Stat Total Time Total Time Spent Total Time Spent (In Minutes): <30 Discharge Plan Discharge Items Patient Disposition: Personal Half-Way Reason For Visit: WEAKNESS Discharge Diagnosis: HFrEF exacerbation, YONI, A. fib with RVR Activity: Per Instructions section Non-emergency contact: Primary Care Provider Call non-emergency contact if: you have any medication questions Follow-up/Referrals: Fausto Dahl MD [Primary Care Provider] - Malu Cerda PA-C [Physician Community Health Counselor] - 07/08/22 10:30 am (Congestive Heart Failure Program Appointment Information Early follow up is essential to managing your heart failure. An appointment has been scheduled for you with the [facility] Heart Failure Program within 7 days of discharge. Anticipate this visit to be 30-60 minutes long. Please expect a production line solderer phone call from one of our nurses approximately 48 hours from discharge. They will also be placing an order for lab work to be completed 1-2 days prior to your heart failure follow up appointment. Please be sure to have this done so we can go over the results when you come in. Office Location The cardiology office building is located in front of the hospital at [address] Bring the following with you to your follow-up doctor appointments: Please bring your daily weight log any discharge paperwork all of your medication bottles with you to this visit. ) Diet: Regular Addtl Attending Provider Instructions: Dear Gauri, You were brought to the hospital after several days of weakness. You were found to have an exacerbation of your heart failure, your atrial fibrillation, and an acute kidney injury. Heart failure with reduced ejection fraction: You received echocardiogram, which is an ultrasound of your heart, that showed severely reduced heart function. This reduction in function was thought to be due to an excess amount of fluid in your blood vessels, which is putting strain on your heart. We gave you some medicines to help get the fluid off, and you began to show improvement. We measured your weights daily to track the amount of fluid you had. You were also evaluated by our physical and occupational therapists. We also made an adjustment to your chronic metoprolol medicine. As a result, you began to make a slow steady recovery. We now feel that you are ready to be discharged to a half-way facility, where you will continue the rest of your recovery. Atrial fibrillation: On admission you were found to have atrial fibrillation with increased heart rates. We consulted the leasing specialist, who recommended some adjustments to your rate control medicine (metoprolol). Once your rate was controlled, we converted your metoprolol to a longer acting version, which you will now take once a day. Your rate remained controlled for the remainder of your stay. Acute kidney injury: This was discovered on initial testing. We managed this indirectly by treating your volume overload, and tract your kidneys progress with daily labs. Your kidney lab values gradually improved throughout your stay until it was at your healthy baseline. Medication changes We made the following changes to your home medicines. Please play close attention to the following: * We stopped your metoprolol tartrate 50 mg 3 times daily. Do not take anymore unless otherwise instructed by your primary care physician. * We started you on a new prescription called metoprolol succinate 150 mg, to be taken once daily. Please continue to take after discharge unless otherwise instructed by your primary care physician. Appointments The following appointment has been made for you after your discharge for further long-term management: * We have made an appointment with Malu Cerda, of [facility] cardiology, on July 08, 2022 at 10:30 AM. For any questions, or need to reschedule, they can be reached at [phone]. Please try to make all of your appointments. If you are unable to, please reach out to their office. It has been our pleasure caring for you here at [facility]. We wish you all the best with your recovery. Please feel free to reach out to us if you have any questions or concerns. Pending Studies at Discharge: No Stand-Alone Forms: My [facility] [employer], Smoking Cessation Skilled Items Patient informed of condition?: Yes Discharge Level of Care: Skilled Communicable Disease: No Discharge Prognosis: Stable Lines: None Urinary Catheter: No Medications and DC Order Prescriptions: New metoprolol succinate 50 mg Tablet Extended Release 24 Hr 150 mg PO QAM 30 Days Qty: 90 0RF digoxin [Digitek] 125 mcg (0.125 mg) Tablet 125 mcg PO Q48H 30 Days Qty: 15 0RF furosemide [Lasix] 40 mg tablet 40 mg PO DAILY 30 Days Qty: 30 0RF Continued diclofenac sodium [Voltaren Arthritis Pain] 1 % gel 4 g topical QID Qty: 300 3RF Rx Instructions: apply to single knee, ankle, foot; for foot includes sole/toes/top of foot (DME) Hospital Bed Homecare Misc See Rx Instructions .Route Qty: 1 0RF Rx Instructions: As directed (DME) comp.stocking,thigh,long,large Misc See Rx Instructions .Route Qty: 2 1RF Rx Instructions: As directed (DME) Bedside Commode Misc See Rx Instructions .ROUTE .MEDSUPPLY Qty: 1 0RF Rx Instructions: As directed (DME) Lift Chair Misc See Rx Instructions .ROUTE .MEDSUPPLY Qty: 1 0RF Rx Instructions: As directed (DME) Shower Chair Misc See Rx Instructions .ROUTE .MEDSUPPLY Qty: 1 0RF Rx Instructions: As directed [employer] AREDS [id number] Tablet 1 tab PO HS apixaban 5 mg (74 tabs) tablets,dose pack 5 mg PO BID metoprolol tartrate 50 mg Tablet 50 mg PO TID 30 Days Qty: 90 0RF Discontinued amoxicillin-pot clavulanate 875-125 mg Tablet 1 tab PO BIDM 10 Days Qty: 20 0RF Discharge Orders: Discharge Order (Routine); Ordered 06/25/22 Ordered By: Génesis Fernando Admission Data Admit Date/Time: 06/18/22 21:26 Attending Provider: Villa Hinojosa Admit Provider: Villa Barrera Primary Care Provider: Fausto Dahl Other Providers: Dewey Biswas ; Nish Neely ; Juan C Gomez ; Sanchez Jaime ; Sha Tam ; Fabrizio Pham ; Te Rodriguez Jr ; Sanju Carson ; Kayla Davidson ; Annia Alfaro ; Elton Frost ; Clark Neves ; Jake Parrish ; Malu Cerda ; Rita Fiore ; Jovanni Oneil ; Jameson Dietrich ; Ike Appiah ; Sha Irwin V. ; Demetrice Barba ; Roosevelt Singh ; [facility] ; [facility] ; Ela Nuñez Other Interventions: Discharge Summary Assessment (RN) Last Done: 06/25/22 11:05 Supervising Physician Co-Signing Physician Notes I personally examined the patient and verified all mahoney points of history and exam, discussed case, and agree with decision making with Dr Fernando sleeping comfortably, for [facility] transfer at 11. Vitals noted, in general resting comfortably no distress. HEENT normocephalic atraumatic mucous membranes moist. Breathing unlabored no accessory muscle use good effort. Skin shows no rashes no pallor or icterus. Neuro without focal deficits at rest. A. fib RVR/acute HFrEFnow stable, for snf today Otherwise as above Coding Level of Care Code D/C DAY MANAGEMENT <30 MINS
== END 2022-06-25 11:30 | DRG 291 ==
LOC: ED 17:12 → SUATTDRO 21:26 → 2N 21:26
DX: I08.1 Rheumatic disorders of both mitral and tricuspid valves; Z88.1 Allergy status to other antibiotic agents; R79.89 Other specified abnormal findings of blood chemistry; Z86.718 Personal history of other venous thrombosis and embolism; Z86.73 Personal history of transient ischemic attack (TIA), and cerebral infarction without residual deficits; R74.01 Elevation of levels of liver transaminase levels; I42.9 Cardiomyopathy, unspecified; Z82.49 Family history of ischemic heart disease and other diseases of the circulatory system; I48.91 Unspecified atrial fibrillation; I50.23 Acute on chronic systolic (congestive) heart failure; N17.9 Acute kidney failure, unspecified; Z79.01 Long term (current) use of anticoagulants; I11.0 Hypertensive heart disease with heart failure

== ENCOUNTER 2024-08-11 12:25 | Inpatient (IN) ==
--- NOTE | 2024-08-11 12:49 | Emergency Department Note ---
Impression & Plan Sepsis, Lethargic, Elevated procalcitonin, Leukocytosis, Acute hypotension ED Provider Note HISTORY OF PRESENT ILLNESS: Patient is an 84-year-old female presenting with lethargy. Patient reports that she woke up this morning and was very sleepy and very cold. She states that she went to her primary care provider for her symptoms and was found to be hypotensive and was referred to the emergency department. Family reports that the patient was covered under multiple blankets and still shivering this morning. She states that she feels like she just wants to sleep. Denies any chest pain or shortness of breath. Reports feeling significantly nauseous earlier this morning but denies any vomiting or diarrhea. Reports that she has been feeling her normal self over the last few days but this morning felt different. Denies any focal weakness, just reports feeling very rundown and tired. Denies any notable fevers at home. Denies any dysuria or hematuria. She denies any recent head injuries or falls. Patient is on Eliquis for history of A-fib. ROS: as above PHYSICAL EXAM: Constitutional: Patient appears in no acute distress. HENT: Head: Normocephalic and atraumatic. Eyes: EOMI, PERRL Mouth/Throat: Mucous membranes moist. Neck: Trachea midline. Neck supple. Cardiovascular: Tachycardic with irregularly irregular rhythm. No murmurs, rubs or gallops. Intact distal pulses. Pulmonary/Chest: No respiratory distress. Breath sounds clear and equal bilaterally. No wheezes or rales. No chest wall tenderness to palpation. Abdominal: Abdomen soft, no tenderness, rebound or guarding. Musculoskeletal: No edema, tenderness or deformity noted. Skin: Warm and dry. No rash, erythema, pallor or cyanosis Psychiatric: Appropriate mood and affect for situation. Neurological: Alert and keenly responsive. CN II-XII grossly intact, moving all extremities equally and fully. MDM: - Vitals signs showed hypotension and tachycardia - History obtained via patient. History as above. - Chronic conditions affecting care: Afib; CHF; cardiomyopathy; HTN - Differential diagnoses include, but are not limited to: UTI; pneumonia; viral syndrome; colitis; diverticulitis - Order placed for continuous cardiac monitoring. At this time, monitor showed rate of 86 bpm with irregular rhythm, per my interpretation. - External medical records reviewed. Primary care visit note from today was reviewed. Patient was hypotensive in clinic with a blood pressure of 82/53. She was noted to be 97.5 Fahrenheit on a temporal scan and had a heart rate of 105 bpm. - EKG interpreted by myself showed atrial fibrillation. Rate tachycardic at 106 bpm. QT 312. No acute ischemic changes. - Laboratory workup interpreted by myself showed leukocytosis (WBC 16.48) with neutrophilic predominance; normal PT/INR; stable electrolytes; elevated Cr (1.58); normal lactate; normal troponin; elevated BNP (261); elevated procalcitonin (6.51) - VBG grossly normal - CXR negative for pneumonia, per my interpretation - Blood cultures obtained - UA ordered - Patient given 1L NS - repeat blood pressure improved to 103/61. Given 2g IV rocephin and IV vancomycin for empiric antibiotic care. - Patient sepsis fluid volume based on ideal body weight is 1568.10 mL. Patient given additional 500 cc of fluid. Given national fluid shortage, she was encouraged to drink oral fluids and was tolerating this well. - Given her tachycardia, tachypnea, hypotension and leukocytosis, patient meets severe sepsis criteria. - Discussion was had with case reviewer about patient's case and need for admission - Hospitalist consulted for admission - Patient admitted to [facility] service for further evaluation and management. I have personally spent 34 minutes of critical care time in the direct management of this patient. This includes bedside care, interpretation of diagnostic studies, and testing, discussion with consultants, patient, and family members, and other required patient management activities. This 34 minutes is in excess of all separately billable procedures. ASSESSMENT AND PLAN: Diagnosis: sepsis; leukocytosis; elevated procalcitonin; acute hypotension; lethargic Plan: admit Past Med/Surg History Problem List (Updated 08/11/24 @ 14:10 by Maria Esther Rea MD) Acute hypotension (Acute) Leukocytosis (Acute) Elevated procalcitonin (Acute) Lethargic (Acute) Sepsis (Acute) Osteoporosis Atrial fibrillation, permanent Chronic systolic (congestive) heart failure Weakness Mitral regurgitation Cardiomyopathy Ankle arthritis Hypertension Osteoarthritis of knees, bilateral DJD of both shoulders Medical History History of TIA (transient ischemic attack) History of myocardial infarction Cholecystitis Transaminitis Cold feet Alcohol use Popliteal cyst DVT (deep venous thrombosis) (06/2021) History of falling History of kidney stones History of asthma Distal radius fracture, right (2019) Closed fracture of right distal radius (2019) Closed fracture of right proximal humerus (2019) Surgical History History of cataract surgery History of colonoscopy History of surgery History of surgery History of surgery History of dental surgery H/O removal of neck cyst History of bilateral breast reduction surgery Family History Mother Brain cancer Father Myocardial infarction Other Cancer Family history of diabetes mellitus Heart disease Social History Smoking Status: Never smoker Second Hand Exposure: No; Do You Dip or Chew Tobacco: No; Hx Alcohol Use: Yes Alcohol type: wine and hard liquor Alcohol Intake Frequency: Monthly or Less Hx Substance Use: No Preferred Language: Faroese Communication Ability: Effective Visual Impairment: Limited Hearing Ability: Normal Group Therapist Required: No Beliefs That Will Affect Care: None marital status: Unknown Current Living Situation: Alone Current Living Situation Comment: DAUGHTER LIVES NEAR BY FREQUENT VISITS HOME HEALTH VISITS ON REQUEST current occupational status: retired 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 How many Children do You have: 3 Feels Safe at Home: Yes Assistive Devices: Walker and Wheelchair Allergies Allergies Allergy/AdvReac Type Severity Reaction Status Date / Time cefaclor AdvReac Mild NAUSEA Verified 08/11/24 11:38 Home Meds Home Medications Medication Instructions Recorded Confirmed vitamins A,C,S-dmtn-cjmgnn 2,148 1 tab PO HS 08/18/19 08/11/24 mcg-113 mg-45 mg-17.4 mg tablet (PreserVision AREDS) acetaminophen 500 mg capsule 500 mg PO Q6H PRN Pain 07/10/22 08/11/24 diclofenac sodium 1 % topical gel 4 g topical QID PRN 05/12/24 08/11/24 (Aleve (diclofenac)) Previous Rx's Medication Instructions Recorded Lift Chair #1 ea 08/19/19 Shower Chair #1 ea 08/19/19 spironolactone 25 mg tablet 25 mg PO DAILY #90 tabs 08/24/23 Bedside Commode #1 ea 08/26/23 Hospital Bed Homecare (Hospital #1 ea 08/26/23 Bed) Posey Pillow #1 ea 08/26/23 Wheelchair (Manual) #1 ea 09/23/23 apixaban 5 mg tablet (Eliquis) 5 mg PO BID #60 tabs 09/24/23 furosemide 40 mg tablet (Lasix) 40 mg PO QAM #90 tabs 09/24/23 sacubitril 24 mg-valsartan 26 mg 1 tab PO BID #180 tabs 09/24/23 tablet (Entresto) RSVPreF3 antigen-AS01E 0.5 ml IM ONCE #1 ea 06/21/24 adjuvant(PF) 120 mcg/0.5 mL IM suspension, kit diclofenac sodium 1 % topical gel 4 g topical QID PRN Pain #100 grams 06/21/24 (Voltaren Arthritis Pain) digoxin 125 mcg (0.125 mg) tablet 125 mcg PO DAILY #90 tabs 08/09/24 metoprolol succinate 100 mg 100 mg PO QAM #90 tabs 08/09/24 tablet,extended release 24 hr metoprolol succinate 50 mg 50 mg PO QPM #90 tabs 08/09/24 tablet,extended release 24 hr Results & Data (ED) Vital Signs Vital Signs - 24 hr 08/11/24 12:30 08/11/24 12:51 08/11/24 12:52 Temperature 36.6 C Temperature Source Temporal Artery Scan Pulse Rate 104 H 104 H Pulse Rate [Apical] Pulse Rate from SpO2 Sensor Respiratory Rate 18 Respiratory Effort / Characteristics Non-Labored Spontaneous Respiratory Depth Normal Respiratory Pattern Regular Blood Pressure 85/55 L Blood Pressure [Left Arm] Blood Pressure Mean 65 Blood Pressure Mean [Left Arm] Pulse Oximetry 96 96 Oxygen Delivery Method Room Air Room Air Sepsis Recent Fever Within 48 Hours No Sepsis New/Unexplained Change in Mental Status No Sepsis Action Taken by Nursing No Action Required 08/11/24 12:53 08/11/24 12:54 08/11/24 12:54 Temperature Temperature Source Pulse Rate 100 H Pulse Rate [Apical] 103 H Pulse Rate from SpO2 Sensor Respiratory Rate 20 13 Respiratory Effort / Characteristics Respiratory Depth Respiratory Pattern Blood Pressure Blood Pressure [Left Arm] 127/97 Blood Pressure Mean Blood Pressure Mean [Left Arm] 107 Pulse Oximetry 96 96 Oxygen Delivery Method Room Air Room Air Sepsis Recent Fever Within 48 Hours Sepsis New/Unexplained Change in Mental Status Sepsis Action Taken by Nursing 08/11/24 12:57 08/11/24 12:57 08/11/24 13:00 Temperature Temperature Source Pulse Rate 108 H Pulse Rate [Apical] Pulse Rate from SpO2 Sensor Respiratory Rate 22 Respiratory Effort / Characteristics Respiratory Depth Respiratory Pattern Blood Pressure 105/78 105/78 Blood Pressure [Left Arm] Blood Pressure Mean 92 92 Blood Pressure Mean [Left Arm] Pulse Oximetry 95 Oxygen Delivery Method Sepsis Recent Fever Within 48 Hours Sepsis New/Unexplained Change in Mental Status Sepsis Action Taken by Nursing 08/11/24 13:01 08/11/24 13:01 08/11/24 13:01 Temperature Temperature Source Pulse Rate Pulse Rate [Apical] Pulse Rate from SpO2 Sensor Respiratory Rate Respiratory Effort / Characteristics Respiratory Depth Respiratory Pattern Blood Pressure 109/71 109/71 109/71 Blood Pressure [Left Arm] Blood Pressure Mean 93 93 93 Blood Pressure Mean [Left Arm] Pulse Oximetry Oxygen Delivery Method Sepsis Recent Fever Within 48 Hours Sepsis New/Unexplained Change in Mental Status Sepsis Action Taken by Nursing 08/11/24 13:01 08/11/24 13:01 08/11/24 13:12 Temperature Temperature Source Pulse Rate 95 H 92 H Pulse Rate [Apical] Pulse Rate from SpO2 Sensor 91 H Respiratory Rate 18 22 Respiratory Effort / Characteristics Respiratory Depth Respiratory Pattern Blood Pressure 109/71 109/71 120/73 Blood Pressure [Left Arm] Blood Pressure Mean 93 93 88 Blood Pressure Mean [Left Arm] Pulse Oximetry 94 94 Oxygen Delivery Method Room Air Room Air Sepsis Recent Fever Within 48 Hours Sepsis New/Unexplained Change in Mental Status Sepsis Action Taken by Nursing 08/11/24 13:36 08/11/24 13:45 Temperature Temperature Source Pulse Rate 85 86 Pulse Rate [Apical] Pulse Rate from SpO2 Sensor 87 86 Respiratory Rate 18 20 Respiratory Effort / Characteristics Respiratory Depth Respiratory Pattern Blood Pressure 112/73 103/61 Blood Pressure [Left Arm] Blood Pressure Mean 86 75 Blood Pressure Mean [Left Arm] Pulse Oximetry 96 96 Oxygen Delivery Method Room Air Room Air Sepsis Recent Fever Within 48 Hours Sepsis New/Unexplained Change in Mental Status Sepsis Action Taken by Nursing Laboratory Data 08/11/24 12:50 08/11/24 12:50 Lab Results 08/11/24 Range/Units 12:50 WBC 16.48 H (4.8-10.8) K/ul RBC 4.11 L (4.20-5.40) M/uL Hgb 12.9 (12.0-16.0) g/dl Hct 39.3 (37.0-47.0) % MCV 95.6 (80.0-100.0) fL MCH 31.4 (25.0-34.0) pg MCHC 32.8 (32.0-36.0) g/dL RDW Std Deviation 54.4 H (36.4-46.3) fL RDW Coeff of Adam 15.6 H (11.5-14.5) % Plt Count 173 (130-400) K/uL MPV 11.3 (9.4-12.4) fL Immature Gran % (Auto) 4.1 % Neut % (Auto) 84.5 % Lymph % (Auto) 3.2 % [place] % (Auto) 7.8 % Eos % (Auto) 0.2 % Baso % (Auto) 0.2 % Neut # (Auto) 13.92 H (1.40-6.50) K/uL Lymph # (Auto) 0.52 L (1.20-3.40) K/uL [place] # (Auto) 1.29 H (0.11-0.59) K/uL Eos # (Auto) 0.03 (0.00-0.50) K/uL Baso # (Auto) 0.04 (0.00-0.20) K/uL Immature Gran # (Auto) 0.68 H (0.01-0.20) K/uL PT 11.2 (9.0-12.0) Seconds INR 1.0 (0.9-1.1) VBG pH 7.45 H (7.36-7.41) VBG pCO2 42 (38-50) mmHg VBG pO2 26 mmHg VBG HCO3 29 mmol/L VBG O2 Saturation < 60.0 % VBG Base Excess 4.7 mEq/L Sodium 141 (136-145) mmol/L Potassium 4.4 (3.5-5.1) mmol/L Chloride 104 (98-107) mmol/L Carbon Dioxide 27 (21-32) mmol/L Anion Gap 10 (3-11) BUN 45 H (6-23) mg/dl Creatinine 1.48 H (0.6-1.2) mg/dl Est Cr Clr Drug Dosing 25.4 ml/min eGFR 34.28 BUN/Creatinine Ratio 30.4 H (10-20) Glucose 99 (70-99(Fasting)) mg/dl Lactate 1.6 (0.4-2.0) mmol/L Calcium 9.6 (8.6-10.3) mg/dl Magnesium 1.9 (1.7-2.4) mg/dl Total Bilirubin 0.9 (0.2-1.0) mg/dl Direct Bilirubin 0.1 (0-0.2) mg/dl AST 18 (13-39) U/L ALT 19 (7-52) U/L Alkaline Phosphatase 94 (34-104) U/L Troponin I High Sens 12.1 (0-14) pg/ml B-Natriuretic Peptide 261 H (0-100) pg/ml Total Protein 6.5 (6.0-8.3) gm/dl Albumin 4.0 (3.4-5.0) gm/dl Procalcitonin 6.51 H (0-0.5) ng/ml Administered Medications Discontinued Medications Sodium Chloride (Nss) 1,000 mls @ 999 mls/hr IV .Q1H1M YAEL Stop: 08/11/24 13:45 Last Admin: 08/11/24 12:58 Dose: 999 mls/hr Documented By: ML Ceftriaxone Sodium (Rocephin) 2,000 mg in 50 mls @ 100 mls/hr IV NOW STA Stop: 08/11/24 13:48 Last Admin: 08/11/24 13:42 Dose: 100 mls/hr Documented By: [facility] [place] Data Radiologist's Impression: Chest X-Ray 08/11/24 12:35 XR chest 1V portable CLINICAL HISTORY: Sepsis COMPARISON STUDY: Chest CT June 12, 2022. Chest radiograph July 17, 2023. FINDINGS: Incidental note is made of severe osteoarthrosis of the bilateral glenohumeral joints. Lung volumes are normal. There is no consolidation. Minimal left basilar opacity favors atelectasis. There is no pneumothorax or pleural effusion. Cardiomegaly is unchanged. Mediastinal contours are normal. There is no evidence for pulmonary edema. IMPRESSION: No acute cardiopulmonary findings. No change in appearance of the chest. ACT 112: Negative or not required by law. Electronically signed by: Dmitriy Bills M.D. 08/11/2024 1:49 PM Discharge Plan Visit Data Chief Complaint: Hypotension Stated Complaint: HEART RATE AND BLOOD PRESSURE LOW ED Provider: Maria Esther Rea Discharge Problem: Sepsis, Lethargic, Elevated procalcitonin, Leukocytosis, Acute hypotension Forms Stand Alone Forms: My [facility] Prescriptions Prescriptions: No Action spironolactone 25 mg tablet 25 mg PO DAILY Qty: 90 3RF Eliquis 5 mg tablet 5 mg PO BID Qty: 60 0RF furosemide [Lasix] 40 mg tablet 40 mg PO QAM Qty: 90 3RF Entresto 24-26 mg tablet 1 tab PO BID Qty: 180 3RF (DME) Bedside Commode Misc See Rx Instructions .Route Qty: 1 0RF Rx Instructions: As directed (DME) Hospital Bed Misc See Rx Instructions .Route Qty: 1 0RF Rx Instructions: As directed (DME) Posey Pillow See Rx Instructions .Route .MEDSUPPLY Qty: 1 0RF Rx Instructions: As directed (DME) Wheelchair (Manual) Device See Rx Instructions .Route Qty: 1 0RF Rx Instructions: As directed, with cushion (DME) Lift Chair Misc See Rx Instructions .ROUTE .MEDSUPPLY Qty: 1 0RF Rx Instructions: As directed (DME) Shower Chair Misc See Rx Instructions .ROUTE .MEDSUPPLY Qty: 1 0RF Rx Instructions: As directed acetaminophen 500 mg capsule 500 mg PO Q6H PRN (Reason: Pain) diclofenac sodium [Aleve (diclofenac)] 1 % gel 4 g topical QID PRN RSVPreF3 antigen-AS01E (PF) 120 mcg/0.5 mL suspension for reconstitution 0.5 ml IM ONCE Qty: 1 0RF diclofenac sodium [Voltaren Arthritis Pain] 1 % gel 4 g topical QID PRN (Reason: Pain) Qty: 100 5RF Rx Instructions: RAN OUT. metoprolol succinate 100 mg tablet extended release 24 hr 100 mg PO QAM Qty: 90 3RF metoprolol succinate 50 mg tablet extended release 24 hr 50 mg PO QPM Qty: 90 3RF digoxin 125 mcg (0.125 mg) tablet 125 mcg PO DAILY Qty: 90 3RF PreserVision AREDS [id number] Tablet 1 tab PO HS Referrals Referrals: Basil Craig DO [Primary Care Provider] -
[2024-08-11] MEDS: SODIUM CHLORIDE 0.9% 1,000 ML IV SCH (12:58)
[2024-08-11 13:10] LABS: Base Excess VBG 4.7 mEq/L; HCO3 VBG 29 mmol/L; Oxygen Saturation VBG < 60.0 %; PCO2 VBG 42 mmHg (38-50); PO2 VBG 26 mmHg; pH VBG 7.45 (7.36-7.41)
[2024-08-11 13:18] LABS: Basophils # (auto) 0.04 K/uL (0.00-0.20); Basophils % (auto) 0.2 %; Eosinophils # (auto) 0.03 K/uL (0.00-0.50); Eosinophils % (auto) 0.2 %; Hematocrit (blood only) 39.3 % (37.0-47.0); Hemoglobin 12.9 g/dl (12.0-16.0); Immature Granulocytes # (auto) 0.68 K/uL (0.01-0.20); Immature Granulocytes % (auto) 4.1 %; Lymphocytes # (auto) 0.52 K/uL (1.20-3.40); Lymphocytes % (auto) 3.2 %; Mean Corpuscular Hemoglobin 31.4 pg (25.0-34.0); Mean Corpuscular Hgb Conc 32.8 g/dL (32.0-36.0); Mean Corpuscular Volume 95.6 fL (80.0-100.0); Mean Platelet Volume 11.3 fL (9.4-12.4); Monocytes # (auto) 1.29 K/uL (0.11-0.59); Monocytes % (auto) 7.8 %; Neutrophils # (auto) 13.92 K/uL (1.40-6.50); Neutrophils % (auto) 84.5 %; Platelet Count 173 K/uL (130-400); RDW Coefficient of Variation 15.6 % (11.5-14.5); RDW Standard Deviation 54.4 fL (36.4-46.3); Red Blood Count 4.11 M/uL (4.20-5.40); White Blood Count 16.48 K/ul (4.8-10.8)
[2024-08-11 13:41] LABS: BUN Creatinine Ratio 30.4 (10-20); Bilirubin Direct 0.1 mg/dl (0-0.2); Bilirubin,Total 0.9 mg/dl (0.2-1.0); Calcium 9.6 mg/dl (8.6-10.3); Creatinine Clr Calc Pharmacy 25.4 ml/min; Magnesium 1.9 mg/dl (1.7-2.4); Potassium 4.4 mmol/L (3.5-5.1); Total Protein 6.5 gm/dl (6.0-8.3)
[2024-08-11] MEDS: cefTRIAXone SODIUM 2,000 MG/50 ML BAG IV STA (13:42)
[2024-08-11] MEDS ORDERED: VANCOMYCIN CONSULT ACTIVE PRN (13:44)
[2024-08-11 13:46] LABS: Prothrombin Time 11.2 Seconds (9.0-12.0); Troponin I High Sensitivity 12.1 pg/ml (0-14)
--- NOTE | 2024-08-11 13:51 | XRay Report ---
XR chest 1V portable CLINICAL HISTORY: Sepsis COMPARISON STUDY: Chest CT June 12, 2022. Chest radiograph July 17, 2023. FINDINGS: Incidental note is made of severe osteoarthrosis of the bilateral glenohumeral joints. Lung volumes are normal. There is no consolidation. Minimal left basilar opacity favors atelectasis. Ther e is no pneumothorax or pleural effusion. Cardiomegaly is unchanged. Mediastinal contours are normal. There is no evidence for pulmonary edema. IMPRESSION: No acute cardiopulmonary findings. No change in appearance of the chest. ACT 112: Negative or not required by law. Electronically signed by: Dmitriy Bills M.D. 08/11/2024 1:49 PM
[2024-08-11] MEDS: VANCOMYCIN HCL 1,750 MG in DEXTROSE 5% 500 ML IV ONE (14:38)
[2024-08-11] MEDS: SODIUM CHLORIDE 0.9% 500 ML IV ONE (14:42)
[2024-08-11 15:17] LABS: Appearance Urine Clear (Clear); Bilirubin Urine Negative (Negative); Blood Urine Negative (Negative); Color Urine Yellow; Glucose Urine UA Negative (Negative); Ketones Urine Negative (Negative); Leukocyte Esterase Urine Negative (Negative); Nitrite Urine Negative (Negative); Protein Urine Negative (Negative); Urobilinogen Urine Negative (Negative); pH Urine 5.5 (4.5-7.5)
[2024-08-11 15:40] LABS: Adenovirus PCR Not Detected (NotDetected); Bordetella parapertussis PCR Not Detected (NotDetected); Bordetella pertussis PCR Not Detected (NotDetected); Chlamydia pneumoniae PCR Not Detected (NotDetected); Coronavirus 229E PCR Not Detected (NotDetected); Coronavirus CoV-2 (COVID19)PCR Not Detected (NotDetected); Coronavirus HKU1 PCR Not Detected (NotDetected); Coronavirus NL63 PCR Not Detected (NotDetected); Coronavirus OC43PCR Not Detected (NotDetected); Human Metapneumovirus PCR Not Detected (NotDetected); Influenza A PCR Not Detected (NotDetected); Influenza B PCR Not Detected (NotDetected); Mycoplasma pneumoniae PCR Not Detected (NotDetected); Parainfluenza Virus 1 PCR Not Detected (NotDetected); Parainfluenza Virus 2 PCR Not Detected (NotDetected); Parainfluenza Virus 3 PCR Not Detected (NotDetected); Parainfluenza Virus 4 PCR Not Detected (NotDetected); Respiratory Syncytial VirusPCR Not Detected (NotDetected); Rhinovirus/Enterovirus PCR Not Detected (NotDetected)
--- NOTE | 2024-08-11 16:31 | History & Physical Report ---
Date of Service August 11, 2024 Assessment & Plan (1) Sepsis: Plan: Presented with lethargy and chills x 1 day. Went to PCP who recommended presentation to ED given hypotension in office. Presumed sepsis on admission with tachycardia, tachypnea, hypotension, leukocytosis, and elevated procal, though source is unidentified at this time. - Was given 1.5 L IV NS per sepsis protocol, vancomycin and ceftriaxone in ED - Leukocytosis of 16.48 with neutrophilic predominance, Pro-Francisco J elevated at 6.51, BNP elevated at 261 on admission - Lactate, troponin, VBG unremarkable - UA unremarkable, respiratory bio fire negative - CXR showed no acute cardiopulmonary findings - No signs of skin / soft tissue infection on physical exam - Blood cultures pending - Hypotension, tachycardia, and tachypnea resolved after IV fluids - Given no identifiable source of infection and patient remains afebrile, will defer further antibiotics at this time > If patient becomes febrile or blood cultures are positive, resume antibiotics - Given no focal complaints, will defer further imaging at this time - CBC, CMP, procal with AM labs (2) Heart failure with reduced ejection fraction: Plan: HFrEF / A fib - Home regimen includes: Lasix 40 mg daily, digoxin 0.125 mg daily, Entresto 26/24 mg twice daily, spironolactone 25 mg daily, Eliquis 5 mg twice daily, metoprolol succinate 100 mg QAM and 50 mg QPM - Hold Lasix, spironolactone, Entresto given hypotension on presentation with soft BP on admission > Monitor BP response - Most recent echo 06/12/22 EF 2530%, global hypokinesis, mild concentric left ventricular hypertrophy, moderately reduced systolic function, severe biatrial dilation, severe MR, severe TR Plan VTE PPx: Eliquis CODE STATUS: Full code History of Present Illness Chief Complaint: Lethargy, chills Primary Care Provider: Basil Craig DO Mrs. Grijalva is a pleasant 84-year-old female with PMH of hypertension, heart failure, cardiomyopathy, A-fib on Eliquis, mitral regurgitation, osteoporosis, osteoarthritis. She notes she felt her baseline health recently until this morning. She reports around 8 AM this morning, she felt very fatigued and chilled. She did have nausea, but did not have any vomiting. She went to her PCP who recommended she present to the ED for evaluation as she was found to be hypotensive in 80s/50s. She did have a recent fall at home 3 days ago when attempting to transfer from bed to her wheelchair. She denies head strike or loss of consciousness. She did not seek medical attention after this fall. She reports chronic rhinorrhea/post-nasal drip, chronic cough with intermittent clear sputum production, and chronic numbness in her feet bilaterally. She notes her rhinorrhea, post-nasal drip, and productive cough are not worse than her baseline. Currently, she reports feeling fatigued. She denies fever, headache, hearing or vision changes, congestion, dyspnea, chest pain, palpitations, orthopnea, abdominal pain, N/V/D, changes in her urinary/bowel habits, rashes, dizziness, lightheadedness, presyncope. Patient took all of her regular home medications this morning, and denies any recent medication changes. Allergies Allergy/AdvReac Type Severity Reaction Status Date / Time cefaclor AdvReac Mild NAUSEA Verified 08/11/24 11:38 Home Medications Medication Instructions Recorded Confirmed Type Lift Chair #1 ea 08/19/19 08/11/24 Rx Shower Chair #1 ea 08/19/19 08/11/24 Rx spironolactone 25 mg tablet 25 mg PO DAILY #90 tabs 08/24/23 08/11/24 Rx Bedside Commode #1 ea 08/26/23 08/11/24 Rx Hospital Bed Homecare (Hospital #1 ea 08/26/23 08/11/24 Rx Bed) Cocoa Pillow #1 ea 08/26/23 08/11/24 Rx Wheelchair (Manual) #1 ea 09/23/23 08/11/24 Rx apixaban 5 mg tablet (Eliquis) 5 mg PO BID #60 tabs 09/24/23 08/11/24 Rx furosemide 40 mg tablet (Lasix) 40 mg PO QAM #90 tabs 09/24/23 08/11/24 Rx sacubitril 24 mg-valsartan 26 mg 1 tab PO BID #180 tabs 09/24/23 08/11/24 Rx tablet (Entresto) diclofenac sodium 1 % topical gel 4 g topical QID PRN Pain #100 grams 06/21/24 08/11/24 Rx (Voltaren Arthritis Pain) digoxin 125 mcg (0.125 mg) tablet 125 mcg PO DAILY #90 tabs 08/09/24 08/11/24 Rx metoprolol succinate 100 mg 100 mg PO QAM #90 tabs 08/09/24 08/11/24 Rx tablet,extended release 24 hr metoprolol succinate 50 mg 50 mg PO QPM #90 tabs 08/09/24 08/11/24 Rx tablet,extended release 24 hr cyclosporine 0.05 % eye drops in a 1 drp OPB BID 08/11/24 08/11/24 History dropperette (Restasis) Past Med/Surg History Problem List (Updated 08/11/24 @ 17:36 by Crystal Jim PA-C) Heart failure with reduced ejection fraction Acute hypotension (Acute) Leukocytosis (Acute) Elevated procalcitonin (Acute) Lethargic (Acute) Sepsis (Acute) Osteoporosis Atrial fibrillation, permanent Chronic systolic (congestive) heart failure Weakness Mitral regurgitation Cardiomyopathy Ankle arthritis Hypertension Osteoarthritis of knees, bilateral DJD of both shoulders Medical History History of TIA (transient ischemic attack) History of myocardial infarction Cholecystitis Transaminitis Cold feet Alcohol use Popliteal cyst DVT (deep venous thrombosis) (06/2021) History of falling History of kidney stones History of asthma Distal radius fracture, right (2019) Closed fracture of right distal radius (2019) Closed fracture of right proximal humerus (2019) Surgical History History of cataract surgery History of colonoscopy History of surgery History of surgery History of surgery History of dental surgery H/O removal of neck cyst History of bilateral breast reduction surgery Family History Mother Brain cancer Father Myocardial infarction Other Cancer Family history of diabetes mellitus Heart disease Social History Smoking Status: Never smoker Second Hand Exposure: No; Do You Dip or Chew Tobacco: No; Hx Alcohol Use: Yes Alcohol type: beer, wine and hard liquor Alcohol Intake Frequency: Monthly or Less Hx Substance Use: No Preferred Language: Irish Communication Ability: Effective Visual Impairment: Limited Hearing Ability: Normal Tavern Keeper Required: No Beliefs That Will Affect Care: None marital status: Unknown Current Living Situation: Alone Current Living Situation Comment: DAUGHTER LIVES NEAR BY FREQUENT VISITS HOME HEALTH VISITS ON REQUEST current occupational status: retired 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 Skin: The skin was warm and dry without rashes or erythema. No edema noted. Scattered bruising noted on lower extremities bilaterally. Bruising noted on lateral thoracic back and right-sided posterior hip. Cardiac: Irregular rhythm, regular rate in the 60s without murmurs gallops or rubs. Pulm: Clear to auscultation bilaterally without wheezes, rales or rhonchi. No respiratory distress. 97% on room air. Abdominal: Soft, nontender, nondistended. Bowel sounds present. Neuro: A&O x3. No focal neurological deficits. Results & Data Results & Data Vital Signs (Past 12 Hours) Vital Signs Temp Pulse Pulse Resp BP BP Pulse Ox 08/11/24 15:30 71 17 99 08/11/24 15:15 140/85 08/11/24 15:09 80 18 100 08/11/24 14:48 73 19 91 08/11/24 14:45 123/71 08/11/24 14:42 78 16 98 08/11/24 14:39 78 20 98 08/11/24 14:30 112/71 08/11/24 14:30 112/71 08/11/24 14:27 75 20 96 08/11/24 14:15 115/70 08/11/24 14:15 115/70 08/11/24 14:15 76 20 95 08/11/24 14:00 11308/11/24 14:00 11364 08/11/24 14:00 11308/11/24 14:00 77 18 94 08/11/24 13:45 103/61 08/11/24 13:45 103/61 08/11/24 13:45 86 20 103/61 96 08/11/24 13:36 85 18 112/73 96 08/11/24 13:12 92 H 22 120/73 94 08/11/24 13:01 95 H 18 109/71 94 08/11/24 13:01 109/71 08/11/24 13:01 109/71 08/11/24 13:01 109/71 08/11/24 13:01 109/71 08/11/24 13:00 108 H 22 95 08/11/24 12:57 105/78 08/11/24 12:57 105/78 08/11/24 12:54 100 H 13 08/11/24 12:54 103 H 20 127/97 96 08/11/24 12:53 96 08/11/24 12:52 96 08/11/24 12:51 104 H 08/11/24 12:30 97.9 F 104 H 18 85/55 L 96 O2 Del Method 08/11/24 15:30 Room Air 08/11/24 15:15 08/11/24 15:09 08/11/24 14:48 08/11/24 14:45 08/11/24 14:42 08/11/24 14:39 08/11/24 14:30 08/11/24 14:30 08/11/24 14:27 08/11/24 14:15 08/11/24 14:15 08/11/24 14:15 08/11/24 14:00 08/11/24 14:00 08/11/24 14:00 08/11/24 14:00 08/11/24 13:45 08/11/24 13:45 08/11/24 13:45 Room Air 08/11/24 13:36 Room Air 08/11/24 13:12 Room Air 08/11/24 13:01 Room Air 08/11/24 13:01 08/11/24 13:01 08/11/24 13:01 08/11/24 13:01 08/11/24 13:00 08/11/24 12:57 08/11/24 12:57 08/11/24 12:54 08/11/24 12:54 Room Air 08/11/24 12:53 Room Air 08/11/24 12:52 Room Air 08/11/24 12:51 08/11/24 12:30 Room Air Laboratory Results Reviewed CBC - leukocytosis of 16.48 with neutrophilic predominance Reviewed coags - unremarkable Reviewed VBG - unremarkable Reviewed chemistries - elevated procal, BNP, kidney function appears baseline Reviewed UA - unremarkable Diagnostic Findings Chest X-Ray 08/11/24 12:35 XR chest 1V portable CLINICAL HISTORY: Sepsis COMPARISON STUDY: Chest CT June 12, 2022. Chest radiograph July 17, 2023. FINDINGS: Incidental note is made of severe osteoarthrosis of the bilateral glenohumeral joints. Lung volumes are normal. There is no consolidation. Minimal left basilar opacity favors atelectasis. There is no pneumothorax or pleural effusion. Cardiomegaly is unchanged. Mediastinal contours are normal. There is no evidence for pulmonary edema. IMPRESSION: No acute cardiopulmonary findings. No change in appearance of the chest. ACT 112: Negative or not required by law. Electronically signed by: Dmitriy Bills M.D. 08/11/2024 1:49 PM Supervising Physician Co-Signing Physician Notes I personally saw and examined the patient. I independently reviewed the labs, EKG, imaging, problem list, medication list, past medical history and family history. I verified all mahoney points and agree with Crystal Jim PA-C with the following exceptions and/or additions: 84 year old female presents to the ER with hypotension and generalized tiredness. No respiratory, gastrointestinal, headache or urinary symptoms. No fever or chills. O/E A&Ox3, HS RRR, no murmurs, Chest CTAB, Adbo SNT, no CVA tenderness, no lateralizing focal deficits A/P SIRS/presumed sepsis - although no source she has a significantly elevated procalcitonin and unknown cause of her hypotension but suspect this is infective. Further antibiotics deferred pending blood culture results. If negative overnight consider CT chest to better assess for pneumonia but no abdominal pain or GI symptoms to suggest need for abdominal imaging on admission. No headache or neck pain to suggest need for lumbar puncture. Hypotension - hold Entresto and diuretics, continue metoprolol, monitor for worsening heart failure PG Care Time/CCT Total # of Minutes Spent Total Time Spent with Patient: Total time spent is greater than 50% in coordination of care (as documented) at patient's floor/unit and/or counseling patient: Coding Level of Care Code 88119 INT INP/OBS CARE 3/75MIN Diagnoses Sepsis, due to unspecified organism, unspecified whether acute organ dysfunction present A41.9 Sepsis acute organ dysfunction status: unspecified Sepsis type: sepsis due to unspecified organism Heart failure with reduced ejection fraction I50.20 (1) Sepsis Sepsis acute organ dysfunction status: unspecified Sepsis type: sepsis due to unspecified organism Qualified Code(s): A41.9 - Sepsis, unspecified organism
--- NOTE | 2024-08-11 17:15 | Electrocardiogram Report ---
Test Reason : Blood Pressure : */* mmHG Vent. Rate : 106 BPM Atrial Rate : * BPM P-R Int : * ms QRS Dur : 74 ms QT Int : 312 ms P-R-T Axes : * 2 49 degrees QTcB Int : 414 ms Atrial fibrillation with rapid ventricular response Abnormal ECG When compared with ECG of 17-Jul-2023 20:56, Criteria for Inferior infarct are no longer Present Nonspecific T wave abnormality no longer present QT has lengthened Confirmed by Juan C Gomez ([id number]) on 08/11/2024 5:14:56 PM Referred By: Confirmed By: Juan C Gomez
[2024-08-11] MEDS ORDERED: ACETAMINOPHEN 325 MG TAB PO PRN (17:21)
[2024-08-11] MEDS ORDERED: POLYETHYLENE (MIRALAX) 17 GM PACK PO PRN (17:21)
[2024-08-11] MEDS ORDERED: ONDANSETRON INJ 2 MG/ML 2 ML VIAL IV PRN (17:21)
[2024-08-11] MEDS: APIXABAN 5 MG TABLET PO SCH (20:21)
[2024-08-11] MEDS: METOPROLOL SUCC 50MG EXT REL TAB PO SCH (20:21)
[2024-08-12] MEDS: ALBUMIN 25% 25 GM/100 ML VIAL IV ONE (03:42)
[2024-08-12] MEDS ORDERED: VANCOMYCIN 750 MG in D5W 250mL (Use w/ Shortage) IV SCH (06:00)
[2024-08-12 07:13] LABS: Albumin Level 3.6 gm/dl (3.4-5.0); BUN Creatinine Ratio 33.3 (10-20); Bilirubin,Total 0.7 mg/dl (0.2-1.0); C Reactive Protein 6.02 mg/dl (0-0.5); Calcium 8.3 mg/dl (8.6-10.3); Creatinine Clr Calc Pharmacy 33.2 ml/min; Globulin 1.8 gm/dl (2.5-4.0); Potassium 4.1 mmol/L (3.5-5.1); Total Protein 5.4 gm/dl (6.0-8.3)
[2024-08-12 07:21] LABS: Hematocrit (blood only) 30.7 % (37.0-47.0); Hemoglobin 9.9 g/dl (12.0-16.0); Mean Corpuscular Hemoglobin 31.5 pg (25.0-34.0); Mean Corpuscular Hgb Conc 32.2 g/dL (32.0-36.0); Mean Corpuscular Volume 97.8 fL (80.0-100.0); Mean Platelet Volume 11.4 fL (9.4-12.4); Platelet Count 136 K/uL (130-400); RDW Coefficient of Variation 15.8 % (11.5-14.5); RDW Standard Deviation 56.3 fL (36.4-46.3); Red Blood Count 3.14 M/uL (4.20-5.40); White Blood Count 9.61 K/ul (4.8-10.8)
[2024-08-12 07:23] LABS: Basophils # (auto) 0.02 K/uL (0.00-0.20); Basophils % (auto) 0.2 %; Eosinophils # (auto) 0.04 K/uL (0.00-0.50); Eosinophils % (auto) 0.4 %; Immature Granulocytes # (auto) 0.51 K/uL (0.01-0.20); Immature Granulocytes % (auto) 5.3 %; Lymphocytes # (auto) 0.87 K/uL (1.20-3.40); Lymphocytes % (auto) 9.1 %; Monocytes # (auto) 0.76 K/uL (0.11-0.59); Monocytes % (auto) 7.9 %; Neutrophils # (auto) 7.41 K/uL (1.40-6.50); Neutrophils % (auto) 77.1 %
[2024-08-12 07:28] LABS: Thyroid Stimulating Hormone 1.137 uIu/ml (0.300-4.500)
[2024-08-12] MEDS: METOPROLOL SUCC 50MG EXT REL TAB PO SCH (07:56)
[2024-08-12] MEDS: METOPROLOL TARTRATE 50 MG TAB PO SCH (08:11)
[2024-08-12] MEDS: cefTRIAXone SODIUM 2,000 MG/50 ML BAG IV SCH (11:24)
--- NOTE | 2024-08-12 15:48 | Hospitalist Progress Note ---
Date of Service August 12, 2024 Assessment & Plan (1) Sepsis: Plan: Presented with lethargy and chills x 1 day. Went to PCP who recommended presentation to ED given hypotension in office. Presumed sepsis on admission with tachycardia, tachypnea, hypotension, leukocytosis, and elevated procal, though source is unidentified at this time. - Was given 1.5 L IV NS per sepsis protocol, vancomycin and ceftriaxone in ED -CBC reviewed 08/12: WBC WNL to 9.61, hgb 9.9 -BMP reviewed 08/12: creatinine 1.15, BUN 38, electrolytes stable. -Procal reviewed 08/12: increased to 15.70 -BC neg at 24h [facility] -UC prelim results negative. -no identifiable source of patient's sepsis at this time. Patient currently asymptomatic as well. -continue IV Rocephin as patient seems to have responded to this in the ER. -can d/c Vancomycin given negative MRSA swab. - CBC, CMP, procal with AM labs (2) Heart failure with reduced ejection fraction: Plan: HFrEF / A fib - Home regimen includes: Lasix 40 mg daily, digoxin 0.125 mg daily, Entresto 26/24 mg twice daily, spironolactone 25 mg daily, Eliquis 5 mg twice daily, metoprolol succinate 100 mg QAM and 50 mg QPM - Hold Lasix, spironolactone, Entresto given hypotension on presentation with soft BP on admission > Monitor BP response - Most recent echo 06/12/22 EF 2530%, global hypokinesis, mild concentric left ventricular hypertrophy, moderately reduced systolic function, severe biatrial dilation, severe MR, severe TR Plan VTE PPx: Eliquis CODE STATUS: Full code Admission and Anticipated Discharge Date Admission Date: August 11, 2024 Subjective Patient seen and examined this morning. patient reports to be feeling better today. she denies any chest pain, SOB, or urinary complaints. patient would like to go to [facility] for rehab. Physical Exam 2 Constitutional: WD/WN, vitals as above Eyes: PERRL, conjunctivae normal, anicteric sclerae Respiratory: normal respiratory effort, lungs clear to auscultation Cardiovascular: RRR, no murmur, no edema Psychiatric: A+Ox3, euthymic affect Results & Data Results & Data Vital Signs (Past 12 Hours) Vital Signs Temp Pulse Pulse Resp BP Pulse Ox O2 Del Method 08/12/24 15:45 37.0 C 64 18 118/74 97 Room Air 08/12/24 10:55 36.3 C L 59 L 18 95/67 L 95 Room Air 08/12/24 07:59 36.6 C 85 17 109/70 99 Room Air 08/12/24 07:10 70 Laboratory Results 08/12/24 06:25 08/12/24 06:25 PG Care Time/CCT Total # of Minutes Spent Total Time Spent with Patient: Total time spent is greater than 50% in coordination of care (as documented) at patient's floor/unit and/or counseling patient: Coding Level of Care Code 68235 SUB INP/OBS CARE 2/35MIN Diagnoses Sepsis, due to unspecified organism, unspecified whether acute organ dysfunction present A41.9 Sepsis acute organ dysfunction status: unspecified Sepsis type: sepsis due to unspecified organism Heart failure with reduced ejection fraction I50.20 (1) Sepsis Sepsis acute organ dysfunction status: unspecified Sepsis type: sepsis due to unspecified organism Qualified Code(s): A41.9 - Sepsis, unspecified organism
[2024-08-12] MEDS: DIGOXIN 0.125 MG TAB PO SCH (16:48)
[2024-08-13 07:34] LABS: Hematocrit (blood only) 31.4 % (37.0-47.0); Hemoglobin 10.3 g/dl (12.0-16.0); Mean Corpuscular Hemoglobin 31.8 pg (25.0-34.0); Mean Corpuscular Hgb Conc 32.8 g/dL (32.0-36.0); Mean Corpuscular Volume 96.9 fL (80.0-100.0); Mean Platelet Volume 11.7 fL (9.4-12.4); Platelet Count 142 K/uL (130-400); RDW Coefficient of Variation 15.7 % (11.5-14.5); RDW Standard Deviation 55.8 fL (36.4-46.3); Red Blood Count 3.24 M/uL (4.20-5.40); White Blood Count 7.17 K/ul (4.8-10.8)
[2024-08-13 07:58] LABS: Calcium 8.7 mg/dl (8.6-10.3); Potassium 4.3 mmol/L (3.5-5.1)
--- NOTE | 2024-08-13 12:26 | Hospitalist Progress Note ---
<Statement entered by Crystal Walter MD - 08/13/24 18:40> I have reviewed vital signs, chart notes, labs and imaging. I have also discussed the management of the patient with the RIP and I agree with the exam findings documented in the history and physical examination and the documented assessment and plan unless otherwise stated below. Sepsis unclear source possibly pneumonia, though paucity of focal symptoms and chest x-ray is clear, sepsis improving procalcitonin decreasing on ceftriaxone. Blood cultures are still pending no growth to date chronic HFrEF which is stable, will begin to resume her usual medications tomorrow if blood pressure and renal function are stable Date of Service August 13, 2024 Assessment & Plan (1) Sepsis: Plan: Presented with lethargy and chills x 1 day. Went to PCP who recommended presentation to ED given hypotension in office. Presumed sepsis on admission with tachycardia, tachypnea, hypotension, leukocytosis, and elevated procal, though source is unidentified at this time. * Was given 1.5 L IV NS per sepsis protocol, vancomycin and ceftriaxone in ED * CBC reviewed 08/13 stable - WBC 7.17, hgb 10.3 * BMP reviewed 08/13: creatinine 1.0, BUN 36, electrolytes stable. * Procal reviewed 08/12: increased to 15.70 --> 8.86 today * BC negative at 48h [facility] * UC negative. * CBC, CMP, procal with AM labs There continues to be no identifiable source of patient's sepsis at this time. Patient currently asymptomatic as well. * Continue IV Rocephin as patient seems to have responded to this in the ER. * Vancomycin was d/c given negative MRSA swab. (2) Heart failure with reduced ejection fraction: Plan: HFrEF/A fib * Home regimen includes: Lasix 40 mg daily, digoxin 0.125 mg daily, Entresto 26/24 mg twice daily, spironolactone 25 mg daily, Eliquis 5 mg twice daily, metoprolol succinate 100 mg QAM and 50 mg QPM * Hold Lasix, spironolactone, Entresto given hypotension on presentation with soft BP on admission - will consider restarting tomorrow, BP okay today. * Most recent echo 06/12/22 EF 2530%, global hypokinesis, mild concentric left ventricular hypertrophy, moderately reduced systolic function, severe biatrial dilation, severe MR, severe TR Plan VTE PPx: Eliquis CODE STATUS: Full code Admission and Anticipated Discharge Date Admission Date: August 11, 2024 Corina Astorga is a pleasant 84 yo woman who was admitted to the hospital with 1 day of lethargy and chills. She presented to her PCP office, where she was found to be hypotensive and sent to the ER. Presumed sepsis on admission with tachycardia, tachypnea, hypotension, leukocytosis, and elevated procal, although source unidentified at this time. Today, she is lying in bed comfortably. She denies any fevers/chills, CP, SOB, n/v/d, or pain. She reports chronic intermittent eye watering, but otherwise states that she is feeling well today. Review of Systems Constitutional: no fever, no chills, no sweats and no body aches Eyes: as per Subjective / HPI Respiratory: no cough, no chest congestion, no dyspnea and no dyspnea on exertion Cardiovascular: no chest pain Gastrointestinal: no abdominal pain, no nausea and no vomiting Genitourinary: no dysuria, no difficulty urinating, no urinary frequency and no urinary hesitancy Integumentary: + problem reported (ecchymosis) Physical Exam Constitutional: WD/WN, vitals as above Eyes: PERRL Neck: trachea midline Respiratory: Auscultation: lungs clear to auscultation bilaterally Cardiovascular: Rate/Rhythm: + irregularly irregular Extremities: + pedal edema (+1 bilaterally) Gastrointestinal (Abdomen): Inspection/Auscultation: normal bowel sounds Percussion/Palpation: abdomen soft; abdomen nontender Neurologic: awake Psychiatric: Orientation: alert and oriented x 3 Results & Data Results & Data Vital Signs (Past 12 Hours) Vital Signs Temp Pulse Pulse Resp BP Pulse Ox O2 Del Method 08/13/24 11:05 36.4 C L 60 17 122/83 98 Room Air 08/13/24 08:07 36.7 C 80 17 117/77 97 Room Air 08/13/24 07:00 71 08/13/24 02:45 36.6 C 70 18 102/60 97 Room Air Laboratory Results 08/13/24 Range/Units 06:38 WBC 7.17 (4.8-10.8) K/ul RBC 3.24 L (4.20-5.40) M/uL Hgb 10.3 L (12.0-16.0) g/dl Hct 31.4 L (37.0-47.0) % MCV 96.9 (80.0-100.0) fL MCH 31.8 (25.0-34.0) pg MCHC 32.8 (32.0-36.0) g/dL RDW Std Deviation 55.8 H (36.4-46.3) fL RDW Coeff of Adam 15.7 H (11.5-14.5) % Plt Count 142 (130-400) K/uL MPV 11.7 (9.4-12.4) fL Sodium 141 (136-145) mmol/L Potassium 4.3 (3.5-5.1) mmol/L Chloride 109 H (98-107) mmol/L Carbon Dioxide 26 (21-32) mmol/L Anion Gap 6 (3-11) BUN 36 H (6-23) mg/dl Creatinine 1.00 (0.6-1.2) mg/dl Est Cr Clr Drug Dosing 38.0 ml/min eGFR 54.87 BUN/Creatinine Ratio 36.0 H (10-20) Glucose 101 H (70-99(Fasting)) mg/dl Calcium 8.7 (8.6-10.3) mg/dl Procalcitonin 8.86 H (0-0.5) ng/ml PG Care Time/CCT Total # of Minutes Spent Total Time Spent with Patient: Total time spent is greater than 50% in coordination of care (as documented) at patient's floor/unit and/or counseling patient: Coding [place] [address] SUB INP/OBS CARE 235MIN Patient Type Established History Expanded Problem Focused Exam Expanded Problem Focused Medical Decision Making Moderate Complexity Diagnoses Sepsis, due to unspecified organism, unspecified whether acute organ dysfunction present A41.9 Sepsis acute organ dysfunction status: unspecified Sepsis type: sepsis due to unspecified organism Heart failure with reduced ejection fraction I50.20 (1) Sepsis Sepsis acute organ dysfunction status: unspecified Sepsis type: sepsis due to unspecified organism Qualified Code(s): A41.9 - Sepsis, unspecified organism
[2024-08-14 08:31] LABS: Hematocrit (blood only) 32.7 % (37.0-47.0); Hemoglobin 10.8 g/dl (12.0-16.0); Mean Corpuscular Hemoglobin 32.3 pg (25.0-34.0); Mean Corpuscular Volume 97.9 fL (80.0-100.0); Mean Platelet Volume 11.3 fL (9.4-12.4); Platelet Count 161 K/uL (130-400); RDW Coefficient of Variation 15.9 % (11.5-14.5); RDW Standard Deviation 56.5 fL (36.4-46.3); Red Blood Count 3.34 M/uL (4.20-5.40); White Blood Count 6.42 K/ul (4.8-10.8)
[2024-08-14 08:56] LABS: BUN Creatinine Ratio 29.5 (10-20); Calcium 8.6 mg/dl (8.6-10.3); Creatinine Clr Calc Pharmacy 40.1 ml/min; Potassium 4.3 mmol/L (3.5-5.1)
--- NOTE | 2024-08-14 10:25 | Hospitalist Progress Note ---
<Statement entered by Crystal Walter MD - 08/14/24 15:26> I have reviewed vital signs, chart notes, labs and imaging. I have personally seen, evaluated and examined the patient. I have also discussed the management of the patient with the RIP and I agree with the exam findings documented in the history and physical examination and the documented assessment and plan unless otherwise stated below. Gauri reports that the day she came to the hospital she had nausea but otherwise no focal symptoms. She was tachypneic in the ED but has not been short of breath hypoxic or having purulent sputum. No abdominal pain has been eating well did not notice any signs of a skin infection she does not have a pacemaker or AICD and she does not have any prosthetic joints. she is feeling well at this time except that she is weaker than usual she would like to go to [facility] for rehab sepsis unidentified source, given the degree of procalcitonin elevation with relatively mild quickly resolving sepsis and blood cultures negative to date, this may be of pneumonia that is not visible on chest x-ray. mild diverticulitis can also be relatively asymptomatic but would not expect this degree of sepsis or procalcitonin elevation without some abdominal pain. continue ceftriaxone so she is responding nicely to this plan to complete a total 7-day course her HFrEF remains compensated she has had a little bit of increase in pedal edema we are in the process of resuming her heart failure regimen today she is very cool purplish feet but this is chronic for her, they are not painful, her systolic heart failure is playing a role Date of Service August 14, 2024 Assessment & Plan (1) Sepsis: Plan: Presented with lethargy and chills x 1 day. Went to PCP who recommended presentation to ED given hypotension in office. Presumed sepsis on admission with tachycardia, tachypnea, hypotension, leukocytosis, and elevated procal, though source is unidentified at this time. * Was given 1.5 L IV NS per sepsis protocol, vancomycin and ceftriaxone in ED * CBC reviewed 08/14 stable - WBC 6.42, hgb 10.8 * BMP reviewed 08/14: creatinine 0.95, BUN 28, electrolytes stable * Procal reviewed 08/14: 15.70 --> 8.86 --> 3.85 * BC negative at 48h [facility] * UC negative. * CBC, BMP AM * Transfer to med/surg. There continues to be no identifiable source of patient's sepsis at this time. Patient currently asymptomatic as well. * Continue IV Rocephin as patient seems to have responded well. Continue for 2 more days. * Vancomycin was d/c given negative MRSA swab. * Procal continues to trend down (2) Heart failure with reduced ejection fraction: Plan: HFrEF/A fib * Home regimen includes: Lasix 40 mg daily, digoxin 0.125 mg daily, Entresto 26/24 mg twice daily, spironolactone 25 mg daily, Eliquis 5 mg twice daily, metoprolol succinate 100 mg QAM and 50 mg QPM * Will restart home doses of Lasix, spironolactone, Entresto, but monitor for hypotension. Will re-evaluate AM metoprolol tomorrow, she remains on her PM dose of 50mg * Most recent echo 06/12/22 EF 2530%, global hypokinesis, mild concentric left ventricular hypertrophy, moderately reduced systolic function, severe biatrial dilation, severe MR, severe TR Plan VTE PPx: Eliquis CODE STATUS: Full code Admission and Anticipated Discharge Date Admission Date: August 11, 2024 Corina Astorga is a pleasant 84 yo woman who was admitted to the hospital with 1 day of lethargy and chills. She presented to her PCP office, where she was found to be hypotensive and sent to the ER. Presumed sepsis on admission with tac hycardia, tachypnea, hypotension, leukocytosis, and elevated procal, although source unidentified at this time. Today, she is sitting in her chair reading a book. She is pleasant and states that she feels well, better than yesterday. She denies any fevers/chills, CP, SOB, n/v/d, or pain. Reports that she occasionally can cough some clear sputum up, but otherwise denies SOB. She reports chronic intermittent eye watering. Reports she is eating and drinking well. Denies constipation. Review of Systems Constitutional: no fever, no chills, no sweats and no body aches Eyes: as per Subjective / HPI Respiratory: no cough, no chest congestion, no dyspnea and no dyspnea on exertion Cardiovascular: no chest pain Gastrointestinal: no abdominal pain, no nausea and no vomiting Genitourinary: no dysuria, no difficulty urinating, no urinary frequency and no urinary hesitancy Integumentary: + problem reported (ecchymosis) Physical Exam Constitutional: WD/WN, vitals as above Eyes: PERRL Neck: trachea midline Respiratory: Auscultation: lungs clear to auscultation bilaterally Cardiovascular: Rate/Rhythm: + irregularly irregular Gastrointestinal (Abdomen): Inspection/Auscultation: normal bowel sounds Percussion/Palpation: abdomen soft; abdomen nontender Neurologic: awake Psychiatric: Orientation: alert and oriented x 3 Results & Data Results & Data Vital Signs (Past 12 Hours) Vital Signs Temp Pulse Resp BP Pulse Ox O2 Del Method 08/14/24 07:19 36.7 C 73 16 110/64 96 Room Air 08/14/24 03:19 36.8 C 84 18 103/62 98 Room Air 08/13/24 22:55 36.4 C L 79 20 131/75 95 Room Air Laboratory Results 08/14/24 Range/Units 08:06 WBC 6.42 (4.8-10.8) K/ul RBC 3.34 L (4.20-5.40) M/uL Hgb 10.8 L (12.0-16.0) g/dl Hct 32.7 L (37.0-47.0) % MCV 97.9 (80.0-100.0) fL MCH 32.3 (25.0-34.0) pg MCHC 33.0 (32.0-36.0) g/dL RDW Std Deviation 56.5 H (36.4-46.3) fL RDW Coeff of Adam 15.9 H (11.5-14.5) % Plt Count 161 (130-400) K/uL MPV 11.3 (9.4-12.4) fL Sodium 142 (136-145) mmol/L Potassium 4.3 (3.5-5.1) mmol/L Chloride 111 H (98-107) mmol/L Carbon Dioxide 25 (21-32) mmol/L Anion Gap 6 (3-11) BUN 28 H (6-23) mg/dl Creatinine 0.95 (0.6-1.2) mg/dl Est Cr Clr Drug Dosing 40.1 ml/min eGFR 58.35 BUN/Creatinine Ratio 29.5 H (10-20) Glucose 171 H (70-99(Fasting)) mg/dl Calcium 8.6 (8.6-10.3) mg/dl Procalcitonin 3.85 H (0-0.5) ng/ml PG Care Time/CCT Total # of Minutes Spent Total Time Spent with Patient: Total time spent is greater than 50% in coordination of care (as documented) at patient's floor/unit and/or counseling patient: Coding [place] [address] SUB INP/OBS CARE 2/35MIN Patient Type Established History Expanded Problem Focused Exam Expanded Problem Focused Medical Decision Making Moderate Complexity Diagnoses Sepsis, due to unspecified organism, unspecified whether acute organ dysfunction present A41.9 Sepsis acute organ dysfunction status: unspecified Sepsis type: sepsis due to unspecified organism Heart failure with reduced ejection fraction I50.20 (1) Sepsis Sepsis acute organ dysfunction status: unspecified Sepsis type: sepsis due to unspecified organism Qualified Code(s): A41.9 - Sepsis, unspecified organism
[2024-08-14] MEDS: cefTRIAXone SODIUM 2,000 MG/50 ML BAG IV SCH (12:13)
[2024-08-14] MEDS ORDERED: ARTIFICIAL TEARS OP PRN (15:41)
[2024-08-14 15:45] VITALS: RESP 18
[2024-08-14] MEDS: VALSARTAN/SACUBITRIL 26/24MG TAB PO SCH (20:39)
[2024-08-15 06:25] LABS: Hematocrit (blood only) 31.6 % (37.0-47.0); Hemoglobin 10.2 g/dl (12.0-16.0); Mean Corpuscular Hemoglobin 31.4 pg (25.0-34.0); Mean Corpuscular Hgb Conc 32.3 g/dL (32.0-36.0); Mean Corpuscular Volume 97.2 fL (80.0-100.0); Mean Platelet Volume 11.1 fL (9.4-12.4); Nucleated RBC # (auto) 0.02 K/uL (0.00-0.12); Nucleated RBC % (auto) 0.3 %; Platelet Count 152 K/uL (130-400); RDW Coefficient of Variation 15.6 % (11.5-14.5); RDW Standard Deviation 55.4 fL (36.4-46.3); Red Blood Count 3.25 M/uL (4.20-5.40); White Blood Count 6.53 K/ul (4.8-10.8)
[2024-08-15 06:48] LABS: Calcium 8.4 mg/dl (8.6-10.3); Potassium 4.4 mmol/L (3.5-5.1)
[2024-08-15] MEDS: FUROSEMIDE 40 MG TAB PO SCH (10:06)
[2024-08-15] MEDS: SPIRONOLACTONE 25 MG TAB PO SCH (10:07)
--- NOTE | 2024-08-15 12:45 | Hospitalist Progress Note ---
Date of Service August 15, 2024 Assessment & Plan (1) Sepsis: Plan: Technically met SIRS criteria on admission however unknown source is unidentified at this time. - Viral panel negative - Blood cultures remain with NGTD - UA negative - Leukocytosis resolved - Afebrile - No evidence of organ dysfunction - Complete 1 more day of Rocephin - IF symptoms change or worsen after Rocephin- consider tick borne illness- however initial laboratory studies not suggestive of such (2) Heart failure with reduced ejection fraction: Plan: HFrEF - Stable at this time without evidence of exacerbation - She remained hemodyanmically stable following concern for sepsis and tolerated 1.5 liters of fluid well - She has had her home regimine restarted on 14NO24- no hypotension and no organ dysfunction - Continue Plan VTE PPx: Eliquis, ambulation, SCDS CODE STATUS: Full code Dispo: Home or [facility] on 08/16-08/17 Admission and Anticipated Discharge Date Admission Date: August 11, 2024 Subjective 84 yo woman who was admitted to the hospital with 1 day of lethargy and chills. She presented to her PCP office, where she was found to be hypotensive and sent to the ER. Presumed sepsis on admission with tachycardia, tachypnea, hypotension, leukocytosis, and elevated procal. She is HD#4 and antibiotic day #4. She reports feeling "much better and less confused" and is without no other complaints of fever/chill, pain, nvd. She does live at home where she gets meals delivered as well as reports taking care of 2 dogs. SHe is awaiting evaluation for [facility]. Would also like her to complete another 24 hours of abx therapy after this she could be discharged likely. Dispo: In house another 24 hours, then home with PT/rehab or [facility]. Physical Exam Physical Exam: PHYSICAL EXAM: General: awake, alert, no apparent distress Head: Normocephalic, atraumatic ENT: PERRLA, EOMI, no pharyngeal exudate, mucous membranes moist Neuro: AAO x 3, speech clear and appropriate, strength intact bilaterally 5/5, sensation intact and equal, no pronator drift Chest: equal rise and fall of the chest, no accessory muscle use, Clear to auscultation, on room air, Cardiac: Regular rate and rhythm, skin warm dry, cap refill <3 seconds, peripheral pulses +2 no JVD, no murmur, no edema GI: NABS x 4 quadrants, soft, nontender to palpation, no rebound, guarding or tenderness : Spontaneously voiding, no pain, no CVA tenderness, Extremities: Normal inspection, no peripheral edema or erythema, calfs nonte nder to palpation Skin: no rash or erythema or open areas Results & Data Results & Data Vital Signs (Past 12 Hours) Vital Signs Temp Pulse Resp BP Pulse Ox O2 Del Method 08/15/24 07:22 36.6 C 70 18 115/70 97 Room Air Laboratory Results Abnormal lab results 08/15/24 Range/Units 05:54 RBC 3.25 L (4.20-5.40) M/uL Hgb 10.2 L (12.0-16.0) g/dl Hct 31.6 L (37.0-47.0) % RDW Std Deviation 55.4 H (36.4-46.3) fL RDW Coeff of Adam 15.6 H (11.5-14.5) % Chloride 114 H (98-107) mmol/L BUN 34 H (6-23) mg/dl BUN/Creatinine Ratio 33.0 H (10-20) Calcium 8.4 L (8.6-10.3) mg/dl Medications Administered Home Medications Lift Chair #1 08/19/19 [Rx Confirmed 08/11/24] Shower Chair #1 08/19/19 [Rx Confirmed 08/11/24] spironolactone 25 mg tablet 25 mg PO DAILY #90 tabs 08/24/23 [Rx Confirmed 08/11/24] Bedside Commode #1 ea 08/26/23 [Rx Confirmed 08/11/24] Hospital Bed Homecare (Hospital Bed) #1 ea 08/26/23 [Rx Confirmed 08/11/24] [place] Pillow #1 ea 08/26/23 [Rx Confirmed 08/11/24] Wheelchair (Manual) #1 ea 09/23/23 [Rx Confirmed 08/11/24] apixaban 5 mg tablet (Eliquis) 5 mg PO BID #60 tabs 09/24/23 [Rx Confirmed 08/11/24] furosemide 40 mg tablet (Lasix) 40 mg PO QAM #90 tabs 09/24/23 [Rx Confirmed 08/11/24] sacubitril 24 mg-valsartan 26 mg tablet (Entresto) 1 tab PO BID #180 tabs 09/24/23 [Rx Confirmed 08/11/24] diclofenac sodium 1 % topical gel (Voltaren Arthritis Pain) 4 g topical QID PRN Pain #100 grams 06/21/24 [Rx Confirmed 08/11/24] digoxin 125 mcg (0.125 mg) tablet 125 mcg PO DAILY #90 tabs 08/09/24 [Rx Confirmed 08/11/24] metoprolol succinate 100 mg tablet,extended release 24 hr 100 mg PO QAM #90 tabs 08/09/24 [Rx Confirmed 08/11/24] metoprolol succinate 50 mg tablet,extended release 24 hr 50 mg PO QPM #90 tabs 08/09/24 [Rx Confirmed 08/11/24] cyclosporine 0.05 % eye drops in a dropperette (Restasis) 1 drp OPB BID 08/11/24 [History Confirmed 08/11/24] Active Medications Acetaminophen (Acetaminophen 325 Mg Tab) 650 mg PO Q4H PRN PRN Reason: Pain or Fever Stop: 09/10/24 17:20 Apixaban (Apixaban 5 Mg Tablet) 5 mg PO BID [facility] Stop: 09/10/24 20:59 Last Admin: 08/15/24 10:06 Dose: 5 mg Artificial Tears (Artificial Tears) 1 drops OP QID PRN PRN Reason: Dryness Stop: 09/13/24 15:40 Digoxin (Digoxin 0.125 Mg Tab) 0.125 mg PO DAILY@1600 [facility] Stop: 09/11/24 15:59 Last Admin: 08/14/24 16:48 Dose: 0.125 mg Furosemide (Furosemide 40 Mg Tab) 40 mg PO QAM [facility] Stop: 09/11/24 08:59 Last Admin: 08/15/24 10:06 Dose: 40 mg Metoprolol Succinate (Metoprolol Succ 50mg Ext Rel Tab) 50 mg PO QPM [facility] Stop: 09/10/24 20:59 Last Admin: 08/14/24 20:39 Dose: 50 mg Metoprolol Succinate (Metoprolol Succ 50mg Ext Rel Tab) 100 mg PO QAM [facility] Stop: 09/11/24 08:59 Last Admin: 08/12/24 07:56 Dose: Not Given Ondansetron HCl (Ondansetron Inj 2 Mg/Ml 2 Ml Vial) 4 mg IV Q6H PRN PRN Reason: Nausea Stop: 09/10/24 17:20 Polyethylene Glycol (Polyethylene (Miralax) 17 Gm Pack) 17 gm PO DAILY PRN PRN Reason: Constipation Stop: 09/10/24 17:20 Sacubitril/Valsartan (Valsartan/Sacubitril 26/24mg Tab) 1 tab PO BID [facility] Stop: 09/10/24 20:59 Last Admin: 08/15/24 10:07 Dose: 1 tab Spironolactone (Spironolactone 25 Mg Tab) 25 mg PO DAILY [facility] Stop: 09/11/24 08:59 Last Admin: 08/15/24 10:15 Dose: Not Given PG Care Time/CCT Total # of Minutes Spent Total Time Spent with Patient: Total time spent is greater than 50% in coordination of care (as documented) at patient's floor/unit and/or counseling patient: Coding Level of Care Code 28344 SUB INP/OBS CARE 10/22MIN Diagnoses Sepsis, due to unspecified organism, unspecified whether acute organ dysfunction present A41.9 Sepsis acute organ dysfunction status: unspecified Sepsis type: sepsis due to unspecified organism Heart failure with reduced ejection fraction I50.20 (1) Sepsis Sepsis acute organ dysfunction status: unspecified Sepsis type: sepsis due to unspecified organism Qualified Code(s): A41.9 - Sepsis, unspecified organism
[2024-08-15] MEDS: cefTRIAXone SODIUM 1,000 MG/50 ML BAG IV STA (17:32)
[2024-08-16 07:27] VITALS: BP 107/68; PULSE 63; TEMP 98.2; O2SAT 97
[2024-08-16] MEDS: cefTRIAXone SODIUM 1,000 MG/50 ML BAG IV STA (10:16)
[2024-08-16] MEDS: cefUROXime axetil 500 MG TAB PO ONE (11:19)
--- NOTE | 2024-08-16 11:55 | Discharge Summary ---
Discharge Summary Date of Service August 16, 2024 Principal Dx & Hospital Course #1 = Principal Diagnosis (1) Sepsis: Presented with lethargy and chills x 1 day. Went to PCP who recommended presentation to ED given hypotension in office. Presumed sepsis on admission with tachycardia, tachypnea, hypotension, leukocytosis, and elevated procal, though source is unidentified at this time. * Was given 1.5 L IV NS per sepsis protocol, vancomycin and ceftriaxone in ED * ceftriaxone was continued and sepsis resolved, leukocytosis of 16K resolved, procalcitonin improved, she continued to lack any focal symptoms * Procal reviewed 08/14: 15.70 --> 8.86 --> 3.85 * blood cultures no growth to date and should finalized today * urinalysis unimpressive urine culture negative she was treated with 5 days of ceftriaxone IV, 6th dose today infiltrated by her PIV so oral dose given, stop antibiotics after today unclear what this infection was potentially a pneumonia given the markedly elevated procalcitonin with only mild sepsis. If she has recurrence of symptoms would check tickborne studies PT and OT recommended rehab, her insurance denied ARU and she declined offer for SNF referrals, she prefers to return home with PT OT and home health she is aware that she has increased fall risk she does have a daughter who lives nearby and I counseled her to have her daughter or friends stay with her for the next few days/nights, she says "I will tell them not to but they will anyway" Home health PT OT ordered (2) Heart failure with reduced ejection fraction: HFrEF/A fib * Home regimen includes: Lasix 40 mg daily, digoxin 0.125 mg daily, Entresto 26/24 mg twice daily, spironolactone 25 mg daily, Eliquis 5 mg twice daily, metoprolol succinate 100 mg QAM and 50 mg QPM * Most recent echo 06/12/22 EF 2530%, global hypokinesis, mild concentric left ventricular hypertrophy, moderately reduced systolic function, severe biatrial dilation, severe MR, severe TR * resumed home medications prior to discharge, tolerating well * remained euvolemic Notes For Next Care Provider if recurrence of symptoms would check tickborne studies Medication Changes From Visit none Admission HPI Per Admitting Provider Mrs. Grijalva is a pleasant 84-year-old female with PMH of hypertension, heart failure, cardiomyopathy, A-fib on Eliquis, mitral regurgitation, osteoporosis, osteoarthritis. She notes she felt her baseline health recently until this morning. She reports around 8 AM this morning, she felt very fatigued and chilled. She did have nausea, but did not have any vomiting. She went to her PCP who recommended she present to the ED for evaluation as she was found to be hypotensive in 80s/50s. She did have a recent fall at home 3 days ago when attempting to transfer from bed to her wheelchair. She denies head strike or loss of consciousness. She did not seek medical attention after this fall. She reports chronic rhinorrhea/post-nasal drip, chronic cough with intermittent clear sputum production, and chronic numbness in her feet bilaterally. She notes her rhinorrhea, post-nasal drip, and productive cough are not worse than her baseline. Currently, she reports feeling fatigued. She denies fever, headache, hearing or vision changes, congestion, dyspnea, chest pain, palpitations, orthopnea, abdominal pain, N/V/D, changes in her urinary/bowel habits, rashes, dizziness, lightheadedness, presyncope. Patient took all of her regular home medications this morning, and denies any recent medication changes. Discharge Exam PHYSICAL EXAMINATION Last 24h vital signs reviewed, see documentation in flowsheet General: comfortable appearing, no distress HEENT: Normocephalic, atraumatic, pupils round and equal, sclerae anicteric, no conjunctival injection, moist mucus membranes Lungs: Normal respiratory effort. Clear to auscultation bilaterally. No RRW Heart: Regular rate and rhythm, no murmurs. No JVD Abdomen: Soft, nontender, nondistended. Bowel sounds present. Extremities: Warm, dry, well-perfused. No extremity edema. feet are warm and well-perfused today Neuro: Alert and oriented x 4, face symmetric, moves 4 extremities well Psych: Normal affect and behavior Discharge Plan Discharge Items Patient Disposition: Home - Home Health Services Reason For Visit: SEPSIS Discharge Diagnosis: Sepsis, possibly due to pneumonia Activity: Resume your previous activity Weightbearing: Full weightbearing Non-emergency contact: Primary Care Provider Call non-emergency contact if: you have any medication questions, your symptoms worsen and you have a fever Follow-up/Referrals: Basil Craig DO [Primary Care Provider] - 08/22/24 11:30 am Diet: Heart Healthy and Low Sodium (2gm) Addtl Attending Provider Instructions: You were treated for sepsis (infection) - it may have been from a pneumonia, but the source of infection wasn't clearly determined and you got much better on antibiotics. This has resolved with antibiotics - last dose of antibiotics was today in the hospital We recommended halfway facility for rehab stay, however, you prefer home with home health Home health PT and OT We recommend 24h supervision by family until your mobility improves, because you are at risk of falls - would be a good idea to have family or friends stay with you the next few nights It was a pleasure taking care of you in the hospital, Crystal Walter MD Pending Studies at Discharge: Yes (blood cultures negative so far, but will not finalize until 08/15) Stand-Alone Forms: My [facility], Smoking Cessation Medications and DC Order Prescriptions: Continued spironolactone 25 mg tablet 25 mg PO DAILY Qty: 90 3RF Eliquis 5 mg tablet 5 mg PO BID Qty: 60 0RF furosemide [Lasix] 40 mg tablet 40 mg PO QAM Qty: 90 3RF Entresto 24-26 mg tablet 1 tab PO BID Qty: 180 3RF cholecalciferol (vitamin D3) 1,250 mcg (50,000 unit) capsule 50,000 unit PO Q7D Qty: 12 1RF Prolia 60 mg/mL syringe 60 mg subcut Q6MO Qty: 1 1RF (DME) Bedside Commode Misc See Rx Instructions .Route Qty: 1 0RF Rx Instructions: As directed (DME) Hospital Bed Misc See Rx Instructions .Route Qty: 1 0RF Rx Instructions: As directed (DME) [place] Pillow See Rx Instructions .Route .MEDSUPPLY Qty: 1 0RF Rx Instructions: As directed (DME) Wheelchair (Manual) Device See Rx Instructions .Route Qty: 1 0RF Rx Instructions: As directed, with cushion (DME) Lift Chair Misc See Rx Instructions .ROUTE .MEDSUPPLY Qty: 1 0RF Rx Instructions: As directed (DME) Shower Chair Misc See Rx Instructions .ROUTE .MEDSUPPLY Qty: 1 0RF Rx Instructions: As directed diclofenac sodium [Voltaren Arthritis Pain] 1 % gel 4 g topical QID PRN (Reason: Pain) Qty: 100 5RF metoprolol succinate 100 mg tablet extended release 24 hr 100 mg PO QAM Qty: 90 3RF metoprolol succinate 50 mg tablet extended release 24 hr 50 mg PO QPM Qty: 90 3RF digoxin 125 mcg (0.125 mg) tablet 125 mcg PO DAILY Qty: 90 3RF cyclosporine [Restasis] 0.05 % dropperette 1 drp OPB BID Discharge Orders: Discharge Order (Routine); Ordered 08/16/24 Ordered By: Crystal Walter Admission Data Admit Date/Time: 08/11/24 16:08 Attending Provider: Crystal Walter Admit Provider: Rip Ulloa Primary Care Provider: Basil Craig Other Providers: [facility]; Rip Ulloa Hospital Stay Data Consultations 08/11/24 13:56 ED Decision to Admit Stat Pending Results Patient Have Any Pending Studies at Discharge: Yes (blood cultures negative so far, but will not finalize until 08/15) Discharge Instructions Given to Patient (Per Discharging Provider) You were treated for sepsis (infection) - it may have been from a pneumonia, but the source of infection wasn't clearly determined and you got much better on antibiotics. This has resolved with antibiotics - last dose of antibiotics was today in the hospital We recommended halfway facility for rehab stay, however, you prefer home with home health Home health PT and OT We recommend 24h supervision by family until your mobility improves, because you are at risk of falls - would be a good idea to have family or friends stay with you the next few nights It was a pleasure taking care of you in the hospital, Crystal Walter MD Total Time Total Time Spent Total Time Spent (In Minutes): less than 30 minutes Coding Level of Care Code 36480 IN/OBS DISCH 30 MIN/LESS Diagnoses Sepsis, due to unspecified organism, unspecified whether acute organ dysfunction present A41.9 Sepsis acute organ dysfunction status: unspecified Sepsis type: sepsis due to unspecified organism Heart failure with reduced ejection fraction I50.20
== END 2024-08-16 12:45 | disposition home health service (06) | DRG 871 ==
LOC: ED 12:25 → 2S 16:08 → SUATTDRO 16:08 → 2S 16:54 → 3W 08-14 15:25